=== PATIENT | male | born 1965 | race Hispanic/Latino ===

== ENCOUNTER 2016-06-20 02:04 | Emergency (ER) | payer MEDICAID ==
[2016-06-20 02:04] VITALS: BMI 31.7
[2016-06-20 02:18] VITALS: BP 116/71; PULSE 87; TEMP 98; O2SAT 98
[2016-06-20 03:22] VITALS: RESP 20
--- NOTE | 2016-06-20 04:14 | ED PDOC ---
HPI: SOB/CHF/COPD Time Seen by Provider: 06/20/16 02:22 Chief Complaint (Nursing): Shortness Of Breath Chief Complaint (Provider): wheezing History Per: Patient History/Exam Limitations: no limitations Onset/Duration Of Symptoms: Mins Current Symptoms Are (Timing): Better Additional Complaint(s): 51yo homeless male with PMHx including chronic emphysema presents to the ED with c/o wheezing. On arrival to ED, patient states he is feeling better. Of note, patient states he cannot get inhaler because insurance does not kick in for another week. Past Medical History Reviewed: Historical Data, Nursing Documentation, Vital Signs Vital Signs: Last Vital Signs Temp 98.0 F 06/20/16 02:14 Pulse 87 06/20/16 02:14 Resp 20 06/20/16 03:19 BP 116/71 06/20/16 02:14 Pulse Ox 98 06/20/16 04:19 - Medical History PMH: Anxiety, Arthritis, Back Problems (chronic back pain ), Bipolar Disorder, COPD, Depression, Emphysema, Fractures (skull, right arm, right pinky), HTN, Pneumonia, Sleep Apnea Denies: Chronic Kidney Disease - Surgical History Surgical History: Appendectomy, Hernia Repair (ventral), Tonsillectomy - Family History Family History: States: No Known Family Hx - Immunization History Hx Tetanus Toxoid Vaccination: Yes (UTD) Hx Influenza Vaccination: Yes Hx Pneumococcal Vaccination: No - Home Medications Home Medications: Ambulatory Orders Medication Instructions Recorded No Known Home Med 06/20/16 - Allergies Allergies/Adverse Reactions: Allergies Allergy/AdvReac Type Severity Reaction Status Date / Time No Known Allergies Allergy Verified 06/06/16 00:43 Review of Systems ROS Statement: Except As Marked, All Systems Reviewed And Found Negative Respiratory: Positive for: Wheezing Physical Exam - Reviewed Nursing Documentation Reviewed: Yes Vital Signs Reviewed: Yes - Physical Exam Appears: Positive for: Well, No Acute Distress Head Exam: Positive for: ATRAUMATIC, NORMAL INSPECTION, NORMOCEPHALIC Skin: Positive for: Normal Color, Warm, Dry Eye Exam: Positive for: Normal appearance, EOMI, PERRL ENT: Positive for: Normal ENT Inspection Neck: Positive for: Normal, Painless ROM, Supple Cardiovascular/Chest: Positive for: Regular Rate, Rhythm. Negative for: Tachycardia Respiratory: Positive for: Normal Breath Sounds. Negative for: Wheezing, Respiratory Distress Gastrointestinal/Abdominal: Positive for: Normal Exam, Bowel Sounds, Soft. Negative for: Tenderness Back: Positive for: Normal Inspection Extremity: Positive for: Normal ROM. Negative for: Deformity, Swelling Neurologic/Psych: Positive for: Alert, Oriented - ECG O2 Sat by Pulse Oximetry: 98 Pulse Ox Interpretation: Normal (RA) Medical Decision Making Medical Decision Makin: Impression: chronic emphysema Patient stable for d/c. Scribe Attestation: Documented by Kelly Franklin acting as a scribe for Pedro Pablo Lentz MD. Provider Scribe Attestation: All medical record entries made by the Scribe were at my direction and personally dictated by me. I have reviewed the chart and agree that the record accurately reflects my personal performance of the history, physical exam, medical decision making, and the department course for this patient. I have also personally directed, reviewed, and agree with the discharge instructions and disposition. Disposition - Clinical Impression Clinical Impression: COPD (chronic obstructive pulmonary disease) - Patient ED Disposition Is Patient to be Admitted: No - Disposition Referrals: [facility] [Outside] Disposition: Routine/Home Disposition Time: 04:00 Condition: STABLE Instructions: Emphysema (ED)
== END 2016-06-20 05:52 | disposition home or self-care (01) ==
LOC: H.ER 02:04
DX: J44.9 Chronic obstructive pulmonary disease, unspecified (principal); I10 Essential (primary) hypertension; F31.9 Bipolar disorder, unspecified; Z59.0 Homelessness

== ENCOUNTER 2016-06-23 03:53 | Emergency (ER) | payer MEDICAID ==
[2016-06-23 03:53] VITALS: BMI 31.7
[2016-06-23 04:17] VITALS: BP 118/80; PULSE 92; TEMP 98.6; O2SAT 98
[2016-06-23] MEDS ORDERED: Albuterol-Ipratrop 3 mg / 0.5 (3 ml) UD INH STA (04:19)
[2016-06-23] MEDS ORDERED: Albuterol-Ipratrop 3 mg / 0.5 (3 ml) UD ONE (04:37)
--- NOTE | 2016-06-23 05:41 | ED PDOC ---
HPI: SOB/CHF/COPD Time Seen by Provider: 06/23/16 03:54 Chief Complaint (Nursing): Respiratory Distress Chief Complaint (Provider): SOB History Per: Patient History/Exam Limitations: no limitations Onset/Duration Of Symptoms: Persistent Current Symptoms Are (Timing): Still Present Additional Complaint(s): Colby Vasquez is a 51 y/o male, with a past medical history of COPD, presenting to the ER with shortness of breath. Patient is well-known to the ED and the provider as being undomiciled and exhibiting bed-seeking behavior. Patient is non-compliant and smokes daily despite history of COPD. Offers no other medical complaints. Past Medical History Reviewed: Historical Data, Nursing Documentation, Vital Signs Vital Signs: Last Vital Signs Temp 98.6 F 06/23/16 04:15 Pulse 92 H 06/23/16 04:15 Resp 22 06/23/16 06:09 BP 118/80 06/23/16 04:15 Pulse Ox 98 06/23/16 05:43 - Medical History PMH: Anxiety, Arthritis, Back Problems (chronic back pain ), Bipolar Disorder, COPD, Depression, Emphysema, Fractures (skull, right arm, right pinky), HTN, Pneumonia, Sleep Apnea Denies: Chronic Kidney Disease - Surgical History Surgical History: Appendectomy, Hernia Repair (ventral), Tonsillectomy - Family History Family History: States: Unknown Family Hx - Social History Current smoker - smoking cessation education provided: Yes - Immunization History Hx Tetanus Toxoid Vaccination: Yes (UTD) Hx Influenza Vaccination: Yes Hx Pneumococcal Vaccination: No - Home Medications Home Medications: Ambulatory Orders Medication Instructions Recorded No Known Home Med 06/20/16 - Allergies Allergies/Adverse Reactions: Allergies Allergy/AdvReac Type Severity Reaction Status Date / Time No Known Allergies Allergy Verified 06/06/16 00:43 Review of Systems ROS Statement: Except As Marked, All Systems Reviewed And Found Negative Constitutional: Negative for: Fever Respiratory: Positive for: Shortness of Breath Physical Exam - Reviewed Nursing Documentation Reviewed: Yes Vital Signs Reviewed: Yes - Physical Exam Appears: Positive for: Non-toxic, No Acute Distress Head Exam: Positive for: ATRAUMATIC, NORMOCEPHALIC Skin: Positive for: Normal Color Eye Exam: Positive for: Normal appearance, EOMI, PERRL ENT: Positive for: Normal ENT Inspection. Negative for: Pharyngeal Erythema, Tonsillar Exudate, Tonsillar Swelling Neck: Positive for: Normal, Painless ROM, Supple Cardiovascular/Chest: Positive for: Regular Rate, Rhythm. Negative for: Murmur Respiratory: Positive for: Wheezing (bilat ) Gastrointestinal/Abdominal: Positive for: Normal Exam, Soft. Negative for: Tenderness Extremity: Positive for: Normal ROM. Negative for: Deformity Neurologic/Psych: Positive for: Alert, Oriented, Gait (steady). Negative for: Motor/Sensory Deficits - ECG O2 Sat by Pulse Oximetry: 98 Medical Decision Making Medical Decision Makin:54 Initial Impression- 51 y/o male with wheezing and SOB in setting of known COPD Initial Plan- * EKG * Duoneb 3 ml INH * Peak Flow * Re-eval 05:30 Pt was re-evaluated. Pt remained asymptomatic at present. Pt will be discharged routinely. Clinical dx- bed-seeking behavior. Documented by Eve Fountain, acting as a scribe for Lazaro Worrell MD. All medical record entries made by the Scribe were at my direction and personally dictated by me. I have reviewed the chart and agree that the record accurately reflects my personal performance of the history, physical exam, medical decision making, and the department course for this patient. I have also personally directed, reviewed, and agree with the discharge instructions and disposition. Disposition - Clinical Impression Clinical Impression: COPD (chronic obstructive pulmonary disease) - Disposition Referrals: FAMILY PROVIDER,NO [Primary Care Provider] - Disposition: Routine/Home Disposition Time: 05:30 Condition: STABLE Instructions: COPD (Chronic Obstructive Pulmonary Disease) (ED)
[2016-06-23 06:11] VITALS: RESP 22
--- NOTE | 2016-06-23 08:15 | CARD ---
APPROVED REPORT EKG Measurement Heart [id number] <Conclusion> Normal sinus rhythm Normal ECG
== END 2016-06-23 05:58 | disposition home or self-care (01) ==
LOC: H.ER 03:53
DX: J44.9 Chronic obstructive pulmonary disease, unspecified (principal); F31.9 Bipolar disorder, unspecified

== ENCOUNTER 2016-06-26 01:44 | Emergency (ER) | payer MEDICAID ==
[2016-06-23 23:57] VITALS: BMI 31.7
[2016-06-26 02:32] VITALS: BP 147/88; PULSE 84; RESP 17; TEMP 98.7; O2SAT 98
--- NOTE | 2016-06-26 03:36 | ED PDOC ---
HPI: SOB/CHF/COPD Time Seen by Provider: 06/26/16 03:00 Chief Complaint (Nursing): Chest Pain Chief Complaint (Provider): SOB History Per: Patient History/Exam Limitations: no limitations Onset/Duration Of Symptoms: Days (3) Current Symptoms Are (Timing): Still Present Additional Complaint(s): 51yo male with PMHx including COPD (active smoker) presents to the ED with c/o SOB x 3 days. Patient is well known to ED and this provider for exhibiting drug- seeking behavior and has had multiple visits in the past week. No other medical complaints. Past Medical History Reviewed: Historical Data, Nursing Documentation, Vital Signs Vital Signs: Last Vital Signs Temp 98.7 F 06/26/16 02:29 Pulse 84 06/26/16 03:28 Resp 17 06/26/16 02:29 BP 147/88 06/26/16 02:29 Pulse Ox 98 06/26/16 03:41 - Medical History PMH: Anxiety, Arthritis, Back Problems (chronic back pain ), Bipolar Disorder, COPD, Depression, Emphysema, Fractures (skull, right arm, right pinky), HTN, Pneumonia, Sleep Apnea Denies: Chronic Kidney Disease - Surgical History Surgical History: Appendectomy, Hernia Repair (ventral), Tonsillectomy - Family History Family History: States: No Known Family Hx - Social History Current smoker - smoking cessation education provided: Yes Alcohol: None Drugs: Denies - Immunization History Hx Tetanus Toxoid Vaccination: Yes (UTD) Hx Influenza Vaccination: Yes Hx Pneumococcal Vaccination: No - Home Medications Home Medications: Ambulatory Orders Medication Instructions Recorded Advair Diskus 100/50 06/24/16 Albuterol Sulfate [Proventil Hfa] 6.7 gm IH Q6 #1 hfa.aer.ad 06/24/16 Amoxicillin 06/24/16 Ibuprofen 06/24/16 Lexapro 06/24/16 Methylprednisolone [Medrol Dose 4 mg PO DAILY #21 mg 06/24/16 Pack (21 tabs)] traZODone 06/24/16 - Allergies Allergies/Adverse Reactions: Allergies Allergy/AdvReac Type Severity Reaction Status Date / Time No Known Allergies Allergy Verified 06/24/16 00:15 Review of Systems ROS Statement: Except As Marked, All Systems Reviewed And Found Negative Respiratory: Positive for: Shortness of Breath Physical Exam - Reviewed Nursing Documentation Reviewed: Yes Vital Signs Reviewed: Yes - Physical Exam Appears: Positive for: Well, No Acute Distress Head Exam: Positive for: ATRAUMATIC, NORMAL INSPECTION, NORMOCEPHALIC Skin: Positive for: Normal Color, Warm, Dry Cardiovascular/Chest: Positive for: Regular Rate, Rhythm. Negative for: Murmur , Tachycardia Respiratory: Positive for: Normal Breath Sounds. Negative for: Wheezing, Respiratory Distress Gastrointestinal/Abdominal: Positive for: Normal Exam. Negative for: Tenderness Extremity: Positive for: Normal ROM. Negative for: Deformity, Swelling Neurologic/Psych: Negative for: Alert (somnolent, but easily arousable. sitting in chair with all belongings.) - ECG ECG: Positive for: Interpreted By Me, Viewed By Me ECG Rhythm: Positive for: Sinus Rhythm (NSR at 70 bpm, no ST elevation ) O2 Sat by Pulse Oximetry: 98 Pulse Ox Interpretation: Normal (RA) Medical Decision Making Medical Decision Makin: Impression: shortness of breath eKG no acute ST elevations pt sleeping without complaints Plan: Patient is sleeping comfortably and is stable for d/c. Instructed to f/u w/ his PCP in 1-2 days and return to ED with any worsening or concerning symptoms. Scribe Attestation: Documented by Kelly Franklin acting as a scribe for Ladonna Carter MD. Provider Scribe Attestation: All medical record entries made by the Scribe were at my direction and personally dictated by me. I have reviewed the chart and agree that the record accurately reflects my personal performance of the history, physical exam, medical decision making, and the department course for this patient. I have also personally directed, reviewed, and agree with the discharge instructions and disposition. Disposition - Clinical Impression Clinical Impression: Shortness of breath - Patient ED Disposition Is Patient to be Admitted: No Counseled Patient/Family Regarding: Studies Performed, Diagnosis, Need For Followup - Disposition Referrals: [facility] [Outside] [facility] [Outside] Disposition: Routine/Home Disposition Time: 03:00 Condition: GOOD Additional Instructions: follow up with your primary doctor in 1-2 days. return to the ED with any worsening or concerning symptoms. Instructions: Chest Pain (ED)
--- NOTE | 2016-06-26 11:52 | CARD ---
APPROVED REPORT EKG Measurement Heart [id number] <Conclusion> Normal sinus rhythm Incomplete right bundle branch block Borderline ECG
== END 2016-06-26 03:39 | disposition home or self-care (01) ==
LOC: H.ER 01:44
DX: R07.9 Chest pain, unspecified (principal); R06.02 Shortness of breath; F31.9 Bipolar disorder, unspecified; I10 Essential (primary) hypertension

== ENCOUNTER 2016-06-29 04:40 | Emergency (ER) | payer MEDICAID ==
[2016-06-29 04:40] VITALS: BMI 31.7
[2016-06-29 04:51] VITALS: BP 138/87; PULSE 85; RESP 16; TEMP 97.1; O2SAT 96
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
== END 2016-06-29 06:05 | disposition home or self-care (01) ==
LOC: H.ER 04:40
DX: M54.9 Dorsalgia, unspecified (principal); I10 Essential (primary) hypertension; F31.9 Bipolar disorder, unspecified

== ENCOUNTER 2016-07-03 02:35 | Emergency (ER) | payer MEDICAID ==
[2016-07-03 02:35] VITALS: BMI 31.7
[2016-07-03 03:01] VITALS: BP 140/88; PULSE 89; TEMP 98.7
[2016-07-03] MEDS ORDERED: Albuterol-Ipratrop 3 mg / 0.5 (3 ml) UD INH STA (03:07)
--- NOTE | 2016-07-03 03:14 | ED PDOC ---
HPI: SOB/CHF/COPD Time Seen by Provider: 07/03/16 02:40 Chief Complaint (Nursing): Shortness Of Breath Chief Complaint (Provider): SOB History Per: Patient History/Exam Limitations: no limitations Onset/Duration Of Symptoms: Days Current Symptoms Are (Timing): Still Present Additional Complaint(s): 51yo male with PMHx including COPD presents to the ED with c/o SOB. Patient is well known to the ED and this provider as being undomiciled and exhibiting bed- seeking behavior. Patient is non-compliant and smokes daily despite hx of COPD. Offers no other medical complaints. Past Medical History Reviewed: Historical Data, Nursing Documentation, Vital Signs Vital Signs: Last Vital Signs Temp 98.7 F 07/03/16 02:56 Pulse 89 07/03/16 02:56 Resp 19 07/03/16 04:19 BP 140/88 07/03/16 02:56 Pulse Ox 96 07/03/16 04:19 - Medical History PMH: Anxiety, Arthritis, Back Problems (chronic back pain ), Bipolar Disorder, COPD, Depression, Emphysema, Fractures (skull, right arm, right pinky), HTN, Pneumonia, Sleep Apnea Denies: Chronic Kidney Disease - Surgical History Surgical History: Appendectomy, Hernia Repair (ventral), Tonsillectomy - Family History Family History: States: No Known Family Hx - Social History Current smoker - smoking cessation education provided: Yes - Immunization History Hx Tetanus Toxoid Vaccination: Yes (UTD) Hx Influenza Vaccination: Yes Hx Pneumococcal Vaccination: No - Home Medications Home Medications: Ambulatory Orders Medication Instructions Recorded Advair Diskus 100/50 06/24/16 Albuterol Sulfate [Proventil Hfa] 6.7 gm IH Q6 #1 hfa.aer.ad 06/24/16 Amoxicillin 06/24/16 Ibuprofen 06/24/16 Lexapro 06/24/16 Methylprednisolone [Medrol Dose 4 mg PO DAILY #21 mg 06/24/16 Pack (21 tabs)] traZODone 06/24/16 Butenafine HCl [Lotrimin Ultra] 0.5 gm TP BID #12 gm 06/29/16 - Allergies Allergies/Adverse Reactions: Allergies Allergy/AdvReac Type Severity Reaction Status Date / Time No Known Allergies Allergy Verified 06/24/16 00:15 Review of Systems ROS Statement: Except As Marked, All Systems Reviewed And Found Negative Respiratory: Positive for: Shortness of Breath Physical Exam - Reviewed Nursing Documentation Reviewed: Yes Vital Signs Reviewed: Yes - Physical Exam Appears: Positive for: Well, No Acute Distress Head Exam: Positive for: ATRAUMATIC, NORMAL INSPECTION, NORMOCEPHALIC Skin: Positive for: Normal Color, Warm, Dry Eye Exam: Positive for: Normal appearance ENT: Positive for: Normal ENT Inspection Neck: Positive for: Normal, Painless ROM, Supple Cardiovascular/Chest: Positive for: Regular Rate, Rhythm. Negative for: Murmur , Tachycardia Respiratory: Positive for: Wheezing (b/l ). Negative for: Respiratory Distress Gastrointestinal/Abdominal: Positive for: Normal Exam, Bowel Sounds, Soft. Negative for: Tenderness Back: Positive for: Normal Inspection Extremity: Positive for: Normal ROM. Negative for: Deformity, Swelling Neurologic/Psych: Positive for: Alert, Oriented - ECG O2 Sat by Pulse Oximetry: 98 Pulse Ox Interpretation: Normal (RA) Medical Decision Making Medical Decision Makin: Impression: 51yo male w/ wheezing and SOB in setting of known COPD Plan: EKG duoneb 3ml INH reassess 0538: Patient feels improved and is stable for d/c. Dx: COPD stable Scribe Attestation: Documented by Kelly Franklin acting as a scribe for Lazaro Worrell MD. Provider Scribe Attestation: All medical record entries made by the Scribe were at my direction and personally dictated by me. I have reviewed the chart and agree that the record accurately reflects my personal performance of the history, physical exam, medical decision making, and the department course for this patient. I have also personally directed, reviewed, and agree with the discharge instructions and disposition. Disposition - Clinical Impression Clinical Impression: COPD (chronic obstructive pulmonary disease) - Patient ED Disposition Is Patient to be Admitted: No - Disposition Disposition: Routine/Home Disposition Time: 05:39 Condition: STABLE Instructions: COPD (Chronic Obstructive Pulmonary Disease) (ED)
[2016-07-03] MEDS ORDERED: Albuterol-Ipratrop 3 mg / 0.5 (3 ml) UD ONE (04:04)
[2016-07-03 04:21] VITALS: RESP 19
[2016-07-03 05:39] VITALS: O2SAT 98
--- NOTE | 2016-07-03 18:24 | CARD ---
APPROVED REPORT EKG Measurement Heart [id number] <Conclusion> Normal sinus rhythm Normal ECG
== END 2016-07-03 06:37 | disposition home or self-care (01) ==
LOC: H.ER 02:35
DX: J44.9 Chronic obstructive pulmonary disease, unspecified (principal); F31.9 Bipolar disorder, unspecified; F41.9 Anxiety disorder, unspecified; I10 Essential (primary) hypertension; F17.200 Nicotine dependence, unspecified, uncomplicated

== ENCOUNTER 2016-07-05 01:40 | Emergency (ER) | payer MEDICAID ==
[2016-07-05 01:40] VITALS: BMI 31.7
[2016-07-05 02:04] VITALS: RESP 16; TEMP 98.8; O2SAT 95
[2016-07-05 02:25] VITALS: BP 139/76; PULSE 80
--- NOTE | 2016-07-05 03:26 | ED PDOC ---
HPI: SOB/CHF/COPD Time Seen by Provider: 07/05/16 02:00 Chief Complaint (Nursing): Chest Pain Chief Complaint (Provider): chest pain History Per: Patient History/Exam Limitations: no limitations Onset/Duration Of Symptoms: Days (1 ) Current Symptoms Are (Timing): Intermittent Episodes Recently: Seen In ED Additional Complaint(s): 51yo male with PMHx including COPD (active smoker) presents to the ED with c/o chest pain on and off for 1 day. Patient is well known to ED and this provider for exhibiting drug-seeking behavior and has had multiple visits in the past week. No other medical complaints. Past Medical History Reviewed: Historical Data, Nursing Documentation, Vital Signs Vital Signs: Last Vital Signs Temp 98.8 F 07/05/16 02:02 Pulse 80 07/05/16 02:23 Resp 16 07/05/16 02:02 BP 139/76 07/05/16 02:23 Pulse Ox 95 07/05/16 04:15 - Medical History PMH: Anxiety, Arthritis, Back Problems (chronic back pain ), Bipolar Disorder, COPD, Depression, Emphysema, Fractures (skull, right arm, right pinky), HTN, Pneumonia, Sleep Apnea Denies: Chronic Kidney Disease - Surgical History Surgical History: Appendectomy, Hernia Repair (ventral), Tonsillectomy - Family History Family History: States: Unknown Family Hx - Social History Current smoker - smoking cessation education provided: Yes Alcohol: None Drugs: Denies - Immunization History Hx Tetanus Toxoid Vaccination: Yes (UTD) Hx Influenza Vaccination: Yes Hx Pneumococcal Vaccination: No - Home Medications Home Medications: Ambulatory Orders Medication Instructions Recorded Advair Diskus 100/50 2 puff INH BID 06/24/16 Albuterol Sulfate [Proventil Hfa] 6.7 gm IH Q6 #1 hfa.aer.ad 06/24/16 Lexapro 10 mg PO DAILY 06/24/16 - Allergies Allergies/Adverse Reactions: Allergies Allergy/AdvReac Type Severity Reaction Status Date / Time No Known Allergies Allergy Verified 07/05/16 02:02 Review of Systems ROS Statement: Except As Marked, All Systems Reviewed And Found Negative Cardiovascular: Positive for: Chest Pain Physical Exam - Reviewed Nursing Documentation Reviewed: Yes Vital Signs Reviewed: Yes - Physical Exam Appears: Positive for: No Acute Distress (disheveled ) Head Exam: Positive for: ATRAUMATIC, NORMAL INSPECTION, NORMOCEPHALIC Neck: Positive for: Normal, Painless ROM, Supple Cardiovascular/Chest: Positive for: Regular Rate, Rhythm. Negative for: Murmur , Tachycardia Respiratory: Positive for: Normal Breath Sounds. Negative for: Wheezing, Respiratory Distress Gastrointestinal/Abdominal: Positive for: Normal Exam, Bowel Sounds, Soft. Negative for: Tenderness Extremity: Positive for: Normal ROM. Negative for: Deformity, Swelling Neurologic/Psych: Positive for: Alert, Oriented - ECG ECG: Positive for: Interpreted By Me, Viewed By Me ECG Rhythm: Positive for: Sinus Rhythm (NSR at 83 ) O2 Sat by Pulse Oximetry: 95 Pulse Ox Interpretation: Normal (RA) Medical Decision Making Medical Decision Makin: Impression: chest pain Plan: EKG reassess 5: Patient stable for d/c. Scribe Attestation: Documented by Kelly Franklin acting as a scribe for Ladonna Carter MD. Provider Scribe Attestation: All medical record entries made by the Scribe were at my direction and personally dictated by me. I have reviewed the chart and agree that the record accurately reflects my personal performance of the history, physical exam, medical decision making, and the department course for this patient. I have also personally directed, reviewed, and agree with the discharge instructions and disposition. Disposition - Clinical Impression Clinical Impression: Acute chest pain - Patient ED Disposition Is Patient to be Admitted: No - Disposition Referrals: Yennifer Hurley MD [Primary Care Provider] - Disposition: Routine/Home Disposition Time: 04:00 Condition: FAIR Additional Instructions: follow up with your doctor in 2 days. return to the ED with any worsening or concerning symptoms Instructions: Chest Pain (ED)
== END 2016-07-05 05:30 | disposition home or self-care (01) ==
LOC: H.ER 01:40
DX: R07.9 Chest pain, unspecified (principal); F31.9 Bipolar disorder, unspecified; F41.9 Anxiety disorder, unspecified; I10 Essential (primary) hypertension

== ENCOUNTER 2016-07-13 01:32 | Emergency (ER) | payer MEDICAID ==
[2016-07-13 01:33] VITALS: BMI 31.7
[2016-07-13] MEDS ORDERED: Albuterol-Ipratrop 3 mg / 0.5 (3 ml) UD INH STA ×2 (01:48→01:49)
[2016-07-13 01:49] VITALS: RESP 23; TEMP 99.2; O2SAT 92
[2016-07-13] MEDS ORDERED: Albuterol-Ipratrop 3 mg / 0.5 (3 ml) UD ONE (01:51)
--- NOTE | 2016-07-13 02:04 | ED PDOC ---
HPI: SOB/CHF/COPD Time Seen by Provider: 07/13/16 01:41 Chief Complaint (Nursing): Chest Pain Chief Complaint (Provider): SOB History Per: Patient History/Exam Limitations: no limitations Onset/Duration Of Symptoms: Hrs Current Symptoms Are (Timing): Still Present Additional Complaint(s): 51yo male with PMHx including COPD presents to the ED with c/o SOB. Patient is well known to the ED and this provider as being undomiciled and exhibiting bed- seeking behavior. Patient is non-compliant and smokes daily despite hx of COPD. Offers no other medical complaints. Past Medical History Reviewed: Historical Data, Nursing Documentation, Vital Signs Vital Signs: Last Vital Signs Temp 99.2 F 07/13/16 01:46 Pulse 83 07/13/16 02:16 Resp 23 07/13/16 01:46 BP 157/89 H 07/13/16 02:16 Pulse Ox 92 L 07/13/16 02:05 - Medical History PMH: Anxiety, Arthritis, Back Problems (chronic back pain ), Bipolar Disorder, COPD, Depression, Emphysema, Fractures (skull, right arm, right pinky), HTN, Pneumonia, Sleep Apnea Denies: Chronic Kidney Disease - Surgical History Surgical History: Appendectomy, Hernia Repair (ventral), Tonsillectomy - Family History Family History: States: No Known Family Hx - Social History Current smoker - smoking cessation education provided: Yes Alcohol: None Drugs: Denies - Immunization History Hx Tetanus Toxoid Vaccination: Yes (UTD) Hx Influenza Vaccination: Yes Hx Pneumococcal Vaccination: No - Home Medications Home Medications: Ambulatory Orders Medication Instructions Recorded Advair Diskus 100/50 2 puff INH BID 06/24/16 Albuterol Sulfate [Proventil Hfa] 6.7 gm IH Q6 #1 hfa.aer.ad 06/24/16 Lexapro 10 mg PO DAILY 06/24/16 - Allergies Allergies/Adverse Reactions: Allergies Allergy/AdvReac Type Severity Reaction Status Date / Time No Known Allergies Allergy Verified 07/05/16 02:02 Review of Systems ROS Statement: Except As Marked, All Systems Reviewed And Found Negative Respiratory: Positive for: Shortness of Breath Physical Exam - Reviewed Nursing Documentation Reviewed: Yes Vital Signs Reviewed: Yes - Physical Exam Appears: Positive for: Well, No Acute Distress Head Exam: Positive for: ATRAUMATIC, NORMAL INSPECTION, NORMOCEPHALIC Skin: Positive for: Normal Color, Warm, Dry Eye Exam: Positive for: Normal appearance, EOMI, PERRL ENT: Positive for: Normal ENT Inspection Neck: Positive for: Normal, Painless ROM, Supple Cardiovascular/Chest: Positive for: Regular Rate, Rhythm. Negative for: Murmur , Tachycardia Respiratory: Positive for: Wheezing (b/l ). Negative for: Respiratory Distress Gastrointestinal/Abdominal: Positive for: Normal Exam, Bowel Sounds, Soft. Negative for: Tenderness Back: Positive for: Normal Inspection Extremity: Positive for: Normal ROM. Negative for: Deformity, Swelling Neurologic/Psych: Positive for: Alert, Oriented - ECG O2 Sat by Pulse Oximetry: 92 Medical Decision Making Medical Decision Makin: Impression: 51yo male w/ wheezing and SOB in setting of known COPD Plan: EKG duoneb 3ml x2 INH reassess 0400: Patient feels improved after duoneb treatments and is stable for d/c. Dx: COPD stable Scribe Attestation: Documented by Kelly Franklin acting as a scribe for Lazaro Worrell MD. Provider Scribe Attestation: All medical record entries made by the Scribe were at my direction and personally dictated by me. I have reviewed the chart and agree that the record accurately reflects my personal performance of the history, physical exam, medical decision making, and the department course for this patient. I have also personally directed, reviewed, and agree with the discharge instructions and disposition. Disposition - Clinical Impression Clinical Impression: COPD (chronic obstructive pulmonary disease) - Patient ED Disposition Is Patient to be Admitted: No - Disposition Disposition: Routine/Home Disposition Time: 04:00 Condition: STABLE Instructions: COPD (Chronic Obstructive Pulmonary Disease) (ED)
[2016-07-13 02:26] VITALS: BP 157/89; PULSE 83
--- NOTE | 2016-07-15 05:49 | CARD ---
APPROVED REPORT EKG Measurement Heart [id number] <Conclusion> Normal sinus rhythm Normal ECG
== END 2016-07-13 06:00 | disposition home or self-care (01) ==
LOC: H.ER 01:32
DX: J44.9 Chronic obstructive pulmonary disease, unspecified (principal); R07.89 Other chest pain

== ENCOUNTER 2016-07-16 23:25 | Emergency (ER) | payer MEDICAID ==
[2016-07-16 23:25] VITALS: BMI 31.7
[2016-07-16 23:42] VITALS: TEMP 98
[2016-07-17] MEDS ORDERED: Albuterol-Ipratrop 3 mg / 0.5 (3 ml) UD INH STA (00:08)
[2016-07-17] MEDS: Albuterol-Ipratrop 3 mg / 0.5 (3 ml) UD INH STA ×2 (00:13→00:14)
--- NOTE | 2016-07-17 02:13 | ED PDOC ---
HPI: CCC, URI, Sore Throat Time Seen by Provider: 07/17/16 00:02 Chief Complaint (Nursing): Shortness Of Breath Chief Complaint (Provider): cough History Per: Patient History/Exam Limitations: no limitations Have you had recent travel within the past 21 days to any of the following countries: [place], [place], [place] or [place]?: No Onset/Duration Of Symptoms: Days Current Symptoms Are (Timing): Still Present Additional Complaint(s): 51yo male well known to ED and provider for homelessness, COPD (active smoker) presents to the ED with c/o cough productive of green phlegm. No fevers. Patient reports associated wheezing. Of note, patient is hypoxic at 92-93% but upon chart review patient has O2 sats in that range likely secondary to COPD. Past Medical History Reviewed: Historical Data, Nursing Documentation, Vital Signs Vital Signs: Last Vital Signs Temp 98.0 F 07/16/16 23:34 Pulse 76 07/17/16 04:45 Resp 20 07/17/16 04:45 BP 126/67 07/17/16 04:45 Pulse Ox 94 L 07/17/16 04:45 - Medical History PMH: Anxiety, Arthritis, Back Problems (chronic back pain ), Bipolar Disorder, COPD, Depression, Emphysema, Fractures (skull, right arm, right pinky), HTN, Pneumonia, Sleep Apnea Denies: Chronic Kidney Disease - Surgical History Surgical History: Appendectomy, Hernia Repair (ventral), Tonsillectomy - Family History Family History: States: Unknown Family Hx - Social History Current smoker - smoking cessation education provided: Yes - Immunization History Hx Tetanus Toxoid Vaccination: Yes (UTD) Hx Influenza Vaccination: Yes Hx Pneumococcal Vaccination: No - Home Medications Home Medications: Ambulatory Orders Medication Instructions Recorded Advair Diskus 100/50 2 puff INH BID 06/24/16 Albuterol Sulfate [Proventil Hfa] 6.7 gm IH Q6 #1 hfa.aer.ad 06/24/16 Lexapro 10 mg PO DAILY 06/24/16 Albuterol HFA [Ventolin HFA 90 2 puff IH [id number] #1 puff 07/15/16 mcg/actuation (8 g)] predniSONE [predniSONE Tab] 60 mg PO DAILY #9 tab 07/17/16 - Allergies Allergies/Adverse Reactions: Allergies Allergy/AdvReac Type Severity Reaction Status Date / Time No Known Allergies Allergy Verified 07/16/16 23:34 Review of Systems ROS Statement: Except As Marked, All Systems Reviewed And Found Negative Constitutional: Negative for: Fever Respiratory: Positive for: Cough, Wheezing Physical Exam - Reviewed Nursing Documentation Reviewed: Yes Vital Signs Reviewed: Yes - Physical Exam Appears: Positive for: No Acute Distress (disheveled ) Head Exam: Positive for: ATRAUMATIC, NORMAL INSPECTION, NORMOCEPHALIC Skin: Positive for: Normal Color, Warm, Dry Eye Exam: Positive for: Normal appearance, EOMI, PERRL ENT: Positive for: Normal ENT Inspection Neck: Positive for: Normal, Painless ROM, Supple Cardiovascular/Chest: Positive for: Regular Rate, Rhythm. Negative for: Murmur , Tachycardia Respiratory: Positive for: Wheezing (b/l ). Negative for: Respiratory Distress Gastrointestinal/Abdominal: Positive for: Normal Exam, Bowel Sounds, Soft. Negative for: Tenderness Back: Positive for: Normal Inspection Extremity: Positive for: Normal ROM. Negative for: Deformity, Swelling Neurologic/Psych: Positive for: Alert, Oriented - ECG O2 Sat by Pulse Oximetry: 99 Pulse Ox Interpretation: Normal Medical Decision Making Medical Decision Makin: Impression: COPD Plan: CXR duoneb 3ml INH x2, prednisone 60mg PO reassess 630aM: Pt. breathing better, will d/c home w/ prednisone. REturn precautions given. Scribe Attestation: Documented by Kelly Franklin acting as a scribe for Pedro Pablo Lentz MD. Provider Scribe Attestation: All medical record entries made by the Scribe were at my direction and personally dictated by me. I have reviewed the chart and agree that the record accurately reflects my personal performance of the history, physical exam, medical decision making, and the department course for this patient. I have also personally directed, reviewed, and agree with the discharge instructions and disposition. Disposition - Clinical Impression Clinical Impression: COPD (chronic obstructive pulmonary disease) - Patient ED Disposition Is Patient to be Admitted: No - Disposition Disposition: Routine/Home Disposition Time: 06:29 Condition: STABLE Prescriptions: predniSONE [predniSONE Tab] 60 mg PO DAILY #9 tab Instructions: COPD (Chronic Obstructive Pulmonary Disease) (DC)
[2016-07-17 04:46] VITALS: BP 126/67; PULSE 76; RESP 20
[2016-07-17 06:30] VITALS: O2SAT 99
--- NOTE | 2016-07-17 08:44 | RAD ---
HISTORY: cough, green phlegm, r/o PNA COMPARISON: 06/15/2016. TECHNIQUE: Chest PA and lateral FINDINGS: LUNGS: Hyperinflation, manifestations of COPD. No active pulmonary disease. Stable interstitial lung disease. PLEURA: No significant pleural effusion identified. No pneumothorax apparent. CARDIOVASCULAR: Normal. OSSEOUS STRUCTURES: No significant abnormalities. VISUALIZED UPPER ABDOMEN: Normal. OTHER FINDINGS: None. IMPRESSION: No active disease. No significant interval change compared to the prior examination(s).
== END 2016-07-17 06:44 | disposition home or self-care (01) ==
LOC: H.ER 23:25
DX: J44.9 Chronic obstructive pulmonary disease, unspecified (principal); R05 Cough; Z59.0 Homelessness; G89.29 Other chronic pain; F31.9 Bipolar disorder, unspecified; F41.9 Anxiety disorder, unspecified; I10 Essential (primary) hypertension; G47.30 Sleep apnea, unspecified

== ENCOUNTER 2016-07-24 01:57 | Observation (INO) | payer MEDICAID ==
[2016-07-24 01:57] VITALS: BMI 31.7
[2016-07-24 02:12] VITALS: BP 145/92; PULSE 92; RESP 16; TEMP 98.3; O2SAT 95
[2016-07-24] MEDS ORDERED: Albuterol-Ipratrop 3 mg / 0.5 (3 ml) UD INH STA ×2 (02:19)
[2016-07-24] MEDS ORDERED: Albuterol-Ipratrop 3 mg / 0.5 (3 ml) UD ONE (02:29)
--- NOTE | 2016-07-24 02:46 | ED PDOC ---
HPI: SOB/CHF/COPD Time Seen by Provider: 07/24/16 02:00 Chief Complaint (Nursing): Respiratory Distress Chief Complaint (Provider): SOB History Per: Patient History/Exam Limitations: no limitations Onset/Duration Of Symptoms: Hrs Current Symptoms Are (Timing): Still Present Additional Complaint(s): 51yo male well known to ED for homelessness and COPD presents to the ED for evaluation of chronic SOB. Admits to drinking alcohol today. Denies any other medical complaints. Past Medical History Reviewed: Historical Data, Nursing Documentation, Vital Signs Vital Signs: Last Vital Signs Temp 98.3 F 07/24/16 02:07 Pulse 92 H 07/24/16 02:07 Resp 16 07/24/16 02:07 BP 145/92 H 07/24/16 02:07 Pulse Ox 95 07/24/16 06:19 - Medical History PMH: Anxiety, Arthritis, Back Problems (chronic back pain ), Bipolar Disorder, COPD, Depression, Emphysema, Fractures (skull, right arm, right pinky), HTN, Pneumonia, Sleep Apnea Denies: Chronic Kidney Disease - Surgical History Surgical History: Appendectomy, Hernia Repair (ventral), Tonsillectomy - Family History Family History: States: No Known Family Hx - Social History Current smoker - smoking cessation education provided: Yes - Immunization History Hx Tetanus Toxoid Vaccination: Yes (UTD) Hx Influenza Vaccination: Yes Hx Pneumococcal Vaccination: No - Home Medications Home Medications: Ambulatory Orders Medication Instructions Recorded Advair Diskus 100/50 2 puff INH BID 06/24/16 Albuterol HFA [Ventolin HFA 90 2 puff IH [id number] #1 puff 07/15/16 mcg/actuation (8 g)] - Allergies Allergies/Adverse Reactions: Allergies Allergy/AdvReac Type Severity Reaction Status Date / Time No Known Allergies Allergy Verified 07/23/16 02:36 Review of Systems ROS Statement: Except As Marked, All Systems Reviewed And Found Negative Respiratory: Positive for: Shortness of Breath Physical Exam - Reviewed Nursing Documentation Reviewed: Yes Vital Signs Reviewed: Yes - Physical Exam Appears: Positive for: No Acute Distress (disheveled, unkempt, obese ) Head Exam: Positive for: ATRAUMATIC, NORMAL INSPECTION, NORMOCEPHALIC Skin: Positive for: Normal Color, Warm, Dry Eye Exam: Positive for: Normal appearance ENT: Positive for: Normal ENT Inspection Neck: Positive for: Normal, Painless ROM, Supple Cardiovascular/Chest: Positive for: Regular Rate, Rhythm. Negative for: Murmur , Tachycardia Respiratory: Positive for: Wheezing (b/l ). Negative for: Respiratory Distress Gastrointestinal/Abdominal: Positive for: Normal Exam, Bowel Sounds, Soft. Negative for: Tenderness Back: Positive for: Normal Inspection. Negative for: L CVA Tenderness, R CVA Tenderness Extremity: Positive for: Normal ROM. Negative for: Deformity, Swelling Neurologic/Psych: Positive for: Alert, Oriented - ECG O2 Sat by Pulse Oximetry: 95 Pulse Ox Interpretation: Normal Medical Decision Making Medical Decision Makin: Impression: homelessness and COPD Plan: alc serum duoneb 3ml INH x 2 ED obs reassess 0618: Patient feels better and stable for d/c. Return precautions given. Scribe Attestation: Documented by Kelly Franklin acting as a scribe for Pedro Pablo Lentz MD. Provider Scribe Attestation: All medical record entries made by the Scribe were at my direction and personally dictated by me. I have reviewed the chart and agree that the record accurately reflects my personal performance of the history, physical exam, medical decision making, and the department course for this patient. I have also personally directed, reviewed, and agree with the discharge instructions and disposition. ED OBSERVATION Date of observation admission: 07/24/16 Time of observation admission: 02:20 - Observation admission statement Patient is being placed in observation because:: ETOH - Goals of Observation Goals of observation are:: pending sobriety Disposition - Clinical Impression Clinical Impression: COPD exacerbation - Patient ED Disposition Is Patient to be Admitted: No - Disposition Disposition: Routine/Home Disposition Time: 06:18 Condition: STABLE
== END 2016-07-24 06:18 | disposition home or self-care (01) ==
LOC: H.ER 01:57 → H.EROBSV 02:20
PROVIDERS: ADMIT Emergency Medicine; ATTEND Emergency Medicine
DX: J44.1 Chronic obstructive pulmonary disease with (acute) exacerbation (principal); Z59.0 Homelessness; I10 Essential (primary) hypertension; G47.30 Sleep apnea, unspecified; F31.9 Bipolar disorder, unspecified; F17.200 Nicotine dependence, unspecified, uncomplicated; Z79.51 Long term (current) use of inhaled steroids; G89.29 Other chronic pain; M54.9 Dorsalgia, unspecified

== ENCOUNTER 2016-07-31 23:48 | Observation (INO) | payer MEDICAID ==
[2016-07-31 23:48] VITALS: BMI 31.7
[2016-08-01] MEDS ORDERED: Albuterol-Ipratrop 3 mg / 0.5 (3 ml) UD INH STA ×3 (00:01→00:17)
[2016-08-01] MEDS ORDERED: Magnesium Sulfate 2 gm/50 ml 2 GM/50 ML BAG IV STA (00:18)
[2016-08-01] MEDS ORDERED: Magnesium Sulfate 2 gm/50 ml 2 GM/50 ML BAG ONE (00:24)
[2016-08-01] MEDS ORDERED: Albuterol-Ipratrop 3 mg / 0.5 (3 ml) UD ONE (00:24)
--- NOTE | 2016-08-01 00:36 | ED PDOC ---
HPI: SOB/CHF/COPD Time Seen by Provider: 07/31/16 23:52 Chief Complaint (Nursing): Shortness Of Breath Chief Complaint (Provider): Wheezing History Per: Patient History/Exam Limitations: no limitations Onset/Duration Of Symptoms: Hrs Current Symptoms Are (Timing): Still Present Additional Complaint(s): 51yo male with PMHx including COPD presents to the ED with c/o SOB. Patient is well known to the ED and this provider as being undomiciled and exhibiting bed- seeking behavior. Patient is non-compliant and smokes daily despite hx of COPD. Offers no other medical complaints. The patient reports that he has not used his pump. He was given albuterol by the EMS. Past Medical History Reviewed: Historical Data, Nursing Documentation, Vital Signs Vital Signs: Last Vital Signs Temp 96.7 F L 07/31/16 23:52 Pulse 76 07/31/16 23:52 Resp 19 07/31/16 23:52 BP 113/63 07/31/16 23:52 Pulse Ox 98 08/01/16 03:00 - Medical History PMH: Anxiety, Arthritis, Back Problems (chronic back pain ), Bipolar Disorder, COPD, Depression, Emphysema, Fractures (skull, right arm, right pinky), HTN, Pneumonia, Sleep Apnea Denies: Chronic Kidney Disease - Surgical History Surgical History: Appendectomy, Hernia Repair (ventral), Tonsillectomy - Family History Family History: States: No Known Family Hx - Social History Current smoker - smoking cessation education provided: Yes Alcohol: Occasional - Immunization History Hx Tetanus Toxoid Vaccination: Yes (UTD) Hx Influenza Vaccination: Yes Hx Pneumococcal Vaccination: No - Home Medications Home Medications: Ambulatory Orders Medication Instructions Recorded Advair Diskus 100/50 2 puff INH BID 06/24/16 Albuterol HFA [Ventolin HFA 90 2 puff IH [id number] #1 puff 07/15/16 mcg/actuation (8 g)] - Allergies Allergies/Adverse Reactions: Allergies Allergy/AdvReac Type Severity Reaction Status Date / Time No Known Allergies Allergy Verified 07/31/16 23:55 Review of Systems ROS Statement: Except As Marked, All Systems Reviewed And Found Negative Respiratory: Positive for: Shortness of Breath, Wheezing Physical Exam - Reviewed Nursing Documentation Reviewed: Yes Vital Signs Reviewed: Yes - Physical Exam Appears: Positive for: Well, In Acute Distress (mild respiratory ) Head Exam: Positive for: ATRAUMATIC, NORMAL INSPECTION, NORMOCEPHALIC Skin: Positive for: Normal Color, Warm, Dry Eye Exam: Positive for: Normal appearance, EOMI, PERRL ENT: Positive for: Normal ENT Inspection Neck: Positive for: Normal, Painless ROM, Supple Cardiovascular/Chest: Positive for: Regular Rate, Rhythm. Negative for: Murmur , Tachycardia Respiratory: Positive for: Wheezing (full field wheezing), Respiratory Distress (mild respiratory distress) Gastrointestinal/Abdominal: Positive for: Normal Exam, Soft. Negative for: Tenderness Back: Positive for: Normal Inspection Extremity: Positive for: Normal ROM. Negative for: Tenderness, Deformity, Swelling Neurologic/Psych: Positive for: Alert, Oriented - Laboratory Results Result Diagrams: 08/01/16 00:45 08/01/16 00:45 - ECG O2 Sat by Pulse Oximetry: 98 (RA) Pulse Ox Interpretation: Normal - Critical Care Total Time (In Min): 30 Medical Decision Making Medical Decision Makin:52 Initial impression: 51 year old male w/ wheezing and SOB in setting of known COPD. Initial plan: * EKG * Alcohol serum * CMP * Drug screen * CBC * Duoneb 3ml INH x3 * Magnesium sulfate 2gm/50mL water IV * CXR 0145: Labs reviewed, show no clinically significant abnormalities with exception of mild elevation of blood alcohol level. The patient shows mild improvement but has persistent wheezing. Chest X-ray shows no acute disease. Patient will be placed on observation status. Dx: asthma/COPD exacerbation Condition: fair Case referred to Dr. Mulligan(Medical service) Scribe Attestation Documented by Quynh Hayward training under Bear Franklin acting as a scribe for Anaid Sy MD. Provider Attestation: All medical record entries made by the Scribe were at my direction and personally dictated by me. I have reviewed the chart and agree that the record accurately reflects my personal performance of the history, physical exam, medical decision making, and the department course for this patient. I have also personally directed, reviewed, and agree with the discharge instructions and disposition. Disposition - Clinical Impression Clinical Impression: COPD exacerbation - Disposition Disposition Time: 01:45 Condition: FAIR - Pt Status Changed To: Hospital Disposition Of: Observation
[2016-08-01 00:48] LABS: BASO # 0.1 K/uL (0.0-0.2); BASO % 1.1 % (0.0-2.0); EOS # 0.3 K/uL (0.0-0.7); EOS % 3.8 % (0.0-4.0); HEMATOCRIT 50.2 % (35.0-51.0); LYMPH # 2.4 K/uL (1.0-4.3); LYMPH % 31.2 % (20.0-40.0); MEAN CELL VOLUME 97.1 fl (80.0-94.0); MEAN CORPUSCULAR HEMOGLOBIN 32.6 pg (27.0-31.0); MEAN CORPUSCULAR HGB CONC 33.6 g/dL (33.0-37.0); MEAN PLATELET VOLUME 8.2 fl (7.2-11.7); MONO # 0.9 K/uL (0.0-0.8); MONO % 11.4 % (0.0-10.0); NEUT % 52.5 % (50.0-75.0); NRBC % 0.1 % (0.0-0.0); RED CELL DISTRIBUTION WIDTH 14.1 % (11.5-14.5); WHITE BLOOD COUNT 7.7 K/uL (4.8-10.8)
[2016-08-01 01:03] LABS: ALB/GLOB RATIO 1.2 (1.0-2.1); ALCOHOL SERUM 134 mg/dl (0-10); ALKALINE PHOSPHATASE 94 U/L (38-126); ALT/SGPT 68 U/L (21-72); AST/SGOT 47 U/L (17-59); BILIRUBIN,TOTAL 0.5 mg/dl (0.2-1.3); BLOOD UREA NITROGEN 16 mg/dl (9-20); CALCIUM 9.1 mg/dL (8.4-10.2); CARBON DIOXIDE 28 mmol/L (22-30); CHLORIDE 102 mmol/L (98-107); GFR AFRICAN-AMERICAN > 60; GLUCOSE,RANDOM 138 mg/dL (75-110); SODIUM 140 mmol/l (132-148); TOTAL PROTEIN 6.6 G/DL (6.3-8.2)
[2016-08-01] MEDS: methylPREDNISolone 40 MG in Sodium Chloride 0.9% 50 ML IVPB SCH ×2 (04:45→09:32)
[2016-08-01 05:22] VITALS: RESP 20
[2016-08-01] MEDS: Ipratropium 0.02% Inhal Soln (0.5 mg/2.5 ml) UD IH SCH ×4 (05:49→15:50)
[2016-08-01] MEDS: Albuterol 0.083% Inhal Sol (2.5 mg/3 mL) UD INH SCH ×4 (05:49→15:45)
[2016-08-01] MEDS ORDERED: Multivitamin (MVI) 10 ML, Folic Acid 1 MG, Thiamine 100 MG in Dextrose 5%/0.45% NS 1,00... IV ONE (08:08)
--- NOTE | 2016-08-01 08:43 | RAD ---
HISTORY: SOB COMPARISON: Comparison is made to the previous study dated 07/17/2016 FINDINGS: LUNGS: Interval mild worsening of reticular opacities at the mid and lower lungs may represent worsening pulmonary vascular congestion. PLEURA: No significant pleural effusion identified, no pneumothorax apparent. CARDIOVASCULAR: Normal. OSSEOUS STRUCTURES: No significant abnormalities. VISUALIZED UPPER ABDOMEN: Normal. OTHER FINDINGS: None. IMPRESSION: Possible mild interval worsening of pulmonary vascular congestion.
[2016-08-01] MEDS ORDERED: Enoxaparin 40 mg Syringe SC SCH (09:00)
[2016-08-01] MEDS ORDERED: Fluticasone-Salmeterol 250-50mcg Diskus IH SCH (09:00)
[2016-08-01] MEDS ORDERED: ADVAIR INH SCH (09:00)
[2016-08-01] MEDS ORDERED: ACLIDINIUM BROMIDE INH SCH (09:00)
--- NOTE | 2016-08-01 10:08 | CARD ---
APPROVED REPORT EKG Measurement Heart [id number] <Conclusion> Normal sinus rhythm Normal ECG
--- NOTE | 2016-08-01 12:14 | CP.PCM.HP ---
History of Present Illness - History of Present Illness History of Present Illness: 49yo M with PMHx sleep apnea, emphysema, asthma, COPD, and depression admitted for asthma/COPD exacerbation. SOB x4 days while at rest. Current smoker 1.5-2 ppd x30 years. Chronic productive cough, clear sputum. Denies fever, chills, H/A , n/v, chest pain, wheezing. Denies using home oxygen. Denies h/o intubation. Not compliant with medications PMHx; Emphysema, Sleep Apnea, Depression, Arthritis (Back and Neck problems) Surgrical Hx: appendectomy, skull fracture surgery Allergies: NKDA Medications: Advar 250/50, Albuterol, Wellbutrin, and Lexapro Social Hx: 1.5-2 ppd x30 years, denies EtOH, denies illict drugs Family Hx; DM- Dad PMD: Dr. Finney Present on Admission - Present on Admission Any Indicators Present on Admission: No Review of Systems - Constitutional Constitutional: absent: Chills, Fever - EENT Nose/Mouth/Throat: absent: Nasal Congestion - Cardiovascular Cardiovascular: absent: Chest Pain - Respiratory Respiratory: Dyspnea. absent: Hemoptysis, Excessive Mucous Production, Change in Mucous Color - Gastrointestinal Gastrointestinal: absent: Abdominal Pain, Diarrhea, Nausea, Vomiting - Genitourinary Genitourinary: absent: Dysuria, Hematuria - Musculoskeletal Musculoskeletal: absent: Back Pain - Neurological Neurological: absent: Headaches Past Patient History - Infectious Disease Hx of Infectious Diseases: None - Tetanus Immunizations Tetanus Immunization: Unknown - Past Medical History & Family History Past Medical History?: Yes - Past Social History Smoking Status: Heavy Smoker > 10 Cigarettes Daily - CARDIAC Hx Cardiac Disorders: Yes Hx Hypertension: Yes - PULMONARY Hx Respiratory Disorders: Yes Hx Chronic Obstructive Pulmonary Disease (COPD): Yes Hx Emphysema: Yes Hx Sleep Apnea: Yes - NEUROLOGICAL Hx Neurological Disorder: No - HEENT Hx HEENT Problems: No - RENAL Hx Chronic Kidney Disease: No - ENDOCRINE/METABOLIC Hx Endocrine Disorders: No - HEMATOLOGICAL/ONCOLOGICAL Hx Blood Disorders: No - INTEGUMENTARY Hx Dermatological Problems: No - MUSCULOSKELETAL/RHEUMATOLOGICAL Hx Falls: Yes - GASTROINTESTINAL Hx Gastrointestinal Disorders: No - GENITOURINARY/GYNECOLOGICAL Hx Genitourinary Disorders: No - PSYCHIATRIC Hx Anxiety: Yes Hx Bipolar Disorder: Yes Hx Depression: Yes Hx Substance Use: Yes - SURGICAL HISTORY Hx Appendectomy: Yes Hx Herniorrhaphy: Yes Hx Tonsillectomy: Yes - ANESTHESIA Hx Anesthesia: Yes Hx Anesthesia Reactions: No Meds Allergies/Adverse Reactions: Allergies Allergy/AdvReac Type Severity Reaction Status Date / Time No Known Allergies Allergy Verified 07/31/16 23:55 Physical Exam - Constitutional Appears: Non-toxic, No Acute Distress - Head Exam Head Exam: NORMAL INSPECTION - Eye Exam Eye Exam: Normal appearance - ENT Exam ENT Exam: Mucous Membranes Moist - Neck Exam Neck exam: Positive for: Normal Inspection - Respiratory Exam Respiratory Exam: Wheezes - Cardiovascular Exam Cardiovascular Exam: REGULAR RHYTHM - GI/Abdominal Exam GI & Abdominal Exam: Normal Bowel Sounds, Soft - Extremities Exam Extremities exam: Positive for: pedal edema (trace) - Neurological Exam Neurological exam: Alert, Oriented x3 - Skin Skin Exam: Dry, Warm Results - Vital Signs Recent Vital Signs: Last Vital Signs Temp 98.3 F 08/01/16 08:19 Pulse 93 H 08/01/16 08:19 Resp 20 08/01/16 08:19 BP 163/91 H 08/01/16 08:19 Pulse Ox 96 08/01/16 08:19 - Labs Result Diagrams: 08/01/16 00:45 08/01/16 00:45 Labs: Laboratory Results - last 24 hr 08/01/16 04:31 Urine Opiates Screen Negative Urine Methadone Screen Negative Ur Barbiturates Screen Negative Ur Phencyclidine Scrn Negative Ur Amphetamines Screen Negative U Benzodiazepines Scrn Negative U Oth Cocaine Metabols Negative U Cannabinoids Screen Positive H Assessment & Plan - Assessment and Plan (Free Text) Assessment: 49yo M with PMHx sleep apnea, emphysema, asthma, COPD, and depression admitted for asthma/COPD exacerbation. asthma exacerbation -albuterol -IV steroids -depo medrol 80mg IM x1 prior to d/c -c/w advair, atrovent EtOH withdrawal -elevated alcohol quant -banana bag x1 -librium, ativan prn -CIWA protocol DVT ppx -lovenox Decision To Admit - Pt Status Changed To: Hospital Disposition Of: Observation - . Bed Request Type: Telemetry Admitting Physician: Donovan Mulligan
--- NOTE | 2016-08-01 12:29 | CP.PCM.DIS ---
Provider - Provider Date of Admission: 08/01/16 02:07 Attending physician: Donovan Mulligan MD Time Spent in preparation of Discharge (in minutes): 20 Diagnosis - Discharge Diagnosis (1) Asthma exacerbation in COPD Status: Acute Hospital Course - Lab Results Lab Results: Most Recent Lab Values WBC 7.7 K/uL (4.8-10.8) 08/01/16 00:45 RBC 5.17 Mil/uL (4.40-5.90) 08/01/16 00:45 Hgb 16.9 g/dL (12.0-18.0) 08/01/16 00:45 Hct 50.2 % (35.0-51.0) 08/01/16 00:45 MCV 97.1 fl (80.0-94.0) H 08/01/16 00:45 MCH 32.6 pg (27.0-31.0) H 08/01/16 00:45 MCHC 33.6 g/dL (33.0-37.0) 08/01/16 00:45 RDW 14.1 % (11.5-14.5) 08/01/16 00:45 Plt Count 196 K/uL (130-400) 08/01/16 00:45 MPV 8.2 fl (7.2-11.7) 08/01/16 00:45 Neut % (Auto) 52.5 % (50.0-75.0) 08/01/16 00:45 Lymph % (Auto) 31.2 % (20.0-40.0) 08/01/16 00:45 Hayes % (Auto) 11.4 % (0.0-10.0) H 08/01/16 00:45 Eos % (Auto) 3.8 % (0.0-4.0) 08/01/16 00:45 Baso % (Auto) 1.1 % (0.0-2.0) 08/01/16 00:45 Neut # 4.0 K/uL (1.8-7.0) 08/01/16 00:45 Lymph # 2.4 K/uL (1.0-4.3) 08/01/16 00:45 Hayes # 0.9 K/uL (0.0-0.8) H 08/01/16 00:45 Eos # 0.3 K/uL (0.0-0.7) 08/01/16 00:45 Baso # 0.1 K/uL (0.0-0.2) 08/01/16 00:45 Sodium 140 mmol/l (132-148) 08/01/16 00:45 Potassium 4.0 MMOL/L (3.6-5.0) 08/01/16 00:45 Chloride 102 mmol/L (98-107) 08/01/16 00:45 Carbon Dioxide 28 mmol/L (22-30) 08/01/16 00:45 Anion Gap 14 (10-20) 08/01/16 00:45 BUN 16 mg/dl (9-20) 08/01/16 00:45 Creatinine 0.7 mg/dL (0.8-1.5) L 08/01/16 00:45 Est GFR ( Amer) > 60 05 00:45 Est GFR (Non-Af Amer) > 60 08/01/16 00:45 Random Glucose 138 mg/dL (75-110) H 08/01/16 00:45 Calcium 9.1 mg/dL (8.4-10.2) 08/01/16 00:45 Total Bilirubin 0.5 mg/dl (0.2-1.3) 08/01/16 00:45 AST 47 U/L (17-59) 08/01/16 00:45 ALT 68 U/L (21-72) 08/01/16 00:45 Alkaline Phosphatase 94 U/L (38-126) 08/01/16 00:45 Total Protein 6.6 G/DL (6.3-8.2) 08/01/16 00:45 Albumin 3.6 g/dL (3.5-5.0) 08/01/16 00:45 Globulin 3.0 gm/dL (2.2-3.9) 08/01/16 00:45 Albumin/Globulin Ratio 1.2 (1.0-2.1) 08/01/16 00:45 Urine Opiates Screen Negative (NEGATIVE) 08/01/16 04:31 Urine Methadone Screen Negative (NEGATIVE) 08/01/16 04:31 Ur Barbiturates Screen Negative (NEGATIVE) 08/01/16 04:31 Ur Phencyclidine Scrn Negative (NEGATIVE) 08/01/16 04:31 Ur Amphetamines Screen Negative (NEGATIVE) 08/01/16 04:31 U Benzodiazepines Scrn Negative (NEGATIVE) 08/01/16 04:31 U Oth Cocaine Metabols Negative (NEGATIVE) 08/01/16 04:31 U Cannabinoids Screen Positive (NEGATIVE) H 08/01/16 04:31 Alcohol, Quantitative 134 mg/dl (0-10) H 08/01/16 00:45 - Hospital Course Hospital Course: 49yo M with PMHx sleep apnea, emphysema, asthma, COPD, and depression admitted for asthma/COPD exacerbation. Pt tolerated IV steroids and administered IM steroid prior to d/c. Breathing treaments included albuterol on the RMF and duonebs x3 in the ED. Mg 2gm IV x1 in the ED as well. Pt continued to have wheezing with increased movement of air in the lung lion at time of d/c but feeling ready for d/c. EtOH withdrawal protocol was in place given elevated alcohol level.Pt stable at time of d/c. Discharge Exam - Head Exam Head Exam: NORMAL INSPECTION Discharge Plan - Follow Up Plan Condition: FAIR Disposition: HOME/ ROUTINE Instructions: COPD (Chronic Obstructive Pulmonary Disease) (DC) Additional Instructions: Follow up with PCP within 1 week
[2016-08-01] MEDS ORDERED: methylPREDNISolone Depo 80 mg/ml Inj IM ONE (14:00)
[2016-08-01 15:51] VITALS: BP 162/82; PULSE 89; TEMP 98.5; O2SAT 96
== END 2016-08-01 16:00 | disposition home or self-care (01) ==
LOC: H.ER 23:48 → H.ERHOLD 08-01 02:07 → H.TEL 08-01 04:46
PROVIDERS: ADMIT Internal Medicine; ATTEND Internal Medicine
DX: J45.901 Unspecified asthma with (acute) exacerbation (principal); J44.9 Chronic obstructive pulmonary disease, unspecified; Z91.14 Patient's other noncompliance with medication regimen; F17.200 Nicotine dependence, unspecified, uncomplicated; F41.9 Anxiety disorder, unspecified; G89.29 Other chronic pain; F31.9 Bipolar disorder, unspecified; I10 Essential (primary) hypertension; G47.30 Sleep apnea, unspecified; F10.239 Alcohol dependence with withdrawal, unspecified; Y90.6 Blood alcohol level of 120-199 mg/100 ml

== ENCOUNTER 2016-08-10 23:05 | Observation (INO) | payer MEDICAID ==
[2016-08-10 23:06] VITALS: BMI 31.7
[2016-08-10 23:20] VITALS: BP 130/86; RESP 22; TEMP 98.2
[2016-08-10] MEDS ORDERED: Albuterol-Ipratrop 3 mg / 0.5 (3 ml) UD INH STA (23:36)
--- NOTE | 2016-08-10 23:43 | ED PDOC ---
HPI: General Adult Time Seen by Provider: 08/10/16 23:18 Chief Complaint (Nursing): Shortness Of Breath History Per: Patient Additional Complaint(s): Pt. states today he developed wheezing and was unable to relieve it with his albuterol inhaler without relief. Further states that yesterday he was sleeping on a bench sitting up then he accidentally fell forward hitting his head onto the ground but did not lose consciousness. Denies LOC, chest pain, fever, cough , leg swelling. Past Medical History Reviewed: Historical Data, Nursing Documentation, Vital Signs Vital Signs: Last Vital Signs Temp 98.2 F 08/10/16 23:15 Pulse 84 08/10/16 23:15 Resp 22 08/10/16 23:15 BP 130/86 08/10/16 23:15 Pulse Ox 94 L 08/11/16 00:06 - Medical History PMH: Anxiety, Arthritis, Back Problems (chronic back pain ), Bipolar Disorder, COPD, Depression, Emphysema, Fractures (skull, right arm, right pinky), HTN, Pneumonia, Sleep Apnea Denies: Chronic Kidney Disease - Surgical History Surgical History: Appendectomy, Hernia Repair (ventral), Tonsillectomy - Family History Family History: States: No Known Family Hx - Immunization History Hx Tetanus Toxoid Vaccination: Yes (UTD) Hx Influenza Vaccination: Yes Hx Pneumococcal Vaccination: No - Home Medications Home Medications: Ambulatory Orders Medication Instructions Recorded Fluticasone/Salmeterol [Advair 2 puff INH BID 06/24/16 250-50 Diskus] Albuterol HFA [Ventolin HFA 90 2 puff IH [id number] #1 puff 07/15/16 mcg/actuation (8 g)] Aclidinium [place] [Tudorza 1 puff INH BID 08/01/16 Pressair] Trazodone HCl 150 mg PO HS 08/01/16 Albuterol 0.083% [Albuterol 0.083% 2.5 mg IH Q4 PRN #20 neb 08/07/16 Inhal Glenny (2.5 mg/3 ml) UD] Albuterol HFA [Ventolin HFA 90 1 - 2 puff IH Q4 PRN #1 inhaler 08/07/16 mcg/actuation (8 g)] Prednisone 50 mg PO DAILY #4 tab 08/07/16 Methylprednisolone [Medrol Dose 4 mg PO DAILY #21 mg 08/11/16 Pack (21 tabs)] - Allergies Allergies/Adverse Reactions: Allergies Allergy/AdvReac Type Severity Reaction Status Date / Time No Known Allergies Allergy Verified 08/07/16 09:12 Review of Systems ROS Statement: Except As Marked, All Systems Reviewed And Found Negative Respiratory: Positive for: Wheezing Physical Exam - Reviewed Nursing Documentation Reviewed: Yes Vital Signs Reviewed: Yes - Physical Exam Appears: Positive for: Well, Non-toxic, No Acute Distress Head Exam: Positive for: NORMOCEPHALIC. Negative for: ATRAUMATIC (superficial abrasion on top of scalp; R sided zygomatic abrasion without tenderness or swelling), NORMAL INSPECTION Skin: Positive for: Normal Color, Warm. Negative for: Rash Eye Exam: Positive for: EOMI, Normal appearance, PERRL ENT: Positive for: Normal ENT Inspection Neck: Positive for: Normal, Painless ROM Cardiovascular/Chest: Positive for: Regular Rate, Rhythm Respiratory: Positive for: Wheezing (b/l). Negative for: Accessory Muscle Use, Crackles, Rales, Rhonchi, Respiratory Distress Gastrointestinal/Abdominal: Positive for: Normal Exam, Soft. Negative for: Tenderness Back: Positive for: Normal Inspection Extremity: Positive for: Normal ROM Neurologic/Psych: Positive for: Alert, Oriented - Laboratory Results Result Diagrams: 08/10/16 00:08 08/10/16 00:08 - ECG O2 Sat by Pulse Oximetry: 94 - Progress ED Course And Treament: Labs ordered. Duoneb x 3, solu-medrol 60mg IV, CXR ordered. CT head, cervical, maxillofacial w/o contrast ordered. Tetanus prophylaxis administered. ED OBSERVATION Discharge: Yes Date of observation admission: 08/10/16 Time of observation admission: 23:36 - Observation admission statement Patient is being placed in observation because:: ETOH, COPD, head injury - Progress Note Progress Note: 08/11/16 01:19 Reports wheezing has resolved. Lungs clear b/l. Repeat POX: 93-95% on RA. 08/11/16 03:09 Pt. still sleeping comfortably. Lungs clear b/l. Repeat POX: 96% on RA. CXR: NAD. CT head w/o contrast: negative CT maxillofacial w/o contrast: negative CT cervical spine w/o contrast: negative Disposition - Clinical Impression Clinical Impression: COPD exacerbation, Head injury - Patient ED Disposition Is Patient to be Admitted: No - Disposition Disposition: Routine/Home Disposition Time: 03:32 Condition: IMPROVED Prescriptions: Methylprednisolone [Medrol Dose Pack (21 tabs)] 4 mg PO DAILY #21 mg Instructions: COPD (Chronic Obstructive Pulmonary Disease) (ED), Head Injury ( ED)
[2016-08-10] MEDS ORDERED: MethylPREDNISolone 40 mg Vial ONE (23:47)
[2016-08-10] MEDS ORDERED: Albuterol-Ipratrop 3 mg / 0.5 (3 ml) UD ONE (23:47)
[2016-08-11 00:12] LABS: BASO # 0.2 K/uL (0.0-0.2); BASO % 1.3 % (0.0-2.0); EOS % 0.3 % (0.0-4.0); HEMATOCRIT 52.4 % (35.0-51.0); LYMPH # 2.9 K/uL (1.0-4.3); LYMPH % 22.8 % (20.0-40.0); MEAN CELL VOLUME 96.9 fl (80.0-94.0); MEAN CORPUSCULAR HEMOGLOBIN 32.7 pg (27.0-31.0); MEAN CORPUSCULAR HGB CONC 33.7 g/dL (33.0-37.0); MEAN PLATELET VOLUME 8.3 fl (7.2-11.7); MONO # 1.1 K/uL (0.0-0.8); MONO % 8.3 % (0.0-10.0); NEUT # 8.6 K/uL (1.8-7.0); NEUT % 67.3 % (50.0-75.0); NRBC % 0.1 % (0.0-0.0); RED CELL DISTRIBUTION WIDTH 14.2 % (11.5-14.5); WHITE BLOOD COUNT 12.9 K/uL (4.8-10.8)
[2016-08-11 00:20] LABS: ALB/GLOB RATIO 1.3 (1.0-2.1); ALCOHOL SERUM 182 mg/dl (0-10); ALKALINE PHOSPHATASE 110 U/L (38-126); ALT/SGPT 135 U/L (21-72); AST/SGOT 62 U/L (17-59); BILIRUBIN,TOTAL 0.4 mg/dl (0.2-1.3); BLOOD UREA NITROGEN 11 mg/dl (9-20); CALCIUM 8.9 mg/dL (8.4-10.2); CARBON DIOXIDE 27 mmol/L (22-30); CHLORIDE 102 mmol/L (98-107); GFR AFRICAN-AMERICAN > 60; GLUCOSE,RANDOM 128 mg/dL (75-110); POTASSIUM 3.8 MMOL/L (3.6-5.0); SODIUM 141 mmol/l (132-148)
--- NOTE | 2016-08-11 01:34 | CT ---
EXAM: CT Head Without Intravenous Contrast CLINICAL HISTORY: 51 years old, male; Injury or trauma; Fall; Initial encounter; Blunt trauma (contusions or hematomas) TECHNIQUE: Axial computed tomography images of the head/brain without intravenous contrast. This CT exam was performed using one or more of the following dose reduction techniques: automated exposure control, adjustment of the mA and/or kV according to patient size, and/or use of iterative reconstruction technique. Coronal and sagittal reformatted images were created and reviewed. COMPARISON: CT - HEAD W/O CONTRAST 08/07/2015 1:47:09 AM FINDINGS: Limitations: No senior brand manager view. Motion artifact - mild. Brain: No definite intracranial hemorrhage. No mass. No definite edema. Ventricles: No hydrocephalus. Bones/joints: No calvarial fracture. Mastoid air cells: No mastoid effusion. IMPRESSION: 1. No definite intracranial hemorrhage. 2. See facial bone CT report for additional details. 3. Incidental/non-acute findings are described above.
--- NOTE | 2016-08-11 01:40 | CT ---
EXAM: CT Maxillofacial Without Intravenous Contrast CLINICAL HISTORY: 51 years old, male; Injury or trauma; Fall; Initial encounter; Blunt trauma (contusions or hematomas); Forehead and maxilla TECHNIQUE: Axial computed tomography images of the face without intravenous contrast. This CT exam was performed using one or more of the following dose reduction techniques: automated exposure control, adjustment of the mA and/or kV according to patient size, and/or use of iterative reconstruction technique. Coronal and sagittal reformatted images were created and reviewed. COMPARISON: Head CT, 08/07/2015 FINDINGS: Bones/joints: No acute fracture. Chronic deformity floor of RIGHT orbit. Soft tissues: Unremarkable. Orbits: Unremarkable as visualized. Sinuses: [id number] mucosal thickening/minimal fluid of RIGHT maxillary sinus. Mild mucosal thickening of LEFT maxillary sinus. Scattered mild mucosal thickening of ethmoid sinuses. Minimal mucosal thickening of frontal sinuses. Mild mucosal thickening of sphenoid sinuses. Dental: Dental caries. IMPRESSION: 1. No fracture. 2. Sinus disease. 3. Incidental/non-acute findings are described above.
--- NOTE | 2016-08-11 01:45 | CT ---
EXAM: CT Cervical Spine Without Intravenous Contrast CLINICAL HISTORY: 51 years old, male; Injury or trauma; Fall; Initial encounter; Blunt trauma TECHNIQUE: Axial computed tomography images of the cervical spine without intravenous contrast. This CT exam was performed using one or more of the following dose reduction techniques: automated exposure control, adjustment of the mA and/or kV according to patient size, and/or use of iterative reconstruction technique. Coronal and sagittal reformatted images were created and reviewed. COMPARISON: No relevant prior studies available. FINDINGS: Limitations: Motion artifact - mild. Vertebrae: No acute fracture. Degenerative retrolithesis of mid cervical spine. Degenerative retrolithesis of lower cervical spine. Facet osteoarthrosis within mid cervical spine. Discs/spinal canal/neural foramina: Moderate to severe degenerative disc disease within mid to lower cervical spine. Disc herniations within mid to lower cervical spine, suboptimally evaluated. Mild indentation thecal sac/cord mid cervical spine. Moderate indentation thecal sac/cord lower cervical spine. Neuroforaminal narrowing with mid and lower cervical spine. Soft tissues: Unremarkable. Vasculature: Mild atherosclerotic disease. Lung apices: Minimal apical scarring. 0.3 cm nodule vs focal scarring RIGHT lung apex. IMPRESSION: 1. No fracture. 2. Incidental/non-acute findings are described above.
[2016-08-11 03:09] VITALS: PULSE 76
[2016-08-11 03:17] VITALS: O2SAT 94
--- NOTE | 2016-08-11 08:01 | RAD ---
HISTORY: wheezing COMPARISON: No prior. FINDINGS: LUNGS: No active pulmonary disease. PLEURA: No significant pleural effusion identified, no pneumothorax apparent. CARDIOVASCULAR: Normal. OSSEOUS STRUCTURES: No significant abnormalities. VISUALIZED UPPER ABDOMEN: Normal. OTHER FINDINGS: None. IMPRESSION: No active disease.
== END 2016-08-11 06:04 | disposition home or self-care (01) ==
LOC: H.ER 23:05 → H.EROBSV 23:36
PROVIDERS: ADMIT Emergency Medicine; ATTEND Emergency Medicine
DX: J44.1 Chronic obstructive pulmonary disease with (acute) exacerbation (principal); F10.10 Alcohol abuse, uncomplicated; F31.9 Bipolar disorder, unspecified; I10 Essential (primary) hypertension; G47.30 Sleep apnea, unspecified; S09.90XA Unspecified injury of head, initial encounter; W19.XXXA Unspecified fall, initial encounter; R06.02 Shortness of breath

== ENCOUNTER 2016-08-20 02:40 | Emergency (ER) | payer MEDICAID ==
[2016-08-20 02:40] VITALS: BMI 31.7
[2016-08-20 02:52] VITALS: TEMP 98.2; O2SAT 94
--- NOTE | 2016-08-20 03:10 | ED PDOC ---
HPI: SOB/CHF/COPD Time Seen by Provider: 08/20/16 02:52 Chief Complaint (Nursing): Shortness Of Breath Chief Complaint (Provider): sob History Per: Patient History/Exam Limitations: no limitations Onset/Duration Of Symptoms: Hrs Current Symptoms Are (Timing): Still Present Initiating Event: Out Of Medications Additional History Per: Patient Additional Complaint(s): 51 y/o male history of COPD/emphysema ambulates to ED for eval of shortness of breath x 3 hours. Denies fever, cough, chest pain, palpitations, recent travel , leg pain/swelling. Admits to drinking tonight. Past Medical History Reviewed: Historical Data, Nursing Documentation, Vital Signs Vital Signs: Last Vital Signs Temp 98.2 F 08/20/16 02:48 Pulse 86 08/20/16 02:48 Resp 18 08/20/16 02:48 BP 160/94 H 08/20/16 02:48 Pulse Ox 94 L 08/20/16 03:11 - Medical History PMH: Anxiety, Arthritis, Back Problems (chronic back pain ), Bipolar Disorder, COPD, Depression, Emphysema, Fractures (skull, right arm, right pinky), HTN, Pneumonia, Sleep Apnea Denies: Chronic Kidney Disease - Surgical History Surgical History: Appendectomy, Hernia Repair (ventral), Tonsillectomy - Family History Family History: States: Unknown Family Hx - Immunization History Hx Tetanus Toxoid Vaccination: Yes (UTD) Hx Influenza Vaccination: Yes Hx Pneumococcal Vaccination: No - Home Medications Home Medications: Ambulatory Orders Medication Instructions Recorded Fluticasone/Salmeterol [Advair 2 puff INH BID 06/24/16 250-50 Diskus] Albuterol HFA [Ventolin HFA 90 2 puff IH [id number] #1 puff 07/15/16 mcg/actuation (8 g)] Aclidinium [place] [Tudorza 1 puff INH BID 08/01/16 Pressair] Trazodone HCl 150 mg PO HS 08/01/16 Albuterol 0.083% [Albuterol 0.083% 2.5 mg IH Q4 PRN #20 neb 08/07/16 Inhal [place]enny (2.5 mg/3 ml) UD] Albuterol HFA [Ventolin HFA 90 1 - 2 puff IH Q4 PRN #1 inhaler 08/07/16 mcg/actuation (8 g)] Prednisone 50 mg PO DAILY #4 tab 08/07/16 Methylprednisolone [Medrol Dose 4 mg PO DAILY #21 mg 08/11/16 Pack (21 tabs)] Albuterol HFA [Ventolin HFA 90 1 puff IH Q4 PRN #1 inh 08/20/16 mcg/actuation (8 g)] - Allergies Allergies/Adverse Reactions: Allergies Allergy/AdvReac Type Severity Reaction Status Date / Time No Known Allergies Allergy Verified 08/07/16 09:12 Review of Systems ROS Statement: Except As Marked, All Systems Reviewed And Found Negative Respiratory: Positive for: Cough, Shortness of Breath Physical Exam - Reviewed Nursing Documentation Reviewed: Yes Vital Signs Reviewed: Yes - Physical Exam Appears: Positive for: Well, Non-toxic, No Acute Distress Head Exam: Positive for: ATRAUMATIC, NORMAL INSPECTION, NORMOCEPHALIC Skin: Positive for: Normal Color Eye Exam: Positive for: Normal appearance ENT: Positive for: Normal ENT Inspection Cardiovascular/Chest: Positive for: Regular Rate, Rhythm Respiratory: Positive for: Wheezing (mild diffuse expiratory). Negative for: Accessory Muscle Use, Respiratory Distress Gastrointestinal/Abdominal: Positive for: Normal Exam Extremity: Positive for: Normal ROM Neurologic/Psych: Positive for: Alert, Oriented - ECG ECG: Positive for: Viewed By Me (reviewed by ED attending) ECG Rhythm: Positive for: Sinus Rhythm O2 Sat by Pulse Oximetry: 94 - Progress ED Course And Treament: lorenzo clemente On re-eval, wheezing resolved. Patient states he is feeling better. Tolerated PO. Stable for discharge. Continue current meds Disposition - Clinical Impression Clinical Impression: COPD (chronic obstructive pulmonary disease) - Patient ED Disposition Is Patient to be Admitted: No Counseled Patient/Family Regarding: Studies Performed, Diagnosis, Need For Followup - Disposition Referrals: Yennifer Hurley MD [Primary Care Provider] - Disposition: Routine/Home Disposition Time: 05:00 Condition: IMPROVED Prescriptions: Albuterol HFA [Ventolin HFA 90 mcg/actuation (8 g)] 1 puff IH Q4 PRN #1 inh PRN Reason: Wheezing Instructions: COPD (Chronic Obstructive Pulmonary Disease) (ED)
[2016-08-20] MEDS ORDERED: Albuterol-Ipratrop 3 mg / 0.5 (3 ml) UD ONE (03:40)
[2016-08-20] MEDS: Albuterol-Ipratrop 3 mg / 0.5 (3 ml) UD IH STA ×3 (03:50→04:58)
[2016-08-20 05:06] VITALS: BP 154/88; PULSE 82; RESP 17
== END 2016-08-20 05:20 | disposition home or self-care (01) ==
LOC: H.ER 02:40
DX: J44.9 Chronic obstructive pulmonary disease, unspecified (principal); F31.9 Bipolar disorder, unspecified; F41.9 Anxiety disorder, unspecified; I10 Essential (primary) hypertension

== ENCOUNTER 2016-08-22 01:21 | Emergency (ER) | payer MEDICAID ==
[2016-08-22 01:21] VITALS: BMI 31.7
[2016-08-22 01:36] VITALS: BP 121/68; TEMP 97.7
[2016-08-22] MEDS ORDERED: Albuterol-Ipratrop 3 mg / 0.5 (3 ml) UD INH STA ×3 (02:04→02:05)
--- NOTE | 2016-08-22 03:12 | ED PDOC ---
HPI: SOB/CHF/COPD Time Seen by Provider: 08/22/16 01:42 Chief Complaint (Nursing): Shortness Of Breath Chief Complaint (Provider): SOB, wheezing History Per: Patient History/Exam Limitations: no limitations Onset/Duration Of Symptoms: Mins Current Symptoms Are (Timing): Still Present Recently: Seen In ED Additional Complaint(s): 51yo male who is an active smoker and has a PMHx including COPD, seen in ED multiple times for similar, presents to the ED with c/o wheezing and SOB. Patient states he has no access to medications. Denies any other medical complaints. Past Medical History Reviewed: Historical Data, Nursing Documentation, Vital Signs Vital Signs: Last Vital Signs Temp 97.7 F 08/22/16 01:23 Pulse 81 08/22/16 01:23 Resp 16 08/22/16 01:23 BP 121/68 08/22/16 01:23 Pulse Ox 94 L 08/22/16 05:41 - Medical History PMH: Anxiety, Arthritis, Back Problems (chronic back pain ), Bipolar Disorder, COPD, Depression, Emphysema, Fractures (skull, right arm, right pinky), HTN, Pneumonia, Sleep Apnea Denies: Chronic Kidney Disease - Surgical History Surgical History: Appendectomy, Hernia Repair (ventral), Tonsillectomy - Family History Family History: States: Unknown Family Hx - Social History Current smoker - smoking cessation education provided: Yes - Immunization History Hx Tetanus Toxoid Vaccination: Yes (UTD) Hx Influenza Vaccination: Yes Hx Pneumococcal Vaccination: No - Home Medications Home Medications: Ambulatory Orders Medication Instructions Recorded Fluticasone/Salmeterol [Advair 2 puff INH BID 06/24/16 250-50 Diskus] Albuterol HFA [Ventolin HFA 90 2 puff IH [id number] #1 puff 07/15/16 mcg/actuation (8 g)] Aclidinium [place] [Tudorza 1 puff INH BID 08/01/16 Pressair] Trazodone HCl 150 mg PO HS 08/01/16 Albuterol 0.083% [Albuterol 0.083% 2.5 mg IH Q4 PRN #20 neb 08/07/16 Inhal [place] (2.5 mg/3 ml) UD] Albuterol HFA [Ventolin HFA 90 1 - 2 puff IH Q4 PRN #1 inhaler 08/07/16 mcg/actuation (8 g)] Prednisone 50 mg PO DAILY #4 tab 08/07/16 Methylprednisolone [Medrol Dose 4 mg PO DAILY #21 mg 08/11/16 Pack (21 tabs)] Albuterol HFA [Ventolin HFA 90 1 puff IH Q4 PRN #1 inh 08/20/16 mcg/actuation (8 g)] predniSONE [predniSONE Tab] 60 mg PO DAILY #9 tab 08/22/16 - Allergies Allergies/Adverse Reactions: Allergies Allergy/AdvReac Type Severity Reaction Status Date / Time No Known Allergies Allergy Verified 08/07/16 09:12 Review of Systems ROS Statement: Except As Marked, All Systems Reviewed And Found Negative Respiratory: Positive for: Shortness of Breath, Wheezing Physical Exam - Reviewed Nursing Documentation Reviewed: Yes Vital Signs Reviewed: Yes - Physical Exam Appears: Positive for: Well, No Acute Distress Head Exam: Positive for: ATRAUMATIC, NORMAL INSPECTION, NORMOCEPHALIC Skin: Positive for: Normal Color, Warm, Dry Eye Exam: Positive for: Normal appearance, EOMI, PERRL ENT: Positive for: Normal ENT Inspection Neck: Positive for: Normal, Painless ROM, Supple Cardiovascular/Chest: Positive for: Regular Rate, Rhythm. Negative for: Murmur , Tachycardia Respiratory: Positive for: Wheezing (b/l ). Negative for: Respiratory Distress Gastrointestinal/Abdominal: Positive for: Normal Exam, Soft. Negative for: Tenderness Back: Positive for: Normal Inspection Extremity: Positive for: Normal ROM. Negative for: Deformity, Swelling Neurologic/Psych: Positive for: Alert, Oriented - ECG O2 Sat by Pulse Oximetry: 94 Medical Decision Making Medical Decision Makin: Impression: COPD exacerbation Plan: EKG duoneb 3ml INH x3, prednisone 60mg PO reassess 0540: Patient no longer wheezing and feels much better. Will d/c home. Advised to return to the ED with any worsening or concerning symptoms. Scribe Attestation: Documented by Kelly Franklin acting as a scribe for Pedro Pablo Lentz MD. Provider Scribe Attestation: All medical record entries made by the Scribe were at my direction and personally dictated by me. I have reviewed the chart and agree that the record accurately reflects my personal performance of the history, physical exam, medical decision making, and the department course for this patient. I have also personally directed, reviewed, and agree with the discharge instructions and disposition. Disposition - Clinical Impression Clinical Impression: COPD exacerbation - Patient ED Disposition Is Patient to be Admitted: No - Disposition Referrals: Yennifer Hurley MD [Primary Care Provider] - Disposition: Routine/Home Disposition Time: 05:40 Condition: STABLE Prescriptions: predniSONE [predniSONE Tab] 60 mg PO DAILY #9 tab Instructions: COPD (Chronic Obstructive Pulmonary Disease) (ED)
[2016-08-22 06:46] VITALS: PULSE 66; RESP 18; O2SAT 93
--- NOTE | 2016-08-23 18:54 | CARD ---
APPROVED REPORT EKG Measurement Heart [id number] <Conclusion> Normal sinus rhythm Incomplete right bundle branch block Borderline ECG
== END 2016-08-22 06:47 | disposition home or self-care (01) ==
LOC: H.ER 01:21
DX: J44.1 Chronic obstructive pulmonary disease with (acute) exacerbation (principal); F31.9 Bipolar disorder, unspecified; F41.9 Anxiety disorder, unspecified; I10 Essential (primary) hypertension; I45.10 Unspecified right bundle-branch block; F17.200 Nicotine dependence, unspecified, uncomplicated

== ENCOUNTER 2016-08-25 04:57 | Emergency (ER) | payer MEDICAID ==
[2016-08-25 04:57] VITALS: BMI 31.7
[2016-08-25 05:14] VITALS: BP 128/63; PULSE 72; RESP 15; TEMP 97.7; O2SAT 97
== END 2016-08-25 05:35 | disposition left against medical advice (07) ==
LOC: H.ER 04:57
DX: Z02.89 Encounter for other administrative examinations (principal)

== ENCOUNTER 2016-08-28 00:47 | Emergency (ER) | payer MEDICAID ==
[2016-08-28 00:48] VITALS: BMI 31.7
[2016-08-28] MEDS ORDERED: Albuterol-Ipratrop 3 mg / 0.5 (3 ml) UD ONE (00:56)
[2016-08-28 00:58] VITALS: BP 120/71; PULSE 79; RESP 16; TEMP 99; O2SAT 97
[2016-08-28] MEDS ORDERED: Albuterol-Ipratrop 3 mg / 0.5 (3 ml) UD INH STA (01:16)
--- NOTE | 2016-08-28 01:25 | ED PDOC ---
HPI: SOB/CHF/COPD Time Seen by Provider: 08/28/16 00:55 Chief Complaint (Nursing): Med Refill History Per: Patient History/Exam Limitations: no limitations Onset/Duration Of Symptoms: Hrs Current Symptoms Are (Timing): Still Present Initiating Event: Out Of Medications Additional Complaint(s): Pt. arrives to ED asking for refill of ventolin, states he "ran out". States he is wheezing with mild SOB. No CP. No fevers/chills/cough. Past Medical History Vital Signs: Last Vital Signs Temp 99 F 08/28/16 00:55 Pulse 79 08/28/16 00:55 Resp 16 08/28/16 00:55 BP 120/71 08/28/16 00:55 Pulse Ox 97 08/28/16 00:55 - Medical History PMH: Anxiety, Arthritis, Back Problems (chronic back pain ), Bipolar Disorder, COPD, Depression, Emphysema, Fractures (skull, right arm, right pinky), HTN, Pneumonia, Sleep Apnea Denies: Chronic Kidney Disease - Surgical History Surgical History: Appendectomy, Hernia Repair (ventral), Tonsillectomy - Family History Family History: States: Unknown Family Hx - Immunization History Hx Tetanus Toxoid Vaccination: Yes (UTD) Hx Influenza Vaccination: Yes Hx Pneumococcal Vaccination: No - Home Medications Home Medications: Ambulatory Orders Medication Instructions Recorded Fluticasone/Salmeterol [Advair 2 puff INH BID 06/24/16 250-50 Diskus] Albuterol HFA [Ventolin HFA 90 2 puff IH [id number] #1 puff 07/15/16 mcg/actuation (8 g)] Aclidinium [place] [Tudorza 1 puff INH BID 08/01/16 Pressair] Trazodone HCl 150 mg PO HS 08/01/16 Albuterol 0.083% [Albuterol 0.083% 2.5 mg IH Q4 PRN #20 neb 08/07/16 Inhal [place] (2.5 mg/3 ml) UD] Albuterol HFA [Ventolin HFA 90 1 - 2 puff IH Q4 PRN #1 inhaler 08/07/16 mcg/actuation (8 g)] Prednisone 50 mg PO DAILY #4 tab 08/07/16 Methylprednisolone [Medrol Dose 4 mg PO DAILY #21 mg 08/11/16 Pack (21 tabs)] Albuterol HFA [Ventolin HFA 90 1 puff IH Q4 PRN #1 inh 08/20/16 mcg/actuation (8 g)] predniSONE [predniSONE Tab] 60 mg PO DAILY #9 tab 08/22/16 Albuterol HFA [Ventolin HFA 90 2 puff IH [id number] #1 puff 08/28/16 mcg/actuation (8 g)] - Allergies Allergies/Adverse Reactions: Allergies Allergy/AdvReac Type Severity Reaction Status Date / Time No Known Allergies Allergy Verified 08/28/16 00:55 Review of Systems ROS Statement: Except As Marked, All Systems Reviewed And Found Negative Respiratory: Positive for: Cough, Shortness of Breath, Wheezing Physical Exam - Reviewed Nursing Documentation Reviewed: Yes Vital Signs Reviewed: Yes - Physical Exam Appears: Positive for: Well, Non-toxic, No Acute Distress Head Exam: Positive for: ATRAUMATIC, NORMAL INSPECTION, NORMOCEPHALIC Skin: Positive for: Normal Color, Warm, DRY Eye Exam: Positive for: EOMI, Normal appearance, PERRL ENT: Positive for: Normal ENT Inspection Neck: Positive for: Normal, Painless ROM Cardiovascular/Chest: Positive for: Regular Rate, Rhythm Respiratory: Positive for: Wheezing (mild) Gastrointestinal/Abdominal: Positive for: Normal Exam, Bowel Sounds, Soft Back: Positive for: Normal Inspection Extremity: Positive for: Normal ROM Neurologic/Psych: Positive for: Alert, Oriented - ECG O2 Sat by Pulse Oximetry: 97 Pulse Ox Interpretation: Normal Medical Decision Making Medical Decision Making: Pt w/ multiple similar visits, malingering behavior, will give one nebulizer treatment and d/c. Disposition - Clinical Impression Clinical Impression: COPD (chronic obstructive pulmonary disease) - Disposition Referrals: [facility] [Outside] Disposition Time: 01:25 Condition: STABLE Prescriptions: Albuterol HFA [Ventolin HFA 90 mcg/actuation (8 g)] 2 puff IH [id number] #1 puff Instructions: COPD (Chronic Obstructive Pulmonary Disease) (ED)
== END 2016-08-28 01:26 | disposition home or self-care (01) ==
LOC: H.ER 00:47
DX: J44.9 Chronic obstructive pulmonary disease, unspecified (principal)

== ENCOUNTER 2016-09-20 02:20 | Emergency (ER) | payer MEDICAID ==
[2016-09-20 02:21] VITALS: BMI 31.7
[2016-09-20 02:37] VITALS: BP 134/78; PULSE 87; TEMP 98; O2SAT 98
[2016-09-20] MEDS ORDERED: Albuterol-Ipratrop 3 mg / 0.5 (3 ml) UD INH STA (03:15)
--- NOTE | 2016-09-20 04:22 | ED PDOC ---
HPI: General Adult Time Seen by Provider: 09/20/16 02:53 Chief Complaint (Nursing): Shortness Of Breath Chief Complaint (Provider): SOB, B/L leg pain History Per: Patient History/Exam Limitations: no limitations Onset/Duration Of Symptoms: Persistent Have you had recent travel within the past 21 days to any of the following countries: [place], [place], [place] or [place]?: No Current Symptoms Are (Timing): Still Present Severity: Moderate Additional History Per: Patient Additional Complaint(s): The pt is a 51yo male, PMHx of COPD, HTN, chronic foot pain, presents to the ED for evaluation of shortness of breath and b/l leg pain. Pt reports he was wheezing earlier today with associated shortness of breath, prompting his visit to the ED. 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 He offers no additional medical complaints. Past Medical History Reviewed: Historical Data, Nursing Documentation, Vital Signs Vital Signs: Last Vital Signs Temp 98 F 09/20/16 02:35 Pulse 87 09/20/16 02:35 Resp 16 09/20/16 02:35 BP 134/78 09/20/16 02:35 Pulse Ox 98 09/20/16 04:24 - Medical History PMH: Anxiety, Arthritis, Back Problems (chronic back pain ), Bipolar Disorder, COPD, Depression, Emphysema, Fractures (skull, right arm, right pinky), HTN, Pneumonia, Sleep Apnea Denies: Chronic Kidney Disease - Surgical History Surgical History: Appendectomy, Hernia Repair (ventral), Tonsillectomy - Family History Family History: States: Unknown Family Hx - Social History Current smoker - smoking cessation education provided: Yes - Immunization History Hx Tetanus Toxoid Vaccination: Yes (UTD) Hx Influenza Vaccination: Yes Hx Pneumococcal Vaccination: Yes - Home Medications Home Medications: Ambulatory Orders Medication Instructions Recorded Aclidinium [place] [Tudorza 1 puff INH BID 08/01/16 Pressair] Escitalopram [Lexapro] 20 mg PO DAILY 09/04/16 Folic Acid 1 mg PO DAILY 09/04/16 Promethazine DM [Phenergan DM 5 ml PO Q8 PRN #3 oz 09/04/16 Syrup] Albuterol HFA [Ventolin HFA 90 2 puff IH [id number] #1 puff 09/20/16 mcg/actuation (8 g)] Fluticasone/Salmeterol [Advair 2 puff INH BID #1 inh 09/20/16 250-50 Diskus] - Allergies Allergies/Adverse Reactions: Allergies Allergy/AdvReac Type Severity Reaction Status Date / Time No Known Allergies Allergy Verified 09/04/16 00:14 Review of Systems ROS Statement: Except As Marked, All Systems Reviewed And Found Negative Respiratory: Positive for: Shortness of Breath, Wheezing Musculoskeletal: Positive for: Foot Pain (b/l) Physical Exam - Reviewed Nursing Documentation Reviewed: Yes Vital Signs Reviewed: Yes - Physical Exam Appears: Positive for: Well, Non-toxic, No Acute Distress Head Exam: Positive for: ATRAUMATIC, NORMAL INSPECTION, NORMOCEPHALIC Skin: Positive for: Normal Color Eye Exam: Positive for: Normal appearance Neck: Positive for: Normal, Supple Cardiovascular/Chest: Positive for: Regular Rate, Rhythm Respiratory: Positive for: Wheezing (occaisonal wheeze b/l). Negative for: Respiratory Distress Gastrointestinal/Abdominal: Positive for: Normal Exam, Soft. Negative for: Tenderness Extremity: Positive for: Normal ROM. Negative for: Tenderness, Deformity, Swelling Neurologic/Psych: Positive for: Alert, Oriented - ECG O2 Sat by Pulse Oximetry: 98 (RA) Pulse Ox Interpretation: Normal Medical Decision Making Medical Decision Making: Time: 0300 Impression: COPD chronic with out exacerbation; chronic foot pain Plan: -- Duoneb -- Motrin -- reassess Scribe Attestation: Documented by Mar Ayala acting as a scribe for Estrellita Bolton MD. Provider Attestation: All medical record entries made by the Scribe were at my direction and personally dictated by me. I have reviewed the chart and agree that the record accurately reflects my personal performance of the history, physical exam, medical decision making, and the department course for this patient. I have also personally directed, reviewed, and agree with the discharge instructions and disposition. Disposition - Clinical Impression Clinical Impression: COPD (chronic obstructive pulmonary disease), Foot pain, bilateral - Patient ED Disposition Is Patient to be Admitted: No Doctor Will See Patient In The: Office Counseled Patient/Family Regarding: Studies Performed, Diagnosis, Need For Followup - Disposition Referrals: Yennifer Hurley MD [Primary Care Provider] - [facility] [Outside] Disposition: Routine/Home Disposition Time: 04:41 Condition: GOOD Additional Instructions: Follow up with your PCP in 2-3 days. Prescriptions: Albuterol HFA [Ventolin HFA 90 mcg/actuation (8 g)] 2 puff IH [id number] #1 puff Fluticasone/Salmeterol [Advair 250-50 Diskus] 2 puff INH BID #1 inh Instructions: COPD (Chronic Obstructive Pulmonary Disease) (ED)
[2016-09-20 06:09] VITALS: RESP 20
== END 2016-09-20 06:09 | disposition home or self-care (01) ==
LOC: H.ER 02:20
DX: J44.9 Chronic obstructive pulmonary disease, unspecified (principal); M79.672 Pain in left foot; M79.671 Pain in right foot

== ENCOUNTER 2016-09-28 01:23 | Emergency (ER) | payer MEDICAID ==
[2016-09-28 01:23] VITALS: BMI 31.7
[2016-09-28 01:41] VITALS: PULSE 82; O2SAT 96
[2016-09-28 02:49] LABS: BARBITURATES, UR NEGATIVE (NEGATIVE); BENZODIAZEPINES, UR NEGATIVE (NEGATIVE); OPIATES, UR NEGATIVE (NEGATIVE); PHENCYCLIDINE, UR NEGATIVE (NEGATIVE)
--- NOTE | 2016-09-28 03:14 | ED PDOC ---
- ECG O2 Sat by Pulse Oximetry: 96 (RA) Pulse Ox Interpretation: Normal Medical Decision Making Medical Decision Making: Initial Impression: Anxiety Initial Plan: * Crisis evaluation Scribe Attestation: Documented by Alyson Mena, acting as a scribe for Pedro Pablo Lentz MD. Provider Scribe Attestation: All medical record entries made by the Scribe were at my direction and personally dictated by me. I have reviewed the chart and agree that the record accurately reflects my personal performance of the history, physical exam, medical decision making, and the department course for this patient. I have also personally directed, reviewed, and agree with the discharge instructions and disposition.
--- NOTE | 2016-09-28 03:23 | ED PDOC ---
HPI: Psych/Substance Abuse Time Seen by Provider: 09/28/16 01:32 Chief Complaint (Nursing): Anxiety Chief Complaint (Provider): Anxiety History Per: Patient History/Exam Limitations: no limitations Onset/Duration Of Symptoms: Mins (prior to arrival) Additional Complaint(s): Colby Christianson is a 51 year old male with previous medical history of COPD and depression, who presents to the emergency department for an psychiatric evaluation after experiencing anxiety associated with depression about living on the streets prior to arrival. Admits to alcohol abuse and smoking marijuana occasionally but denies any suicidal ideation, homicidal ideation, or further medical complaints. PMD: none provided Past Medical History Reviewed: Historical Data, Nursing Documentation, Vital Signs Vital Signs: Last Vital Signs Temp 98.9 F 09/28/16 01:39 Pulse 82 09/28/16 01:39 Resp 18 09/28/16 01:39 BP 115/72 09/28/16 01:39 Pulse Ox 96 09/28/16 01:39 - Medical History PMH: Anxiety, Arthritis, Back Problems (chronic back pain ), Bipolar Disorder, COPD, Depression, Emphysema, Fractures (skull, right arm, right pinky), HTN, Pneumonia, Sleep Apnea Denies: Chronic Kidney Disease - Surgical History Surgical History: Appendectomy, Hernia Repair (ventral), Tonsillectomy - Family History Family History: States: Unknown Family Hx - Social History Current smoker - smoking cessation education provided: Yes (>10 cigarettes/daily ) Alcohol: > 2 Drinks/Day Drugs: Cannabis - Immunization History Hx Tetanus Toxoid Vaccination: Yes (UTD) Hx Influenza Vaccination: Yes Hx Pneumococcal Vaccination: Yes - Home Medications Home Medications: Ambulatory Orders Medication Instructions Recorded Aclidinium [place] [Tudorza 1 puff INH BID 08/01/16 Pressair] Escitalopram [Lexapro] 20 mg PO DAILY 09/04/16 Folic Acid 1 mg PO DAILY 09/04/16 Promethazine DM [Phenergan DM 5 ml PO Q8 PRN #3 oz 09/04/16 Syrup] Albuterol HFA [Ventolin HFA 90 2 puff IH [id number] #1 puff 09/20/16 mcg/actuation (8 g)] Fluticasone/Salmeterol [Advair 2 puff INH BID #1 inh 09/20/16 250-50 Diskus] - Allergies Allergies/Adverse Reactions: Allergies Allergy/AdvReac Type Severity Reaction Status Date / Time No Known Allergies Allergy Verified 09/04/16 00:14 Review of Systems ROS Statement: Except As Marked, All Systems Reviewed And Found Negative Psych: Positive for: Anxiety, Depression. Negative for: Suicidal ideation (or homicidal ideation) Physical Exam - Reviewed Nursing Documentation Reviewed: Yes Vital Signs Reviewed: Yes - Physical Exam Appears: Positive for: Well, Non-toxic, No Acute Distress Head Exam: Positive for: ATRAUMATIC, NORMAL INSPECTION, NORMOCEPHALIC Skin: Positive for: Normal Color, Warm, Dry Eye Exam: Positive for: EOMI, Normal appearance, PERRL ENT: Positive for: Normal ENT Inspection Neck: Positive for: Normal, Painless ROM, Supple Cardiovascular/Chest: Positive for: Regular Rate, Rhythm Respiratory: Positive for: Normal Breath Sounds. Negative for: Respiratory Distress Gastrointestinal/Abdominal: Positive for: Normal Exam, Bowel Sounds, Soft. Negative for: Tenderness Back: Positive for: Normal Inspection. Negative for: L CVA Tenderness, R CVA Tenderness Extremity: Positive for: Normal ROM. Negative for: Pedal Edema Neurologic/Psych: Positive for: Alert, Oriented, Other (appears unkempt and disheveled) - ECG O2 Sat by Pulse Oximetry: 96 (RA) Pulse Ox Interpretation: Normal Medical Decision Making Medical Decision Making: Initial Impression: Anxiety Initial Plan: * Crisis evaluation Patient cleared by psych, dx: anxiety. Patient seems to be bed seeking and has no acute medical or psychiatric condition. Scribe Attestation: Documented by Alyson Mena, acting as a scribe for Pedro Pablo Lentz MD. Provider Scribe Attestation: All medical record entries made by the Scribe were at my direction and personally dictated by me. I have reviewed the chart and agree that the record accurately reflects my personal performance of the history, physical exam, medical decision making, and the department course for this patient. I have also personally directed, reviewed, and agree with the discharge instructions and disposition. Disposition - Clinical Impression Clinical Impression: Anxiety - Patient ED Disposition Is Patient to be Admitted: No - [facility]position [facility] Disposition: Routine/Home Disposition Time: 05:40 Condition: STABLE Instructions: Anxiety (ED)
[2016-09-28 05:56] VITALS: BP 118/76; RESP 16; TEMP 97.8
== END 2016-09-28 05:55 | disposition home or self-care (01) ==
LOC: H.ER 01:23
DX: F41.9 Anxiety disorder, unspecified (principal)

== ENCOUNTER 2016-10-10 01:37 | Emergency (ER) | payer SELFPAY ==
[2016-10-10 01:37] VITALS: BMI 31.7
[2016-10-10 01:42] VITALS: BP 139/80; PULSE 90; RESP 18; TEMP 98; O2SAT 99
--- NOTE | 2016-10-10 02:59 | ED PDOC ---
Lower Extremity Pain/Injury Time Seen by Provider: 10/10/16 01:39 Chief Complaint (Nursing): Lower Extremity Problem/Injury Chief Complaint (Provider): Bilateral Foot Pain History Per: Patient History/Exam Limitations: no limitations Current Symptoms Are (Timing): Still Present Additional Complaint(s): 51 year old male presents to ED with complaints of bilateral foot pain and a past medical history of COPD and is homeless. Patient provides no other medical complaints. PCP: None Past Medical History Reviewed: Historical Data, Nursing Documentation, Vital Signs Vital Signs: Last Vital Signs Temp 98 F 10/10/16 01:40 Pulse 90 10/10/16 01:40 Resp 18 10/10/16 01:40 BP 139/80 10/10/16 01:40 Pulse Ox 99 10/10/16 01:40 - Medical History PMH: Anxiety, Arthritis, Back Problems (chronic back pain ), Bipolar Disorder, COPD, Depression, Emphysema, Fractures (skull, right arm, right pinky), HTN, Pneumonia, Sleep Apnea Denies: No Chronic Diseases, Diabetes, Hepatitis, HIV, Chronic Kidney Disease , Seizures, Sexually Transmitted Disease - Surgical History Surgical History: Appendectomy, Hernia Repair (ventral), Tonsillectomy - Family History Family History: States: Unknown Family Hx - Living Arrangements Living Arrangements: Other (Homeless) - Social History Current smoker - smoking cessation education provided: Yes Ex-Smoker (has not smoked in the last 12 months): No Alcohol: Other (Admits to drinking alcohol, unknown amount) Drugs: Cannabis - Immunization History Hx Tetanus Toxoid Vaccination: Yes (UTD) Hx Influenza Vaccination: Yes Hx Pneumococcal Vaccination: Yes - Home Medications Home Medications: Ambulatory Orders Medication Instructions Recorded Aclidinium [place] [Tudorza 1 puff INH BID 08/01/16 Pressair] Escitalopram [Lexapro] 20 mg PO DAILY 09/04/16 Folic Acid 1 mg PO DAILY 09/04/16 Promethazine DM [Phenergan DM 5 ml PO Q8 PRN #3 oz 09/04/16 Syrup] Albuterol HFA [Ventolin HFA 90 2 puff IH [id number] #1 puff 09/20/16 mcg/actuation (8 g)] Fluticasone/Salmeterol [Advair 2 puff INH BID #1 inh 09/20/16 250-50 Diskus] - Allergies Allergies/Adverse Reactions: Allergies Allergy/AdvReac Type Severity Reaction Status Date / Time No Known Allergies Allergy Verified 09/04/16 00:14 Wells Criteria for PE - Wells Criteria for Pulmonary Embolism Heart Rate >100: No Hemoptysis: No Total Score: 0 Review of Systems ROS Statement: Except As Marked, All Systems Reviewed And Found Negative Constitutional: Negative for: Fever Musculoskeletal: Positive for: Foot Pain (bilateral) Physical Exam - Reviewed Nursing Documentation Reviewed: Yes Vital Signs Reviewed: Yes - Physical Exam Appears: Positive for: Non-toxic, No Acute Distress Head Exam: Positive for: ATRAUMATIC Skin: Positive for: Normal Color, Warm, Dry Respiratory: Positive for: Normal Breath Sounds. Negative for: Wheezing, Respiratory Distress Extremity: Positive for: Normal ROM (Feet have full ROM bilaterally), Other (No acute pathology) Neurologic/Psych: Positive for: Alert, Oriented. Negative for: Motor/Sensory Deficits - ECG O2 Sat by Pulse Oximetry: 99 (RA) Pulse Ox Interpretation: Normal Medical Decision Making Medical Decision Makin Initial impression: homelessness, malingering, bed seeking behavior Patient is medically stable and ready for discharge. Counseling has been provided and patient is in agreement. Return if symptoms persist or acutely worsen. Scribe Attestation: Documented by Tami Morrison acting as a scribe for Pedro Pablo Lentz MD. Scribe Attestation: All medical record entries made by the Scribe were at my direction and personally dictated by me. I have reviewed the chart and agree that the record accurately reflects my personal performance of the history, physical exam, medical decision making, and the department course for this patient. I have also personally directed, reviewed, and agree with the discharge instructions and disposition. Disposition - Clinical Impression Clinical Impression: Pain in both feet - Patient ED Disposition Is Patient to be Admitted: No - Disposition Referrals: [facility] [Outside] Disposition: Routine/Home Disposition Time: 02:53 Condition: STABLE Instructions: Arthralgia (ED)
== END 2016-10-10 03:00 | disposition home or self-care (01) ==
LOC: H.ER 01:37
DX: M79.673 Pain in unspecified foot (principal)

== ENCOUNTER 2016-10-22 02:11 | Emergency (ER) | payer MEDICAID ==
[2016-10-22 02:27] VITALS: BMI 32.3
[2016-10-22] MEDS ORDERED: Naproxen 500 MG TAB PO STA (02:27)
[2016-10-22 02:32] VITALS: BP 108/64; PULSE 75; RESP 16; TEMP 97.4; O2SAT 98
[2016-10-22] MEDS ORDERED: Naproxen 500 MG TAB PO ONE (02:34)
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
== END 2016-10-22 03:00 | disposition home or self-care (01) ==
LOC: H.ER 02:11
DX: G89.29 Other chronic pain (principal); F31.9 Bipolar disorder, unspecified; F41.9 Anxiety disorder, unspecified; I10 Essential (primary) hypertension

== ENCOUNTER 2016-11-01 02:30 | Emergency (ER) | payer MEDICAID ==
[2016-11-01 02:30] VITALS: BMI 32.3
[2016-11-01] MEDS ORDERED: Albuterol-Ipratrop 3 mg / 0.5 (3 ml) UD ONE (02:37)
[2016-11-01 02:40] VITALS: BP 153/80; RESP 20; TEMP 98.4; O2SAT 95
[2016-11-01] MEDS ORDERED: Albuterol-Ipratrop 3 mg / 0.5 (3 ml) UD INH STA (03:00)
[2016-11-01 03:38] LABS: BASO # 0.1 K/uL (0.0-0.2); BASO % 1.1 % (0.0-2.0); EOS # 0.3 K/uL (0.0-0.7); EOS % 3.6 % (0.0-4.0); HEMOGLOBIN 17.5 g/dL (12.0-18.0); LYMPH # 1.6 K/uL (1.0-4.3); LYMPH % 20.6 % (20.0-40.0); MEAN CELL VOLUME 99.2 fl (80.0-94.0); MEAN CORPUSCULAR HEMOGLOBIN 34.1 pg (27.0-31.0); MEAN CORPUSCULAR HGB CONC 34.4 g/dL (33.0-37.0); MEAN PLATELET VOLUME 8.4 fl (7.2-11.7); MONO # 0.9 K/uL (0.0-0.8); MONO % 12.3 % (0.0-10.0); NEUT # 4.8 K/uL (1.8-7.0); NEUT % 62.4 % (50.0-75.0); NRBC % 0.2 % (0.0-0.0); RBC 5.13 Mil/uL (4.40-5.90); RED CELL DISTRIBUTION WIDTH 14.3 % (11.5-14.5); WHITE BLOOD COUNT 7.7 K/uL (4.8-10.8)
[2016-11-01 03:46] LABS: BLOOD UREA NITROGEN 9 mg/dl (9-20); CALCIUM 9.4 mg/dL (8.4-10.2); GFR AFRICAN-AMERICAN > 60; GFR NON-AFRICAN AMERICAN > 60
[2016-11-01 03:56] VITALS: PULSE 85
--- NOTE | 2016-11-01 04:23 | ED PDOC ---
HPI: SOB/CHF/COPD Time Seen by Provider: 11/01/16 02:39 Chief Complaint (Nursing): Shortness Of Breath Chief Complaint (Provider): Difficulty Breathing and Wheezing History Per: Patient History/Exam Limitations: no limitations Onset/Duration Of Symptoms: Hrs Current Symptoms Are (Timing): Still Present Additional Complaint(s): Colby Vasquez, a 51 year old male, who has a past medical history of chronic obstructive pulmonary disease presents to the ED complaining of difficulty breathing and wheezing. The patient reports that his symptoms started today and he tried to use his pump but it did not offer much relief. Patient also notes some chest tightness and dry cough. Denies fever, leg swelling and chest pain. Past Medical History Reviewed: Historical Data, Nursing Documentation, Vital Signs Vital Signs: Last Vital Signs Temp 98.4 F 11/01/16 02:34 Pulse 85 11/01/16 05:15 Resp 20 11/01/16 03:36 BP 153/80 H 11/01/16 02:34 Pulse Ox 95 11/01/16 05:15 - Medical History PMH: Anxiety, Arthritis (arthritis of neck and back), Back Problems (chronic back pain ), Bipolar Disorder, COPD, Depression, Emphysema, Fractures (skull, right pinky), HTN, Pneumonia, Sleep Apnea Denies: Diabetes, Hepatitis, HIV, Chronic Kidney Disease, Seizures, Sexually Transmitted Disease - Surgical History Surgical History: Appendectomy, Hernia Repair (ventral), Tonsillectomy - Family History Family History: States: Unknown Family Hx - Social History Current smoker - smoking cessation education provided: Yes - Immunization History Hx Tetanus Toxoid Vaccination: Yes (UTD) Hx Influenza Vaccination: Yes Hx Pneumococcal Vaccination: Yes - Home Medications Home Medications: Ambulatory Orders Medication Instructions Recorded Aclidinium [place] [Tudorza 1 puff INH BID 08/01/16 Pressair] Escitalopram [Lexapro] 20 mg PO DAILY 09/04/16 Folic Acid 1 mg PO DAILY 09/04/16 Promethazine DM [Phenergan DM 5 ml PO Q8 PRN #3 oz 09/04/16 Syrup] Naproxen [Naprosyn] 500 mg PO BID #30 tablet 10/22/16 Escitalopram [Lexapro] 10 mg PO DAILY #15 tab 10/27/16 Folic Acid 1 mg PO DAILY #30 tab 07/30/17 Gabapentin [Neurontin] 300 mg PO BID #60 cap 10/27/16 Multivitamins [Hexavitamin] 1 tab PO DAILY tab 10/27/16 Thiamine [Vitamin B1 Tab] 100 mg PO DAILY #20 tab 10/27/16 Albuterol HFA [Ventolin HFA 90 2 puff IH [id number] #1 puff 11/01/16 mcg/actuation (8 g)] Fluticasone/Salmeterol [Advair 2 puff INH BID #1 inh 11/01/16 250-50 Diskus] Prednisone 50 mg PO DAILY #5 tablet 11/01/16 - Allergies Allergies/Adverse Reactions: Allergies Allergy/AdvReac Type Severity Reaction Status Date / Time No Known Allergies Allergy Verified 10/22/16 02:28 Wells Criteria for PE - Wells Criteria for Pulmonary Embolism Clinical Signs and Symptoms of DVT: No P.E is #1 Diagnosis, or Equally Likely: No Heart Rate >100: No Immobilization at least 3 days;Surgery previous 4 weeks: No Previous, objectively diagnosed PE or DVT: No Hemoptysis: No Malignancy w/treatment within 6 months, or palliative: No Total Score: 0 Review of Systems ROS Statement: Except As Marked, All Systems Reviewed And Found Negative Constitutional: Negative for: Fever Cardiovascular: Negative for: Chest Pain Respiratory: Positive for: Wheezing, Other (Difficulty Breathing) Musculoskeletal: Positive for: Other (Denies leg swelling) Physical Exam - Reviewed Nursing Documentation Reviewed: Yes Vital Signs Reviewed: Yes - Physical Exam Appears: Positive for: Non-toxic, No Acute Distress Head Exam: Positive for: ATRAUMATIC, NORMAL INSPECTION, NORMOCEPHALIC Skin: Positive for: Normal Color, Warm, Dry Eye Exam: Positive for: Normal appearance, EOMI, PERRL ENT: Positive for: Normal ENT Inspection Neck: Positive for: Normal, Painless ROM, Supple Cardiovascular/Chest: Positive for: Regular Rate, Rhythm, Chest Non Tender. Negative for: Tachycardia Respiratory: Positive for: Wheezing (Bilateral wheezing). Negative for: Respiratory Distress Gastrointestinal/Abdominal: Positive for: Normal Exam, Bowel Sounds, Soft. Negative for: Tenderness, Guarding, Rebound Back: Positive for: Normal Inspection Neurologic/Psych: Positive for: Alert, Oriented, Gait - Laboratory Results Result Diagrams: 11/01/16 03:31 11/01/16 03:31 - ECG ECG: Positive for: Interpreted By Me, Viewed By Me ECG Rhythm: Positive for: Normal QRS, Normal ST Segment, Sinus Rhythm. Negative for: ST/T Changes Rate: 85 O2 Sat by Pulse Oximetry: 95 (RA) Pulse Ox Interpretation: Normal - Progress Re-evaluation Time: 05:12 Condition: Re-examined, Improved Nebulizer Treatments/Peak Flow - Duonebs Number of Bronchodilator Doses given?: 1 - Steroid Treatment Steroid: Oral - Clinical Response Clinical Response: Improved Medical Decision Making Medical Decision Makin Initial Impression: 51 year old male presenting with COPD exacerbation Differential: ACS Initial Plan: * Basic Metabolic Panel * Troponin * CBC * Duoneb 3ml INH * Prednisone TAB 60mg PO * Peak flow pre/post * Reevaluation Scribe Attestation Documented by Quynh Hayward acting as a scribe for Estrellita Bolton MD. Provider Attestation: All medical record entries made by the Scribe were at my direction and personally dictated by me. I have reviewed the chart and agree that the record accurately reflects my personal performance of the history, physical exam, medical decision making, and the department course for this patient. I have also personally directed, reviewed, and agree with the discharge instructions and disposition. Disposition - Clinical Impression Clinical Impression: COPD exacerbation - Patient ED Disposition Is Patient to be Admitted: No Doctor Will See Patient In The: Office Counseled Patient/Family Regarding: Studies Performed, Diagnosis, Need For Followup - Disposition Referrals: [facility] [Outside] Disposition: Routine/Home Disposition Time: 05:13 Condition: GOOD Additional Instructions: Take your medications as instructed. Follow up with your PCP in 2-3 days. Prescriptions: Albuterol HFA [Ventolin HFA 90 mcg/actuation (8 g)] 2 puff IH [id number] #1 puff Fluticasone/Salmeterol [Advair 250-50 Diskus] 2 puff INH BID #1 inh Prednisone 50 mg PO DAILY #5 tablet Instructions: COPD (Chronic Obstructive Pulmonary Disease) (ED)
== END 2016-11-01 05:15 | disposition home or self-care (01) ==
LOC: H.ER 02:30
DX: J44.1 Chronic obstructive pulmonary disease with (acute) exacerbation (principal); F31.9 Bipolar disorder, unspecified; I10 Essential (primary) hypertension; F41.9 Anxiety disorder, unspecified

== ENCOUNTER 2016-11-15 01:43 | Emergency (ER) | payer MEDICAID ==
[2016-11-15 01:43] VITALS: BMI 32.3
[2016-11-15 01:52] VITALS: BP 158/99; PULSE 83; RESP 16; TEMP 97.8; O2SAT 94
[2016-11-15] MEDS ORDERED: Magnesium Sulfate 2 GM in Sodium Chloride 0.9% 100 ML IV STA (02:01)
[2016-11-15] MEDS ORDERED: Albuterol-Ipratrop 3 mg / 0.5 (3 ml) UD INH STA ×2 (02:01→02:02)
--- NOTE | 2016-11-15 02:07 | ED PDOC ---
HPI: General Adult Time Seen by Provider: 11/15/16 01:51 Chief Complaint (Nursing): Chest Pain Chief Complaint (Provider): Chest Pain Onset/Duration Of Symptoms: Unknown Recently: Seen In ED Additional Complaint(s): 50yo male well known to provider and ED for multiple visits for COPD, chronic back pain, non-compliance with meds and smoking cessation, and bed-seeking behavior presents to the ED with complaints of cough, SOB, back pain. Patient reports chest tightness and no relief with advair. Notes exacerbation of chronic back pain. Denies fever, n/v/d, urinary/stool incontinence, numbness/ tingling to extremities. Past Medical History Reviewed: Historical Data, Nursing Documentation, Vital Signs Vital Signs: Last Vital Signs Temp 97.8 F 11/15/16 01:50 Pulse 83 11/15/16 01:50 Resp 16 11/15/16 01:50 BP 158/99 H 11/15/16 01:50 Pulse Ox 94 L 11/15/16 04:39 - Medical History PMH: Anxiety, Arthritis (arthritis of neck and back), Back Problems (chronic back pain ), Bipolar Disorder, COPD, Depression, Emphysema, Fractures (skull, right pinky), HTN, Pneumonia, Sleep Apnea Denies: Diabetes, Hepatitis, HIV, Chronic Kidney Disease, Seizures, Sexually Transmitted Disease - Surgical History Surgical History: Appendectomy, Hernia Repair (ventral), Tonsillectomy - Family History Family History: States: No Known Family Hx - Social History Current smoker - smoking cessation education provided: Yes Alcohol: > 2 Drinks/Day Drugs: Cannabis - Immunization History Hx Tetanus Toxoid Vaccination: Yes (UTD) Hx Influenza Vaccination: Yes Hx Pneumococcal Vaccination: Yes - Home Medications Home Medications: Ambulatory Orders Medication Instructions Recorded Aclidinium [place] [Tudorza 1 puff INH BID 08/01/16 Pressair] Escitalopram [Lexapro] 20 mg PO DAILY 09/04/16 Multivitamins [Hexavitamin] 1 tab PO DAILY tab 10/27/16 Thiamine [Vitamin B1 Tab] 100 mg PO DAILY #20 tab 10/27/16 Albuterol HFA [Ventolin HFA 90 2 puff IH [id number] #1 puff 11/01/16 mcg/actuation (8 g)] Fluticasone/Salmeterol [Advair 2 puff INH BID #1 inh 11/01/16 250-50 Diskus] Methylprednisolone [Medrol Dosepak] 4 mg PO ASDIR #1 pkg 11/15/16 - Allergies Allergies/Adverse Reactions: Allergies Allergy/AdvReac Type Severity Reaction Status Date / Time No Known Allergies Allergy Verified 10/22/16 02:28 Review of Systems ROS Statement: Except As Marked, All Systems Reviewed And Found Negative Cardiovascular: Positive for: Chest Pain Respiratory: Positive for: Cough, Shortness of Breath Musculoskeletal: Positive for: Back Pain Physical Exam - Reviewed Nursing Documentation Reviewed: Yes Vital Signs Reviewed: Yes - Physical Exam Appears: Positive for: Non-toxic, No Acute Distress Head Exam: Positive for: ATRAUMATIC, NORMOCEPHALIC Skin: Positive for: Normal Color, Warm, Dry Eye Exam: Positive for: Normal appearance, EOMI, PERRL ENT: Positive for: Normal ENT Inspection Neck: Positive for: Normal, Painless ROM, Supple Cardiovascular/Chest: Positive for: Regular Rate, Rhythm. Negative for: Murmur Respiratory: Positive for: Wheezing. Negative for: Normal Breath Sounds, Respiratory Distress Gastrointestinal/Abdominal: Positive for: Soft. Negative for: Tenderness Back: Positive for: Normal Inspection Extremity: Positive for: Normal ROM. Negative for: Capillary Refill Neurologic/Psych: Positive for: Alert, Oriented. Negative for: Motor/Sensory Deficits - Laboratory Results Result Diagrams: 11/15/16 03:32 11/15/16 03:32 - ECG O2 Sat by Pulse Oximetry: 94 (RA) Pulse Ox Interpretation: Normal Medical Decision Making Medical Decision Makin Initial impression: chest pain in setting of known asthma Initial plan: * EKG * EtOH serum * Labs * UDrug screen * Trop I * Duonebs 3mL INH x2 * Magnesium Sulfate 2gm IV * Peak flow pre/post Tx x2 0337 * EKG * Duonebs 3mL INH * Peak flow pre/post Tx 0400 Patient reports improvement in symptoms and is stable for discharge home. Dx: COPD exacerbation and atypical chest pain. Scribe Attestation: Documented by Tami Morrison acting as a scribe for Lazaro Worrell MD. Scribe Attestation: All medical record entries made by the Scribe were at my direction and personally dictated by me. I have reviewed the chart and agree that the record accurately reflects my personal performance of the history, physical exam, medical decision making, and the department course for this patient. I have also personally directed, reviewed, and agree with the discharge instructions and disposition. Disposition - Clinical Impression Clinical Impression: COPD exacerbation, Atypical chest pain - Disposition Disposition: Routine/Home Disposition Time: 04:00 Condition: STABLE Prescriptions: Methylprednisolone [Medrol Dosepak] 4 mg PO ASDIR #1 pkg Instructions: COPD (Chronic Obstructive Pulmonary Disease) (ED) Forms: [employer] (Azeri)
[2016-11-15 03:41] LABS: BASO # 0.1 K/uL (0.0-0.2); BASO % 1.2 % (0.0-2.0); EOS # 0.5 K/uL (0.0-0.7); EOS % 6.4 % (0.0-4.0); HEMATOCRIT 51.9 % (35.0-51.0); LYMPH # 1.8 K/uL (1.0-4.3); LYMPH % 23.9 % (20.0-40.0); MEAN CELL VOLUME 100.1 fl (80.0-94.0); MEAN CORPUSCULAR HEMOGLOBIN 34.1 pg (27.0-31.0); MEAN PLATELET VOLUME 8.2 fl (7.2-11.7); MONO # 0.6 K/uL (0.0-0.8); MONO % 8.6 % (0.0-10.0); NEUT # 4.4 K/uL (1.8-7.0); NEUT % 59.9 % (50.0-75.0); NRBC % 0.1 % (0.0-0.0); RED CELL DISTRIBUTION WIDTH 14.1 % (11.5-14.5); WHITE BLOOD COUNT 7.4 K/uL (4.8-10.8)
[2016-11-15] MEDS ORDERED: Albuterol-Ipratrop 3 mg / 0.5 (3 ml) UD ONE (03:46)
[2016-11-15] MEDS ORDERED: Magnesium Sulfate 2 gm/50 ml 2 GM/50 ML BAG ONE (03:46)
[2016-11-15 03:51] LABS: ALB/GLOB RATIO 1.3 (1.0-2.1); ALCOHOL SERUM 69 mg/dl (0-10); ALKALINE PHOSPHATASE 115 U/L (38-126); ALT/SGPT 173 U/L (21-72); AST/SGOT 111 U/L (17-59); BILIRUBIN,TOTAL 0.7 mg/dl (0.2-1.3); BLOOD UREA NITROGEN 5 mg/dl (9-20); CALCIUM 9.1 mg/dL (8.4-10.2); CARBON DIOXIDE 30 mmol/L (22-30); CHLORIDE 106 mmol/L (98-107); GFR AFRICAN-AMERICAN > 60; GLUCOSE,RANDOM 106 mg/dL (75-110); POTASSIUM 4.5 MMOL/L (3.6-5.0); SODIUM 143 mmol/l (132-148); TOTAL PROTEIN 7.3 G/DL (6.3-8.2)
--- NOTE | 2016-11-15 10:38 | CARD ---
APPROVED REPORT EKG Measurement Heart [id number] ID [id number] <Conclusion> Normal sinus rhythm Normal ECG
== END 2016-11-15 06:30 | disposition home or self-care (01) ==
LOC: H.ER 01:43
DX: J44.1 Chronic obstructive pulmonary disease with (acute) exacerbation (principal); F31.9 Bipolar disorder, unspecified; F41.9 Anxiety disorder, unspecified; G89.29 Other chronic pain; I10 Essential (primary) hypertension

== ENCOUNTER 2016-11-28 02:00 | Emergency (ER) | payer MEDICAID ==
[2016-11-28 02:01] VITALS: BMI 32.3
[2016-11-28 02:08] VITALS: BP 112/71; RESP 16; TEMP 97.7; O2SAT 97
[2016-11-28] MEDS ORDERED: Albuterol-Ipratrop 3 mg / 0.5 (3 ml) UD INH STA ×3 (02:16→02:17)
[2016-11-28] MEDS ORDERED: Albuterol-Ipratrop 3 mg / 0.5 (3 ml) UD ONE (02:18)
--- NOTE | 2016-11-28 02:31 | ED PDOC ---
HPI: SOB/CHF/COPD Time Seen by Provider: 11/28/16 02:03 Chief Complaint (Nursing): Chest Pain Chief Complaint (Provider): Shortness of breath History Per: Patient History/Exam Limitations: no limitations Onset/Duration Of Symptoms: Mins Current Symptoms Are (Timing): Still Present Quality: Pressure, "Pain" Additional Complaint(s): The patient is a 51yo male, presents to the ED complaining of shortness of breath after he ran out of his pump. Patient also reports mid-sternal chest pain , described as pressure like and associated dry cough. Patient denies any fever or chills and at present, offers no additional medical complaints. Past Medical History Reviewed: Historical Data, Nursing Documentation, Vital Signs Vital Signs: Last Vital Signs Temp 97.7 F 11/28/16 02:07 Pulse 76 11/28/16 06:13 Resp 16 11/28/16 02:07 BP 112/71 11/28/16 02:07 Pulse Ox 97 11/28/16 06:13 - Medical History PMH: Anxiety, Arthritis (arthritis of neck and back), Back Problems (chronic back pain ), Bipolar Disorder, COPD, Depression, Emphysema, Fractures (skull, right pinky), HTN, Pneumonia, Sleep Apnea Denies: Diabetes, Hepatitis, HIV, Chronic Kidney Disease, Seizures, Sexually Transmitted Disease - Surgical History Surgical History: Appendectomy, Hernia Repair (ventral), Tonsillectomy - Family History Family History: States: Unknown Family Hx - Social History Current smoker - smoking cessation education provided: Yes - Immunization History Hx Tetanus Toxoid Vaccination: Yes (UTD) Hx Influenza Vaccination: Yes Hx Pneumococcal Vaccination: Yes - Home Medications Home Medications: Ambulatory Orders Medication Instructions Recorded Aclidinium [place] [Tudorza 1 puff INH BID 08/01/16 Pressair] Escitalopram [Lexapro] 20 mg PO DAILY 09/04/16 Multivitamins [Hexavitamin] 1 tab PO DAILY tab 10/27/16 Thiamine [Vitamin B1 Tab] 100 mg PO DAILY #20 tab 10/27/16 Albuterol HFA [Ventolin HFA 90 2 puff IH [id number] #1 puff 11/01/16 mcg/actuation (8 g)] Fluticasone/Salmeterol [Advair 2 puff INH BID #1 inh 11/01/16 250-50 Diskus] Methylprednisolone [Medrol Dosepak] 4 mg PO ASDIR #1 pkg 11/15/16 Albuterol HFA [Ventolin HFA 90 2 puff IH [id number] #1 puff 11/28/16 mcg/actuation (8 g)] predniSONE [predniSONE Tab] 60 mg PO DAILY #9 tab 11/28/16 - Allergies Allergies/Adverse Reactions: Allergies Allergy/AdvReac Type Severity Reaction Status Date / Time No Known Allergies Allergy Verified 10/22/16 02:28 Review of Systems ROS Statement: Except As Marked, All Systems Reviewed And Found Negative Constitutional: Negative for: Fever, Chills Cardiovascular: Positive for: Chest Pain Respiratory: Positive for: Shortness of Breath Physical Exam - Reviewed Nursing Documentation Reviewed: Yes Vital Signs Reviewed: Yes - Physical Exam Appears: Positive for: Well, Non-toxic, No Acute Distress Head Exam: Positive for: ATRAUMATIC, NORMAL INSPECTION, NORMOCEPHALIC Skin: Positive for: Normal Color Eye Exam: Positive for: Normal appearance Neck: Positive for: Normal Cardiovascular/Chest: Positive for: Regular Rate, Rhythm. Negative for: Murmur Respiratory: Positive for: Wheezing (b/l). Negative for: Respiratory Distress Neurologic/Psych: Positive for: Alert, Oriented. Negative for: Motor/Sensory Deficits - ECG ECG: Positive for: Interpreted By Me, Viewed By Me ECG Rhythm: Positive for: Normal QRS, Normal ST Segment, Sinus Rhythm. Negative for: ST/T Changes Rate: 76 O2 Sat by Pulse Oximetry: 97 (RA) Pulse Ox Interpretation: Normal Medical Decision Making Medical Decision Making: Time: 209 Impression: COPD Plan: -- Prednisone 60 mg PO -- Albuterol 3ml INH x 3 Reassess Time: 034 Patient resting in room, no acute distress. Time: 0510 Patient resting in room, vitals stable. Time: 0610 Patient awake, alert and oriented. Patient reports feeling much better; patient with no chest pain and has no complaints of shortness of breath. Patient is stable for discharge home. Scribe Attestation: Documented by Mar Ayala acting as a scribe for Pedro Pablo Lentz MD. Provider Attestation: All medical record entries made by the Scribe were at my direction and personally dictated by me. I have reviewed the chart and agree that the record accurately reflects my personal performance of the history, physical exam, medical decision making, and the department course for this patient. I have also personally directed, reviewed, and agree with the discharge instructions and disposition. Disposition - Clinical Impression Clinical Impression: COPD exacerbation - Patient ED Disposition Is Patient to be Admitted: No - Disposition Referrals: [facility] [Outside] Disposition: Routine/Home Disposition Time: 06:10 Condition: STABLE Prescriptions: Albuterol HFA [Ventolin HFA 90 mcg/actuation (8 g)] 2 puff IH [id number] #1 puff predniSONE [predniSONE Tab] 60 mg PO DAILY #9 tab Instructions: COPD (Chronic Obstructive Pulmonary Disease) (ED) Forms: [employer] (German)
[2016-11-28 06:13] VITALS: PULSE 76
== END 2016-11-28 06:59 | disposition home or self-care (01) ==
LOC: H.ER 02:00
DX: J44.1 Chronic obstructive pulmonary disease with (acute) exacerbation (principal); F31.9 Bipolar disorder, unspecified; F41.9 Anxiety disorder, unspecified; G89.29 Other chronic pain; I10 Essential (primary) hypertension

== ENCOUNTER 2016-11-29 00:56 | Observation (INO) | payer MEDICAID ==
[2016-11-29 00:56] VITALS: BMI 32.3
[2016-11-29 01:10] VITALS: O2SAT 97
--- NOTE | 2016-11-29 01:17 | ED PDOC ---
HPI: Psych/Substance Abuse Time Seen by Provider: 11/29/16 01:02 Chief Complaint (Nursing): Anxiety Chief Complaint (Provider): Anxiety History Per: Patient History/Exam Limitations: no limitations Onset/Duration Of Symptoms: Hrs Additional Complaint(s): Colby Vasquez is a 51 year old male, with a past medical history of COPD and chronic alcoholism, who presents to the emergency room complaining of anxiety onset prior to arrival. Patient is known to be homeless, and denies any homicidal or suicidal ideation, visual and auditory hallucinations. PMD: None provided Past Medical History Reviewed: Historical Data, Nursing Documentation, Vital Signs Vital Signs: Last Vital Signs Temp 98.1 F 11/29/16 01:06 Pulse 88 11/29/16 01:06 Resp 20 11/29/16 01:06 BP 134/86 11/29/16 01:06 Pulse Ox 97 11/29/16 01:06 - Medical History PMH: Anxiety, Arthritis (arthritis of neck and back), Back Problems (chronic back pain ), Bipolar Disorder, COPD, Depression, Emphysema, Fractures (skull, right pinky), HTN, Pneumonia, Sleep Apnea Denies: Diabetes, Hepatitis, HIV, Chronic Kidney Disease, Seizures, Sexually Transmitted Disease - Surgical History Surgical History: Appendectomy, Hernia Repair (ventral), Tonsillectomy - Family History Family History: States: Unknown Family Hx - Social History Current smoker - smoking cessation education provided: Yes Alcohol: > 2 Drinks/Day Drugs: Denies - Immunization History Hx Tetanus Toxoid Vaccination: Yes (UTD) Hx Influenza Vaccination: Yes Hx Pneumococcal Vaccination: Yes - Home Medications Home Medications: Ambulatory Orders Medication Instructions Recorded Aclidinium [place] [Tudorza 1 puff INH BID 08/01/16 Pressair] Escitalopram [Lexapro] 20 mg PO DAILY 09/04/16 Multivitamins [Hexavitamin] 1 tab PO DAILY tab 10/27/16 Thiamine [Vitamin B1 Tab] 100 mg PO DAILY #20 tab 10/27/16 Albuterol HFA [Ventolin HFA 90 2 puff IH [id number] #1 puff 11/01/16 mcg/actuation (8 g)] Fluticasone/Salmeterol [Advair 2 puff INH BID #1 inh 11/01/16 250-50 Diskus] Methylprednisolone [Medrol Dosepak] 4 mg PO ASDIR #1 pkg 11/15/16 Albuterol HFA [Ventolin HFA 90 2 puff IH [id number] #1 puff 11/28/16 mcg/actuation (8 g)] predniSONE [predniSONE Tab] 60 mg PO DAILY #9 tab 11/28/16 - Allergies Allergies/Adverse Reactions: Allergies Allergy/AdvReac Type Severity Reaction Status Date / Time No Known Allergies Allergy Verified 10/22/16 02:28 Review of Systems ROS Statement: Except As Marked, All Systems Reviewed And Found Negative Psych: Positive for: Anxiety. Negative for: Suicidal ideation (& homicidal ideation), Other (auditory or visual hallucinations) Physical Exam - Reviewed Nursing Documentation Reviewed: Yes Vital Signs Reviewed: Yes - Physical Exam Appears: Positive for: Well (poor state of hygiene ), No Acute Distress Head Exam: Positive for: ATRAUMATIC, NORMAL INSPECTION, NORMOCEPHALIC Skin: Positive for: Normal Color, Warm, Dry Eye Exam: Positive for: EOMI, Normal appearance, PERRL Neck: Positive for: Normal, Painless ROM, Supple Cardiovascular/Chest: Positive for: Regular Rate, Rhythm. Negative for: Murmur Respiratory: Positive for: Normal Breath Sounds. Negative for: Respiratory Distress Gastrointestinal/Abdominal: Positive for: Normal Exam, Bowel Sounds, Soft. Negative for: Tenderness Back: Positive for: Normal Inspection Extremity: Positive for: Normal ROM Neurologic/Psych: Positive for: Alert, Oriented. Negative for: Motor/Sensory Deficits - Laboratory Results Result Diagrams: 11/29/16 01:36 11/29/16 01:36 - ECG O2 Sat by Pulse Oximetry: 97 (RA) Pulse Ox Interpretation: Normal Medical Decision Making Medical Decision Making: Initial Impression: 51 y/o male complaining of anxiety, known alcoholism and Hx of bed seeking behavior Initial Plan: --Alcohol serum --Comp metabolic panel --Drug screen, urine --Crisis Evaluation --CBC w. differential --Accucheck --reevaluation 0445 -Labs reviews, no significant abnormality with exception of blood alcohol level. Patient admitted from Crisis at 4:45 and ready to discharge home. -Diagnosis: alcoholism and anxiety Scribe Attestation: Documented by Serjio Brooks, acting as a scribe for Lazaro Worrell MD Provider Scribe Attestation: All medical record entries made by the Scribe were at my direction and personally dictated by me. I have reviewed the chart and agree that the record accurately reflects my personal performance of the history, physical exam, medical decision making, and the department course for this patient. I have also personally directed, reviewed, and agree with the discharge instructions and disposition. ED OBSERVATION Date of observation admission: 11/29/16 Time of observation admission: :20 - Observation admission statement Patient is being placed in observation because:: Need for resolution of symptoms - Goals of Observation Goals of observation are:: Clinical sobriety - Progress Note Progress Note: 11/29/16 01:26 Patient is resting, vitals are stable. 11/29/16 02:44 Patient is resting, vitals are stable. 11/29/16 04:15 Patient is resting comfortably. Vitals sign are stable. 11/29/16 06:25 Patient is resting comfortably. Vitals sign are stable. Disposition - Clinical Impression Clinical Impression: Anxiety disorder, Alcohol abuse - Disposition Disposition: Routine/Home Disposition Time: 01:20 Condition: STABLE
[2016-11-29 01:45] LABS: BASO # 0.1 K/uL (0.0-0.2); EOS # 0.2 K/uL (0.0-0.7); EOS % 2.4 % (0.0-4.0); HEMATOCRIT 51.3 % (35.0-51.0); LYMPH # 2.9 K/uL (1.0-4.3); LYMPH % 27.9 % (20.0-40.0); MEAN CELL VOLUME 100.4 fl (80.0-94.0); MEAN CORPUSCULAR HEMOGLOBIN 33.6 pg (27.0-31.0); MEAN CORPUSCULAR HGB CONC 33.5 g/dL (33.0-37.0); MONO # 1.1 K/uL (0.0-0.8); MONO % 10.1 % (0.0-10.0); NEUT # 6.2 K/uL (1.8-7.0); NEUT % 58.6 % (50.0-75.0); RED CELL DISTRIBUTION WIDTH 14.2 % (11.5-14.5); WHITE BLOOD COUNT 10.6 K/uL (4.8-10.8)
[2016-11-29 02:00] LABS: ALB/GLOB RATIO 1.2 (1.0-2.1); BLOOD UREA NITROGEN 6 mg/dl (9-20); CALCIUM 9.1 mg/dL (8.4-10.2); CARBON DIOXIDE 24 mmol/L (22-30); CHLORIDE 106 mmol/L (98-107); GFR AFRICAN-AMERICAN > 60; GLUCOSE,RANDOM 98 mg/dL (75-110); POTASSIUM 3.9 MMOL/L (3.6-5.0); SODIUM 143 mmol/l (132-148); TOTAL PROTEIN 7.4 G/DL (6.3-8.2)
[2016-11-29 02:01] LABS: ALCOHOL SERUM 240 mg/dl (0-10); ALKALINE PHOSPHATASE 240 U/L (38-126); ALT/SGPT 107 U/L (21-72); AST/SGOT 90 U/L (17-59); BILIRUBIN,TOTAL 0.6 mg/dl (0.2-1.3)
[2016-11-29 06:40] VITALS: BP 128/84; PULSE 92; RESP 18; TEMP 98.2
== END 2016-11-29 06:05 | disposition home or self-care (01) ==
LOC: H.ER 00:56 → H.EROBSV 01:15
PROVIDERS: ADMIT Emergency Medicine; ATTEND Emergency Medicine
DX: F41.9 Anxiety disorder, unspecified (principal); F10.20 Alcohol dependence, uncomplicated; Z59.0 Homelessness; F17.200 Nicotine dependence, unspecified, uncomplicated; J44.9 Chronic obstructive pulmonary disease, unspecified
CPT/HCPCS: 80053; 80320; 80324; 80345; 80346; 80349; 80353; 80358; 80361; 82948; 83992; 85025; 99282; G0378

== ENCOUNTER 2016-12-21 02:43 | Emergency (ER) | payer MEDICAID ==
[2016-12-21 02:43] VITALS: BMI 32.3
[2016-12-21 03:10] VITALS: PULSE 76; RESP 16; TEMP 97.9; O2SAT 96
--- NOTE | 2016-12-21 03:19 | ED PDOC ---
Upper Extremity Pain/Injury Time Seen by Provider: 12/21/16 03:17 Chief Complaint (Nursing): Upper Extremity Problem/Injury Chief Complaint (Provider): elbow injury History Per: Patient (51 y/o male here with left elbow injury that occurred after striking elbow against table twice. Denies any fevers/chills. Admits h/ o etoh abuse.) Past Medical History Reviewed: Historical Data, Nursing Documentation, Vital Signs Vital Signs: Last Vital Signs Temp 97.9 F 12/21/16 03:06 Pulse 76 12/21/16 03:06 Resp 16 12/21/16 03:06 BP 120/74 12/21/16 03:06 Pulse Ox 96 12/21/16 03:06 - Medical History PMH: Anxiety, Arthritis (arthritis of neck and back), Back Problems (chronic back pain ), Bipolar Disorder, COPD, Depression, Emphysema, Fractures (skull, right pinky), HTN, Pneumonia, Sleep Apnea Denies: Diabetes, Hepatitis, HIV, Chronic Kidney Disease, Seizures, Sexually Transmitted Disease - Surgical History Surgical History: Appendectomy, Hernia Repair (ventral), Tonsillectomy - Family History Family History: States: Unknown Family Hx - Immunization History Hx Tetanus Toxoid Vaccination: Yes (UTD) Hx Influenza Vaccination: Yes Hx Pneumococcal Vaccination: Yes - Home Medications Home Medications: Ambulatory Orders Medication Instructions Recorded Aclidinium [place] [Tudorza 1 puff INH BID 08/01/16 Pressair] Escitalopram [Lexapro] 20 mg PO DAILY 09/04/16 Multivitamins [Hexavitamin] 1 tab PO DAILY tab 10/27/16 Thiamine [Vitamin B1 Tab] 100 mg PO DAILY #20 tab 10/27/16 Albuterol HFA [Ventolin HFA 90 2 puff IH [id number] #1 puff 11/01/16 mcg/actuation (8 g)] Fluticasone/Salmeterol [Advair 2 puff INH BID #1 inh 11/01/16 250-50 Diskus] Methylprednisolone [Medrol Dosepak] 4 mg PO ASDIR #1 pkg 11/15/16 Albuterol HFA [Ventolin HFA 90 2 puff IH [id number] #1 puff 11/28/16 mcg/actuation (8 g)] predniSONE [predniSONE Tab] 60 mg PO DAILY #9 tab 11/28/16 - Allergies Allergies/Adverse Reactions: Allergies Allergy/AdvReac Type Severity Reaction Status Date / Time No Known Allergies Allergy Verified 10/22/16 02:28 Review of Systems ROS Statement: Except As Marked, All Systems Reviewed And Found Negative Musculoskeletal: Positive for: Other (elbow injury) Physical Exam - Reviewed Nursing Documentation Reviewed: Yes Vital Signs Reviewed: Yes - Physical Exam Appears: Positive for: Well, Non-toxic, No Acute Distress Head Exam: Positive for: ATRAUMATIC, NORMAL INSPECTION, NORMOCEPHALIC Skin: Positive for: Normal Color, Warm, DRY Eye Exam: Positive for: EOMI, Normal appearance, PERRL ENT: Positive for: Normal ENT Inspection Neck: Positive for: Normal, Painless ROM Cardiovascular/Chest: Positive for: Regular Rate, Rhythm Respiratory: Positive for: CNT, Normal Breath Sounds Gastrointestinal/Abdominal: Positive for: Normal Exam, Bowel Sounds, Soft Back: Positive for: Normal Inspection Extremity: Positive for: Normal ROM, Swelling (left elbow) Neurologic/Psych: Positive for: Alert, Oriented - ECG O2 Sat by Pulse Oximetry: 96 - Progress ED Course And Treament: elbow xry: no acute fx motrin 600mg x 1dose Disposition - Clinical Impression Clinical Impression: Elbow contusion, Hematoma - Patient ED Disposition Is Patient to be Admitted: No - Disposition Referrals: [facility] [Outside] Disposition: Routine/Home Disposition Time: 03:39 Condition: FAIR Instructions: Hematoma (ED), Contusion in Adults (ED) Forms: [employer] (Citizen Of [place])
[2016-12-21 03:57] VITALS: BP 118/74
--- NOTE | 2016-12-21 10:44 | RAD ---
PROCEDURE: Radiographs of the left elbow. HISTORY: ELBOW CONTUSION COMPARISON: No prior. FINDINGS: BONES: No evidence of acute fracture or dislocation. JOINTS: Mild osteoarthritic changes are noted. SOFT TISSUES: Mild soft tissue swelling. JOINT EFFUSION: No radiographic evidence of significant joint effusion. OTHER FINDINGS: None IMPRESSION: No evidence of acute fracture or dislocation.
== END 2016-12-21 04:01 | disposition home or self-care (01) ==
LOC: H.ER 02:43
DX: S50.02XA Contusion of left elbow, initial encounter (principal); W22.03XA Walked into furniture, initial encounter; J44.9 Chronic obstructive pulmonary disease, unspecified; I10 Essential (primary) hypertension

== ENCOUNTER 2017-01-08 01:07 | Emergency (ER) | payer MEDICAID ==
[2017-01-08 01:07] VITALS: BMI 32.3
[2017-01-08 01:13] VITALS: O2SAT 96
[2017-01-08] MEDS ORDERED: Albuterol-Ipratrop 3 mg / 0.5 (3 ml) UD IH STA ×3 (01:20)
--- NOTE | 2017-01-08 01:22 | ED PDOC ---
HPI: SOB/CHF/COPD Time Seen by Provider: 01/08/17 01:14 Chief Complaint (Nursing): Shortness Of Breath Chief Complaint (Provider): shortness of breath History Per: Patient History/Exam Limitations: no limitations Onset/Duration Of Symptoms: Hrs Current Symptoms Are (Timing): Still Present Initiating Event: Out Of Medications Additional History Per: Patient Additional Complaint(s): 51 y/o male history of copd, alcoholism brought in by EMS for eval of shortness of breath x 5 hours. Patient states he ran out of his Albuterol today. Patient notes symptoms similar to previous visits due to his COPD. Denies fever , congestion, cough, chest pain, palpitations, leg pain/swelling. Past Medical History Reviewed: Historical Data, Nursing Documentation, Vital Signs Vital Signs: Last Vital Signs Temp 97.8 F 01/08/17 03:59 Pulse 94 H 01/08/17 03:59 Resp 18 01/08/17 03:59 BP 114/69 01/08/17 03:59 Pulse Ox 96 01/08/17 03:59 - Medical History PMH: Anxiety, Arthritis (arthritis of neck and back), Back Problems (chronic back pain ), Bipolar Disorder, COPD, Depression, Emphysema, Fractures (skull, right pinky), HTN, Pneumonia, Sleep Apnea Denies: Diabetes, Hepatitis, HIV, Chronic Kidney Disease, Seizures, Sexually Transmitted Disease - Surgical History Surgical History: Appendectomy, Hernia Repair (ventral), Tonsillectomy - Family History Family History: States: Unknown Family Hx - Immunization History Hx Tetanus Toxoid Vaccination: Yes (UTD) Hx Influenza Vaccination: Yes Hx Pneumococcal Vaccination: Yes - Home Medications Home Medications: Ambulatory Orders Medication Instructions Recorded Aclidinium [place] [Tudorza 1 puff INH BID 08/01/16 Pressair] Escitalopram [Lexapro] 20 mg PO DAILY 09/04/16 Multivitamins [Hexavitamin] 1 tab PO DAILY tab 10/27/16 Thiamine [Vitamin B1 Tab] 100 mg PO DAILY #20 tab 10/27/16 Albuterol HFA [Ventolin HFA 90 2 puff IH [id number] #1 puff 11/01/16 mcg/actuation (8 g)] Fluticasone/Salmeterol [Advair 2 puff INH BID #1 inh 11/01/16 250-50 Diskus] Methylprednisolone [Medrol Dosepak] 4 mg PO ASDIR #1 pkg 11/15/16 Albuterol HFA [Ventolin HFA 90 2 puff IH [id number] #1 puff 11/28/16 mcg/actuation (8 g)] predniSONE [predniSONE Tab] 60 mg PO DAILY #9 tab 11/28/16 Naproxen [Naprosyn Tab] 375 mg PO Q8 PRN #15 tab 12/21/16 Albuterol HFA [Ventolin HFA 90 1 puff IH Q4 PRN #1 inh 01/08/17 mcg/actuation (8 g)] predniSONE [Prednisone] 60 mg PO DAILY #12 tab 01/08/17 - Allergies Allergies/Adverse Reactions: Allergies Allergy/AdvReac Type Severity Reaction Status Date / Time No Known Allergies Allergy Verified 10/22/16 02:28 Review of Systems ROS Statement: Except As Marked, All Systems Reviewed And Found Negative Respiratory: Positive for: Shortness of Breath Physical Exam - Reviewed Nursing Documentation Reviewed: Yes Vital Signs Reviewed: Yes - Physical Exam Appears: Positive for: Well, Non-toxic, No Acute Distress Head Exam: Positive for: ATRAUMATIC, NORMAL INSPECTION, NORMOCEPHALIC Skin: Positive for: Normal Color Eye Exam: Positive for: Normal appearance ENT: Positive for: Normal ENT Inspection Cardiovascular/Chest: Positive for: Regular Rate, Rhythm Respiratory: Positive for: Wheezing (diffuse expiratory) Gastrointestinal/Abdominal: Positive for: Normal Exam Back: Positive for: Normal Inspection Extremity: Positive for: Normal ROM Neurologic/Psych: Positive for: Alert, Oriented - ECG ECG: Positive for: Viewed By Me (reviewed by ED attending) ECG Rhythm: Positive for: Sinus Rhythm O2 Sat by Pulse Oximetry: 96 - Progress ED Course And Treament: ekg, duonebs, prednisone PO On re-eval, patient states he is feeling better. Patient discharged with rx albuterol HFA, prednisone. Advised follow up PMD 2-3 days. Return to ED for worsening/concerning symptoms. Disposition - Clinical Impression Clinical Impression: COPD exacerbation - Patient ED Disposition Is Patient to be Admitted: No Counseled Patient/Family Regarding: Studies Performed, Diagnosis, Need For Followup, Rx Given - Disposition Disposition: Routine/Home Disposition Time: 04:28 Condition: IMPROVED Prescriptions: Albuterol HFA [Ventolin HFA 90 mcg/actuation (8 g)] 1 puff IH Q4 PRN #1 inh PRN Reason: Wheezing predniSONE [Prednisone] 60 mg PO DAILY #12 tab Instructions: COPD (Chronic Obstructive Pulmonary Disease) (ED)
[2017-01-08 04:02] VITALS: BP 114/69; PULSE 94; RESP 18; TEMP 97.8
== END 2017-01-08 04:50 | disposition home or self-care (01) ==
LOC: H.ER 01:07
DX: J44.9 Chronic obstructive pulmonary disease, unspecified (principal); F10.10 Alcohol abuse, uncomplicated

== ENCOUNTER 2017-03-18 00:25 | Emergency (ER) | payer MEDICAID ==
[2017-03-18 00:26] VITALS: BMI 32.3
[2017-03-18] MEDS ORDERED: Albuterol-Ipratrop 3 mg / 0.5 (3 ml) UD INH STA ×2 (00:48→00:55)
[2017-03-18] MEDS ORDERED: Albuterol-Ipratrop 3 mg / 0.5 (3 ml) UD ONE (01:01)
[2017-03-18 01:11] VITALS: RESP 18
--- NOTE | 2017-03-18 01:42 | ED PDOC ---
HPI: SOB/CHF/COPD Time Seen by Provider: 03/18/17 00:46 Chief Complaint (Nursing): Shortness Of Breath Chief Complaint (Provider): Shortness of Breath History Per: Patient History/Exam Limitations: no limitations Onset/Duration Of Symptoms: Hrs (2 hours ago) Current Symptoms Are (Timing): Still Present Additional Complaint(s): 51 y/o male with a past medical history of COPD and asthma, presents to the ED complaining of shortness of breath, onset of 2 hours ago. Patient is well known to the provider and the ED, being that he is homeless and has exhibited bed-seeking behavior. Of note, patient has been recently hospitalized at [facility]. He reports of coughing and chest tightness with mild wheezing. Patient is also known for being a smoker and his alcohol abuse in the past. Past Medical History Reviewed: Historical Data, Nursing Documentation, Vital Signs Vital Signs: Last Vital Signs Temp 98.7 F 03/18/17 00:39 Pulse 97 H 03/18/17 00:39 Resp 18 03/18/17 00:59 BP 131/61 03/18/17 00:39 Pulse Ox 98 03/18/17 04:48 - Medical History PMH: Anxiety, Arthritis (arthritis of neck and back), Back Problems (chronic back pain ), Bipolar Disorder, COPD, Depression, Emphysema, Fractures (skull, right pinky), HTN, Pneumonia, Sleep Apnea Denies: Diabetes, Hepatitis, HIV, Chronic Kidney Disease, Seizures, Sexually Transmitted Disease - Surgical History Surgical History: Appendectomy, Hernia Repair (ventral), Tonsillectomy - Family History Family History: States: Unknown Family Hx - Living Arrangements Living Arrangements: Alone - Social History Current smoker - smoking cessation education provided: Yes Alcohol: > 2 Drinks/Day Drugs: Denies - Immunization History Hx Tetanus Toxoid Vaccination: Yes (UTD) Hx Influenza Vaccination: No Hx Pneumococcal Vaccination: Yes - Home Medications Home Medications: Ambulatory Orders Medication Instructions Recorded Multivitamins [Hexavitamin] 1 tab PO DAILY tab 10/27/16 Thiamine [Vitamin B1 Tab] 100 mg PO DAILY #20 tab 10/27/16 Fluticasone/Salmeterol [Advair 2 puff INH BID #1 inh 11/01/16 250-50 Diskus] Albuterol HFA [Ventolin HFA 90 2 puff IH Q4H #1 puff 01/31/17 mcg/actuation (8 g)] Azithromycin [Zithromax] 500 mg PO DAILY #5 tab 02/26/17 Albuterol HFA [Ventolin HFA 90 1 - 2 puff IH Q6 PRN #1 inhaler 03/18/17 mcg/actuation (8 g)] predniSONE [predniSONE Tab] 60 mg PO QAM #12 tab 03/18/17 - Allergies Allergies/Adverse Reactions: Allergies Allergy/AdvReac Type Severity Reaction Status Date / Time No Known Allergies Allergy Verified 02/23/17 20:57 Review of Systems ROS Statement: Except As Marked, All Systems Reviewed And Found Negative Cardiovascular: Positive for: Other (chest tightness) Respiratory: Positive for: Cough, Wheezing Physical Exam - Reviewed Nursing Documentation Reviewed: Yes Vital Signs Reviewed: Yes - Physical Exam Appears: Positive for: Non-toxic, No Acute Distress. Negative for: Well (poor hygiene because homeless) Head Exam: Positive for: ATRAUMATIC Skin: Positive for: Normal Color, Warm Eye Exam: Positive for: Normal appearance ENT: Positive for: Normal ENT Inspection Neck: Positive for: Normal, Painless ROM, Supple Cardiovascular/Chest: Positive for: Regular Rate, Rhythm. Negative for: Murmur Respiratory: Positive for: Wheezing (mild bilateral expiratory wheezing) Gastrointestinal/Abdominal: Positive for: Normal Exam, Soft. Negative for: Tenderness Back: Positive for: Normal Inspection Extremity: Positive for: Normal ROM. Negative for: Pedal Edema, Deformity Neurologic/Psych: Positive for: Alert, Oriented. Negative for: Motor/Sensory Deficits - ECG O2 Sat by Pulse Oximetry: 98 (RA) Pulse Ox Interpretation: Normal Medical Decision Making Medical Decision Making: Time: --00:48 Impression: --51 y/o male with shortness of breath and wheezing in setting of COPD Plan: --ECG --Albuterol 3ml INH --Prednisone 60 mg PO --Peak Flow Pre/Pos Tx Reassess --03:45 Patient shows improvement of symptoms and is stable for discharge. Diagnosis: COPD Scribe Attestation: Documented by Jp Rowan acting as a scribe for Lazaro Worrell MD. Disposition - Clinical Impression Clinical Impression: COPD (chronic obstructive pulmonary disease) - Patient ED Disposition Is Patient to be Admitted: No - Disposition Referrals: Yennifer Hurley MD [Primary Care Provider] - Disposition: Routine/Home Disposition Time: 03:45 Condition: IMPROVED Prescriptions: Albuterol HFA [Ventolin HFA 90 mcg/actuation (8 g)] 1 - 2 puff IH Q6 PRN #1 inhaler PRN Reason: Shortness Of Breath predniSONE [predniSONE Tab] 60 mg PO QAM #12 tab Instructions: COPD (Chronic Obstructive Pulmonary Disease) (ED) Forms: [employer] (Al[place]ian)
[2017-03-18 05:54] VITALS: BP 136/84; PULSE 85; TEMP 98.3; O2SAT 96
--- NOTE | 2017-03-19 11:27 | CARD ---
APPROVED REPORT EKG Measurement Heart [id number] SD [id number] <Conclusion> Sinus rhythm with short SD Otherwise normal ECG
== END 2017-03-18 05:45 | disposition home or self-care (01) ==
LOC: H.ER 00:25
DX: J44.9 Chronic obstructive pulmonary disease, unspecified (principal); F31.9 Bipolar disorder, unspecified; F41.9 Anxiety disorder, unspecified; G89.29 Other chronic pain; I10 Essential (primary) hypertension; Z59.0 Homelessness; F17.200 Nicotine dependence, unspecified, uncomplicated

== ENCOUNTER 2017-04-01 12:31 | Emergency (ER) | payer MEDICAID ==
[2017-04-01 12:32] VITALS: BMI 32.3
[2017-04-01 12:39] VITALS: BP 116/81; PULSE 87; RESP 18; TEMP 97.6; O2SAT 95
[2017-04-01] MEDS ORDERED: Lidocaine 1% Inj (20ml) IJ STA (12:43)
--- NOTE | 2017-04-01 13:16 | RAD ---
PROCEDURE: Right Hand Radiographs. HISTORY: trauma attn fith digit COMPARISON: None. FINDINGS: BONES: Normal. No fracture. JOINTS: Normal. No osteoarthritic changes. SOFT TISSUES: Normal. OTHER FINDINGS: None. IMPRESSION: Normal right hand radiographs.
--- NOTE | 2017-04-01 13:21 | ED PDOC ---
HPI: Wound Care - HPI Time Seen by Provider: 04/01/17 12:42 Chief Complaint (Nursing): Abnormal Skin Integrity Chief Complaint (Provider): Laceration to Right Hand History Per: Patient History Of Present Illness: 51 year old intoxicated male with stable gait and normal speech is brought into the ED by EMS for a laceration to the dorsum of his right hand. The patient states that he punched a glass window injuring his hand and only reports pain at the affected area. Denies swelling, numbness. Tetanus not up to date. PMD: [facility]. Bowen [facility] Provider, Exam Limitations: no limitations Onset/Duration Of Symptoms: Mins Current Symptoms Are (Timing): Still Present Location Of Injury: Right: Hand Past Medical History Reviewed: Historical Data, Nursing Documentation, Vital Signs Vital Signs: Last Vital Signs Temp 97.6 F 04/01/17 12:34 Pulse 87 04/01/17 12:34 Resp 18 04/01/17 12:34 BP 116/81 04/01/17 12:34 Pulse Ox 95 04/01/17 12:34 - Medical History PMH: Anxiety, Arthritis (arthritis of neck and back), Back Problems (chronic back pain ), Bipolar Disorder, COPD, Depression, Emphysema, Fractures (skull, right pinky), HTN, Pneumonia, Sleep Apnea Denies: Diabetes, Hepatitis, HIV, Chronic Kidney Disease, Seizures, Sexually Transmitted Disease - Surgical History Surgical History: Appendectomy, Hernia Repair (ventral), Tonsillectomy - Family History Family History: States: Unknown Family Hx - Social History Alcohol: > 2 Drinks/Day - Immunization History Hx Tetanus Toxoid Vaccination: Yes (UTD) Hx Influenza Vaccination: No Hx Pneumococcal Vaccination: Yes - Home Medications Home Medications: Ambulatory Orders Medication Instructions Recorded Fluticasone/Salmeterol [Advair 2 puff INH BID #1 inh 11/01/16 250-50 Diskus] Albuterol HFA [Ventolin HFA 90 1 - 2 puff IH Q6 PRN #1 inhaler 03/18/17 mcg/actuation (8 g)] - Allergies Allergies/Adverse Reactions: Allergies Allergy/AdvReac Type Severity Reaction Status Date / Time No Known Allergies Allergy Verified 03/20/17 23:39 Review of Systems Musculoskeletal: Positive for: Other (laceration to dorsum od right hand; no numbness; no tingling.) Physical Exam - Reviewed Nursing Documentation Reviewed: Yes Vital Signs Reviewed: Yes - Physical Exam Appears: Positive for: Non-toxic, No Acute Distress Head Exam: Positive for: NORMAL INSPECTION Skin: Positive for: Normal Color, Warm, Dry. Negative for: Rash Eye Exam: Positive for: Normal appearance, EOMI, PERRL Extremity: Positive for: Normal ROM (normal ROM to right hand; 2 abrasion over 4th and 5th MCP; Flap like laceration; active bleeding; able to make fist; good pulses.). Negative for: Deformity, Swelling Neurologic/Psych: Positive for: Alert, Oriented - ECG O2 Sat by Pulse Oximetry: 95 (RA) Pulse Ox Interpretation: Normal Medical Decision Making Medical Decision Makin Initial Impression 51 y/o male presenting with laceration to right hand Initial Plan: * Motrin Tab 600mg PO * Lidocaine 1% (20ml) 10ml IJ * Tet 0.5mL * Rad Rt hand * Reevaluation Documented by Quynh Hayward acting as a scribe for Bee Allen PA-C. All medical record entries made by the Scribe were at my direction and personally dictated by me. I have reviewed the chart and agree that the record accurately reflects my personal performance of the history, physical exam, medical decision making, and the department course for this patient. I have also personally directed, reviewed, and agree with the discharge instructions and disposition. Disposition - Clinical Impression Clinical Impression: Hand injury, Laceration - Patient ED Disposition Is Patient to be Admitted: No - Disposition Disposition: Routine/Home Disposition Time: 17:19 Condition: STABLE Instructions: Laceration (ED) Forms: [employer] (Arabic)
== END 2017-04-01 13:40 | disposition home or self-care (01) ==
LOC: H.ER 12:31
DX: S61.411A Laceration without foreign body of right hand, initial encounter (principal); I10 Essential (primary) hypertension; G89.29 Other chronic pain; J44.9 Chronic obstructive pulmonary disease, unspecified; Z86.59 Personal history of other mental and behavioral disorders; W22.8XXA Striking against or struck by other objects, initial encounter

== ENCOUNTER 2017-04-02 00:41 | Emergency (ER) | payer MEDICAID ==
[2017-04-02 00:41] VITALS: BMI 32.3
[2017-04-02 00:59] VITALS: BP 112/72; PULSE 93; RESP 18; TEMP 98; O2SAT 95
--- NOTE | 2017-04-02 01:14 | ED PDOC ---
HPI: Psych/Substance Abuse Time Seen by Provider: 04/02/17 00:52 Chief Complaint (Nursing): Psychiatric Evaluation Chief Complaint (Provider): depression History Per: Patient History/Exam Limitations: no limitations Onset/Duration Of Symptoms: Days Current Symptoms Are (Timing): Still Present Additional Complaint(s): Pt reports anxiety and depression for awhile. Pt sates that he needs to stay in the hospital to get his life together. Past Medical History Reviewed: Historical Data, Nursing Documentation, Vital Signs Vital Signs: Last Vital Signs Temp 98.0 F 04/02/17 00:51 Pulse 93 H 04/02/17 00:51 Resp 18 04/02/17 00:51 BP 112/72 04/02/17 00:51 Pulse Ox 95 04/02/17 00:51 - Medical History PMH: Anxiety, Arthritis (arthritis of neck and back), Back Problems (chronic back pain ), Bipolar Disorder, COPD, Depression, Emphysema, Fractures (skull, right pinky), HTN, Pneumonia, Sleep Apnea Denies: Diabetes, Hepatitis, HIV, Chronic Kidney Disease, Seizures, Sexually Transmitted Disease - Surgical History Surgical History: Appendectomy, Hernia Repair (ventral), Tonsillectomy - Family History Family History: States: Unknown Family Hx - Living Arrangements Living Arrangements: With Family - Social History Current smoker - smoking cessation education provided: Yes Alcohol: Occasional Drugs: Denies - Immunization History Hx Tetanus Toxoid Vaccination: Yes (UTD) Hx Influenza Vaccination: No Hx Pneumococcal Vaccination: Yes - Home Medications Home Medications: Ambulatory Orders Medication Instructions Recorded Fluticasone/Salmeterol [Advair 2 puff INH BID #1 inh 11/01/16 250-50 Diskus] Albuterol HFA [Ventolin HFA 90 1 - 2 puff IH Q6 PRN #1 inhaler 03/18/17 mcg/actuation (8 g)] - Allergies Allergies/Adverse Reactions: Allergies Allergy/AdvReac Type Severity Reaction Status Date / Time No Known Allergies Allergy Verified 04/02/17 00:51 Review of Systems ROS Statement: Except As Marked, All Systems Reviewed And Found Negative Constitutional: Negative for: Fever, Chills Cardiovascular: Negative for: Chest Pain Respiratory: Negative for: Cough, Shortness of Breath Gastrointestinal: Negative for: Nausea, Vomiting Psych: Positive for: Anxiety, Depression Physical Exam - Reviewed Nursing Documentation Reviewed: Yes Vital Signs Reviewed: Yes - Physical Exam Appears: Positive for: Well, Non-toxic, No Acute Distress Head Exam: Positive for: ATRAUMATIC, NORMAL INSPECTION, NORMOCEPHALIC Skin: Positive for: Normal Color, Warm, DRY Eye Exam: Positive for: Normal appearance ENT: Positive for: Normal ENT Inspection Neck: Positive for: Normal, Painless ROM Cardiovascular/Chest: Positive for: Regular Rate, Rhythm Respiratory: Positive for: Normal Breath Sounds. Negative for: Accessory Muscle Use, Respiratory Distress Back: Positive for: Normal Inspection Extremity: Positive for: Normal ROM Neurologic/Psych: Positive for: Alert, Oriented - ECG O2 Sat by Pulse Oximetry: 95 Medical Decision Making Medical Decision Making: Crisis evaluation completed. Disposition - Clinical Impression Clinical Impression: Depression - Patient ED Disposition Is Patient to be Admitted: No - Disposition Disposition: Routine/Home Disposition Time: 01:53 Condition: GOOD Instructions: Depression (ED) Forms: [email or web address] ([place])
== END 2017-04-02 03:37 | disposition home or self-care (01) ==
LOC: H.ER 00:41
DX: F32.9 Major depressive disorder, single episode, unspecified (principal); F31.9 Bipolar disorder, unspecified; F41.9 Anxiety disorder, unspecified; G89.29 Other chronic pain; I10 Essential (primary) hypertension; J44.9 Chronic obstructive pulmonary disease, unspecified

== ENCOUNTER 2017-04-03 23:12 | Emergency (ER) | payer MEDICAID ==
[2017-04-03 23:12] VITALS: BMI 32.3
[2017-04-03 23:20] VITALS: RESP 20; TEMP 97.7; O2SAT 95
[2017-04-03] MEDS ORDERED: Albuterol-Ipratrop 3 mg / 0.5 (3 ml) UD INH STA ×2 (23:25→23:42)
[2017-04-04] MEDS ORDERED: Albuterol-Ipratrop 3 mg / 0.5 (3 ml) UD ONE (00:16)
--- NOTE | 2017-04-04 00:26 | ED PDOC ---
HPI: SOB/CHF/COPD Time Seen by Provider: 04/03/17 23:21 Chief Complaint (Nursing): Shortness Of Breath Chief Complaint (Provider): Shortness of Breath History Per: Patient History/Exam Limitations: no limitations Onset/Duration Of Symptoms: Hrs (2 hrs ago) Current Symptoms Are (Timing): Still Present Additional Complaint(s): 51 y/o male with a past medical history of COPD and asthma, presents to the ED complaining of shortness of breath, onset of 2 hours ago. Patient is well known to the provider and the ED, being that he is homeless and has exhibited bed-seeking behavior. He reports of coughing and chest tightness with mild wheezing. Patient is also known for being a smoker and his alcohol abuse in the past. Past Medical History Reviewed: Historical Data, Nursing Documentation, Vital Signs Vital Signs: Last Vital Signs Temp 97.7 F 04/03/17 23:14 Pulse 110 H 04/03/17 23:14 Resp 20 04/03/17 23:14 BP 175/88 H 04/03/17 23:14 Pulse Ox 95 04/04/17 00:37 - Medical History PMH: Anxiety, Arthritis (arthritis of neck and back), Back Problems (chronic back pain ), Bipolar Disorder, COPD, Depression, Diabetes, Emphysema, Fractures (skull, right pinky), Pneumonia, Sleep Apnea Denies: Hepatitis, HIV, HTN, Chronic Kidney Disease, Seizures, Sexually Transmitted Disease - Surgical History Surgical History: Appendectomy, Hernia Repair (ventral), Tonsillectomy - Family History Family History: States: Unknown Family Hx - Living Arrangements Living Arrangements: Alone - Social History Current smoker - smoking cessation education provided: Yes Alcohol: > 2 Drinks/Day Drugs: Denies - Immunization History Hx Tetanus Toxoid Vaccination: Yes (UTD) Hx Influenza Vaccination: No Hx Pneumococcal Vaccination: Yes - Home Medications Home Medications: Ambulatory Orders Medication Instructions Recorded Fluticasone/Salmeterol [Advair 2 puff INH BID #1 inh 11/01/16 250-50 Diskus] Albuterol HFA [Ventolin HFA 90 1 - 2 puff IH Q6 PRN #1 inhaler 03/18/17 mcg/actuation (8 g)] - Allergies Allergies/Adverse Reactions: Allergies Allergy/AdvReac Type Severity Reaction Status Date / Time No Known Allergies Allergy Verified 04/02/17 00:51 Review of Systems ROS Statement: Except As Marked, All Systems Reviewed And Found Negative Cardiovascular: Positive for: Other (chest tightness) Respiratory: Positive for: Cough, Wheezing Physical Exam - Reviewed Nursing Documentation Reviewed: Yes Vital Signs Reviewed: Yes - Physical Exam Appears: Positive for: Non-toxic, No Acute Distress. Negative for: Well (poor hygiene because homeless) Head Exam: Positive for: ATRAUMATIC Skin: Positive for: Normal Color, Warm Eye Exam: Positive for: Normal appearance ENT: Positive for: Normal ENT Inspection Neck: Positive for: Normal Cardiovascular/Chest: Positive for: Regular Rate, Rhythm. Negative for: Murmur Respiratory: Positive for: Wheezing (mild bilateral expiratory wheezing) Gastrointestinal/Abdominal: Positive for: Normal Exam, Soft. Negative for: Tenderness Back: Positive for: Normal Inspection Extremity: Positive for: Normal ROM. Negative for: Pedal Edema, Deformity Neurologic/Psych: Positive for: Alert, Oriented. Negative for: Motor/Sensory Deficits - ECG O2 Sat by Pulse Oximetry: 95 (RA) Pulse Ox Interpretation: Normal Medical Decision Making Medical Decision Making: Time: --23:25 Impression: --51 y/o male with shortness of breath and wheezing in setting of COPD Plan: --ECG --Albuterol 3ml INH --Peak Flow Pre/Post Tx Reassess --04:12 Patient reports of improvement of symptoms. Patient is stable for discharge. Diagnosis: COPD Scribe Attestation: Documented by Jp Rowan acting as a scribe for Lazaro Worrell MD. Disposition - Clinical Impression Clinical Impression: COPD (chronic obstructive pulmonary disease) - Patient ED Disposition Is Patient to be Admitted: No - Disposition Referrals: Yennifer Hurley MD [Primary Care Provider] - Disposition: Routine/Home Disposition Time: 04:12 Condition: STABLE Instructions: COPD (Chronic Obstructive Pulmonary Disease) (ED) Forms: [employer] (Slovak)
[2017-04-04 06:13] VITALS: BP 159/88; PULSE 93
--- NOTE | 2017-04-04 11:04 | CARD ---
APPROVED REPORT EKG Measurement Heart [id number] <Conclusion> Normal sinus rhythm Normal ECG
== END 2017-04-04 06:14 | disposition home or self-care (01) ==
LOC: H.ER 23:12
DX: J44.9 Chronic obstructive pulmonary disease, unspecified (principal); E11.9 Type 2 diabetes mellitus without complications; F17.200 Nicotine dependence, unspecified, uncomplicated; F31.9 Bipolar disorder, unspecified; F41.9 Anxiety disorder, unspecified; G89.29 Other chronic pain; Z59.0 Homelessness

== ENCOUNTER 2017-04-05 01:41 | Emergency (ER) | payer MEDICAID ==
[2017-04-05 01:41] VITALS: BMI 32.3
[2017-04-05 01:51] VITALS: BP 114/75; PULSE 90; RESP 18; TEMP 97.3; O2SAT 97
--- NOTE | 2017-04-05 02:51 | ED PDOC ---
HPI: General Adult Time Seen by Provider: 04/05/17 01:54 Chief Complaint (Nursing): Lower Extremity Problem/Injury Chief Complaint (Provider): homeless Additional Complaint(s): 51yo M in ED-homeless admits to seeking nursing home in [place] form cold. no pain to feet /hands. Past Medical History Reviewed: Historical Data, Nursing Documentation, Vital Signs Vital Signs: Last Vital Signs Temp 97.3 F L 04/05/17 01:48 Pulse 90 04/05/17 01:48 Resp 18 04/05/17 01:48 BP 114/75 04/05/17 01:48 Pulse Ox 97 04/05/17 02:51 - Medical History PMH: Anxiety, Arthritis (arthritis of neck and back), Back Problems (chronic back pain ), Bipolar Disorder, COPD, Depression, Diabetes, Emphysema, Fractures (skull, right pinky), Pneumonia, Sleep Apnea Denies: Hepatitis, HIV, HTN, Chronic Kidney Disease, Seizures, Sexually Transmitted Disease - Surgical History Surgical History: Appendectomy, Hernia Repair (ventral), Tonsillectomy - Family History Family History: States: Unknown Family Hx - Immunization History Hx Tetanus Toxoid Vaccination: Yes (UTD) Hx Influenza Vaccination: No Hx Pneumococcal Vaccination: Yes - Home Medications Home Medications: Ambulatory Orders Medication Instructions Recorded Fluticasone/Salmeterol [Advair 2 puff INH BID #1 inh 11/01/16 250-50 Diskus] Albuterol HFA [Ventolin HFA 90 1 - 2 puff IH Q6 PRN #1 inhaler 03/18/17 mcg/actuation (8 g)] - Allergies Allergies/Adverse Reactions: Allergies Allergy/AdvReac Type Severity Reaction Status Date / Time No Known Allergies Allergy Verified 04/02/17 00:51 Review of Systems ROS Statement: Except As Marked, All Systems Reviewed And Found Negative Neurological: Negative for: Weakness Physical Exam - Reviewed Nursing Documentation Reviewed: Yes Vital Signs Reviewed: Yes - Physical Exam Appears: Positive for: Well, Non-toxic, No Acute Distress Head Exam: Positive for: ATRAUMATIC, NORMAL INSPECTION, NORMOCEPHALIC Skin: Positive for: Normal Color, Warm, DRY Cardiovascular/Chest: Positive for: Regular Rate, Rhythm Respiratory: Positive for: CNT, Normal Breath Sounds Neurologic/Psych: Positive for: Alert, Oriented - ECG O2 Sat by Pulse Oximetry: 97 - Progress ED Course And Treament: pt allowed to rest in ED Medical Decision Making Medical Decision Making: stable for d.c Disposition - Clinical Impression Clinical Impression: Homeless, General medical exam - Patient ED Disposition Is Patient to be Admitted: No Counseled Patient/Family Regarding: Need For Followup - Disposition Disposition: Routine/Home Disposition Time: 05:58 Condition: STABLE Instructions: Normal Exam (ED) Forms: [employer] (Romanian)
== END 2017-04-05 06:08 | disposition home or self-care (01) ==
LOC: H.ER 01:41
DX: Z59.0 Homelessness (principal); G89.29 Other chronic pain; E11.9 Type 2 diabetes mellitus without complications; F31.9 Bipolar disorder, unspecified; F41.9 Anxiety disorder, unspecified

== ENCOUNTER 2017-04-14 01:30 | Emergency (ER) | payer MEDICAID ==
[2017-04-14 01:48] VITALS: BMI 31.0
[2017-04-14 01:52] VITALS: TEMP 98.4
[2017-04-14] MEDS ORDERED: Albuterol-Ipratrop 3 mg / 0.5 (3 ml) UD INH STA ×2 (02:05→02:08)
--- NOTE | 2017-04-14 02:35 | ED PDOC ---
HPI: SOB/CHF/COPD Time Seen by Provider: 04/14/17 01:35 Chief Complaint (Nursing): Shortness Of Breath Chief Complaint (Provider): Shortness Of Breath History Per: Patient History/Exam Limitations: no limitations Onset/Duration Of Symptoms: Hrs (x1) Current Symptoms Are (Timing): Still Present Additional Complaint(s): 51 year old male with previous medical history of COPD and asthma, who presents to the ED with a complaint of shortness of breath, ongoing for 1 hour prior to arrival. Patient is well-known to ED and exhibiting bed-seeking behavior. He reported coughing and chest tightness with mild wheezing. Denied any further medical complaints. PMD: Yennifer Hurley MD Past Medical History Reviewed: Historical Data, Nursing Documentation, Vital Signs Vital Signs: Last Vital Signs Temp 98.4 F 04/14/17 01:47 Pulse 102 H 04/14/17 01:47 Resp 23 04/14/17 01:52 BP 138/85 04/14/17 01:47 Pulse Ox 99 04/14/17 02:40 - Medical History PMH: Anxiety, Arthritis (arthritis of neck and back), Back Problems (chronic back pain ), Bipolar Disorder, COPD, Depression, Diabetes, Emphysema, Fractures (skull, right pinky), Pneumonia, Sleep Apnea Denies: Hepatitis, HIV, HTN, Chronic Kidney Disease, Seizures, Sexually Transmitted Disease - Surgical History Surgical History: Appendectomy, Hernia Repair (ventral), Tonsillectomy - Family History Family History: States: Unknown Family Hx - Social History Current smoker - smoking cessation education provided: Yes Alcohol: > 2 Drinks/Day Drugs: Other - Immunization History Hx Tetanus Toxoid Vaccination: Yes (UTD) Hx Influenza Vaccination: No Hx Pneumococcal Vaccination: Yes - Home Medications Home Medications: Ambulatory Orders Medication Instructions Recorded Fluticasone/Salmeterol [Advair 2 puff INH BID #1 inh 11/01/16 250-50 Diskus] Albuterol HFA [Ventolin HFA 90 1 - 2 puff IH Q6 PRN #1 inhaler 03/18/17 mcg/actuation (8 g)] - Allergies Allergies/Adverse Reactions: Allergies Allergy/AdvReac Type Severity Reaction Status Date / Time No Known Allergies Allergy Verified 04/14/17 01:47 Review of Systems ROS Statement: Except As Marked, All Systems Reviewed And Found Negative Cardiovascular: Positive for: Chest Pain (tightness) Respiratory: Positive for: Cough, Wheezing (mild) Physical Exam - Reviewed Nursing Documentation Reviewed: Yes Vital Signs Reviewed: Yes - Physical Exam Appears: Positive for: Well, Non-toxic, No Acute Distress Head Exam: Positive for: ATRAUMATIC, NORMAL INSPECTION, NORMOCEPHALIC Skin: Positive for: Normal Color Eye Exam: Positive for: Normal appearance ENT: Positive for: Normal ENT Inspection Neck: Positive for: Normal, Painless ROM Cardiovascular/Chest: Positive for: Regular Rate, Rhythm, Chest Non Tender Respiratory: Positive for: Normal Breath Sounds. Negative for: Decreased Breath Sounds, Wheezing, Respiratory Distress Gastrointestinal/Abdominal: Positive for: Normal Exam, Soft. Negative for: Tenderness Neurologic/Psych: Positive for: Alert (x3), Oriented - ECG O2 Sat by Pulse Oximetry: 99 (RA) Pulse Ox Interpretation: Normal Medical Decision Making Medical Decision Making: Initial Impression: Bed-seeking behavior Initial Plan: * Duoneb 3ml INH Time: 0520 --Upon provider reevaluation, patient is feeling better, medically stable and requires no further treatment in the ED at this time. Patient will be discharged home. Counseling was provided and all questions were answered regarding diagnosis. There is agreement to discharge plan. Return if symptoms persist or worsen. Clinical Impression: Malingerer; COPD Scribe Attestation: Documented by Alyson Mena, acting as a scribe for Lazaro Worrell MD. Provider Scribe Attestation: All medical record entries made by the Scribe were at my direction and personally dictated by me. I have reviewed the chart and agree that the record accurately reflects my personal performance of the history, physical exam, medical decision making, and the department course for this patient. I have also personally directed, reviewed, and agree with the discharge instructions and disposition. Disposition - Clinical Impression Clinical Impression: Malingerer, COPD (chronic obstructive pulmonary disease) with emphysema - Patient ED Disposition Is Patient to be Admitted: No Counseled Patient/Family Regarding: Diagnosis - Disposition Disposition: Routine/Home Disposition Time: 05:20 Condition: IMPROVED Instructions: COPD (Chronic Obstructive Pulmonary Disease) (ED) Forms: [employer] (Greenlandic)
[2017-04-14 06:48] VITALS: BP 158/86; PULSE 87; RESP 18; O2SAT 96
== END 2017-04-14 06:57 | disposition home or self-care (01) ==
LOC: H.ER 01:30
DX: J44.9 Chronic obstructive pulmonary disease, unspecified (principal); E11.9 Type 2 diabetes mellitus without complications; F31.9 Bipolar disorder, unspecified; F41.9 Anxiety disorder, unspecified; G89.29 Other chronic pain; Z76.5 Malingerer [conscious simulation]

== ENCOUNTER 2017-04-16 01:14 | Emergency (ER) | payer MEDICAID ==
[2017-04-16 01:16] VITALS: BMI 31.7
[2017-04-16 01:17] VITALS: BP 132/13; PULSE 93; RESP 20; TEMP 98
--- NOTE | 2017-04-16 02:42 | CT ---
EXAM: CT Head Without Intravenous Contrast CLINICAL HISTORY: 51 years old, male; Injury or trauma; Fall; Additional info: Headache TECHNIQUE: Axial computed tomography images of the head/brain without intravenous contrast. All CT scans at this facility use one or more dose reduction techniques, viz.: automated exposure control; ma/kV adjustment per patient size (including targeted exams where dose is matched to indication; i.e. head); or iterative reconstruction technique. 343 images are submitted. Coronal and sagittal reformatted images were created and reviewed. COMPARISON: CT - HEAD W/O CONTRAST 2017-01-31 06:43 FINDINGS: Brain: Unremarkable. No hemorrhage. No significant white matter disease. No edema. Ventricles: Unremarkable. No ventriculomegaly. Bones/joints: Unremarkable. No acute fracture. Soft tissues: Unremarkable. Sinuses: Mild to moderate patchy sinus disease. Mastoid air cells: Unremarkable. No mastoid effusion. Orbits: Bilateral proptosis. This was seen on prior examination. IMPRESSION: No evidence of an acute intracranial hemorrhage, midline shift or mass effect is identified.
--- NOTE | 2017-04-16 03:09 | ED PDOC ---
HPI: General Adult Time Seen by Provider: 04/16/17 01:20 Chief Complaint (Nursing): Trauma Chief Complaint (Provider): Trauma History Per: Patient, EMS History/Exam Limitations: no limitations Onset/Duration Of Symptoms: Days (x today) Current Symptoms Are (Timing): Still Present Additional Complaint(s): Colby is a 51 year old, male with past medical history of COPD, malingering disorder and is currently homeless, who presents to the emergency department via EMS with head injury s/p fall. Patient reports he fell earlier. Denies loss of consciousness, nausea, vomiting, chest pain or shortness of breath. PMD: Mei Past Medical History Reviewed: Historical Data, Nursing Documentation, Vital Signs Vital Signs: Last Vital Signs Temp 98.0 F 04/16/17 01:16 Pulse 93 H 04/16/17 01:16 Resp 20 04/16/17 01:16 BP 132/13 L 04/16/17 01:16 Pulse Ox - Medical History PMH: Anxiety, Arthritis (arthritis of neck and back), Back Problems (chronic back pain ), Bipolar Disorder, COPD, Depression, Diabetes, Emphysema, Fractures (skull, right pinky), Pneumonia, Sleep Apnea Denies: Hepatitis, HIV, HTN, Chronic Kidney Disease, Seizures, Sexually Transmitted Disease - Surgical History Surgical History: Appendectomy, Hernia Repair (ventral), Tonsillectomy - Family History Family History: States: Unknown Family Hx - Immunization History Hx Tetanus Toxoid Vaccination: Yes (UTD) Hx Influenza Vaccination: No Hx Pneumococcal Vaccination: Yes - Home Medications Home Medications: Ambulatory Orders Medication Instructions Recorded Fluticasone/Salmeterol [Advair 2 puff INH BID #1 inh 11/01/16 250-50 Diskus] Albuterol HFA [Ventolin HFA 90 1 - 2 puff IH Q6 PRN #1 inhaler 03/18/17 mcg/actuation (8 g)] - Allergies Allergies/Adverse Reactions: Allergies Allergy/AdvReac Type Severity Reaction Status Date / Time No Known Allergies Allergy Verified 04/16/17 03:44 Review of Systems ROS Statement: Except As Marked, All Systems Reviewed And Found Negative Cardiovascular: Negative for: Chest Pain Respiratory: Negative for: Shortness of Breath Gastrointestinal: Negative for: Nausea, Vomiting Neurological: Negative for: Other (loss of consciousness) Physical Exam - Reviewed Nursing Documentation Reviewed: Yes Vital Signs Reviewed: Yes - Physical Exam Appears: Positive for: Well, Non-toxic, No Acute Distress Head Exam: Negative for: ATRAUMATIC ((+): Abrasions in right forehead) Skin: Positive for: Normal Color, Warm, DRY Eye Exam: Positive for: Normal appearance ENT: Positive for: Normal ENT Inspection Neck: Positive for: Normal Cardiovascular/Chest: Positive for: Regular Rate, Rhythm Respiratory: Positive for: Normal Breath Sounds. Negative for: Respiratory Distress Gastrointestinal/Abdominal: Positive for: Normal Exam Extremity: Positive for: Normal ROM. Negative for: Deformity Neurologic/Psych: Positive for: Alert, Oriented Medical Decision Making Medical Decision Making: Time: :38 Impression: 51 year old male with head injury s/p fall Plan: - CT Head without Contrast Time: : CT Head without Contrast FINDINGS: Brain: Unremarkable. No hemorrhage. No significant white matter disease. No edema. Ventricles: Unremarkable. No ventriculomegaly. Bones/joints: Unremarkable. No acute fracture. Soft tissues: Unremarkable. Sinuses: Mild to moderate patchy sinus disease. Mastoid air cells: Unremarkable. No mastoid effusion. Orbits: Bilateral proptosis. This was seen on prior examination. IMPRESSION: No evidence of an acute intracranial hemorrhage, midline shift or mass effect is identified. Patient is stable for discharge. Scribe Attestation: Documented by Yoni Cisneros, acting as a scribe for Lazaro Worrell MD Provider Scribe Attestation: All medical record entries made by the Scribe were at my direction and personally dictated by me. I have reviewed the chart and agree that the record accurately reflects my personal performance of the history, physical exam, medical decision making, and the department course for this patient. I have also personally directed, reviewed, and agree with the discharge instructions and disposition. Disposition - Clinical Impression Clinical Impression: Head injury - Patient ED Disposition Is Patient to be Admitted: No - Disposition Disposition: Routine/Home Disposition Time: 02:50 Condition: GOOD Instructions: Head Injury (ED) Forms: [employer] (British)
== END 2017-04-16 03:30 | disposition home or self-care (01) ==
LOC: H.ER 01:14
DX: S09.90XA Unspecified injury of head, initial encounter (principal); W19.XXXA Unspecified fall, initial encounter; Y92.89 Other specified places as the place of occurrence of the external cause; E11.9 Type 2 diabetes mellitus without complications; F31.9 Bipolar disorder, unspecified; F41.9 Anxiety disorder, unspecified; G89.29 Other chronic pain; J44.9 Chronic obstructive pulmonary disease, unspecified; Z59.0 Homelessness

== ENCOUNTER 2017-04-16 03:35 | Emergency (ER) | payer MEDICAID ==
[2017-04-16 03:36] VITALS: BMI 31.7
[2017-04-16] MEDS ORDERED: Albuterol-Ipratrop 3 mg / 0.5 (3 ml) UD ONE (03:44)
[2017-04-16 03:46] VITALS: BP 143/93; PULSE 101; TEMP 98.2; O2SAT 95
[2017-04-16] MEDS ORDERED: Albuterol-Ipratrop 3 mg / 0.5 (3 ml) UD INH STA (03:55)
[2017-04-16 03:58] VITALS: RESP 18
--- NOTE | 2017-04-16 03:59 | ED PDOC ---
HPI: General Adult Time Seen by Provider: 04/16/17 03:40 Chief Complaint (Nursing): Shortness Of Breath Chief Complaint (Provider): Shortness Of Breath History Per: Patient History/Exam Limitations: no limitations Onset/Duration Of Symptoms: Days (x 1) Current Symptoms Are (Timing): Still Present Additional Complaint(s): Colby is a 51 year old male who presents to the emergency department requesting albuterol treatment. Patient was recently discharged for head injury s/p fall. Patient re-registered for shortness of breath. PMD: Provider TBD Past Medical History Reviewed: Historical Data, Nursing Documentation, Vital Signs Vital Signs: Last Vital Signs Temp 98.2 F 04/16/17 03:45 Pulse 101 H 04/16/17 03:45 Resp 18 04/16/17 03:53 BP 143/93 H 04/16/17 03:45 Pulse Ox 95 04/16/17 04:03 - Medical History PMH: Anxiety, Arthritis (arthritis of neck and back), Back Problems (chronic back pain ), Bipolar Disorder, COPD, Depression, Diabetes, Emphysema, Fractures (skull, right pinky), Pneumonia, Sleep Apnea Denies: Hepatitis, HIV, HTN, Chronic Kidney Disease, Seizures, Sexually Transmitted Disease - Surgical History Surgical History: Appendectomy, Hernia Repair (ventral), Tonsillectomy - Family History Family History: States: Unknown Family Hx - Immunization History Hx Tetanus Toxoid Vaccination: Yes (UTD) Hx Influenza Vaccination: No Hx Pneumococcal Vaccination: Yes - Home Medications Home Medications: Ambulatory Orders Medication Instructions Recorded Fluticasone/Salmeterol [Advair 2 puff INH BID #1 inh 11/01/16 250-50 Diskus] Albuterol HFA [Ventolin HFA 90 1 - 2 puff IH Q6 PRN #1 inhaler 03/18/17 mcg/actuation (8 g)] - Allergies Allergies/Adverse Reactions: Allergies Allergy/AdvReac Type Severity Reaction Status Date / Time No Known Allergies Allergy Verified 04/16/17 03:44 Review of Systems ROS Statement: Except As Marked, All Systems Reviewed And Found Negative Respiratory: Positive for: Shortness of Breath Physical Exam - Reviewed Nursing Documentation Reviewed: Yes Vital Signs Reviewed: Yes - Physical Exam Appears: Positive for: Well Head Exam: Negative for: ATRAUMATIC Skin: Positive for: Normal Color Eye Exam: Positive for: Normal appearance ENT: Positive for: Normal ENT Inspection Neck: Positive for: Normal Cardiovascular/Chest: Positive for: Regular Rate, Rhythm Respiratory: Positive for: Normal Breath Sounds. Negative for: Respiratory Distress Gastrointestinal/Abdominal: Positive for: Normal Exam Extremity: Positive for: Normal ROM. Negative for: Deformity Neurologic/Psych: Positive for: Alert, Oriented - ECG O2 Sat by Pulse Oximetry: 95 (RA) Medical Decision Making Medical Decision Making: Time: 03:55 Impression: 51 year old male requesting for albuterol treatment Plan: - Duoneb 3 mg/05 mg (3 ml) UD - Peak Flow Pre/Post Treatment Upon provider evaluation patient is medically stable, and requires no further treatment in the ED at this time. Scribe Attestation: Documented by Yoni Cisneros, acting as a scribe for Lazaro Worrell MD Provider Scribe Attestation: All medical record entries made by the Scribe were at my direction and personally dictated by me. I have reviewed the chart and agree that the record accurately reflects my personal performance of the history, physical exam, medical decision making, and the department course for this patient. I have also personally directed, reviewed, and agree with the discharge instructions and disposition. Disposition - Clinical Impression Clinical Impression: COPD (chronic obstructive pulmonary disease), Malingering - Patient ED Disposition Is Patient to be Admitted: No - Disposition Referrals: Yennifer Hurley MD [Primary Care Provider] - Disposition: Routine/Home Disposition Time: 04:00 Condition: STABLE Instructions: COPD (Chronic Obstructive Pulmonary Disease) (ED) Forms: [employer] (Greek)
== END 2017-04-16 04:05 | disposition home or self-care (01) ==
LOC: H.ER 03:35
DX: J44.9 Chronic obstructive pulmonary disease, unspecified (principal); E11.9 Type 2 diabetes mellitus without complications; F31.9 Bipolar disorder, unspecified; F41.9 Anxiety disorder, unspecified; G89.29 Other chronic pain

== ENCOUNTER 2017-04-18 02:11 | Emergency (ER) | payer MEDICAID ==
[2017-04-18 02:12] VITALS: BMI 31.7
[2017-04-18 02:27] VITALS: BP 113/80; TEMP 97.9
[2017-04-18] MEDS ORDERED: Albuterol-Ipratrop 3 mg / 0.5 (3 ml) UD INH STA ×3 (02:50→02:53)
[2017-04-18] MEDS ORDERED: Albuterol-Ipratrop 3 mg / 0.5 (3 ml) UD ONE (02:55)
[2017-04-18 03:04] VITALS: PULSE 85; RESP 22; O2SAT 96
--- NOTE | 2017-04-18 03:15 | ED PDOC ---
HPI: SOB/CHF/COPD Time Seen by Provider: 04/18/17 02:29 Chief Complaint (Nursing): Respiratory Distress Chief Complaint (Provider): Cough, Shortness of Breath History Per: Patient History/Exam Limitations: no limitations Onset/Duration Of Symptoms: Days (x1) Current Symptoms Are (Timing): Still Present Additional Complaint(s): 51 year old male with a history of COPD, presents to the emergency department complaining of a cough associated with chest congestion, wheezing, and difficulty breathing since this afternoon. Has had multiple visits for the same. Patient is well known to this ER due to his multiple visits for COPD. Currently he denies any chest pain or fever. Used inhaler at home without improvement. PMD: Dr. Yennifer Hurley Past Medical History Reviewed: Historical Data, Nursing Documentation, Vital Signs Vital Signs: Last Vital Signs Temp 97.9 F 04/18/17 02:20 Pulse 85 04/18/17 03:01 Resp 22 04/18/17 03:01 BP 113/80 04/18/17 03:01 Pulse Ox 96 04/18/17 03:17 - Medical History PMH: Anxiety, Arthritis (arthritis of neck and back), Back Problems (chronic back pain ), Bipolar Disorder, COPD, Depression, Diabetes, Emphysema, Fractures (skull, right pinky), Pneumonia, Sleep Apnea Denies: Hepatitis, HIV, HTN, Chronic Kidney Disease, Seizures, Sexually Transmitted Disease - Surgical History Surgical History: Appendectomy, Hernia Repair (ventral), Tonsillectomy - Family History Family History: States: Unknown Family Hx - Social History Current smoker - smoking cessation education provided: Yes Alcohol: < 2 Drinks/Day - Immunization History Hx Tetanus Toxoid Vaccination: Yes (UTD) Hx Influenza Vaccination: No Hx Pneumococcal Vaccination: Yes - Home Medications Home Medications: Ambulatory Orders Medication Instructions Recorded Albuterol HFA [Ventolin HFA 90 1 - 2 puff IH Q6 PRN #1 inhaler 04/18/17 mcg/actuation (8 g)] Fluticasone/Salmeterol [Advair 2 puff INH BID #1 inh 04/18/17 250-50 Diskus] Prednisone 50 mg PO DAILY #5 tablet 04/18/17 - Allergies Allergies/Adverse Reactions: Allergies Allergy/AdvReac Type Severity Reaction Status Date / Time No Known Allergies Allergy Verified 04/18/17 02:20 Review of Systems ROS Statement: Except As Marked, All Systems Reviewed And Found Negative Constitutional: Negative for: Fever ENT: Positive for: Nose Congestion Cardiovascular: Negative for: Chest Pain Respiratory: Positive for: Cough, Shortness of Breath, Wheezing Physical Exam - Reviewed Nursing Documentation Reviewed: Yes Vital Signs Reviewed: Yes - Physical Exam Appears: Positive for: Non-toxic, No Acute Distress Head Exam: Positive for: ATRAUMATIC, NORMOCEPHALIC Skin: Positive for: Normal Color, Warm, Dry Eye Exam: Positive for: EOMI, Normal appearance, PERRL Neck: Positive for: Normal, Painless ROM Cardiovascular/Chest: Positive for: Regular Rate, Rhythm. Negative for: Edema, Murmur, Tachycardia Respiratory: Positive for: Wheezing (diffuse wheezing bilaterally). Negative for: Respiratory Distress Gastrointestinal/Abdominal: Positive for: Normal Exam, Soft. Negative for: Tenderness Extremity: Positive for: Normal ROM. Negative for: Deformity Neurologic/Psych: Positive for: Alert, Oriented - ECG O2 Sat by Pulse Oximetry: 96 (RA) Pulse Ox Interpretation: Normal Nebulizer Treatments/Peak Flow - Duonebs Number of Bronchodilator Doses given?: 3 - Steroid Treatment Steroid: IV - Clinical Response Clinical Response: Improved Medical Decision Making Medical Decision Making: Initial Impression: Dyspnea with wheezing Differential includes COPD exacerbation, rule out pneumonia Time: 02:50 Initial Plan: --BMP --CBC w/ differential --Chest x-ray --Duoneb 3ml INH x3 --Peak Flow pre/post treatment --Solu Medrol 125 mg IVP --Reevaluation Scribe Attestation: Documented by Miriam Sage, acting as a scribe for Estrellita Bolton MD Provider Scribe Attestation: All medical record entries made by the Scribe were at my direction and personally dictated by me. I have reviewed the chart and agree that the record accurately reflects my personal performance of the history, physical exam, medical decision making, and the department course for this patient. I have also personally directed, reviewed, and agree with the discharge instructions and disposition. Disposition - Clinical Impression Clinical Impression: COPD (chronic obstructive pulmonary disease) with acute bronchitis - Patient ED Disposition Is Patient to be Admitted: No Doctor Will See Patient In The: Office Counseled Patient/Family Regarding: Studies Performed, Diagnosis, Need For Followup - Disposition Referrals: Yennifer Hurley MD [Primary Care Provider] - Disposition: Routine/Home Disposition Time: 05:54 Condition: GOOD Additional Instructions: Follow up with your PCP in 2-3 days. Prescriptions: Albuterol HFA [Ventolin HFA 90 mcg/actuation (8 g)] 1 - 2 puff IH Q6 PRN #1 inhaler PRN Reason: Shortness Of Breath Fluticasone/Salmeterol [Advair 250-50 Diskus] 2 puff INH BID #1 inh Prednisone 50 mg PO DAILY #5 tablet Instructions: COPD (Chronic Obstructive Pulmonary Disease) (ED)
--- NOTE | 2017-04-18 11:49 | RAD ---
PROCEDURE: CHEST RADIOGRAPH, 1 VIEW HISTORY: wheezing COMPARISON: Chest radiograph dated 08/11/2016. FINDINGS: LUNGS: Prominence of the pulmonary vasculature may be secondary to AP technique and/or pulmonary vascular congestion. PLEURA: No pneumothorax or pleural fluid seen. CARDIOVASCULAR: Normal. OSSEOUS STRUCTURES: No significant abnormalities. VISUALIZED UPPER ABDOMEN: Normal. OTHER FINDINGS: None. IMPRESSION: Prominence of the pulmonary vasculature may be secondary to AP technique and/or pulmonary vascular congestion. No focal consolidation or pleural effusion
== END 2017-04-18 06:06 | disposition home or self-care (01) ==
LOC: H.ER 02:11
DX: J44.0 Chronic obstructive pulmonary disease with (acute) lower respiratory infection (principal); E11.9 Type 2 diabetes mellitus without complications; F31.9 Bipolar disorder, unspecified
CPT/HCPCS: 71045; 94640; 96374; 99284; J2930

== ENCOUNTER 2017-04-23 23:29 | Inpatient (IN) | payer MEDICAID ==
[2017-04-23 23:30] VITALS: BMI 31.7
[2017-04-24] MEDS ORDERED: Albuterol-Ipratrop 3 mg / 0.5 (3 ml) UD INH STA (00:56)
[2017-04-24] MEDS ORDERED: Albuterol-Ipratrop 3 mg / 0.5 (3 ml) UD ONE (00:59)
--- NOTE | 2017-04-24 02:15 | ED PDOC ---
HPI: SOB/CHF/COPD Time Seen by Provider: 04/24/17 00:08 Chief Complaint (Nursing): Shortness Of Breath Chief Complaint (Provider): Chest pain and cough History Per: Patient History/Exam Limitations: no limitations Onset/Duration Of Symptoms: Days (2 days dago) Current Symptoms Are (Timing): Still Present Current Respiratory Medications: Albuterol Additional Complaint(s): 51 y/o homeless male with a history of COPD, presents to the ED complaining of left-sided chest pain associated with chronic, intermittent coughing, onset of 2 days ago. Patient has visited the ED several times in the past and is known to the provider, and last week was present in the ED for shortness of breath. Patient reports of worsen chest pain with breathing, along the left side and left rib, but denies any fever. Of note, patient has an Albuterol pump that he uses frequently. Past Medical History Reviewed: Historical Data, Nursing Documentation, Vital Signs Vital Signs: Last Vital Signs Temp 98.9 F 04/23/17 23:36 Pulse 88 04/24/17 02:34 Resp 16 04/24/17 00:20 BP 151/84 H 04/23/17 23:36 Pulse Ox 98 04/24/17 02:34 - Medical History PMH: Anxiety, Arthritis (arthritis of neck and back), Back Problems (chronic back pain ), Bipolar Disorder, COPD, Depression, Diabetes, Emphysema, Fractures (skull, right pinky), Pneumonia, Sleep Apnea Denies: Hepatitis, HIV, HTN, Chronic Kidney Disease, Seizures, Sexually Transmitted Disease - Surgical History Surgical History: Appendectomy, Hernia Repair (ventral), Tonsillectomy - Family History Family History: States: Unknown Family Hx - Living Arrangements Living Arrangements: Alone - Social History Current smoker - smoking cessation education provided: Yes Alcohol: > 2 Drinks/Day - Immunization History Hx Tetanus Toxoid Vaccination: Yes (UTD) Hx Influenza Vaccination: No Hx Pneumococcal Vaccination: Yes - Home Medications Home Medications: Ambulatory Orders Medication Instructions Recorded Albuterol HFA [Ventolin HFA 90 1 - 2 puff IH Q6 PRN #1 inhaler 04/18/17 mcg/actuation (8 g)] Fluticasone/Salmeterol [Advair 2 puff INH BID #1 inh 04/18/17 250-50 Diskus] Prednisone 50 mg PO DAILY #5 tablet 04/18/17 - Allergies Allergies/Adverse Reactions: Allergies Allergy/AdvReac Type Severity Reaction Status Date / Time No Known Allergies Allergy Verified 04/18/17 02:20 Review of Systems ROS Statement: Except As Marked, All Systems Reviewed And Found Negative Constitutional: Negative for: Fever Cardiovascular: Positive for: Chest Pain Respiratory: Positive for: Cough Physical Exam - Reviewed Nursing Documentation Reviewed: Yes Vital Signs Reviewed: Yes - Physical Exam Appears: Positive for: Non-toxic, No Acute Distress. Negative for: Well ( disheveled) Head Exam: Positive for: ATRAUMATIC, NORMAL INSPECTION Skin: Positive for: Normal Color, Warm Eye Exam: Positive for: Normal appearance, EOMI, PERRL ENT: Positive for: Normal ENT Inspection Neck: Positive for: Normal, Painless ROM, Supple Cardiovascular/Chest: Positive for: Regular Rate, Rhythm. Negative for: Murmur Respiratory: Positive for: Wheezing (occasion bilateral wheeing). Negative for : Respiratory Distress Gastrointestinal/Abdominal: Positive for: Normal Exam, Soft. Negative for: Tenderness Back: Positive for: Normal Inspection Extremity: Positive for: Normal ROM. Negative for: Pedal Edema, Deformity Neurologic/Psych: Positive for: Alert, Oriented. Negative for: Motor/Sensory Deficits - ECG ECG: Positive for: Interpreted By Me, Viewed By Me ECG Rhythm: Positive for: Sinus Rhythm (normal). Negative for: ST/T Changes Rate: 88 O2 Sat by Pulse Oximetry: 98 (RA) Pulse Ox Interpretation: Normal - Radiology X-Ray: Interpreted by Me, Viewed By Me X-Ray Interpretation: Infiltrates (right medial lobe) Medical Decision Making Medical Decision Making: Time: --00:56 Impression: --Chest pain and cough Differential: --Pneumonia Plan: --EKG --Labs --Chest X-ray --Albuterol 3ml INH --Blood culture --Peak flow pre/post tx --influenza A B --azithromycin 500mg --rocephin 1gm IV Reassess --02:12 X-ray viewed and interpreted by me and reveal right medial lobe infiltrate Impression: Pneumonia --discussed with dr. Quesada case and findings for the patient and will admit the patient under his service. Scribe Attestation: Documented by Jp Rowan acting as a scribe for Estrellita Bolton MD. Disposition - Clinical Impression Clinical Impression: COPD exacerbation, Pneumonia Discussed With : Jeferson Quesada Doctor Will See Patient In The: Hospital - Disposition Disposition Time: 02:12 Condition: FAIR
[2017-04-24] MEDS ORDERED: Azithromycin 500 MG in Sodium Chloride 0.9% 250 ML IVPB STA (02:26)
[2017-04-24] MEDS ORDERED: Azithromycin 500 MG IV IVPB ONE (02:46)
[2017-04-24 03:12] LABS: BASO # 0.1 K/uL (0.0-0.2); BASO % 0.4 % (0.0-2.0); EOS # 0.1 K/uL (0.0-0.7); EOS % 0.7 % (0.0-4.0); HEMOGLOBIN 15.9 g/dL (12.0-18.0); LYMPH # 2.6 K/uL (1.0-4.3); LYMPH % 22.9 % (20.0-40.0); MEAN CELL VOLUME 96.1 fl (80.0-94.0); MEAN CORPUSCULAR HEMOGLOBIN 32.8 pg (27.0-31.0); MEAN CORPUSCULAR HGB CONC 34.2 g/dL (33.0-37.0); MONO % 8.7 % (0.0-10.0); NEUT # 7.8 K/uL (1.8-7.0); NEUT % 67.3 % (50.0-75.0); NRBC % 0.1 % (0.0-0.0); RBC 4.84 Mil/uL (4.40-5.90); RED CELL DISTRIBUTION WIDTH 15.2 % (11.5-14.5); WHITE BLOOD COUNT 11.6 K/uL (4.8-10.8)
[2017-04-24 03:22] LABS: BLOOD UREA NITROGEN 13 mg/dl (9-20); CALCIUM 9.4 mg/dL (8.4-10.2); GFR AFRICAN-AMERICAN > 60; GFR NON-AFRICAN AMERICAN > 60
[2017-04-24] MEDS ORDERED: Sodium Chloride 3% for Inhalation 4 ML VIAL.NEB IH PRN (11:01)
--- NOTE | 2017-04-24 11:48 | RAD ---
HISTORY: chest pain cough COMPARISON: 04/18/2017. TECHNIQUE: Chest PA and lateral FINDINGS: LUNGS: Hyperinflation, manifestations of COPD. No active pulmonary disease. PLEURA: No significant pleural effusion identified. No pneumothorax apparent. CARDIOVASCULAR: Normal. OSSEOUS STRUCTURES: No significant abnormalities. VISUALIZED UPPER ABDOMEN: Normal. OTHER FINDINGS: None. IMPRESSION: No active disease. No significant interval change compared to the prior examination(s).
--- NOTE | 2017-04-24 13:24 | CP.PCM.HP ---
History of Present Illness - History of Present Illness History of Present Illness: CC: SOB 51 y/o M, Hx of COPD, Emphysema, Sleep Apnea, PNA, came to [facility] [place] to be evaluated for increased SOB, onset 2 days [employer], Pt using Albuterol pump with no relief. As per Pt, SOB gradually increased, worsening on DOA, associated to non productive intermittent cough and wheezing. Worsening symptom: GIFF[place], L chest wall pain ( L ribs pain) Aggravated factor: Increased chest wall pain when coughing. Pt denied: Fever, chills, hemoptysis, legs swellings, dizziness, syncope, abdominal pain, n/v/d, urinary symptoms, sick contact, recent travel out of [facility]. CXR shows: No active disease Present on Admission - Present on Admission Any Indicators Present on Admission: No Review of Systems - Constitutional Constitutional: Sleep Apnea - EENT Eyes: Other (negative) Ears: Other (negative) Nose/Mouth/Throat: Other (negative) - Cardiovascular Cardiovascular: Other (negative) - Respiratory Respiratory: Cough, Dyspnea, Dyspnea on Exertion, Wheezing, Pain with Coughing - Gastrointestinal Gastrointestinal: Other (negative) - Genitourinary Genitourinary: Other (negative) - Musculoskeletal Musculoskeletal: Back Pain (chronic), Other (chest wall pain with coughing) - Integumentary Integumentary: Other (negative) - Neurological Neurological: Other (negative) - Psychiatric Psychiatric: Anxiety - Endocrine Endocrine: Other (negative) - Hematologic/Lymphatic Hematologic: Other (negative) Past Patient History - Infectious Disease Hx of Infectious Diseases: None - Tetanus Immunizations Tetanus Immunization: Unknown - Past Medical History & Family History Past Medical History?: Yes Pertinent Family History: Unknown - Past Social History Smoking Status: Heavy Smoker > 10 Cigarettes Daily Alcohol: > 2 Drinks/Day Drugs: Cannabis Home Situation {Lives}: Homeless - CARDIAC Hx Cardiac Disorders: No Hx Hypertension: No - PULMONARY Hx Respiratory Disorders: Yes Hx Chronic Obstructive Pulmonary Disease (COPD): Yes Hx Emphysema: Yes Hx Pneumonia: Yes Hx Sleep Apnea: Yes - NEUROLOGICAL Hx Neurological Disorder: No Hx Seizures: No - HEENT Hx HEENT Problems: No - RENAL Hx Chronic Kidney Disease: No - ENDOCRINE/METABOLIC Hx Endocrine Disorders: No - HEMATOLOGICAL/ONCOLOGICAL Hx Blood Disorders: No Hx Human Immunodeficiency Virus (HIV): No - INTEGUMENTARY Hx Dermatological Problems: No - MUSCULOSKELETAL/RHEUMATOLOGICAL Hx Musculoskeletal Disorders: Yes Hx Arthritis: Yes (arthritis of neck and back) Hx Back Pain: Yes Hx Falls: Yes Hx Fractures: Yes (skull, right pinky) - GASTROINTESTINAL Hx Gastrointestinal Disorders: No - GENITOURINARY/GYNECOLOGICAL Hx Sexually Transmitted Disorders: No - PSYCHIATRIC Hx Psychophysiologic Disorder: Yes Hx Anxiety: Yes Hx Bipolar Disorder: Yes Hx Depression: Yes Hx Substance Use: Yes (marijuana) - SURGICAL HISTORY Hx Surgeries: Yes Hx Appendectomy: Yes Hx Tonsillectomy: Yes Other/Comment: ventral hernia repair, "lazy eye surgery" - ANESTHESIA Hx Anesthesia: Yes Hx Anesthesia Reactions: No Hx Malignant Hyperthermia: No Has any member of the family had a problem w/ anesthesia?: No Meds Allergies/Adverse Reactions: Allergies Allergy/AdvReac Type Severity Reaction Status Date / Time No Known Allergies Allergy Verified 04/18/17 02:20 Physical Exam - Constitutional Appears: No Acute Distress - Head Exam Head Exam: NORMAL INSPECTION - Eye Exam Eye Exam: PERRL - ENT Exam ENT Exam: Normal Oropharynx - Neck Exam Neck exam: Positive for: Normal Inspection - Respiratory Exam Respiratory Exam: Wheezes (b/l) - Cardiovascular Exam Cardiovascular Exam: REGULAR RHYTHM - GI/Abdominal Exam GI & Abdominal Exam: Normal Bowel Sounds, Soft - Extremities Exam Extremities exam: Positive for: normal inspection - Back Exam Back exam: NORMAL INSPECTION - Neurological Exam Neurological exam: Alert, Oriented x3 Additional comments: No motor sensory deficit - Psychiatric Exam Psychiatric exam: Anxious - Skin Skin Exam: Warm Results - Vital Signs Recent Vital Signs: Last Vital Signs Temp 97.9 F 04/24/17 10:31 Pulse 80 04/24/17 10:31 Resp 17 04/24/17 11:03 BP 152/90 H 04/24/17 10:33 Pulse Ox 95 04/24/17 11:03 reviewed Angela - Labs Result Diagrams: 04/26/17 05:25 04/26/17 05:25 Labs: Laboratory Results - last 24 hr 04/24/17 04/24/17 04/24/17 03:00 03:00 03:00 WBC 11.6 H RBC 4.84 Hgb 15.9 Hct 46.5 MCV 96.1 H D MCH 32.8 H MCHC 34.2 RDW 15.2 H Plt Count 207 MPV 8.0 Neut % (Auto) 67.3 Lymph % (Auto) 22.9 [place] % (Auto) 8.7 Eos % (Auto) 0.7 Baso % (Auto) 0.4 Neut # 7.8 H Lymph # 2.6 [place] # 1.0 H Eos # 0.1 Baso # 0.1 Sodium 143 Potassium 4.0 Chloride 106 Carbon Dioxide 29 Anion Gap 12 BUN 13 Creatinine 0.7 L Est GFR ( Amer) > 60 Est GFR (Non-Af Amer) > 60 Random Glucose 106 Calcium 9.4 Influenza Typ A,B (EIA) Negative for flu a/b reviewed J.P. - Imaging and Cardiology Chest x-ray Status: Report reviewed by me (J.P.) Assessment & Plan (1) COPD exacerbation Status: Acute Priority: High (2) Anxiety Status: Chronic Priority: Medium - Assessment and Plan (Free Text) Plan: Continue NC 2 L/M, Rocephin,Zithromax, Duoneb and rest of Tx. - Date & Time Date: 04/24/17 Time: 14:00
[2017-04-25] MEDS: Enoxaparin 40 mg Syringe SC SCH (09:02)
[2017-04-25] MEDS: Azithromycin 500 MG in Sodium Chloride 0.9% 250 ML IVPB SCH (12:05)
--- NOTE | 2017-04-25 17:21 | CP.PCM.PN ---
Subjective - Date & Time of Evaluation Date of Evaluation: 04/25/17 - Subjective Subjective: F/U COPD Exacerbation. Objective - Vital Signs/Intake and Output Vital Signs (last 24 hours): Temp Pulse Resp BP Pulse Ox 97.7 F 90 20 146/86 95 04/25/17 16:02 04/25/17 16:02 04/25/17 16:02 04/25/17 16:02 04/25/17 16:02 - Medications Medications: Current Medications Enoxaparin Sodium (Lovenox) 40 mg SC DAILY ALEJANDRO PRN Reason: Protocol Last Admin: 04/25/17 09:02 Dose: 40 mg Ceftriaxone Sodium 1 gm/ (Sodium Chloride) 100 mls @ 100 mls/hr IVPB DAILY ALEJANDRO PRN Reason: Protocol Last Admin: 04/25/17 09:03 Dose: 100 mls/hr Azithromycin 500 mg/ Sodium (Chloride) 250 mls @ 250 mls/hr IVPB DAILY ALEJANDRO PRN Reason: Protocol Last Admin: 04/25/17 12:05 Dose: 250 mls/hr Lorazepam (Ativan) 0.5 mg PO BID PRN PRN Reason: Anxiety Last Admin: 04/25/17 13:13 Dose: 0.5 mg Nicotine (Nicoderm Cq) 1 patch TD DAILY ALEJANDRO Last Admin: 04/25/17 09:02 Dose: 1 patch - Labs Labs: 04/24/17 03:00 04/24/17 03:00 - Constitutional Appears: No Acute Distress - Head Exam Head Exam: NORMAL INSPECTION - Eye Exam Eye Exam: PERRL - ENT Exam ENT Exam: Normal Exam - Neck Exam Neck Exam: Normal Inspection - Respiratory Exam Respiratory Exam: Wheezes (b/l) - Cardiovascular Exam Cardiovascular Exam: REGULAR RHYTHM - GI/Abdominal Exam GI & Abdominal Exam: Soft, Normal Bowel Sounds - Extremities Exam Extremities Exam: Normal Inspection - Back Exam Back Exam: NORMAL INSPECTION - Neurological Exam Neurological Exam: Alert, Oriented x3. absent: Motor Sensory Deficit - Psychiatric Exam Psychiatric exam: Anxious - Skin Skin Exam: Warm
--- NOTE | 2017-04-25 18:31 | CARD ---
APPROVED REPORT EKG Measurement Heart [id number] <Conclusion> Normal sinus rhythm Normal ECG
[2017-04-26 07:45] LABS: HEMOGLOBIN 17.4 g/dL (12.0-18.0); MEAN CELL VOLUME 97.8 fl (80.0-94.0); MEAN CORPUSCULAR HEMOGLOBIN 32.8 pg (27.0-31.0); MEAN CORPUSCULAR HGB CONC 33.6 g/dL (33.0-37.0); RBC 5.32 Mil/uL (4.40-5.90); RED CELL DISTRIBUTION WIDTH 15.2 % (11.5-14.5)
[2017-04-26 08:12] LABS: BLOOD UREA NITROGEN 19 mg/dl (9-20); CALCIUM 9.3 mg/dL (8.4-10.2); GFR AFRICAN-AMERICAN > 60; GFR NON-AFRICAN AMERICAN > 60
[2017-04-26] MEDS: Enoxaparin 40 mg Syringe SC SCH (09:12)
[2017-04-26] MEDS: Azithromycin 500 MG in Sodium Chloride 0.9% 250 ML IVPB SCH (10:09)
[2017-04-26] MEDS: Albuterol-Ipratrop 3 mg / 0.5 (3 ml) UD INH SCH ×2 (13:23→19:20)
--- NOTE | 2017-04-26 14:11 | CP.PCM.PN ---
Subjective - Date & Time of Evaluation Date of Evaluation: 04/26/17 - Subjective Subjective: F/U COPD Exacerbation. no Ad cough improved Objective - Vital Signs/Intake and Output Vital Signs (last 24 hours): Temp Pulse Resp BP Pulse Ox 97.9 F 65 22 123/86 95 04/26/17 08:28 04/26/17 08:28 04/26/17 08:28 04/26/17 08:30 04/26/17 08:28 - Medications Medications: Current Medications Albuterol/Ipratropium (Duoneb 3 Mg/0.5 Mg (3 Ml) Ud) 3 ml INH RQ6 [facility] Last Admin: 04/26/17 13:23 Dose: 3 ml Enoxaparin Sodium (Lovenox) 40 mg SC DAILY ALEJANDRO PRN Reason: Protocol Last Admin: 04/26/17 09:12 Dose: 40 mg Ceftriaxone Sodium 1 gm/ (Sodium Chloride) 100 mls @ 100 mls/hr IVPB DAILY [facility] PRN Reason: Protocol Last Admin: 04/26/17 09:11 Dose: 100 mls/hr Azithromycin 500 mg/ Sodium (Chloride) 250 mls @ 250 mls/hr IVPB DAILY ALEJANDRO PRN Reason: Protocol Last Admin: 04/26/17 10:09 Dose: 250 mls/hr Lorazepam (Ativan) 0.5 mg PO BID PRN PRN Reason: Anxiety Last Admin: 04/25/17 23:36 Dose: 0.5 mg Nicotine (Nicoderm Cq) 1 patch TD DAILY [facility] Last Admin: 04/26/17 09:12 Dose: 1 patch - Labs Labs: 04/26/17 05:25 04/26/17 05:25 - Constitutional Appears: No Acute Distress - Head Exam Head Exam: NORMAL INSPECTION - Eye Exam Eye Exam: PERRL - ENT Exam ENT Exam: Normal Exam - Neck Exam Neck Exam: Normal Inspection - Respiratory Exam Respiratory Exam: Decreased Breath Sounds (b/l) Additional comments: no chest wall tenderness - Cardiovascular Exam Cardiovascular Exam: REGULAR RHYTHM - GI/Abdominal Exam GI & Abdominal Exam: Soft, Normal Bowel Sounds - Extremities Exam Extremities Exam: Normal Inspection - Back Exam Back Exam: NORMAL INSPECTION - Neurological Exam Neurological Exam: Alert, Oriented x3. absent: Motor Sensory Deficit - Psychiatric Exam Psychiatric exam: Anxious - Skin Skin Exam: Warm Assessment and Plan (1) COPD exacerbation Status: Acute (2) Anxiety Status: Chronic (3) Rib fracture Assessment & Plan: CT Scan Chest L 8th rib Fx ocurrence undetermined , Patient with no chest wall pain or tenderness to palpation no Hx ot trauma ,not on pain medication Status: Acute - Assessment and Plan (Free Text) Plan: continue , Rocephin , Zithromax , Nicotine Patch , Lorazepam
[2017-04-26 15:59] VITALS: RESP 20
--- NOTE | 2017-04-26 19:30 | CT ---
EXAM: CT Chest Without Intravenous Contrast EXAM DATE/TIME: 04/26/2017 11:59 AM CLINICAL HISTORY: 51 years old, male; Signs and symptoms; Other: Pneumonia TECHNIQUE: Axial computed tomography images of the chest without intravenous contrast. All CT scans at this facility use one or more dose reduction techniques, viz.: automated exposure control; ma/kV adjustment per patient size (including targeted exams where dose is matched to indication; i.e. head); or iterative reconstruction technique. Coronal and sagittal reformatted images were created and reviewed. COMPARISON: Prior chest radiographs of 2017-04-24 FINDINGS: LUNGS: Small amount of consolidation in the left lung base posteriorly, most compatible with dependent atelectasis. Scattered areas of linear atelectasis or scarring in the lungs bilaterally. At the caval No evidence of significant focal consolidation/infiltrate in the lungs. No evidence of diffuse pulmonary vascular congestion. No evidence of suspicious, spiculated lung masses. Patent large airways. PLEURAL SPACE: No pneumothorax or significant pleural effusions seen. HEART: Coronary artery calcification. No evidence of significant pericardial effusion. BONES/JOINTS: Fracture of the left eighth rib laterally, image 72 of series 3, which appears acute. Recommend clinical correlation. Mild sclerosis involving the left sixth rib anterolaterally, which may be related to an old fracture. No evidence of diffuse sclerotic bone lesions. SOFT TISSUES: No evidence of soft tissue hematoma. VASCULATURE: Exam is nondiagnostic for aortic dissection, secondary to unenhanced technique. No evidence of thoracic aortic aneurysm. LYMPH NODES: No evidence of diffuse lymphadenopathy. IMPRESSION: - Fracture of the left eighth rib laterally, which appears acute. Recommend clinical correlation. - Otherwise, no evidence of significant acute process on this unenhanced exam. - See above for remaining findings.
[2017-04-27] MEDS: Albuterol-Ipratrop 3 mg / 0.5 (3 ml) UD INH SCH ×3 (01:20→13:25)
[2017-04-27] MEDS: Enoxaparin 40 mg Syringe SC SCH (08:04)
[2017-04-27 08:05] VITALS: BP 122/81; PULSE 84; TEMP 97.5; O2SAT 98
[2017-04-27] MEDS: Azithromycin 500 MG in Sodium Chloride 0.9% 250 ML IVPB SCH (08:06)
--- NOTE | 2017-04-27 21:30 | CP.PCM.DIS ---
Provider - Provider Date of Admission: 04/24/17 02:23 Attending physician: Jeferson Quesada MD Primary care physician: Yennifer Hurley MD Time Spent in preparation of Discharge (in minutes): 35 Diagnosis - Discharge Diagnosis (1) COPD exacerbation Status: Acute Priority: High (2) Anxiety Status: Chronic Priority: Medium (3) Rib fracture Status: Acute Hospital Course - Lab Results Lab Results: Micro Results 04/24/17 03:20 Blood Blood Culture - Preliminary NO GROWTH AFTER 3 DAYS 04/24/17 02:50 Blood Blood Culture - Preliminary NO GROWTH AFTER 3 DAYS 04/24/17 16:45 Sputum Gram Stain - Final 04/24/17 16:45 Sputum Sputum Culture - Final Yeast Species Most Recent Lab Values WBC 9.0 K/uL (4.8-10.8) 04/26/17 05:25 RBC 5.32 Mil/uL (4.40-5.90) 04/26/17 05:25 Hgb 17.4 g/dL (12.0-18.0) 04/26/17 05:25 Hct 52.0 % (35.0-51.0) H 04/26/17 05:25 MCV 97.8 fl (80.0-94.0) H 04/26/17 05:25 MCH 32.8 pg (27.0-31.0) H 04/26/17 05:25 MCHC 33.6 g/dL (33.0-37.0) 04/26/17 05:25 RDW 15.2 % (11.5-14.5) H 04/26/17 05:25 Plt Count 190 K/uL (130-400) 04/26/17 05:25 MPV 8.0 fl (7.2-11.7) 04/24/17 03:00 Neut % (Auto) 67.3 % (50.0-75.0) 04/24/17 03:00 Lymph % (Auto) 22.9 % (20.0-40.0) 04/24/17 03:00 Davison % (Auto) 8.7 % (0.0-10.0) 04/24/17 03:00 Eos % (Auto) 0.7 % (0.0-4.0) 04/24/17 03:00 Baso % (Auto) 0.4 % (0.0-2.0) 04/24/17 03:00 Neut # 7.8 K/uL (1.8-7.0) H 04/24/17 03:00 Lymph # 2.6 K/uL (1.0-4.3) 04/24/17 03:00 Davison # 1.0 K/uL (0.0-0.8) H 04/24/17 03:00 Eos # 0.1 K/uL (0.0-0.7) 04/24/17 03:00 Baso # 0.1 K/uL (0.0-0.2) 04/24/17 03:00 Sodium 140 mmol/l (132-148) 04/26/17 05:25 Potassium 4.0 MMOL/L (3.6-5.0) 04/26/17 05:25 Chloride 98 mmol/L (98-107) 04/26/17 05:25 Carbon Dioxide 32 mmol/L (22-30) H 04/26/17 05:25 Anion Gap 14 (10-20) 04/26/17 05:25 BUN 19 mg/dl (9-20) 04/26/17 05:25 Creatinine 0.7 mg/dl (0.8-1.5) L 04/26/17 05:25 Est GFR ( Amer) > 60 04/26/17 05:25 Est GFR (Non-Af Amer) > 60 04/26/17 05:25 Random Glucose 120 mg/dL (75-110) H 04/26/17 05:25 Calcium 9.3 mg/dL (8.4-10.2) 04/26/17 05:25 Influenza Typ A,B (EIA) Negative for flu a/b (NEGATIVE) 04/24/17 03:00 Ur L.pneumophila Ag Negative (NEGATIVE) 04/24/17 16:45 Mycoplasma pneumon IgG >5.00 (<=0.90) H 04/24/17 12:45 Mycoplasma pneumon IgM 22 U/mL (<770) 04/24/17 12:45 Ur Strep pneumoniae Ag Not detected 04/24/17 16:45 - Hospital Course Hospital Course: 51 yrs old male with SOB ,non productive cough , wheezing , SOB , GIFFORD , chest wall pain with cough, Patient was seen ER [facility] and AD Hx COPD,Sleep Apnea, PNA , O/A Neck , Back , Anxiety , Bipolar , Depression , Heavy smoker , ETOH and Cannabis use, homless SHx AP , tonsillectomy , Ventral Hernia repair CT Chest Atelectasis , scarring B/L , no consolidation , Fx Left 8th rib Patient treated with Zithromax , Rocephin, Nicotine patch , Lorazepam, upon discharge Patient with no AD , no SOB , no GIFFORD , no Chest wall pain, see MAR inst/med sheet, f/u PMD one week - Date & Time of H&P Date of H&P: 04/24/17 Time of H&P: 14:00 Discharge Exam - Head Exam Head Exam: NORMAL INSPECTION - Eye Exam Eye Exam: PERRL - ENT Exam ENT Exam: Normal Exam - Neck Exam Neck exam: Normal Inspection - Respiratory Exam Respiratory Exam: Decreased Breath Sounds (at bases) Additional comments: no chest wall tenderness - Cardiovascular Exam Cardiovascular Exam: REGULAR RHYTHM - GI/Abdominal Exam GI & Abdominal Exam: Normal Bowel Sounds, Soft - Extremities Exam Extremities exam: normal inspection - Back Exam Back exam: NORMAL INSPECTION - Neurological Exam Neurological exam: Alert, CN II-XII Intact, Oriented x3 Additional comments: no motor/sensory deficit - Psychiatric Exam Psychiatric exam: Anxious - Skin Skin Exam: Warm Discharge Plan - Follow Up Plan Condition: FAIR Disposition: HOME/ ROUTINE Patient education suggested?: Yes Instructions: Pneumonia (DC), Pneumonia (GEN) Additional Instructions: Follow up with PMD in one week. Referrals: Yennifer Hurley MD [Primary Care Provider] -
--- NOTE | 2017-04-28 13:27 | PQF PNEUMO ---
This form is a permanent part of the medical record DR.JOSE QUEEN: ADDENDUM TO EMERGENCY ROOM RECORD STATES COPD EXACERBATION,PNEUMONIA. COULD YOU PLEASE CONFIRM IF PNEUMONIA WAS RULED IN OR OUT ON ADMISSION. Clarification of your documentation is requested to better reflect the severity of illness and intensity of treatment of your patient. Indicators present [X] Documented diagnosis of pneumonia [] X-ray findings: [] Positive Sputum cultures [] Cough w/ fever [] Abnormal lungs sounds [] Poor gag reflex [] Speech consults/swallow evaluation [] Vent dependence [] Other: [] Location in the medical record that reflects the above clinical findings: [] Treatment Provided: [] PHYSICIAN'S RESPONSE Based on your medical judgment of the clinical indicators outlined above, are you treating this patient for a known or suspected: [] Aspiration pneumonia [] Community acquired pneumonia [] Ventilator associated pneumonia [] Viral pneumonia [] Bacterial pneumonia Please specify organism: [] [] Other, please indicate [] If Unable to Determine, please check the box, sign and date. Present On Admission (POA) Indicator: [] Present at the time of admission [] Not present at the time of admission [] Clinically Undetermined In responding to this query, please exercise your independent professional judgment. The fact that a question is asked does not imply that any particular answer is desired or expected. Thank you for your clarification on this documentation. If you have any questions please call:[ ] * Thank you, * LIBBY ORTEZ [ [phone] business development coordinator SONJA
== END 2017-04-27 16:05 | disposition home or self-care (01) | DRG 88 ==
LOC: H.ER 23:29 → H.ERHOLD 04-24 02:23 → H.MEDSURG1 04-24 10:50
PROVIDERS: ADMIT Internal Medicine Pulmonary Disease; ATTEND Internal Medicine Pulmonary Disease
PROC: 3E0F7GC Introduction of Other Therapeutic Substance into Respiratory Tract, Via Natural or Artificial Opening (ICD-10-PCS; principal; 2017-04-26)
DX: J44.1 Chronic obstructive pulmonary disease with (acute) exacerbation (principal); E11.9 Type 2 diabetes mellitus without complications; F32.9 Major depressive disorder, single episode, unspecified; Z59.0 Homelessness; Z87.01 Personal history of pneumonia (recurrent); Z90.49 Acquired absence of other specified parts of digestive tract; F45.9 Somatoform disorder, unspecified; G89.29 Other chronic pain; M19.90 Unspecified osteoarthritis, unspecified site; M54.9 Dorsalgia, unspecified; F17.200 Nicotine dependence, unspecified, uncomplicated; F31.9 Bipolar disorder, unspecified; F41.9 Anxiety disorder, unspecified; G47.30 Sleep apnea, unspecified; S22.32XA Fracture of one rib, left side, initial encounter for closed fracture; X58.XXXA Exposure to other specified factors, initial encounter; Y93.9 Activity, unspecified; Y92.9 Unspecified place or not applicable

== ENCOUNTER 2017-05-03 00:22 | Emergency (ER) | payer MEDICAID ==
[2017-05-03 00:22] VITALS: BMI 31.7
[2017-05-03 00:35] VITALS: BP 143/76; PULSE 92; RESP 16; TEMP 97.7; O2SAT 97
--- NOTE | 2017-05-03 00:47 | ED PDOC ---
HPI: SOB/CHF/COPD Time Seen by Provider: 05/03/17 00:44 Chief Complaint (Nursing): Shortness Of Breath Chief Complaint (Provider): back pain History Per: Patient (52 y/o male recent discharge from hospital for treatment of pneumonia here for increased back pain. Patient states he finished antiobiotics but is concerned for persistent pneumonia. No fevers/chills.) Past Medical History Reviewed: Historical Data, Nursing Documentation, Vital Signs Vital Signs: Last Vital Signs Temp 97.7 F 05/03/17 00:33 Pulse 92 H 05/03/17 00:33 Resp 16 05/03/17 00:33 BP 143/76 05/03/17 00:33 Pulse Ox 97 05/03/17 00:47 - Medical History PMH: Anxiety, Arthritis (arthritis of neck and back), Back Problems (chronic back pain ), Bipolar Disorder, COPD, Depression, Diabetes, Emphysema, Fractures (skull, right pinky), Pneumonia, Sleep Apnea Denies: Hepatitis, HIV, HTN, Chronic Kidney Disease, Seizures, Sexually Transmitted Disease - Surgical History Surgical History: Appendectomy, Hernia Repair (ventral), Tonsillectomy - Family History Family History: States: Unknown Family Hx - Immunization History Hx Tetanus Toxoid Vaccination: Yes (UTD) Hx Influenza Vaccination: No Hx Pneumococcal Vaccination: Yes - Home Medications Home Medications: Ambulatory Orders Medication Instructions Recorded Albuterol HFA [Ventolin HFA 90 1 - 2 puff IH Q6 PRN #1 inhaler 04/18/17 mcg/actuation (8 g)] Naproxen [Anaprox DS] 500 mg PO BID PRN 04/24/17 Prednisone [Prednisone] 50 mg PO DAILY 04/24/17 Albuterol HFA [Ventolin HFA 90 2 puff IH [id number] PRN #1 inhaler 05/03/17 mcg/actuation (8 g)] Levofloxacin [Levaquin] 500 mg PO DAILY #7 tablet 05/03/17 - Allergies Allergies/Adverse Reactions: Allergies Allergy/AdvReac Type Severity Reaction Status Date / Time No Known Allergies Allergy Verified 04/18/17 02:20 Review of Systems ROS Statement: Except As Marked, All Systems Reviewed And Found Negative Physical Exam - Reviewed Nursing Documentation Reviewed: Yes Vital Signs Reviewed: Yes - Physical Exam Appears: Positive for: Well, Non-toxic, No Acute Distress Head Exam: Positive for: ATRAUMATIC, NORMAL INSPECTION, NORMOCEPHALIC Skin: Positive for: Normal Color, Warm, DRY Eye Exam: Positive for: EOMI, Normal appearance, PERRL ENT: Positive for: Normal ENT Inspection Neck: Positive for: Normal, Painless ROM Cardiovascular/Chest: Positive for: Regular Rate, Rhythm Respiratory: Positive for: CNT, Normal Breath Sounds Gastrointestinal/Abdominal: Positive for: Normal Exam, Bowel Sounds, Soft Back: Positive for: Normal Inspection Extremity: Positive for: Normal ROM Neurologic/Psych: Positive for: Alert, Oriented - ECG O2 Sat by Pulse Oximetry: 97 - Progress ED Course And Treament: CXR: RESOLVING RLL PNEUMOINIA PATIENT WAS TREATED WITH ZITHROMAX AND ROCEPHIN INPATIENT. WILL START LEVAQUIN TO ASSIST WITH RESOLUTION. ADVISE F/U WITH PMD IN 2 DAYS Disposition - Clinical Impression Clinical Impression: Pneumonia - Patient ED Disposition Is Patient to be Admitted: No - Disposition Referrals: [facility] [Outside] Disposition: Routine/Home Disposition Time: 02:09 Condition: FAIR Prescriptions: Albuterol HFA [Ventolin HFA 90 mcg/actuation (8 g)] 2 puff IH [id number] PRN #1 inhaler PRN Reason: Cough Levofloxacin [Levaquin] 500 mg PO DAILY #7 tablet Instructions: Bacterial Pneumonia (ED) Forms: [employer] (Yi)
--- NOTE | 2017-05-03 10:41 | RAD ---
HISTORY: r/o pneumonia COMPARISON: Chest radiograph dated 04/24/2017. TECHNIQUE: Chest PA and lateral FINDINGS: LUNGS: No active pulmonary disease. PLEURA: No significant pleural effusion identified. No pneumothorax apparent. CARDIOVASCULAR: Normal. OSSEOUS STRUCTURES: No significant abnormalities. VISUALIZED UPPER ABDOMEN: Normal. OTHER FINDINGS: None. IMPRESSION: No active disease.
== END 2017-05-03 02:37 | disposition home or self-care (01) ==
LOC: H.ER 00:22
DX: J15.9 Unspecified bacterial pneumonia (principal)

== ENCOUNTER 2017-05-08 23:44 | Emergency (ER) | payer MEDICAID ==
[2017-05-08 23:45] VITALS: BMI 31.7
[2017-05-08 23:51] VITALS: BP 112/72; PULSE 80; RESP 17; TEMP 98; O2SAT 91
--- NOTE | 2017-05-09 05:03 | ED PDOC ---
HPI: Back Time Seen by Provider: 05/09/17 03:00 Chief Complaint (Nursing): Back Pain Chief Complaint (Provider): Back Pain History Per: Patient History/Exam Limitations: no limitations Onset/Duration Of Symptoms: Other (x2 weeks) Current Symptoms Are (Timing): Still Present Previous Symptoms: Prior Injury (Rib fracture diagnosed x2 weeks ago) Additional Complaint(s): 52 year old male presents to ED with complaints of pain to left flank and upper back x2 weeks and has a past medical history of COPD and alcohol abuse. Patient is well known to ED and provider. Patient attributes pain to pneumonia x2 weeks ago. (-) fever, chills, or cough. Of note, patient was seen in ED x2 weeks ago for a fractures left 8th rib. PCP: None - Risk Factors AAA Risk Factors: Pos: Older Than 49 Years Of Age Past Medical History Reviewed: Historical Data, Nursing Documentation, Vital Signs Vital Signs: Last Vital Signs Temp 98.0 F 05/08/17 23:48 Pulse 80 05/08/17 23:48 Resp 17 05/08/17 23:48 BP 112/72 05/08/17 23:48 Pulse Ox 91 L 05/08/17 23:48 - Medical History PMH: Anxiety, Arthritis (arthritis of neck and back), Back Problems (chronic back pain ), Bipolar Disorder, COPD, Depression, Diabetes, Emphysema, Fractures (skull, right pinky), Pneumonia, Sleep Apnea Denies: Hepatitis, HIV, HTN, Chronic Kidney Disease, Seizures, Sexually Transmitted Disease - Surgical History Surgical History: Appendectomy, Hernia Repair (ventral), Tonsillectomy - Family History Family History: States: Unknown Family Hx - Living Arrangements Living Arrangements: With Family - Social History Alcohol: > 2 Drinks/Day - Immunization History Hx Tetanus Toxoid Vaccination: Yes (UTD) Hx Influenza Vaccination: No Hx Pneumococcal Vaccination: Yes - Home Medications Home Medications: Ambulatory Orders Medication Instructions Recorded Albuterol HFA [Ventolin HFA 90 1 - 2 puff IH Q6 PRN #1 inhaler 04/18/17 mcg/actuation (8 g)] Naproxen [Anaprox DS] 500 mg PO BID PRN 04/24/17 Prednisone [Prednisone] 50 mg PO DAILY 04/24/17 Albuterol HFA [Ventolin HFA 90 2 puff IH [id number] PRN #1 inhaler 05/03/17 mcg/actuation (8 g)] Levofloxacin [Levaquin] 500 mg PO DAILY #7 tablet 05/03/17 Naproxen [Naprosyn] 500 mg PO BID #30 tablet 05/09/17 - Allergies Allergies/Adverse Reactions: Allergies Allergy/AdvReac Type Severity Reaction Status Date / Time No Known Allergies Allergy Verified 05/08/17 23:51 Review of Systems ROS Statement: Except As Marked, All Systems Reviewed And Found Negative Constitutional: Negative for: Fever, Chills Respiratory: Negative for: Cough Musculoskeletal: Positive for: Back Pain (upper back and left flank pain) Physical Exam - Reviewed Nursing Documentation Reviewed: Yes Vital Signs Reviewed: Yes - Physical Exam Appears: Positive for: Non-toxic, No Acute Distress Skin: Positive for: Normal Color, Warm, Dry Neck: Positive for: Normal, Painless ROM, Supple Cardiovascular/Chest: Positive for: Regular Rate, Rhythm. Negative for: Chest Non Tender (tenderness to left 8th rib), Murmur, Other ((-) crepitus or step off ) Respiratory: Positive for: Normal Breath Sounds. Negative for: Respiratory Distress - ECG O2 Sat by Pulse Oximetry: 91 (RA) Pulse Ox Interpretation: Abnormal (Chronic for patient) Medical Decision Making Medical Decision Makin Initial impression: healing rib fracture Initial plan: * Flexeril 10mg PO * Toradol 60mg IM * Re-eval 0600 Upon re-evaluation, patient is feeling better. Patient is stable for discharge home. Dx: rib pain Scribe Attestation: Documented by Tami Morrison acting as a scribe for Pedro Pablo Lentz MD. Scribe Attestation: All medical record entries made by the Scribe were at my direction and personally dictated by me. I have reviewed the chart and agree that the record accurately reflects my personal performance of the history, physical exam, medical decision making, and the department course for this patient. I have also personally directed, reviewed, and agree with the discharge instructions and disposition. Disposition - Clinical Impression Clinical Impression: Rib pain - Patient ED Disposition Is Patient to be Admitted: No - Disposition Referrals: Yennifer Hurley MD [Primary Care Provider] - Disposition: Routine/Home Disposition Time: 06:00 Condition: STABLE Prescriptions: Naproxen [Naprosyn] 500 mg PO BID #30 tablet Instructions: Rib Fracture (ED) Forms: [facility] (Iranian) - POA Present On Arrival: None
== END 2017-05-09 06:30 | disposition home or self-care (01) ==
LOC: H.ER 23:44
DX: S22.39XD Fracture of one rib, unspecified side, subsequent encounter for fracture with routine healing (principal); E11.9 Type 2 diabetes mellitus without complications; F31.9 Bipolar disorder, unspecified; F41.9 Anxiety disorder, unspecified; G89.29 Other chronic pain; J44.9 Chronic obstructive pulmonary disease, unspecified; F10.129 Alcohol abuse with intoxication, unspecified
CPT/HCPCS: 96372; 99281; J1885

== ENCOUNTER 2017-05-13 23:00 | Emergency (ER) | payer MEDICAID ==
[2017-05-13 23:01] VITALS: BMI 31.7
[2017-05-14] MEDS ORDERED: Albuterol-Ipratrop 3 mg / 0.5 (3 ml) UD IH STA ×2 (00:24→00:25)
--- NOTE | 2017-05-14 00:27 | ED PDOC ---
HPI: SOB/CHF/COPD Time Seen by Provider: 05/13/17 23:29 Chief Complaint (Nursing): Shortness Of Breath Chief Complaint (Provider): sob History Per: Patient History/Exam Limitations: no limitations Onset/Duration Of Symptoms: Hrs Current Symptoms Are (Timing): Still Present Additional Complaint(s): 52 y/o male history of COPD, alcohol abuse presents with shortness of breath, onset 2 hours ago. Patient reports no relief with albuterol inhaler. Denies fever, nausea/vomiting, chest pain, palpitations, abdominal pain, recent travel , sick contacts. Past Medical History Reviewed: Historical Data, Nursing Documentation, Vital Signs Vital Signs: Last Vital Signs Temp 99.1 F 05/13/17 23:04 Pulse 109 H 05/13/17 23:04 Resp 17 05/14/17 04:49 BP 125/80 05/13/17 23:04 Pulse Ox 95 05/14/17 04:49 - Medical History PMH: Anxiety, Arthritis (arthritis of neck and back), Back Problems (chronic back pain ), Bipolar Disorder, COPD, Depression, Diabetes, Emphysema, Fractures (skull, right pinky), Pneumonia, Sleep Apnea Denies: Hepatitis, HIV, HTN, Chronic Kidney Disease, Seizures, Sexually Transmitted Disease - Surgical History Surgical History: Appendectomy, Hernia Repair (ventral), Tonsillectomy - Family History Family History: States: Unknown Family Hx - Immunization History Hx Tetanus Toxoid Vaccination: Yes (UTD) Hx Influenza Vaccination: No Hx Pneumococcal Vaccination: Yes - Home Medications Home Medications: Ambulatory Orders Medication Instructions Recorded Albuterol HFA [Ventolin HFA 90 1 - 2 puff IH Q6 PRN #1 inhaler 04/18/17 mcg/actuation (8 g)] Naproxen [Anaprox DS] 500 mg PO BID PRN 04/24/17 Prednisone [Prednisone] 50 mg PO DAILY 04/24/17 Albuterol HFA [Ventolin HFA 90 2 puff IH [id number] PRN #1 inhaler 05/03/17 mcg/actuation (8 g)] Levofloxacin [Levaquin] 500 mg PO DAILY #7 tablet 05/03/17 Naproxen [Naprosyn] 500 mg PO BID #30 tablet 05/09/17 - Allergies Allergies/Adverse Reactions: Allergies Allergy/AdvReac Type Severity Reaction Status Date / Time No Known Allergies Allergy Verified 05/08/17 23:51 Review of Systems ROS Statement: Except As Marked, All Systems Reviewed And Found Negative Respiratory: Positive for: Cough, Shortness of Breath Physical Exam - Reviewed Nursing Documentation Reviewed: Yes Vital Signs Reviewed: Yes - Physical Exam Appears: Positive for: Well, Non-toxic, No Acute Distress (sleeping) Head Exam: Positive for: ATRAUMATIC, NORMAL INSPECTION, NORMOCEPHALIC ENT: Positive for: Normal ENT Inspection Cardiovascular/Chest: Positive for: Regular Rate, Rhythm Respiratory: Positive for: Wheezing Gastrointestinal/Abdominal: Positive for: Normal Exam Back: Positive for: Normal Inspection Neurologic/Psych: Positive for: Alert, Oriented - ECG ECG: Positive for: Viewed By Me ECG Rhythm: Positive for: Sinus Tachycardia (101bpm) O2 Sat by Pulse Oximetry: 100 - Progress ED Course And Treament: lorenzo, ekg On re-eval, patient sleeping; no respiratory distress noted 6:00 Patient awake, states he is feeling better. STable for discharge. Return precautions given. Disposition - Clinical Impression Clinical Impression: COPD (chronic obstructive pulmonary disease) - Patient ED Disposition Is Patient to be Admitted: No Counseled Patient/Family Regarding: Diagnosis, Need For Followup - Disposition Referrals: Adam Hurley MD [Medical Doctor] - Disposition: Routine/Home Disposition Time: 06:04 Condition: IMPROVED Instructions: COPD (Chronic Obstructive Pulmonary Disease) (ED)
[2017-05-14] MEDS ORDERED: Albuterol-Ipratrop 3 mg / 0.5 (3 ml) UD ONE (01:58)
[2017-05-14 07:15] VITALS: BP 123/79; PULSE 86; RESP 16; TEMP 98.6; O2SAT 96
--- NOTE | 2017-05-14 14:09 | CARD ---
APPROVED REPORT EKG Measurement Heart [id number] <Conclusion> Sinus tachycardia Otherwise normal ECG
== END 2017-05-14 06:55 | disposition home or self-care (01) ==
LOC: H.ER 23:00
DX: J44.9 Chronic obstructive pulmonary disease, unspecified (principal); E11.9 Type 2 diabetes mellitus without complications; F31.9 Bipolar disorder, unspecified; F41.9 Anxiety disorder, unspecified; G89.29 Other chronic pain

== ENCOUNTER 2017-05-24 01:11 | Emergency (ER) | payer MEDICAID ==
[2017-05-24 01:11] VITALS: BMI 31.7
[2017-05-24] MEDS ORDERED: Albuterol-Ipratrop 3 mg / 0.5 (3 ml) UD INH STA ×2 (01:37→01:38)
--- NOTE | 2017-05-24 01:43 | ED PDOC ---
HPI: SOB/CHF/COPD Time Seen by Provider: 05/24/17 01:14 Chief Complaint (Nursing): Shortness Of Breath Chief Complaint (Provider): Shortness Of breath History Per: Patient History/Exam Limitations: no limitations Onset/Duration Of Symptoms: Mins (just prior to arrival) Current Symptoms Are (Timing): Still Present Additional Complaint(s): 52 yo homeless, male with a history of COPD, presents to the ED complaining of shortness of breath and wheezing, onset of just prior to arrival. Patient is well known to the ED and provider for multiple visits in the past, and remains non-compliant with instructions to quit smoking; he smokes roughly a pack a day. He denies fever, nausea, vomiting, diarrhea, but reports of chest tightness. Of note, patient is bed-seeking. Past Medical History Reviewed: Historical Data, Nursing Documentation, Vital Signs Vital Signs: Last Vital Signs Temp 97.1 F L 05/24/17 01:27 Pulse 95 H 05/24/17 01:27 Resp 22 05/24/17 02:35 BP 119/79 05/24/17 01:27 Pulse Ox 97 05/24/17 01:53 - Medical History PMH: Anxiety, Arthritis (arthritis of neck and back), Back Problems (chronic back pain ), Bipolar Disorder, COPD, Depression, Diabetes, Emphysema, Fractures (skull, right pinky), Pneumonia, Sleep Apnea Denies: Hepatitis, HIV, HTN, Chronic Kidney Disease, Seizures, Sexually Transmitted Disease - Surgical History Surgical History: Appendectomy, Hernia Repair (ventral), Tonsillectomy - Family History Family History: States: Unknown Family Hx - Social History Current smoker - smoking cessation education provided: Yes (heay) SMOKER/PACKS PER DAY:: 1 (pack per day) Alcohol: Social Drugs: Cannabis - Immunization History Hx Tetanus Toxoid Vaccination: Yes (UTD) Hx Influenza Vaccination: No Hx Pneumococcal Vaccination: Yes - Home Medications Home Medications: Ambulatory Orders Medication Instructions Recorded Albuterol HFA [Ventolin HFA 90 1 - 2 puff IH Q6 PRN #1 inhaler 04/18/17 mcg/actuation (8 g)] - Allergies Allergies/Adverse Reactions: Allergies Allergy/AdvReac Type Severity Reaction Status Date / Time No Known Allergies Allergy Verified 05/14/17 22:09 Review of Systems ROS Statement: Except As Marked, All Systems Reviewed And Found Negative Constitutional: Negative for: Fever Cardiovascular: Positive for: Chest Pain (tightness) Respiratory: Positive for: Shortness of Breath, Wheezing Gastrointestinal: Negative for: Nausea, Vomiting, Diarrhea Physical Exam - Reviewed Nursing Documentation Reviewed: Yes Vital Signs Reviewed: Yes - Physical Exam Appears: Positive for: Well, Non-toxic, No Acute Distress Head Exam: Positive for: ATRAUMATIC, NORMAL INSPECTION, NORMOCEPHALIC Skin: Positive for: Normal Color, Warm, DRY Eye Exam: Positive for: EOMI, Normal appearance, PERRL ENT: Positive for: Normal ENT Inspection Neck: Positive for: Normal, Painless ROM Cardiovascular/Chest: Positive for: Regular Rate, Rhythm. Negative for: Murmur Respiratory: Positive for: Wheezing (bilateral expiratory wheezing) Gastrointestinal/Abdominal: Positive for: Normal Exam, Soft. Negative for: Tenderness Back: Positive for: Normal Inspection Extremity: Positive for: Normal ROM. Negative for: Pedal Edema, Deformity Neurologic/Psych: Positive for: Alert, Oriented - ECG O2 Sat by Pulse Oximetry: 97 (RA) Medical Decision Making Medical Decision Making: Time: --1:37 Impression: --52 yo male with shortness of breath and wheezing in setting of known COPD Plan: --ECG --Albuterol 3ml INH x2 --prednisone 60mg Po --Peak Flow pre/post tx Reassess --03:12 Patient reports of improvement of symptoms and is ready for discharge home. Scribe Attestation: Documented by Jp Rowan acting as a scribe for Lazaro Worrell MD. Provider Attestation: All medical record entries made by the Scribe were at my direction and personally dictated by me. I have reviewed the chart and agree that the record accurately reflects my personal performance of the history, physical exam, medical decision making, and the department course for this patient. I have also personally directed, reviewed, and agree with the discharge instructions and disposition. Disposition - Clinical Impression Clinical Impression: COPD (chronic obstructive pulmonary disease) - Patient ED Disposition Is Patient to be Admitted: No - Disposition Disposition: Routine/Home Disposition Time: 03:12 Condition: IMPROVED Instructions: Chronic Obstructive Pulmonary Disease (COPD), Including Emphysema Forms: [employer] (Greek)
[2017-05-24] MEDS ORDERED: Albuterol-Ipratrop 3 mg / 0.5 (3 ml) UD ONE (01:50)
[2017-05-24 02:36] VITALS: RESP 22
[2017-05-24 05:41] VITALS: BP 136/62; PULSE 86; TEMP 97.7; O2SAT 94
--- NOTE | 2017-05-24 19:04 | CARD ---
APPROVED REPORT EKG Measurement Heart [id number] <Conclusion> Normal sinus rhythm Incomplete right bundle branch block Borderline ECG
== END 2017-05-24 06:14 | disposition home or self-care (01) ==
LOC: H.ER 01:11
DX: J44.9 Chronic obstructive pulmonary disease, unspecified (principal); J43.9 Emphysema, unspecified; F17.210 Nicotine dependence, cigarettes, uncomplicated; E11.9 Type 2 diabetes mellitus without complications; F31.9 Bipolar disorder, unspecified; F41.9 Anxiety disorder, unspecified; G89.29 Other chronic pain; Z59.0 Homelessness; Z91.19 Patient's noncompliance with other medical treatment and regimen

== ENCOUNTER 2017-06-04 18:44 | Emergency (ER) | payer MEDICAID ==
[2017-06-04 18:44] VITALS: BMI 31.7
[2017-06-04 18:52] VITALS: BP 113/77; RESP 18; TEMP 98.5; O2SAT 94
[2017-06-04] MEDS ORDERED: Albuterol-Ipratrop 3 mg / 0.5 (3 ml) UD INH STA (19:46)
--- NOTE | 2017-06-04 19:55 | ED PDOC ---
HPI: Chest Pain Time Seen by Provider: 06/04/17 19:39 Chief Complaint (Nursing): Chest Pain Chief Complaint (Provider): Chest pain History Per: Patient Onset/Duration Of Symptoms: Days Current Symptoms Are (Timing): Still Present Additional Complaint(s): 52yo male, with history of COPD, emphysema, presents to ED with complaints of left sided chest pain, present for the past couple days. Patient states he has had multiple such episodes of chest pain and is exacerbated when he coughs. He denies any weakness, light headedness. Of note, patient states he is a daily drinker and smoker, last drank a beer 1 hour prior to arrival. No other complaints. Past Medical History Reviewed: Historical Data, Nursing Documentation, Vital Signs Vital Signs: Last Vital Signs Temp 98.5 F 06/04/17 18:50 Pulse 99 H 06/05/17 06:00 Resp 18 06/04/17 18:50 BP 113/77 06/04/17 18:50 Pulse Ox 94 L 06/05/17 06:00 - Medical History PMH: Anxiety, Arthritis (arthritis of neck and back), Back Problems (chronic back pain ), Bipolar Disorder, COPD, Depression, Diabetes, Emphysema, Fractures (skull, right pinky), Pneumonia, Sleep Apnea Denies: Hepatitis, HIV, HTN, Chronic Kidney Disease, Seizures, Sexually Transmitted Disease - Surgical History Surgical History: Appendectomy, Hernia Repair (ventral), Tonsillectomy - Family History Family History: States: Unknown Family Hx - Immunization History Hx Tetanus Toxoid Vaccination: Yes (UTD) Hx Influenza Vaccination: No Hx Pneumococcal Vaccination: Yes - Home Medications Home Medications: Ambulatory Orders Medication Instructions Recorded Albuterol HFA [Ventolin HFA 90 1 - 2 puff IH Q6 PRN #1 inhaler 04/18/17 mcg/actuation (8 g)] - Allergies Allergies/Adverse Reactions: Allergies Allergy/AdvReac Type Severity Reaction Status Date / Time No Known Allergies Allergy Verified 06/04/17 18:50 MANSOOR Risk Score for UA/NSTEMI - MANSOOR Risk Score Age > 64: NO MANSOOR Score: 0 Risk %: 5% Curb-65 Severity Score - CURB-65 Severity Score Confusion: No Respiratory Rate greater than/equal to 30: No Systolic BP <90 or Diastolic BP less than/equal 60mmHg: No Age >64: No Curb-65 Score: 0 Percentage 30-day mortality: 0.6% Wells Criteria for PE - Wells Criteria for Pulmonary Embolism Heart Rate >100: Yes Immobilization at least 3 days;Surgery previous 4 weeks: No Hemoptysis: No Total Score: 1.5 Review of Systems ROS Statement: Except As Marked, All Systems Reviewed And Found Negative Constitutional: Negative for: Fever, Chills Cardiovascular: Positive for: Chest Pain Respiratory: Positive for: Cough. Negative for: Shortness of Breath Physical Exam - Reviewed Nursing Documentation Reviewed: Yes Vital Signs Reviewed: Yes - Physical Exam Appears: Positive for: Non-toxic Head Exam: Positive for: ATRAUMATIC, NORMAL INSPECTION, NORMOCEPHALIC Skin: Positive for: Normal Color Eye Exam: Positive for: Normal appearance Neck: Positive for: Supple Cardiovascular/Chest: Positive for: Regular Rate, Rhythm Respiratory: Positive for: Wheezing (bilateral wheezing) Neurologic/Psych: Positive for: Alert, Oriented. 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 Carter pending ER workup. Scribe Attestation: Documented by Mar Ayala acting as a scribe for Lori Knox MD Provider Scribe Attestation: All medical record entries made by the Scribe were at my direction and personally dictated by me. I have reviewed the chart and agree that the record accurately reflects my personal performance of the history, physical exam, medical decision making, and the department course for this patient. I have also personally directed, reviewed, and agree with the discharge instructions and disposition. Disposition - Clinical Impression Clinical Impression: Polysubstance abuse - Patient ED Disposition Is Patient to be Admitted: Transfer of Care - Disposition Referrals: [facility] [Outside] [facility] [Outside] Disposition: Transfer of Care Disposition Time: 19:57 Condition: IMPROVED Additional Instructions: follow up with your doctor in 2 days return to the ED wtih any worsening or concerning symptoms Instructions: Polysubstance Abuse Forms: [employer] (Lithuanian) Patient Signed Over To: Ladonna Carter
[2017-06-04] MEDS ORDERED: Albuterol-Ipratrop 3 mg / 0.5 (3 ml) UD ONE (19:58)
--- NOTE | 2017-06-04 20:05 | ED PDOC ---
- Laboratory Results Result Diagrams: 06/04/17 19:55 06/04/17 19:55 - ECG ECG: Positive for: Interpreted By Me, Viewed By Me ECG Rhythm: Positive for: Sinus Rhythm Rate: 99 O2 Sat by Pulse Oximetry: 94 (RA) Pulse Ox Interpretation: Normal Medical Decision Making Medical Decision Making: Time: 1956 Patient signed out to me by Dr. Knox pending ER workup and re-evaluation. Time: 23:40 --Repeat Troponin levels ordered. Time: 01:10 --Repeat Troponin levels are negative. pt sober, stable vitals, ambulating w steady gait Scribe Attestation: Documented by Mar Ayala acting as a scribe for Ladonna Carter MD Provider Scribe Attestation: All medical record entries made by the Scribe were at my direction and personally dictated by me. I have reviewed the chart and agree that the record accurately reflects my personal performance of the history, physical exam, medical decision making, and the department course for this patient. I have also personally directed, reviewed, and agree with the discharge instructions and disposition. Disposition Counseled Patient/Family Regarding: Diagnosis, Need For Followup - Clinical Impression Clinical Impression: Polysubstance abuse - POA Present On Arrival: None, Object Left In During Previous Surgery Core Measure Indicators: Chest Pain, Code Stroke - Disposition Referrals: [facility] [Outside] [facility] [Outside] Disposition: Routine/Home Disposition Time: 03:00 Condition: IMPROVED Additional Instructions: follow up with your doctor in 2 days return to the ED wtih any worsening or concerning symptoms Instructions: Polysubstance Abuse Forms: [employer] (Iranian)
[2017-06-04 20:19] LABS: BASO # 0.1 K/uL (0.0-0.2); BASO % 0.9 % (0.0-2.0); EOS # 0.2 K/uL (0.0-0.7); EOS % 2.5 % (0.0-4.0); HEMOGLOBIN 17.2 g/dL (12.0-18.0); LYMPH # 1.9 K/uL (1.0-4.3); LYMPH % 27.1 % (20.0-40.0); MEAN CELL VOLUME 99.2 fl (80.0-94.0); MEAN CORPUSCULAR HGB CONC 34.2 g/dL (33.0-37.0); MONO # 0.7 K/uL (0.0-0.8); MONO % 10.6 % (0.0-10.0); NEUT # 4.1 K/uL (1.8-7.0); NEUT % 58.9 % (50.0-75.0); NRBC % 0.3 % (0.0-0.0); RBC 5.05 Mil/uL (4.40-5.90); RED CELL DISTRIBUTION WIDTH 14.5 % (11.5-14.5)
[2017-06-04 20:28] LABS: ALB/GLOB RATIO 1.3 (1.0-2.1); ALBUMIN 3.9 g/dL (3.5-5.0); ALT/SGPT 225 U/L (21-72); AST/SGOT 115 U/L (17-59); BLOOD UREA NITROGEN 15 mg/dl (9-20); CALCIUM 9.2 mg/dL (8.4-10.2); GFR AFRICAN-AMERICAN > 60; GFR NON-AFRICAN AMERICAN > 60
[2017-06-04 20:35] LABS: INR 0.9 (0.9-1.2); PARTIAL THROMBOPLASTIN TIME 30.8 Seconds (25.6-37.1)
[2017-06-04 20:45] VITALS: PULSE 99
[2017-06-04 20:57] LABS: BARBITURATES, UR NEGATIVE (NEGATIVE); BENZODIAZEPINES, UR NEGATIVE (NEGATIVE); OPIATES, UR NEGATIVE (NEGATIVE); PHENCYCLIDINE, UR NEGATIVE (NEGATIVE)
[2017-06-04 21:10] LABS: URINE BACTERIA RARE (<OCC); URINE BILIRUBIN NEGATIVE (NEGATIVE); URINE BLOOD NEGATIVE (NEGATIVE); URINE CLARITY CLEAR (Clear); URINE COLOR STRAW (YELLOW); URINE GLUCOSE (UA) NEG (Normal); URINE LEUKOCYTE ESTERASE NEG Leu/uL (Negative); URINE PROTEIN 30 mg/dL (NEGATIVE); URINE UROBILINOGEN 0.2-1.0 mg/dL (0.2-1.0)
--- NOTE | 2017-06-05 07:39 | CARD ---
APPROVED REPORT EKG Measurement Heart [id number] <Conclusion> Normal sinus rhythm Normal ECG
--- NOTE | 2017-06-05 08:48 | RAD ---
HISTORY: SOB COMPARISON: Chest radiograph dated 05/03/2017. FINDINGS: LUNGS: No active pulmonary disease. PLEURA: No significant pleural effusion identified, no pneumothorax apparent. CARDIOVASCULAR: Atherosclerotic aortic calcifications. Cardiomediastinal silhouette within normal limits. OSSEOUS STRUCTURES: Unchanged. VISUALIZED UPPER ABDOMEN: Normal. OTHER FINDINGS: None. IMPRESSION: No active disease.
== END 2017-06-05 01:47 | disposition home or self-care (01) ==
LOC: H.ER 18:44
DX: F19.10 Other psychoactive substance abuse, uncomplicated (principal); E11.9 Type 2 diabetes mellitus without complications; Z86.59 Personal history of other mental and behavioral disorders; G89.29 Other chronic pain; J44.9 Chronic obstructive pulmonary disease, unspecified
CPT/HCPCS: 71045; 80053; 80320; 80324; 80345; 80346; 80349; 80353; 80358; 80361; 81003; 83992; 84484; 85025; 85610; 85730; 87040; 93005; 94640; 96374; 99282; J2930

== ENCOUNTER 2017-06-09 01:08 | Emergency (ER) | payer MEDICAID ==
[2017-06-09 01:31] VITALS: BMI 32.5
--- NOTE | 2017-06-09 02:30 | ED PDOC ---
HPI: Psych/Substance Abuse Time Seen by Provider: 06/09/17 01:20 Chief Complaint (Nursing): Shortness Of Breath Chief Complaint (Provider): Shortness Of Breath History Per: Patient History/Exam Limitations: no limitations Onset/Duration Of Symptoms: Days (x 1) Current Symptoms Are (Timing): Still Present Additional Complaint(s): 52 year old male well known to the ED is brought in by EMS for shortness of breath. Patient is intoxicated and states he ran out of his inhaler 2 weeks ago. PMD: Dr. Yennifer Hurley Past Medical History Reviewed: Historical Data, Nursing Documentation, Vital Signs Vital Signs: Last Vital Signs Temp 97.9 F 06/09/17 01:31 Pulse 87 06/09/17 01:31 Resp 16 06/09/17 01:31 BP 122/78 06/09/17 01:31 Pulse Ox 96 06/09/17 01:31 - Medical History PMH: Anxiety, Arthritis (arthritis of neck and back), Back Problems (chronic back pain ), Bipolar Disorder, COPD, Depression, Diabetes, Emphysema, Fractures (skull, right pinky), Pneumonia, Sleep Apnea Denies: Hepatitis, HIV, HTN, Chronic Kidney Disease, Seizures, Sexually Transmitted Disease - Surgical History Surgical History: Appendectomy, Hernia Repair (ventral), Tonsillectomy - Family History Family History: States: Unknown Family Hx - Immunization History Hx Tetanus Toxoid Vaccination: Yes (UTD) Hx Influenza Vaccination: No Hx Pneumococcal Vaccination: Yes - Home Medications Home Medications: Ambulatory Orders Medication Instructions Recorded Albuterol HFA [Ventolin HFA 90 1 - 2 puff IH Q6 PRN #1 inhaler 04/18/17 mcg/actuation (8 g)] Albuterol HFA [Ventolin HFA 90 1 - 2 puff IH Q4H PRN #1 bottle 06/09/17 mcg/actuation (8 g)] - Allergies Allergies/Adverse Reactions: Allergies Allergy/AdvReac Type Severity Reaction Status Date / Time No Known Allergies Allergy Verified 06/04/17 18:50 Review of Systems ROS Statement: Except As Marked, All Systems Reviewed And Found Negative Respiratory: Positive for: Shortness of Breath Physical Exam - Reviewed Nursing Documentation Reviewed: Yes Vital Signs Reviewed: Yes - Physical Exam Appears: Positive for: Non-toxic, No Acute Distress Head Exam: Positive for: ATRAUMATIC, NORMOCEPHALIC Skin: Positive for: Normal Color, Warm, Dry Eye Exam: Positive for: EOMI, Normal appearance, PERRL Neck: Positive for: Normal, Painless ROM, Supple Cardiovascular/Chest: Positive for: Regular Rate, Rhythm Respiratory: Positive for: CNT, Normal Breath Sounds Gastrointestinal/Abdominal: Positive for: Normal Exam, Soft Back: Positive for: Normal Inspection. Negative for: L CVA Tenderness, R CVA Tenderness Extremity: Positive for: Normal ROM. Negative for: Deformity Neurologic/Psych: Positive for: Alert, Oriented. Negative for: Motor/Sensory Deficits - ECG O2 Sat by Pulse Oximetry: 96 (RA) Pulse Ox Interpretation: Normal Medical Decision Making Medical Decision Making: Time: 02:18 Initial Plan: --Alcohol serum --Troponin I EKG --normal sinus, rate is 83 Alcohol levels were at 43. Patient is stable and will be discharged home. pt clinically sober w stable gait.Return if symptoms persist or worsen. Scribe Attestation: Documented by Milly Lucas, acting as a scribe for Ladonna Carter MD. Provider Scribe Attestation: All medical record entries made by the Scribe were at my direction and personally dictated by me. I have reviewed the chart and agree that the record accurately reflects my personal performance of the history, physical exam, medical decision making, and the department course for this patient. I have also personally directed, reviewed, and agree with the discharge instructions and disposition. Disposition - Clinical Impression Clinical Impression: COPD (chronic obstructive pulmonary disease) with acute bronchitis - Patient ED Disposition Is Patient to be Admitted: No Counseled Patient/Family Regarding: Studies Performed, Diagnosis, Need For Followup - Disposition Referrals: [facility] [Outside] [facility] [Outside] Disposition: Routine/Home Disposition Time: 03:20 Condition: IMPROVED Additional Instructions: follow up with your primary doctor in 1-2 days return to the ED with any worsening or concerning symptoms Prescriptions: Albuterol HFA [Ventolin HFA 90 mcg/actuation (8 g)] 1 - 2 puff IH Q4H PRN #1 bottle PRN Reason: Wheezing Instructions: Exacerbation of COPD (DC) Forms: [employer] (Welsh)
[2017-06-09 04:21] VITALS: O2SAT 96
[2017-06-09 06:17] VITALS: BP 152/78; PULSE 98; RESP 20; TEMP 97.8
== END 2017-06-09 06:15 | disposition home or self-care (01) ==
LOC: H.ER 01:08
DX: J44.9 Chronic obstructive pulmonary disease, unspecified (principal); J20.9 Acute bronchitis, unspecified

== ENCOUNTER 2017-07-01 23:39 | Emergency (ER) | payer MEDICAID ==
[2017-07-01 23:39] VITALS: BMI 32.5
[2017-07-02 00:02] VITALS: BP 119/72; PULSE 95; RESP 16; TEMP 97.7; O2SAT 97
[2017-07-02] MEDS ORDERED: Albuterol 0.083% Inhal Sol (2.5 mg/3 mL) UD INH ONE (03:06)
--- NOTE | 2017-07-02 03:07 | ED PDOC ---
History of Present Illness History of Present Illness: Patient is well known to ED for bed seeking behavior. He complains of a productive cough. PMD: Dr. Yennifer Hurley HPI: Influenza Time Seen by Provider: 07/02/17 00:00 Chief Complaint: Cough, Cold, Congestion Chief Complaint (Provider): Cough, Cold, Congestion History Per: Patient Exam Limitations: no limitations Onset/Duration Of Symptoms: Days (x 1) Past Medical History Reviewed: Historical Data, Nursing Documentation, Vital Signs Vital Signs: Last Vital Signs Temp 97.7 F 07/01/17 23:58 Pulse 95 H 07/01/17 23:58 Resp 16 07/01/17 23:58 BP 119/72 07/01/17 23:58 Pulse Ox 97 07/01/17 23:58 - Medical History PMH: Anxiety, Arthritis (arthritis of neck and back), Back Problems (chronic back pain ), Bipolar Disorder, COPD, Depression, Diabetes, Emphysema, Fractures (skull, right pinky), Pneumonia, Sleep Apnea Denies: Hepatitis, HIV, HTN, Chronic Kidney Disease, Seizures, Sexually Transmitted Disease - Surgical History Surgical History: Appendectomy, Hernia Repair (ventral), Tonsillectomy - Family History Family History: States: Unknown Family Hx - Social History Current smoker - smoking cessation education provided: No Alcohol: None Drugs: Denies - Immunization History Hx Tetanus Toxoid Vaccination: Yes (UTD) Hx Influenza Vaccination: No Hx Pneumococcal Vaccination: Yes - Home Medications Home Medications: Ambulatory Orders Medication Instructions Recorded Albuterol HFA [Ventolin HFA 90 1 - 2 puff IH Q6 PRN #1 inhaler 04/18/17 mcg/actuation (8 g)] Albuterol HFA [Ventolin HFA 90 1 - 2 puff IH Q4H PRN #1 bottle 06/09/17 mcg/actuation (8 g)] - Allergies Allergies/Adverse Reactions: Allergies Allergy/AdvReac Type Severity Reaction Status Date / Time No Known Allergies Allergy Verified 06/04/17 18:50 Review of Systems ROS Statement: Except As Marked, All Systems Reviewed And Found Negative Respiratory: Positive for: Cough Physical Exam - Reviewed Nursing Documentation Reviewed: Yes Vital Signs Reviewed: Yes - Physical Exam Appears: Positive for: No Acute Distress Head Exam: Positive for: ATRAUMATIC, NORMOCEPHALIC Skin: Positive for: Normal Color, Warm, Dry Neck: Positive for: Normal, Painless ROM, Supple Cardiovascular/Chest: Positive for: Regular Rate, Rhythm. Negative for: Murmur Respiratory: Positive for: Normal Breath Sounds. Negative for: Respiratory Distress Gastrointestinal/Abdominal: Positive for: Normal Exam, Soft Back: Positive for: Normal Inspection Extremity: Positive for: Normal ROM. Negative for: Deformity Neurologic/Psych: Positive for: Alert, Oriented. Negative for: Motor/Sensory Deficits Medical Decision Making Medical Decision Making: Time: 23:58 Initial Plan: copd exac. --Albuterol .083% 2.5 mg INH --peak flow pre/post Time: 3:06 Patient is currently sleeping and requires no further treatment at the Ed at this time. Will be discharged home. Scribe Attestation: Documented by Milly Lucas, acting as a scribe for Ladonna Carter MD Provider Scribe Attestation: All medical record entries made by the Scribe were at my direction and personally dictated by me. I have reviewed the chart and agree that the record accurately reflects my personal performance of the history, physical exam, medical decision making, and the department course for this patient. I have also personally directed, reviewed, and agree with the discharge instructions and disposition. - ECG O2 Sat by Pulse Oximetry: 97 (RA) Pulse Ox Interpretation: Normal Disposition - Clinical Impression Clinical Impression: COPD exacerbation - Patient ED Disposition Is Patient to be Admitted: No Counseled Patient/Family Regarding: Need For Followup - Disposition Referrals: Yennifer Hurley MD [Primary Care Provider] - Disposition: Routine/Home Disposition Time: 02:35 Condition: IMPROVED Additional Instructions: follow up with your primary doctor in 1-2 days return to the ED with any worsening or concerning symptoms Instructions: Chronic Obstructive Pulmonary Disease (COPD), Including Emphysema Forms: [employer] (Thai)
[2017-07-02] MEDS ORDERED: Albuterol 0.083% Inhal Sol (2.5 mg/3 mL) UD ONE (03:12)
== END 2017-07-02 03:47 | disposition home or self-care (01) ==
LOC: H.ER 23:39
DX: J44.1 Chronic obstructive pulmonary disease with (acute) exacerbation (principal); E11.9 Type 2 diabetes mellitus without complications; F31.9 Bipolar disorder, unspecified; F41.9 Anxiety disorder, unspecified; G89.29 Other chronic pain

== ENCOUNTER 2017-09-20 01:59 | Emergency (ER) | payer MEDICAID ==
[2017-09-20 01:59] VITALS: BMI 32.5
[2017-09-20 02:30] VITALS: RESP 18
[2017-09-20] MEDS ORDERED: Albuterol-Ipratrop 3 mg / 0.5 (3 ml) UD ONE ×2 (02:42→03:43)
[2017-09-20] MEDS ORDERED: Albuterol-Ipratrop 3 mg / 0.5 (3 ml) UD INH STA ×2 (02:56)
--- NOTE | 2017-09-20 04:20 | ED PDOC ---
HPI: SOB/CHF/COPD Time Seen by Provider: 09/20/17 02:23 Chief Complaint (Nursing): Shortness Of Breath History Per: Patient Onset/Duration Of Symptoms: Hrs Current Symptoms Are (Timing): Still Present Initiating Event: Out Of Medications Additional Complaint(s): 52 y/o homeless M with COPD presenting with COPD exacerbation, states he ran out of his ventolin. Complaining of wheezing, dry cough. No fevers, chills, sweats, weight loss. Past Medical History Reviewed: Historical Data, Nursing Documentation, Vital Signs Vital Signs: Last Vital Signs Temp 98.1 F 09/20/17 02:28 Pulse 94 H 09/20/17 02:28 Resp 18 09/20/17 02:28 BP 99/61 L 09/20/17 02:28 Pulse Ox 93 L 09/20/17 04:20 - Medical History PMH: Anxiety, Arthritis (arthritis of neck and back), Back Problems (chronic back pain ), Bipolar Disorder, COPD, Depression, Diabetes, Emphysema, Fractures (skull, right pinky), Pneumonia, Sleep Apnea Denies: Hepatitis, HIV, HTN, Chronic Kidney Disease, Seizures, Sexually Transmitted Disease - Surgical History Surgical History: Appendectomy, Hernia Repair (ventral), Tonsillectomy - Family History Family History: States: Unknown Family Hx - Immunization History Hx Tetanus Toxoid Vaccination: Yes (UTD) Hx Influenza Vaccination: No Hx Pneumococcal Vaccination: Yes - Home Medications Home Medications: Ambulatory Orders Medication Instructions Recorded Albuterol HFA [Ventolin HFA 90 1 - 2 puff IH Q6 PRN #1 inhaler 04/18/17 mcg/actuation (8 g)] Albuterol HFA [Ventolin HFA 90 1 - 2 puff IH Q4H PRN #1 bottle 06/09/17 mcg/actuation (8 g)] Albuterol HFA [Ventolin HFA 90 2 puff IH [id number] #1 puff 09/20/17 mcg/actuation (8 g)] predniSONE [predniSONE Tab] 60 mg PO DAILY #9 tab 09/20/17 - Allergies Allergies/Adverse Reactions: Allergies Allergy/AdvReac Type Severity Reaction Status Date / Time No Known Allergies Allergy Verified 06/04/17 18:50 Review of Systems ROS Statement: Except As Marked, All Systems Reviewed And Found Negative Respiratory: Positive for: Cough, Wheezing Physical Exam - Reviewed Nursing Documentation Reviewed: Yes Vital Signs Reviewed: Yes - Physical Exam Appears: Positive for: Well, Non-toxic, No Acute Distress Head Exam: Positive for: ATRAUMATIC, NORMAL INSPECTION, NORMOCEPHALIC Skin: Positive for: Normal Color, Warm, DRY Eye Exam: Positive for: EOMI, Normal appearance, PERRL ENT: Positive for: Normal ENT Inspection Neck: Positive for: Normal, Painless ROM Cardiovascular/Chest: Positive for: Regular Rate, Rhythm Respiratory: Positive for: Wheezing Gastrointestinal/Abdominal: Positive for: Normal Exam, Soft Back: Positive for: Normal Inspection Extremity: Positive for: Normal ROM Neurologic/Psych: Positive for: Alert, Oriented - ECG O2 Sat by Pulse Oximetry: 93 Pulse Ox Interpretation: Abnormal Medical Decision Making Medical Decision MakinAM Hx of COPD presenting with exacerbation -ran out of meds -patient without respiratory distress -will give nebulizer treatment and re-eval Disposition - Clinical Impression Clinical Impression: COPD exacerbation - Disposition [facility]errals: [facility] [Outside] Disposition: Routine/Home Disposition Time: 06:52 Condition: STABLE Prescriptions: Albuterol HFA [Ventolin HFA 90 mcg/actuation (8 g)] 2 puff IH [id number] #1 puff predniSONE [predniSONE Tab] 60 mg PO DAILY #9 tab Forms: [employer] (Irish)
[2017-09-20 07:35] VITALS: BP 110/70; PULSE 88; TEMP 98.5; O2SAT 98
== END 2017-09-20 06:55 | disposition home or self-care (01) ==
LOC: H.ER 01:59
DX: J44.1 Chronic obstructive pulmonary disease with (acute) exacerbation (principal); E11.9 Type 2 diabetes mellitus without complications; Z86.59 Personal history of other mental and behavioral disorders; G89.29 Other chronic pain; Z59.0 Homelessness

== ENCOUNTER 2017-10-22 02:28 | Emergency (ER) | payer MEDICAID ==
[2017-10-22 02:28] VITALS: BMI 32.5
[2017-10-22] MEDS ORDERED: Albuterol-Ipratrop 3 mg / 0.5 (3 ml) UD INH STA ×3 (02:53→02:54)
--- NOTE | 2017-10-22 03:13 | ED PDOC ---
HPI: General Adult Time Seen by Provider: 10/22/17 02:29 Chief Complaint (Nursing): Respiratory Distress Chief Complaint (Provider): SOB History Per: Patient History/Exam Limitations: no limitations Onset/Duration Of Symptoms: Days Current Symptoms Are (Timing): Still Present Additional Complaint(s): Colby Vasquez is a 52 year old male, with a past medical history of COPD, who presents to the emergency department complaining of shortness of breath. Patient states he left his medications x3 days ago at a friend's house and is requesting more. He denies any fever, chills or other medical complaints. PMD: None provided. Past Medical History Reviewed: Historical Data, Nursing Documentation, Vital Signs Vital Signs: Last Vital Signs Temp 98.9 F 10/22/17 02:38 Pulse 80 10/22/17 02:38 Resp 20 10/22/17 02:38 BP 117/67 10/22/17 02:38 Pulse Ox 95 10/22/17 04:39 - Medical History PMH: Anxiety, Arthritis (arthritis of neck and back), Back Problems (chronic back pain ), Bipolar Disorder, COPD, Depression, Diabetes, Emphysema, Fractures (skull, right pinky), Pneumonia, Sleep Apnea Denies: Hepatitis, HIV, HTN, Chronic Kidney Disease, Seizures, Sexually Transmitted Disease - Surgical History Surgical History: Appendectomy, Hernia Repair (ventral), Tonsillectomy - Family History Family History: States: Unknown Family Hx - Immunization History Hx Tetanus Toxoid Vaccination: Yes (UTD) Hx Influenza Vaccination: No Hx Pneumococcal Vaccination: Yes - Home Medications Home Medications: Ambulatory Orders Medication Instructions Recorded Albuterol HFA [Ventolin HFA 90 1 - 2 puff IH Q6 PRN #1 inhaler 04/18/17 mcg/actuation (8 g)] Albuterol HFA [Ventolin HFA 90 1 - 2 puff IH Q4H PRN #1 bottle 06/09/17 mcg/actuation (8 g)] Albuterol HFA [Ventolin HFA 90 2 puff IH [id number] #1 puff 09/20/17 mcg/actuation (8 g)] predniSONE [predniSONE Tab] 60 mg PO DAILY #9 tab 09/20/17 Albuterol HFA [Ventolin HFA 90 1 - 2 puff IH Q6 PRN #1 inhaler 10/22/17 mcg/actuation (8 g)] Methylprednisolone [Medrol Dosepak] 4 mg PO ASDIR #1 pkg 10/22/17 - Allergies Allergies/Adverse Reactions: Allergies Allergy/AdvReac Type Severity Reaction Status Date / Time No Known Allergies Allergy Verified 06/04/17 18:50 Review of Systems ROS Statement: Except As Marked, All Systems Reviewed And Found Negative Constitutional: Negative for: Fever, Chills Respiratory: Negative for: Shortness of Breath Physical Exam - Reviewed Nursing Documentation Reviewed: Yes Vital Signs Reviewed: Yes - Physical Exam Appears: Positive for: No Acute Distress Head Exam: Positive for: ATRAUMATIC, NORMAL INSPECTION, NORMOCEPHALIC Skin: Positive for: Normal Color, Warm, Dry Eye Exam: Positive for: Normal appearance, EOMI, PERRL Neck: Positive for: Painless ROM Cardiovascular/Chest: Positive for: Regular Rate, Rhythm. Negative for: Murmur Respiratory: Positive for: Normal Breath Sounds. Negative for: Respiratory Distress Gastrointestinal/Abdominal: Positive for: Normal Exam, Soft. Negative for: Tenderness Back: Positive for: Normal Inspection Extremity: Positive for: Normal ROM (all extremities). Negative for: Deformity , Swelling Neurologic/Psych: Positive for: Alert, Oriented - ECG O2 Sat by Pulse Oximetry: 95 (RA) Pulse Ox Interpretation: Normal Medical Decision Making Medical Decision Making: Time: 02:29 Initial Impression: 52 y/o male requesting medications Initial Plan: --prednisone 60 mg PO --Duoneb 3ml INH --reevaluation 05:23 -Patient reports improvement of symptoms and is medically stable for discharge. Diagnosis COPD. ----- Scribe Attestation: Documented by Serjio Brooks, acting as a scribe for Lazaro Worrell MD. Provider Scribe Attestation: All medical record entries made by the Scribe were at my direction and personally dictated by me. I have reviewed the chart and agree that the record accurately reflects my personal performance of the history, physical exam, medical decision making, and the department course for this patient. I have also personally directed, reviewed, and agree with the discharge instructions and disposition. Disposition - Clinical Impression Clinical Impression: Moderate COPD (chronic obstructive pulmonary disease) - Disposition Referrals: Yennifer Hurley MD [Primary Care Provider] - Disposition: Routine/Home Disposition Time: 05:23 Condition: STABLE Prescriptions: Albuterol HFA [Ventolin HFA 90 mcg/actuation (8 g)] 1 - 2 puff IH Q6 PRN #1 inhaler PRN Reason: Shortness Of Breath Methylprednisolone [Medrol Dosepak] 4 mg PO ASDIR #1 pkg Instructions: Chronic Obstructive Pulmonary Disease (COPD), Including Emphysema Forms: [employer] (Solomon Islander)
[2017-10-22] MEDS ORDERED: Albuterol-Ipratrop 3 mg / 0.5 (3 ml) UD ONE (03:28)
[2017-10-22 06:14] VITALS: BP 122/75; PULSE 86; RESP 16; TEMP 98.4; O2SAT 96
== END 2017-10-22 06:07 | disposition home or self-care (01) ==
LOC: H.ER 02:28
DX: J44.9 Chronic obstructive pulmonary disease, unspecified (principal); E11.9 Type 2 diabetes mellitus without complications; F31.9 Bipolar disorder, unspecified; F41.9 Anxiety disorder, unspecified; G89.29 Other chronic pain

== ENCOUNTER 2017-11-27 00:53 | Emergency (ER) | payer MEDICAID ==
[2017-11-27 00:53] VITALS: BMI 32.5
[2017-11-27] MEDS ORDERED: Albuterol-Ipratrop 3 mg / 0.5 (3 ml) UD INH STA (01:27)
[2017-11-27] MEDS ORDERED: Albuterol-Ipratrop 3 mg / 0.5 (3 ml) UD ONE (01:33)
--- NOTE | 2017-11-27 01:39 | ED PDOC ---
HPI: SOB/CHF/COPD Time Seen by Provider: 11/27/17 01:04 Chief Complaint (Nursing): Chest Pain Chief Complaint (Provider): Chest Pain History Per: Patient History/Exam Limitations: no limitations Onset/Duration Of Symptoms: Days Current Symptoms Are (Timing): Still Present Additional Complaint(s): 52 y/o male with a PMHx of Asthma and COPD presents to the ED for shortness of breath. Patient is well known to this provider for multiple visits. Patient is non-complaint with medications and is an active smoker. Patient is homeless and has shown bed seeking behavior in the past. PMD: Dr. Hurley Past Medical History Reviewed: Historical Data, Nursing Documentation, Vital Signs Vital Signs: Last Vital Signs Temp 98.7 F 11/27/17 01:24 Pulse 88 11/27/17 01:24 Resp 19 11/27/17 01:40 BP 109/81 11/27/17 01:24 Pulse Ox 98 11/27/17 01:42 - Medical History PMH: Anxiety, Arthritis (arthritis of neck and back), Back Problems (chronic back pain ), Bipolar Disorder, COPD, Depression, Diabetes, Emphysema, Fractures (skull, right pinky), Pneumonia, Sleep Apnea Denies: Hepatitis, HIV, HTN, Chronic Kidney Disease, Seizures, Sexually Transmitted Disease - Surgical History Surgical History: Appendectomy, Hernia Repair (ventral), Tonsillectomy - Family History Family History: States: Unknown Family Hx - Living Arrangements Living Arrangements: Other (Homeless) - Social History Current smoker - smoking cessation education provided: Yes - Immunization History Hx Tetanus Toxoid Vaccination: Yes (UTD) Hx Influenza Vaccination: No Hx Pneumococcal Vaccination: Yes - Home Medications Home Medications: Ambulatory Orders Medication Instructions Recorded Albuterol HFA [Ventolin HFA 90 1 - 2 puff IH Q6 PRN #1 inhaler 04/18/17 mcg/actuation (8 g)] Albuterol HFA [Ventolin HFA 90 1 - 2 puff IH Q4H PRN #1 bottle 06/09/17 mcg/actuation (8 g)] Albuterol HFA [Ventolin HFA 90 2 puff IH [id number] #1 puff 09/20/17 mcg/actuation (8 g)] predniSONE [predniSONE Tab] 60 mg PO DAILY #9 tab 09/20/17 Albuterol HFA [Ventolin HFA 90 1 - 2 puff IH Q6 PRN #1 inhaler 10/22/17 mcg/actuation (8 g)] Methylprednisolone [Medrol Dosepak] 4 mg PO ASDIR #1 pkg 10/22/17 Albuterol HFA [Ventolin HFA 90 1 - 2 puff IH Q6 PRN #1 inhaler 11/27/17 mcg/actuation (8 g)] predniSONE [predniSONE Tab] 60 mg PO QAM #12 tab 11/27/17 - Allergies Allergies/Adverse Reactions: Allergies Allergy/AdvReac Type Severity Reaction Status Date / Time No Known Allergies Allergy Verified 06/04/17 18:50 Review of Systems ROS Statement: Except As Marked, All Systems Reviewed And Found Negative Respiratory: Positive for: Shortness of Breath Physical Exam - Reviewed Nursing Documentation Reviewed: Yes Vital Signs Reviewed: Yes - Physical Exam Appears: Positive for: In Acute Distress (mild respiratory distress) Head Exam: Positive for: ATRAUMATIC, NORMOCEPHALIC Skin: Positive for: Normal Color, Warm, Dry Eye Exam: Positive for: Normal appearance, EOMI, PERRL Neck: Positive for: Normal, Painless ROM Cardiovascular/Chest: Positive for: Regular Rate, Rhythm. Negative for: Murmur Respiratory: Positive for: Wheezing (blateral expiratory wheezing), Respiratory Distress (mild) Gastrointestinal/Abdominal: Positive for: Normal Exam, Soft. Negative for: Tenderness Extremity: Positive for: Normal ROM. Negative for: Deformity Neurologic/Psych: Positive for: Alert, Oriented. Negative for: Motor/Sensory Deficits - ECG O2 Sat by Pulse Oximetry: 98 (RA) Pulse Ox Interpretation: Normal Medical Decision Making Medical Decision Making: Time: 126 Impression: 52 y/o male with mild Asthma Exacerbation Plan: -- Duoneb 3 mg/5 ml (3 ml) UD 9 ml INH -- PredniSONE 60 mg PO -- Peak Flow Pre/Post Tx Time: 399 -- On re-evaluation, patient reports an improvement in symptoms. Patient is stable for discharge with a diagnosis of COPD exacerbation. Scribe Attestation: Documented by Tobin Hopkins acting as a scribe for Lazaro Worrell MD. Provider Scribe Attestation: All medical record entries made by the Scribe were at my direction and personally dictated by me. I have reviewed the chart and agree that the record accurately reflects my personal performance of the history, physical exam, medical decision making, and the department course for this patient. I have also personally directed, reviewed, and agree with the discharge instructions and disposition. Disposition - Clinical Impression Clinical Impression: COPD exacerbation - Patient ED Disposition Is Patient to be Admitted: No Counseled Patient/Family Regarding: Studies Performed, Diagnosis, Need For Followup, Rx Given - Disposition Referrals: Adam Hurley MD [Primary Care Provider] - Disposition: Routine/Home Disposition Time: 04:00 Condition: STABLE Prescriptions: Albuterol HFA [Ventolin HFA 90 mcg/actuation (8 g)] 1 - 2 puff IH Q6 PRN #1 inhaler PRN Reason: Shortness Of Breath predniSONE [predniSONE Tab] 60 mg PO QAM #12 tab Instructions: Chronic Obstructive Pulmonary Disease (COPD), Including Emphysema Forms: [facility] (Liberian)
[2017-11-27 01:42] VITALS: RESP 19
[2017-11-27 06:35] VITALS: BP 113/81; PULSE 91; TEMP 97.9; O2SAT 97
== END 2017-11-27 06:25 | disposition home or self-care (01) ==
LOC: H.ER 00:53
DX: J44.1 Chronic obstructive pulmonary disease with (acute) exacerbation (principal); E11.9 Type 2 diabetes mellitus without complications

== ENCOUNTER 2017-12-14 20:01 | Emergency (ER) | payer MEDICAID ==
[2017-12-14 20:01] VITALS: BMI 32.5
[2017-12-14 20:06] VITALS: BP 120/66; PULSE 88; RESP 18; TEMP 98.1; O2SAT 100
--- NOTE | 2017-12-14 20:09 | ED PDOC ---
HPI: Psych/Substance Abuse Time Seen by Provider: 12/14/17 20:08 Chief Complaint (Nursing): Trauma Chief Complaint (Provider): etoh, foot pain History Per: Patient, EMS Additional Complaint(s): 52 y/o non-domiciled male presents acutely intoxicated via EMS. Patient is also complaining of bilateral lower extremity pain ongoing for several months. He denies recent fall or trauma. Past Medical History Reviewed: Historical Data, Nursing Documentation, Vital Signs Vital Signs: Last Vital Signs Temp 98.1 F 12/14/17 20:04 Pulse 88 12/14/17 20:04 Resp 18 12/14/17 20:04 BP 120/66 12/14/17 20:04 Pulse Ox 100 12/14/17 20:04 - Medical History PMH: Anxiety, Arthritis (arthritis of neck and back), Back Problems (chronic back pain ), Bipolar Disorder, COPD, Depression, Diabetes, Emphysema, Fractures (skull, right pinky), Pneumonia, Sleep Apnea - Surgical History Surgical History: Appendectomy, Hernia Repair (ventral), Tonsillectomy - Family History Family History: States: No Known Family Hx - Living Arrangements Living Arrangements: With Family - Social History Current smoker - smoking cessation education provided: Yes Alcohol: > 2 Drinks/Day - Home Medications Home Medications: Ambulatory Orders Medication Instructions Recorded Albuterol HFA [Ventolin HFA 90 1 - 2 puff IH Q6 PRN #1 inhaler 04/18/17 mcg/actuation (8 g)] Albuterol HFA [Ventolin HFA 90 1 - 2 puff IH Q4H PRN #1 bottle 06/09/17 mcg/actuation (8 g)] Albuterol HFA [Ventolin HFA 90 2 puff IH [id number] #1 puff 09/20/17 mcg/actuation (8 g)] predniSONE [predniSONE Tab] 60 mg PO DAILY #9 tab 09/20/17 Albuterol HFA [Ventolin HFA 90 1 - 2 puff IH Q6 PRN #1 inhaler 10/22/17 mcg/actuation (8 g)] Methylprednisolone [Medrol Dosepak] 4 mg PO ASDIR #1 pkg 10/22/17 Albuterol HFA [Ventolin HFA 90 1 - 2 puff IH Q6 PRN #1 inhaler 11/27/17 mcg/actuation (8 g)] predniSONE [predniSONE Tab] 60 mg PO QAM #12 tab 11/27/17 Albuterol HFA [Ventolin HFA 90 1 puff IH Q6 PRN #1 inhaler 12/06/17 mcg/actuation (8 g)] Ibuprofen [Motrin] 600 mg PO Q6 PRN #15 tab 12/06/17 - Allergies Allergies/Adverse Reactions: Allergies Allergy/AdvReac Type Severity Reaction Status Date / Time No Known Allergies Allergy Verified 12/14/17 20:03 Review of Systems ROS Statement: Except As Marked, All Systems Reviewed And Found Negative Constitutional: Negative for: Fever Musculoskeletal: Positive for: Leg Pain Psych: Positive for: Other (etoh) Physical Exam - Reviewed Nursing Documentation Reviewed: Yes Vital Signs Reviewed: Yes - Physical Exam Appears: Positive for: Well, Non-toxic, No Acute Distress Skin: Positive for: Normal Color. Negative for: Rash Eye Exam: Positive for: Normal appearance Neck: Positive for: Normal Cardiovascular/Chest: Positive for: Regular Rate, Rhythm Respiratory: Positive for: Normal Breath Sounds Extremity: Positive for: Normal ROM Neurologic/Psych: Positive for: Alert, Other (intoxicated, answers some questions appropriately) - ECG O2 Sat by Pulse Oximetry: 100 Pulse Ox Interpretation: Normal Medical Decision Making Medical Decision Makin52 y/o intoxicated male Plan: BAL Fingerstick BAL is 233 10:45 pm: patient is awake, alert with steady gait, stable for discharge. Disposition - Clinical Impression Clinical Impression: Alcohol intoxication - Disposition Referrals: [facility] [place] [Outside] Disposition: Routine/Home Disposition Time: 22:50 Condition: STABLE Instructions: Alcohol Abuse and Alcoholism (DC) Forms: [employer] Connect (Frisian)
[2017-12-14] MEDS ORDERED: Naproxen 500 MG TAB PO STA (21:11)
== END 2017-12-14 22:51 | disposition home or self-care (01) ==
LOC: H.ER 20:01
DX: F10.129 Alcohol abuse with intoxication, unspecified (principal); M79.673 Pain in unspecified foot; E11.9 Type 2 diabetes mellitus without complications

== ENCOUNTER 2017-12-26 01:08 | Emergency (ER) | payer MEDICAID ==
[2017-12-26 01:09] VITALS: BMI 32.5
[2017-12-26 01:19] VITALS: BP 127/62; PULSE 80; RESP 16; TEMP 98.1; O2SAT 98
--- NOTE | 2017-12-26 02:35 | ED PDOC ---
HPI: Psych/Substance Abuse Time Seen by Provider: 12/26/17 01:23 Chief Complaint (Nursing): Alcohol Ingestion Chief Complaint (Provider): Alcohol Ingestion ED Caveat: Intoxicated History/Exam Limitations: intoxication Additional Complaint(s): 52 years old male with history of ETOH, COPD, psychiatric history and chronic foot pain brought to the ED by EMS for evaluation of intoxication. Patient is acutely intoxicated. History taken by records. Limited HPI and ROS due to patient's intoxicated state. PMD: non provided Past Medical History Reviewed: Historical Data, Nursing Documentation, Vital Signs Vital Signs: Last Vital Signs Temp 98.1 F 12/26/17 01:15 Pulse 80 12/26/17 01:15 Resp 16 12/26/17 01:15 BP 127/62 12/26/17 01:15 Pulse Ox 98 12/26/17 01:15 - Medical History PMH: Anxiety, Arthritis (arthritis of neck and back), Back Problems (chronic back pain ), Bipolar Disorder, COPD, Depression, Diabetes, Emphysema, Fractures (skull, right pinky), Pneumonia, Sleep Apnea Denies: Hepatitis, HIV, HTN, Chronic Kidney Disease, Seizures, Sexually Trans mitted Disease - Surgical History Surgical History: Appendectomy, Hernia Repair (ventral), Tonsillectomy - Family History Family History: States: Unknown Family Hx - Social History Current smoker - smoking cessation education provided: Yes Alcohol: > 2 Drinks/Day Drugs: Cannabis - Immunization History Hx Tetanus Toxoid Vaccination: Yes (UTD) Hx Influenza Vaccination: No Hx Pneumococcal Vaccination: Yes - Home Medications Home Medications: Ambulatory Orders Medication Instructions Recorded RX: Albuterol HFA [Ventolin HFA 90 1 - 2 puff IH Q6 PRN #1 inhaler 04/18/17 mcg/actuation (8 g)] RX: Albuterol HFA [Ventolin HFA 90 1 - 2 puff IH Q4H PRN #1 bottle 06/09/17 mcg/actuation (8 g)] Albuterol HFA [Ventolin HFA 90 2 puff IH [id number] #1 puff 09/20/17 mcg/actuation (8 g)] RX: predniSONE [predniSONE Tab] 60 mg PO DAILY #9 tab 09/20/17 Methylprednisolone [Medrol Dosepak] 4 mg PO ASDIR #1 pkg 10/22/17 RX: Albuterol HFA [Ventolin HFA 90 1 - 2 puff IH Q6 PRN #1 inhaler 10/22/17 mcg/actuation (8 g)] RX: Albuterol HFA [Ventolin HFA 90 1 - 2 puff IH Q6 PRN #1 inhaler 11/27/17 mcg/actuation (8 g)] RX: predniSONE [predniSONE Tab] 60 mg PO QAM #12 tab 11/27/17 Ibuprofen [Motrin] 600 mg PO Q6 PRN #15 tab 12/06/17 RX: Albuterol HFA [Ventolin HFA 90 1 puff IH Q6 PRN #1 inhaler 12/06/17 mcg/actuation (8 g)] - Allergies Allergies/Adverse Reactions: Allergies Allergy/AdvReac Type Severity Reaction Status Date / Time No Known Allergies Allergy Verified 12/26/17 01:12 Review of Systems Review Of Systems: ROS cannot be obtained secondary to pt's inabilty to answer questions. Physical Exam - Reviewed Nursing Documentation Reviewed: Yes - Physical Exam Appears: Positive for: Well (resting comfortably, alcohol on breath) Skin: Positive for: Normal Color, Warm, Dry Eye Exam: Positive for: Normal appearance ENT: Positive for: Normal ENT Inspection Neck: Positive for: Normal Cardiovascular/Chest: Positive for: Regular Rate, Rhythm Respiratory: Positive for: Normal Breath Sounds Gastrointestinal/Abdominal: Positive for: Normal Exam Extremity: Positive for: Normal ROM Neurologic/Psych: Positive for: Alert. Negative for: Oriented - ECG O2 Sat by Pulse Oximetry: 98 (RA) Pulse Ox Interpretation: Normal Medical Decision Making Medical Decision Making: alcohol intoxication pt comfortable, no signs of head trauma 0509 Patient is awake alert, coherent, ambulating with steady gait, and stable for discharge. ----- Scribe Attestation: Documented by Naila Lindsey, acting as a scribe for Ladonna Carter MD. Provider Scribe Attestation: All medical record entries made by the Scribe were at my direction and personally dictated by me. I have reviewed the chart and agree that the record accurately reflects my personal performance of the history, physical exam, medical decision making, and the department course for this patient. I have also personally directed, reviewed, and agree with the discharge instructions and disposition. Disposition - Clinical Impression Clinical Impression: Alcohol ingestion - Patient ED Disposition Is Patient to be Admitted: No Counseled Patient/Family Regarding: Studies Performed, Diagnosis, Need For Followup - Disposition Disposition: Routine/Home Disposition Time: 05:00 Condition: IMPROVED Additional Instructions: follow up with your primary doctor in 1-2 days return to the ED with any worsening or concerning symptoms Instructions: Alcohol Use - When Is Drinking a Problem?, Alcohol Abuse and Alcoholism (DC) Forms: [employer] Connect (Senegalese)
== END 2017-12-26 05:44 | disposition home or self-care (01) ==
LOC: H.ER 01:08
DX: F10.129 Alcohol abuse with intoxication, unspecified (principal); E11.9 Type 2 diabetes mellitus without complications

== ENCOUNTER 2018-01-13 01:03 | Emergency (ER) | payer MEDICAID ==
[2018-01-13 01:35] VITALS: BMI 31.0
[2018-01-13] MEDS ORDERED: Albuterol-Ipratrop 3 mg / 0.5 (3 ml) UD INH STA ×3 (01:55)
--- NOTE | 2018-01-13 02:23 | ED PDOC ---
HPI: Chest Pain Time Seen by Provider: 01/13/18 01:45 Chief Complaint (Nursing): Chest Pain Chief Complaint (Provider): Wheezing History Per: Patient History/Exam Limitations: no limitations Additional Complaint(s): Colby Vasquez, a 52 year old male with past medical history of COPD, presents to the emergency room with wheezing. Patient is homeless and states he cannot afford his medication so he came to the ED for treatment. He reports the cold weather being a trigger. No further medical complaints. Past Medical History Reviewed: Historical Data, Nursing Documentation, Vital Signs Vital Signs: Last Vital Signs Temp 98.6 F 01/13/18 01:35 Pulse 94 H 01/13/18 01:35 Resp 18 01/13/18 01:35 BP 136/82 01/13/18 01:35 Pulse Ox 95 01/13/18 01:35 - Medical History PMH: Anxiety, Arthritis (arthritis of neck and back), Back Problems (chronic back pain ), Bipolar Disorder, COPD, Depression, Diabetes, Emphysema, Fractures (skull, right pinky), Pneumonia, Sleep Apnea Denies: Hepatitis, HIV, HTN, Chronic Kidney Disease, Seizures, Sexually Transmitted Disease - Surgical History Surgical History: Appendectomy, Hernia Repair (ventral), Tonsillectomy - Family History Family History: States: Unknown Family Hx - Living Arrangements Living Arrangements: Other (homeless) - Immunization History Hx Tetanus Toxoid Vaccination: Yes (UTD) Hx Influenza Vaccination: No Hx Pneumococcal Vaccination: Yes - Home Medications Home Medications: Ambulatory Orders Medication Instructions Recorded Albuterol HFA [Ventolin HFA 90 1 - 2 puff IH Q6 PRN #1 inhaler 04/18/17 mcg/actuation (8 g)] Albuterol HFA [Ventolin HFA 90 1 - 2 puff IH Q4H PRN #1 bottle 06/09/17 mcg/actuation (8 g)] Albuterol HFA [Ventolin HFA 90 2 puff IH [id number] #1 puff 09/20/17 mcg/actuation (8 g)] predniSONE [predniSONE Tab] 60 mg PO DAILY #9 tab 09/20/17 Albuterol HFA [Ventolin HFA 90 1 - 2 puff IH Q6 PRN #1 inhaler 10/22/17 mcg/actuation (8 g)] Methylprednisolone [Medrol Dosepak] 4 mg PO ASDIR #1 pkg 10/22/17 Albuterol HFA [Ventolin HFA 90 1 - 2 puff IH Q6 PRN #1 inhaler 11/27/17 mcg/actuation (8 g)] predniSONE [predniSONE Tab] 60 mg PO QAM #12 tab 11/27/17 Albuterol HFA [Ventolin HFA 90 1 puff IH Q6 PRN #1 inhaler 12/06/17 mcg/actuation (8 g)] Ibuprofen [Motrin] 600 mg PO Q6 PRN #15 tab 12/06/17 - Allergies Allergies/Adverse Reactions: Allergies Allergy/AdvReac Type Severity Reaction Status Date / Time No Known Allergies Allergy Verified 01/13/18 01:35 Review of Systems ROS Statement: Except As Marked, All Systems Reviewed And Found Negative Respiratory: Positive for: Wheezing Physical Exam - Reviewed Nursing Documentation Reviewed: Yes Vital Signs Reviewed: Yes - Physical Exam Appears: Positive for: Well, Non-toxic, No Acute Distress Head Exam: Positive for: ATRAUMATIC, NORMAL INSPECTION, NORMOCEPHALIC Skin: Positive for: Normal Color, Warm, DRY Eye Exam: Positive for: EOMI, Normal appearance, PERRL ENT: Positive for: Normal ENT Inspection Neck: Positive for: Normal, Painless ROM Cardiovascular/Chest: Positive for: Regular Rate, Rhythm Respiratory: Positive for: Wheezing (bilateral). Negative for: Respiratory Distress Gastrointestinal/Abdominal: Positive for: Normal Exam, Soft Back: Positive for: Normal Inspection Extremity: Positive for: Normal ROM Neurologic/Psych: Positive for: Alert, Oriented - ECG O2 Sat by Pulse Oximetry: 95 (RA) Pulse Ox Interpretation: Normal Medical Decision Making Medical Decision Making: Time: 01:45 A/P: COPD --Duoneb 3 ml INH --Prednisone 60 mg PO --Peak flow pre/post tx 630AM --Patient feeling much better --Strongly advised to fill prescriptions --Will discharge home Scribe Attestation: Documented by Xochitl Chavarria, acting as a scribe for Pedro Pablo Lentz MD. Provider Scribe Attestation: All medical record entries made by the Scribe were at my direction and personally dictated by me. I have reviewed the chart and agree that the record accurately reflects my personal performance of the history, physical exam, medical decision making, and the department course for this patient. I have also personally directed, reviewed, and agree with the discharge instructions and disposition. Disposition - Clinical Impression Clinical Impression: COPD exacerbation - Patient ED Disposition Is Patient to be Admitted: No - Disposition Referrals: [facility] [Outside] Disposition: Routine/Home Disposition Time: 06:25 Condition: IMPROVED Instructions: COPD Including Emphysema (DC) Forms: [employer] [facility] (Faroese)
[2018-01-13] MEDS ORDERED: Albuterol HFA 90 mcg/actuation (8 g) INH STA (07:03)
[2018-01-13 07:40] VITALS: BP 154/60; PULSE 88; RESP 16; TEMP 98; O2SAT 98
== END 2018-01-13 07:40 | disposition home or self-care (01) ==
LOC: H.ER 01:03
DX: J44.1 Chronic obstructive pulmonary disease with (acute) exacerbation (principal); Z59.0 Homelessness

== ENCOUNTER 2018-01-23 03:01 | Emergency (ER) | payer MEDICAID ==
[2018-01-23 03:01] VITALS: BMI 31.0
[2018-01-23] MEDS ORDERED: Albuterol-Ipratrop 3 mg / 0.5 (3 ml) UD INH STA (03:39)
[2018-01-23] MEDS ORDERED: Albuterol-Ipratrop 3 mg / 0.5 (3 ml) UD ONE (04:02)
--- NOTE | 2018-01-23 04:38 | ED PDOC ---
HPI: SOB/CHF/COPD Time Seen by Provider: 01/23/18 03:22 Chief Complaint (Nursing): Shortness Of Breath Chief Complaint (Provider): Wheezing, SOB, Cough History Per: Patient History/Exam Limitations: no limitations Onset/Duration Of Symptoms: Days Current Symptoms Are (Timing): Better Additional Complaint(s): 52 year old male with PMHx of COPD presents to the ER for an evaluation of wheezing and coughing onset couple of days ago. Patient also reports of shortness of breath. He states he ran out of medications due to insurance issues but he has prescriptions for refill. Patient states he is feeling better in the ER and he is well known to the provider from the past and multiple visits to the ER. Denies chest pain or fever. PMD: No Family Provider Past Medical History Reviewed: Historical Data, Nursing Documentation, Vital Signs Vital Signs: Last Vital Signs Temp 98.6 F 01/23/18 03:09 Pulse 92 H 01/23/18 03:09 Resp 19 01/23/18 03:22 BP 134/83 01/23/18 03:09 Pulse Ox 98 01/23/18 03:09 - Medical History PMH: Anxiety, Arthritis (arthritis of neck and back), Back Problems (chronic back pain ), Bipolar Disorder, COPD, Depression, Diabetes, Emphysema, Fractures (skull, right pinky), Pneumonia, Sleep Apnea Denies: Hepatitis, HIV, HTN, Chronic Kidney Disease, Seizures, Sexually Transmitted Disease - Surgical History Surgical History: Appendectomy, Hernia Repair (ventral), Tonsillectomy - Family History Family History: States: Unknown Family Hx - Social History Current smoker - smoking cessation education provided: Yes Alcohol: Occasional Drugs: Cannabis - Immunization History Hx Tetanus Toxoid Vaccination: Yes (UTD) Hx Influenza Vaccination: No Hx Pneumococcal Vaccination: Yes - Home Medications Home Medications: Ambulatory Orders Medication Instructions Recorded Albuterol HFA [Ventolin HFA 90 1 - 2 puff IH Q6 PRN #1 inhaler 04/18/17 mcg/actuation (8 g)] Albuterol HFA [Ventolin HFA 90 1 - 2 puff IH Q4H PRN #1 bottle 06/09/17 mcg/actuation (8 g)] Albuterol HFA [Ventolin HFA 90 2 puff IH [id number] #1 puff 06/23/18 mcg/actuation (8 g)] predniSONE [predniSONE Tab] 60 mg PO DAILY #9 tab 09/20/17 Albuterol HFA [Ventolin HFA 90 1 - 2 puff IH Q6 PRN #1 inhaler 10/22/17 mcg/actuation (8 g)] Methylprednisolone [Medrol Dosepak] 4 mg PO ASDIR #1 pkg 10/22/17 Albuterol HFA [Ventolin HFA 90 1 - 2 puff IH Q6 PRN #1 inhaler 11/27/17 mcg/actuation (8 g)] predniSONE [predniSONE Tab] 60 mg PO QAM #12 tab 11/27/17 Albuterol HFA [Ventolin HFA 90 1 puff IH Q6 PRN #1 inhaler 12/06/17 mcg/actuation (8 g)] Ibuprofen [Motrin] 600 mg PO Q6 PRN #15 tab 12/06/17 - Allergies Allergies/Adverse Reactions: Allergies Allergy/AdvReac Type Severity Reaction Status Date / Time No Known Allergies Allergy Verified 01/23/18 03:11 Review of Systems ROS Statement: Except As Marked, All Systems Reviewed And Found Negative Constitutional: Negative for: Fever Cardiovascular: Negative for: Chest Pain Respiratory: Positive for: Cough, Shortness of Breath, Wheezing Psych: Negative for: Suicidal ideation (homicidal ideation) Physical Exam - Reviewed Nursing Documentation Reviewed: Yes Vital Signs Reviewed: Yes - Physical Exam Appears: Positive for: Non-toxic, No Acute Distress Head Exam: Positive for: ATRAUMATIC, NORMAL INSPECTION, NORMOCEPHALIC Skin: Positive for: Normal Color, Warm, Dry. Negative for: Rash Eye Exam: Positive for: EOMI, Normal appearance, PERRL ENT: Positive for: Normal ENT Inspection Neck: Positive for: Normal, Painless ROM, Supple. Negative for: Decreased ROM Cardiovascular/Chest: Positive for: Regular Rate, Rhythm. Negative for: Murmur Respiratory: Positive for: Wheezing (occasional wheezing bilaterally ). Negative for: Respiratory Distress Gastrointestinal/Abdominal: Positive for: Normal Exam, Soft. Negative for: Tenderness, Guarding, Rebound Back: Positive for: Normal Inspection Extremity: Positive for: Normal ROM. Negative for: Tenderness, Pedal Edema, Deformity Neurologic/Psych: Positive for: Alert, Oriented (x3). Negative for: Motor/Sensory Deficits - ECG O2 Sat by Pulse Oximetry: 98 (RA) Pulse Ox Interpretation: Normal - Progress Re-evaluation Time: 06:58 Condition: Re-examined, Improved Medical Decision Making Medical Decision Making: Time: 338 Initial Impression: COPD exacerbation Initial Plan: EKG Duoneb mg/0.5mg (3ml) Peak Flow Pre/Post TX Reevaluation ----- Scribe Attestation: Documented by Chelsea Mittal, acting as a scribe for Estrellita Bolton MD. Provider Scribe Attestation: All medical record entries made by the Scribe were at my direction and personally dictated by me. I have reviewed the chart and agree that the record accurately reflects my personal performance of the history, physical exam, medical decision making, and the department course for this patient. I have also personally directed, reviewed, and agree with the discharge instructions and disposition. Disposition - Clinical Impression Clinical Impression: COPD exacerbation - Patient ED Disposition Is Patient to be Admitted: No Doctor Will See Patient In The: Office Counseled Patient/Family Regarding: Studies Performed, Diagnosis, Need For Followup - Disposition Referrals: formerly [facility] [Outside] Disposition: Routine/Home Disposition Time: 06:58 Condition: GOOD Additional Instructions: TOBIN HOFF, thank you for letting us take care of you today. Your provider was Estrellita Bolton MD and you were treated for SHORTNESS OF BREATH. The emergency medical care you received today was directed at your acute symptoms. If you were prescribed any medication, please fill it and take as directed. It may take several days for your symptoms to resolve. Return to the Emergency Department if your symptoms worsen, do not improve, or if you have any other pro blems. Please contact your doctor or call one of the physicians/clinics you have been referred to that are listed on the Patient Visit Information form that is included in your discharge packet. Bring any paperwork you were given at discharge with you along with any medications you are taking to your follow up visit. Our treatment cannot replace ongoing medical care by a primary care provider outside of the emergency department. Thank you for allowing the [facility] team to be part of your care today. If you had an X-Ray or CT scan: A Radiologist will review the ED reading if any change in treatment is needed we will contact you. If you had a blood, urine, or wound culture: It will take several days for the results, if any change in treatment is needed we will contact you. If you had an STI test: It will take 48 hours for the results. Please call after 1 week if you have not heard back. Instructions: COPD Including Emphysema (DC)
[2018-01-23 07:14] VITALS: BP 131/82; PULSE 85; RESP 18; TEMP 98.2; O2SAT 97
--- NOTE | 2018-01-23 09:10 | CARD ---
APPROVED REPORT Date of service: 01/23/2018 EKG Measurement Heart [id number] ID [id number] <Conclusion> Normal sinus rhythm Normal ECG
== END 2018-01-23 07:08 | disposition home or self-care (01) ==
LOC: H.ER 03:01
DX: J44.1 Chronic obstructive pulmonary disease with (acute) exacerbation (principal)

== ENCOUNTER 2018-02-10 00:12 | Emergency (ER) | payer MEDICAID ==
[2018-02-10 00:12] VITALS: BMI 31.0
[2018-02-10 00:20] VITALS: BP 132/76; PULSE 94; TEMP 97.9
[2018-02-10] MEDS ORDERED: Albuterol-Ipratrop 3 mg / 0.5 (3 ml) UD INH STA (00:29)
--- NOTE | 2018-02-10 00:46 | ED PDOC ---
HPI: General Adult Time Seen by Provider: 02/10/18 00:17 Chief Complaint (Nursing): Shortness Of Breath Chief Complaint (Provider): Shortness of Breath History Per: Patient History/Exam Limitations: no limitations Current Symptoms Are (Timing): Still Present Additional Complaint(s): 52 y/o male with a PMHx of Asthma and COPD presents to the ED for shortness of breath. Patient is well known to this provider for multiple visits. He is non-compliant with medications and is an active smoker. He reports he was recently discharged from [facility] for treatment of pneumonia. Patient is homeless and has shown bed seeking behavior in the past. PMD: Dr. Hurley Past Medical History Reviewed: Historical Data, Nursing Documentation, Vital Signs Vital Signs: Last Vital Signs Temp 97.9 F 02/10/18 00:17 Pulse 94 H 02/10/18 00:17 Resp 24 02/10/18 00:17 BP 132/76 02/10/18 00:17 Pulse Ox 97 02/10/18 00:17 - Medical History PMH: Anxiety, Arthritis (arthritis of neck and back), Back Problems (chronic back pain ), Bipolar Disorder, COPD, Depression, Diabetes, Emphysema, Fractures (skull, right pinky), Pneumonia, Sleep Apnea Denies: Hepatitis, HIV, HTN, Chronic Kidney Disease, Seizures, Sexually Transmitted Disease - Surgical History Surgical History: Appendectomy, Hernia Repair (ventral), Tonsillectomy - Family History Family History: States: Unknown Family Hx - Immunization History Hx Tetanus Toxoid Vaccination: Yes (UTD) Hx Influenza Vaccination: No Hx Pneumococcal Vaccination: Yes - Home Medications Home Medications: Ambulatory Orders Medication Instructions Recorded RX: Albuterol HFA [Ventolin HFA 90 1 - 2 puff IH Q6 PRN #1 inhaler 04/18/17 mcg/actuation (8 g)] RX: Albuterol HFA [Ventolin HFA 90 1 - 2 puff IH Q4H PRN #1 bottle 06/09/17 mcg/actuation (8 g)] Albuterol HFA [Ventolin HFA 90 2 puff IH [id number] #1 puff 09/20/17 mcg/actuation (8 g)] RX: predniSONE [predniSONE Tab] 60 mg PO DAILY #9 tab 09/20/17 Methylprednisolone [Medrol Dosepak] 4 mg PO ASDIR #1 pkg 07/25/18 RX: Albuterol HFA [Ventolin HFA 90 1 - 2 puff IH Q6 PRN #1 inhaler 10/22/17 mcg/actuation (8 g)] RX: Albuterol HFA [Ventolin HFA 90 1 - 2 puff IH Q6 PRN #1 inhaler 11/27/17 mcg/actuation (8 g)] RX: predniSONE [predniSONE Tab] 60 mg PO QAM #12 tab 11/27/17 Ibuprofen [Motrin] 600 mg PO Q6 PRN #15 tab 12/06/17 RX: Albuterol HFA [Ventolin HFA 90 1 puff IH Q6 PRN #1 inhaler 12/06/17 mcg/actuation (8 g)] - Allergies Allergies/Adverse Reactions: Allergies Allergy/AdvReac Type Severity Reaction Status Date / Time No Known Allergies Allergy Verified 02/10/18 00:17 Review of Systems ROS Statement: Except As Marked, All Systems Reviewed And Found Negative Physical Exam - Reviewed Nursing Documentation Reviewed: Yes Vital Signs Reviewed: Yes - Physical Exam Appears: Positive for: Non-toxic, No Acute Distress Head Exam: Positive for: ATRAUMATIC, NORMAL INSPECTION, NORMOCEPHALIC Skin: Positive for: Normal Color, Warm, Dry Eye Exam: Positive for: EOMI, Normal appearance, PERRL Neck: Positive for: Normal, Painless ROM, Supple Cardiovascular/Chest: Positive for: Regular Rate, Rhythm Respiratory: Positive for: Normal Breath Sounds, Wheezing Gastrointestinal/Abdominal: Positive for: Normal Exam, Soft. Negative for: Tenderness Extremity: Positive for: Normal ROM. Negative for: Deformity Neurologic/Psych: Positive for: Alert, Oriented. Negative for: Motor/Sensory Deficits - ECG O2 Sat by Pulse Oximetry: 97 (RA) Pulse Ox Interpretation: Normal Medical Decision Making Medical Decision Makin:29 Impression: shortness of breath Initial Plan: --EKG --CXR --Duoneb 9 ml INH --Prednisone 60 mg PO --Peak flow pre/post 06:00 --Patient is stable for discharge and requires no further treatment in the ED. Scribe Attestation: Documented by Milly Lucas, acting as a scribe for Lazaro Worrell MD Provider Scribe Attestation: All medical record entries made by the Scribe were at my direction and personally dictated by me. I have reviewed the chart and agree that the record accurately reflects my personal performance of the history, physical exam, medical decision making, and the department course for this patient. I have also personally directed, reviewed, and agree with the discharge instructions and disposition. Disposition - Clinical Impression Clinical Impression: COPD exacerbation - Patient ED Disposition Is Patient to be Admitted: No - Disposition Disposition: Routine/Home Disposition Time: 06:00 Condition: STABLE Instructions: Chronic Obstructive Pulmonary Disease (COPD), Including Emphysema Forms: [employer] (Irish)
[2018-02-10] MEDS ORDERED: Albuterol-Ipratrop 3 mg / 0.5 (3 ml) UD ONE (02:55)
--- NOTE | 2018-02-10 06:44 | CARD ---
APPROVED REPORT Date of service: 02/10/2018 EKG Measurement Heart [id number] <Conclusion> Normal sinus rhythm Normal ECG
[2018-02-10 06:46] VITALS: RESP 16
[2018-02-10 06:47] VITALS: O2SAT 98
--- NOTE | 2018-02-10 08:49 | RAD ---
Date of service: 02/10/2018 HISTORY: SOB COMPARISON: 06/04/2017 FINDINGS: LUNGS: The lungs are hyperinflated and there is peribronchial thickening with chronic changes in both lungs. No focal consolidation. PLEURA: No pleural effusions or pneumothorax. CARDIOVASCULAR: The heart is normal in size. No aortic atherosclerotic calcification present. OSSEOUS STRUCTURES: Within normal limits for the patient's age. VISUALIZED UPPER ABDOMEN: Normal. OTHER FINDINGS: None. IMPRESSION: No active pulmonary disease. COPD.
== END 2018-02-10 06:30 | disposition home or self-care (01) ==
LOC: H.ER 00:12
DX: J44.1 Chronic obstructive pulmonary disease with (acute) exacerbation (principal); E11.9 Type 2 diabetes mellitus without complications; Z59.0 Homelessness

== ENCOUNTER 2018-02-20 01:50 | Emergency (ER) | payer MEDICAID ==
[2018-02-20 01:50] VITALS: BMI 31.0
[2018-02-20 02:07] VITALS: TEMP 97.4; O2SAT 99
[2018-02-20] MEDS ORDERED: Albuterol-Ipratrop 3 mg / 0.5 (3 ml) UD INH STA (02:44)
[2018-02-20 03:17] LABS: BASO # 0.1 K/uL (0.0-0.2); BASO % 0.8 % (0.0-2.0); EOS # 0.1 K/uL (0.0-0.7); EOS % 1.1 % (0.0-4.0); HEMOGLOBIN 14.4 g/dL (12.0-18.0); LYMPH # 2.4 K/uL (1.0-4.3); LYMPH % 32.6 % (20.0-40.0); MEAN CELL VOLUME 100.9 fl (80.0-94.0); MEAN CORPUSCULAR HEMOGLOBIN 34.3 pg (27.0-31.0); MEAN PLATELET VOLUME 7.7 fl (7.2-11.7); MONO # 0.8 K/uL (0.0-0.8); MONO % 11.5 % (0.0-10.0); NRBC % 0.1 % (0.0-0.0); RBC 4.2 Mil/uL (4.40-5.90); RED CELL DISTRIBUTION WIDTH 13.8 % (11.5-14.5); WHITE BLOOD COUNT 7.4 K/uL (4.8-10.8)
[2018-02-20 03:23] LABS: ALB/GLOB RATIO 1.5 (1.0-2.1); ALBUMIN 3.7 g/dL (3.5-5.0); ALT/SGPT 65 U/L (21-72); AST/SGOT 56 U/L (17-59); BLOOD UREA NITROGEN 13 mg/dl (9-20); GFR NON-AFRICAN AMERICAN > 60
--- NOTE | 2018-02-20 05:30 | ED PDOC ---
HPI: SOB/CHF/COPD Time Seen by Provider: 02/20/18 02:03 Chief Complaint (Nursing): Cough, Cold, Congestion Chief Complaint (Provider): SOB x 2 days History Per: Patient History/Exam Limitations: no limitations Onset/Duration Of Symptoms: Days Current Symptoms Are (Timing): Still Present Context: Denies pain. States he has COPD, continues to smoke Current Respiratory Medications: Other Past Medical History Reviewed: Historical Data, Nursing Documentation, Vital Signs Vital Signs: Last Vital Signs Temp 97.4 F L 02/20/18 02:04 Pulse 87 02/20/18 02:04 Resp 16 02/20/18 02:04 BP 163/97 H 02/20/18 02:04 Pulse Ox 99 02/20/18 02:04 - Medical History PMH: Anxiety, Arthritis (arthritis of neck and back), Back Problems (chronic back pain ), Bipolar Disorder, COPD, Depression, Diabetes, Emphysema, Fractures (skull, right pinky), Pneumonia, Sleep Apnea Denies: Hepatitis, HIV, HTN, Chronic Kidney Disease, Seizures, Sexually Transmitted Disease - Surgical History Surgical History: Appendectomy, Hernia Repair (ventral), Tonsillectomy - Family History Family History: States: Unknown Family Hx - Living Arrangements Living Arrangements: With Family - Social History Current smoker - smoking cessation education provided: Yes - Immunization History Hx Tetanus Toxoid Vaccination: Yes (UTD) Hx Influenza Vaccination: No Hx Pneumococcal Vaccination: Yes - Home Medications Home Medications: Ambulatory Orders Medication Instructions Recorded Albuterol HFA [Ventolin HFA 90 1 - 2 puff IH Q6 PRN #1 inhaler 04/18/17 mcg/actuation (8 g)] Albuterol HFA [Ventolin HFA 90 1 - 2 puff IH Q4H PRN #1 bottle 06/09/17 mcg/actuation (8 g)] Albuterol HFA [Ventolin HFA 90 2 puff IH [id number] #1 puff 09/20/17 mcg/actuation (8 g)] predniSONE [predniSONE Tab] 60 mg PO DAILY #9 tab 09/20/17 Albuterol HFA [Ventolin HFA 90 1 - 2 puff IH Q6 PRN #1 inhaler 10/22/17 mcg/actuation (8 g)] Methylprednisolone [Medrol Dosepak] 4 mg PO ASDIR #1 pkg 10/22/17 Albuterol HFA [Ventolin HFA 90 1 - 2 puff IH Q6 PRN #1 inhaler 11/27/17 mcg/actuation (8 g)] predniSONE [predniSONE Tab] 60 mg PO QAM #12 tab 11/27/17 Albuterol HFA [Ventolin HFA 90 1 puff IH Q6 PRN #1 inhaler 12/06/17 mcg/actuation (8 g)] Ibuprofen [Motrin] 600 mg PO Q6 PRN #15 tab 12/06/17 - Allergies Allergies/Adverse Reactions: Allergies Allergy/AdvReac Type Severity Reaction Status Date / Time No Known Allergies Allergy Verified 02/12/18 21:00 Review of Systems ROS Statement: Except As Marked, All Systems Reviewed And Found Negative Constitutional: Negative for: Fever, Chills Cardiovascular: Negative for: Chest Pain, Palpitations Respiratory: Positive for: Shortness of Breath. Negative for: Cough, SOB with Exertion, Pleuritic Pain Gastrointestinal: Negative for: Nausea, Vomiting, Abdominal Pain, Diarrhea Physical Exam - Reviewed Nursing Documentation Reviewed: Yes Vital Signs Reviewed: Yes - Physical Exam Appears: Positive for: Well, Non-toxic, No Acute Distress Head Exam: Positive for: ATRAUMATIC, NORMAL INSPECTION, NORMOCEPHALIC Skin: Positive for: Normal Color, Warm, DRY Eye Exam: Positive for: Normal appearance ENT: Positive for: Normal ENT Inspection Neck: Positive for: Normal, Painless ROM Cardiovascular/Chest: Positive for: Regular Rate, Rhythm Respiratory: Positive for: Wheezing. Negative for: Normal Breath Sounds, Decreased Breath Sounds, Accessory Muscle Use, Respiratory Distress Gastrointestinal/Abdominal: Positive for: Normal Exam, Soft. Negative for: Tenderness Back: Positive for: Normal Inspection Extremity: Positive for: Normal ROM Neurologic/Psych: Positive for: Alert, Oriented - Laboratory Results Result Diagrams: 02/20/18 02:55 02/20/18 02:55 - ECG O2 Sat by Pulse Oximetry: 99 Pulse Ox Interpretation: Normal Medical Decision Making Medical Decision Making: PT reports feeling better on re-evaluation. Disposition - Clinical Impression Clinical Impression: COPD (chronic obstructive pulmonary disease) - Patient ED Disposition Is Patient to be Admitted: No - Disposition Disposition: Routine/Home Disposition Time: 05:31 Condition: STABLE Instructions: Chronic Obstructive Pulmonary Disease (COPD), Including Emphysema Forms: [employer] (Scottish)
[2018-02-20 05:31] VITALS: BP 116/53; PULSE 86; RESP 18
--- NOTE | 2018-02-20 09:36 | CARD ---
APPROVED REPORT Date of service: 02/20/2018 EKG Measurement Heart [id number] <Conclusion> Normal sinus rhythm Normal Electrocardiogram
--- NOTE | 2018-02-20 09:49 | RAD ---
Date of service: 02/20/2018 HISTORY: SOB COMPARISON: 02/10/2018 FINDINGS: LUNGS: No active pulmonary disease. PLEURA: No significant pleural effusion identified, no pneumothorax apparent. CARDIOVASCULAR: No aortic atherosclerotic calcification present. Normal cardiac size. No pulmonary vascular congestion. OSSEOUS STRUCTURES: No significant abnormalities. VISUALIZED UPPER ABDOMEN: Normal. OTHER FINDINGS: None. IMPRESSION: No active disease.
== END 2018-02-20 06:23 | disposition home or self-care (01) ==
LOC: H.ER 01:50
DX: J44.9 Chronic obstructive pulmonary disease, unspecified (principal)
CPT/HCPCS: 71045; 80053; 85025; 93005; 94640; 96374; 99284; J2930

== ENCOUNTER 2018-02-24 23:16 | Emergency (ER) | payer MEDICAID ==
[2018-02-24 23:16] VITALS: BMI 31.0
[2018-02-24 23:30] VITALS: TEMP 97.9
--- NOTE | 2018-02-25 00:14 | ED PDOC ---
HPI: SOB/CHF/COPD Time Seen by Provider: 02/25/18 00:09 Chief Complaint (Nursing): Shortness Of Breath Chief Complaint (Provider): Shortness of breath History Per: Patient History/Exam Limitations: no limitations Onset/Duration Of Symptoms: Persistent Current Symptoms Are (Timing): Still Present Additional History Per: Patient Additional Complaint(s): 52 y/o male with a PMHx of Asthma and COPD presents to the ED for shortness of breath. Patient is well known to this provider for multiple visits. He is non-compliant with medications and is an active smoker. Patient denies any chest pain, vomiting, fever or chills. Patient is homeless and has shown bed seeking behavior in the past. No other medical complaints. PMD: Dr. Hurley Past Medical History Reviewed: Historical Data, Nursing Documentation, Vital Signs Vital Signs: Last Vital Signs Temp 97.9 F 02/24/18 23:28 Pulse 87 02/24/18 23:28 Resp 20 02/24/18 23:28 BP 113/68 02/24/18 23:28 Pulse Ox 98 02/24/18 23:28 - Medical History PMH: Anxiety, Arthritis (arthritis of neck and back), Back Problems (chronic back pain ), Bipolar Disorder, COPD, Depression, Diabetes, Emphysema, Fractures (skull, right pinky), Pneumonia, Sleep Apnea Denies: Hepatitis, HIV, HTN, Chronic Kidney Disease, Seizures, Sexually Transmitted Disease - Surgical History Surgical History: Appendectomy, Hernia Repair (ventral), Tonsillectomy - Family History Family History: States: Unknown Family Hx - Social History Current smoker - smoking cessation education provided: Yes - Immunization History Hx Tetanus Toxoid Vaccination: Yes (UTD) Hx Influenza Vaccination: No Hx Pneumococcal Vaccination: Yes - Home Medications Home Medications: Ambulatory Orders Medication Instructions Recorded Albuterol HFA [Ventolin HFA 90 1 - 2 puff IH Q6 PRN #1 inhaler 04/18/17 mcg/actuation (8 g)] Albuterol HFA [Ventolin HFA 90 1 - 2 puff IH Q4H PRN #1 bottle 06/09/17 mcg/actuation (8 g)] Albuterol HFA [Ventolin HFA 90 2 puff IH [id number] #1 puff 09/20/17 mcg/actuation (8 g)] predniSONE [predniSONE Tab] 60 mg PO DAILY #9 tab 09/20/17 Albuterol HFA [Ventolin HFA 90 1 - 2 puff IH Q6 PRN #1 inhaler 10/22/17 mcg/actuation (8 g)] Methylprednisolone [Medrol Dosepak] 4 mg PO ASDIR #1 pkg 10/22/17 Albuterol HFA [Ventolin HFA 90 1 - 2 puff IH Q6 PRN #1 inhaler 11/27/17 mcg/actuation (8 g)] predniSONE [predniSONE Tab] 60 mg PO QAM #12 tab 11/27/17 Albuterol HFA [Ventolin HFA 90 1 puff IH Q6 PRN #1 inhaler 12/06/17 mcg/actuation (8 g)] Ibuprofen [Motrin] 600 mg PO Q6 PRN #15 tab 12/06/17 - Allergies Allergies/Adverse Reactions: Allergies Allergy/AdvReac Type Severity Reaction Status Date / Time No Known Allergies Allergy Verified 02/24/18 23:28 Review of Systems ROS Statement: Except As Marked, All Systems Reviewed And Found Negative Constitutional: Negative for: Fever, Chills Cardiovascular: Negative for: Chest Pain Respiratory: Positive for: Shortness of Breath Gastrointestinal: Negative for: Vomiting Physical Exam - Reviewed Nursing Documentation Reviewed: Yes Vital Signs Reviewed: Yes - Physical Exam Appears: Positive for: Non-toxic (chronically ill appearing), No Acute Distress Head Exam: Positive for: ATRAUMATIC, NORMAL INSPECTION, NORMOCEPHALIC Skin: Positive for: Normal Color Eye Exam: Positive for: Normal appearance Neck: Positive for: Supple Cardiovascular/Chest: Positive for: Regular Rate, Rhythm Respiratory: Positive for: Wheezing (bilateral). Negative for: Respiratory Distress Gastrointestinal/Abdominal: Positive for: Normal Exam, Soft Back: Positive for: Normal Inspection Extremity: Positive for: Normal ROM. Negative for: Pedal Edema Neurologic/Psych: Positive for: Alert, Oriented. Negative for: Motor/Sensory Deficits - ECG O2 Sat by Pulse Oximetry: 98 (RA) Pulse Ox Interpretation: Normal Medical Decision Making Medical Decision Making: Impression: 52yo male with history of COPD, presents with shortness of breath Plan: -- Chest x-ray -- EKG -- Duoneb 9ml INH 0520 Patient awake and alert, and states he feels much better. Patient stale for discharge home. Diagnosis: COPD exacerbation Scribe Attestation: Documented by Mar Ayala, acting as a scribe for Lazaro Worrell MD. Provider Scribe Attestation: All medical record entries made by the Scribe were at my direction and personally dictated by me. I have reviewed the chart and agree that the record accurately reflects my personal performance of the history, physical exam, medical decision making, and the department course for this patient. I have also personally directed, reviewed, and agree with the discharge instructions and disposition. Disposition - Clinical Impression Clinical Impression: COPD exacerbation - Disposition Disposition: Routine/Home Disposition Time: 05:20 Condition: STABLE Instructions: COPD Including Emphysema (DC) Forms: [employer] (Colombian)
[2018-02-25] MEDS ORDERED: Albuterol-Ipratrop 3 mg / 0.5 (3 ml) UD ONE (00:36)
[2018-02-25] MEDS: Albuterol-Ipratrop 3 mg / 0.5 (3 ml) UD INH STA (00:51)
[2018-02-25 06:25] VITALS: BP 137/84; PULSE 81; RESP 18; O2SAT 97
--- NOTE | 2018-02-25 10:20 | CARD ---
APPROVED REPORT Date of service: 02/24/2018 EKG Measurement Heart [id number] <Conclusion> Normal sinus rhythm Normal ECG
== END 2018-02-25 06:24 | disposition home or self-care (01) ==
LOC: H.ER 23:16
DX: J44.1 Chronic obstructive pulmonary disease with (acute) exacerbation (principal); E11.9 Type 2 diabetes mellitus without complications; Z59.0 Homelessness; Z91.14 Patient's other noncompliance with medication regimen

== ENCOUNTER 2018-03-04 22:41 | Emergency (ER) | payer MEDICAID, OTHER ==
[2018-03-04 22:41] VITALS: BMI 29.5
[2018-03-04 22:52] VITALS: BP 149/95; PULSE 78; RESP 16; TEMP 97.6; O2SAT 97
[2018-03-05] MEDS ORDERED: Albuterol 0.083% Inhal Sol (2.5 mg/3 mL) UD INH STA (04:16)
--- NOTE | 2018-03-05 04:18 | ED PDOC ---
HPI: Influenza Time Seen by Provider: 03/05/18 00:00 Chief Complaint: Cough, Cold, Congestion History Per: Patient Exam Limitations: no limitations Have you had recent travel within the past 21 days to any of: No Onset/Duration Of Symptoms: Days (1) Sick Contacts (Context): None Past Medical History Reviewed: Historical Data, Nursing Documentation, Vital Signs Vital Signs: Last Vital Signs Temp 97.6 F 03/04/18 22:50 Pulse 78 03/04/18 22:50 Resp 16 03/04/18 22:50 BP 149/95 H 03/04/18 22:50 Pulse Ox 97 03/04/18 22:50 - Medical History PMH: Anxiety, Arthritis (arthritis of neck and back), Back Problems (chronic back pain ), Bipolar Disorder, COPD, Depression, Diabetes, Emphysema, Fractures (skull, right pinky), Pneumonia, Sleep Apnea Denies: Hepatitis, HIV, HTN, Chronic Kidney Disease, Seizures, Sexually Transmitted Disease - Surgical History Surgical History: Appendectomy, Hernia Repair (ventral), Tonsillectomy - Family History Family History: States: Unknown Family Hx - Immunization History Hx Tetanus Toxoid Vaccination: No (UTD) Hx Influenza Vaccination: Yes Hx Pneumococcal Vaccination: Yes - Home Medications Home Medications: Ambulatory Orders Medication Instructions Recorded Albuterol HFA [Ventolin HFA 90 1 - 2 puff IH Q6 PRN #1 inhaler 10/22/17 mcg/actuation (8 g)] - Allergies Allergies/Adverse Reactions: Allergies Allergy/AdvReac Type Severity Reaction Status Date / Time cats Allergy ITCHING Uncoded 03/04/18 22:49 Review of Systems ROS Statement: Except As Marked, All Systems Reviewed And Found Negative Physical Exam - Reviewed Nursing Documentation Reviewed: Yes Vital Signs Reviewed: Yes - Physical Exam Appears: Positive for: Non-toxic, No Acute Distress Head Exam: Positive for: ATRAUMATIC Skin: Positive for: Normal Color Eye Exam: Positive for: EOMI Cardiovascular/Chest: Positive for: Regular Rate, Rhythm Respiratory: Positive for: Wheezing. Negative for: Respiratory Distress Extremity: Positive for: Normal ROM Neurologic/Psych: Positive for: Alert, Oriented Medical Decision Making Medical Decision Making: Impression Palpitations wheezing Diff include asthma, COPD, cardiac arrhythmia Plan EKG albuterol reassess - ECG O2 Sat by Pulse Oximetry: 97 Disposition - Clinical Impression Clinical Impression: COPD exacerbation, Palpitations - Patient ED Disposition Is Patient to be Admitted: No Doctor Will See Patient In The: Office Counseled Patient/Family Regarding: Studies Performed, Diagnosis - Disposition Referrals: [facility] [Outside] Disposition: Routine/Home Disposition Time: 05:59 Condition: GOOD Additional Instructions: TOBIN HOFF, thank you for letting us take care of you today. Your provider was Estrellita Bolton MD and you were treated for PALPITATIONS. The emergency medical care you received today was directed at your acute symptoms. If you were prescribed any medication, please fill it and take as directed. It may take several days for your symptoms to resolve. Return to the Emergency Department if your symptoms worsen, do not improve, or if you have any other problems. Please contact your doctor or call one of the physicians/clinics you have been referred to that are listed on the Patient Visit Information form that is included in your discharge packet. Bring any paperwork you were given at discharge with you along with any medications you are taking to your follow up visit. Our treatment cannot replace ongoing medical care by a primary care provider outside of the emergency department. Thank you for allowing the [facility] team to be part of your care today. If you had an X-Ray or CT scan: A Radiologist will review the ED reading if any change in treatment is needed we will contact you. If you had a blood, urine, or wound culture: It will take several days for the results, if any change in treatment is needed we will contact you. If you had an STI test: It will take 48 hours for the results. Please call after 1 week if you have not heard back. Instructions: Chronic Obstructive Pulmonary Disease (COPD), Including Emphysema
[2018-03-05] MEDS ORDERED: Albuterol 0.083% Inhal Sol (2.5 mg/3 mL) UD ONE (06:18)
--- NOTE | 2018-03-05 07:55 | CARD ---
APPROVED REPORT Date of service: 03/04/2018 EKG Measurement Heart [id number] <Conclusion> Normal sinus rhythm Incomplete right bundle branch block Borderline ECG
== END 2018-03-05 06:41 | disposition home or self-care (01) ==
LOC: H.ER 22:41
DX: R00.2 Palpitations (principal); J44.1 Chronic obstructive pulmonary disease with (acute) exacerbation; E11.9 Type 2 diabetes mellitus without complications; F31.9 Bipolar disorder, unspecified; F41.9 Anxiety disorder, unspecified; G89.29 Other chronic pain

== ENCOUNTER 2018-03-16 02:34 | Emergency (ER) | payer OTHER ==
[2018-03-16 02:34] VITALS: BMI 29.5
[2018-03-16] MEDS ORDERED: Albuterol 0.083% Inhal Sol (2.5 mg/3 mL) UD INH STA (03:43)
--- NOTE | 2018-03-16 04:14 | ED PDOC ---
HPI: General Adult Time Seen by Provider: 03/16/18 03:33 Chief Complaint (Nursing): Anxiety Chief Complaint (Provider): Anxiety History Per: Patient History/Exam Limitations: no limitations Current Symptoms Are (Timing): Still Present Additional Complaint(s): 52 year old male presents to the ED stating he no longer has his ventolin inhaler. Patient is requesting a refill. He further states his sister on of last week and feels overwhelmed. Denies suicidal ideation, homicidal ideation, hallucinations, fever, cough, or chest pain. PMD: none Past Medical History Reviewed: Historical Data, Nursing Documentation, Vital Signs Vital Signs: Last Vital Signs Temp 97.6 F 03/16/18 02:55 Pulse 76 03/16/18 02:55 Resp 14 03/16/18 02:55 BP 129/83 03/16/18 02:55 Pulse Ox 97 03/16/18 02:55 - Medical History PMH: Anxiety, Arthritis (arthritis of neck and back), Back Problems (chronic back pain ), Bipolar Disorder, COPD, Depression, Diabetes, Emphysema, Fractures (skull, right pinky), Pneumonia, Sleep Apnea Denies: Hepatitis, HIV, HTN, Chronic Kidney Disease, Seizures, Sexually Transmitted Disease - Surgical History Surgical History: Appendectomy, Hernia Repair (ventral), Tonsillectomy - Family History Family History: States: Unknown Family Hx - Immunization History Hx Tetanus Toxoid Vaccination: No (UTD) Hx Influenza Vaccination: Yes Hx Pneumococcal Vaccination: Yes - Home Medications Home Medications: Ambulatory Orders Medication Instructions Recorded Albuterol HFA [Ventolin HFA 90 1 - 2 puff IH Q6 PRN #1 inhaler 10/22/17 mcg/actuation (8 g)] Albuterol HFA [Ventolin HFA 90 2 puff IH Q4 PRN #120 puff 03/16/18 mcg/actuation (8 g)] - Allergies Allergies/Adverse Reactions: Allergies Allergy/AdvReac Type Severity Reaction Status Date / Time cats Allergy ITCHING Uncoded 03/04/18 22:49 Review of Systems ROS Statement: Except As Marked, All Systems Reviewed And Found Negative Constitutional: Negative for: Fever Cardiovascular: Negative for: Chest Pain Respiratory: Negative for: Cough Psych: Positive for: Other (Overwhelmed from sister passing away; no hallucinations). Negative for: Suicidal ideation (or homicidal ideation) Physical Exam - Reviewed Nursing Documentation Reviewed: Yes Vital Signs Reviewed: Yes - Physical Exam Appears: Positive for: Non-toxic, No Acute Distress Head Exam: Positive for: ATRAUMATIC, NORMOCEPHALIC Skin: Positive for: Normal Color, Warm, Dry Eye Exam: Positive for: Normal appearance Neck: Positive for: Normal, Painless ROM Cardiovascular/Chest: Positive for: Regular Rate, Rhythm Respiratory: Positive for: Wheezing (minimal expiratory wheezing) Neurologic/Psych: Positive for: Alert, Oriented (x3), Other (speaking in full sentences; patient is calm and cooperative) - ECG O2 Sat by Pulse Oximetry: 97 (RA) Pulse Ox Interpretation: Normal - Progress Re-evaluation Time: 04:45 (Wheezing resolved. Pt. was evaluated by Rachel BURGESS who spoke with Dr. Mckeon and cleared pt. for discharge. ) Condition: Re-examined, Improved Medical Decision Making Medical Decision Making: Initial Plan: --Crisis evaluation --Albuterol 2.5mg INH Scribe Attestation: Documented by Lamont Hurley acting as a scribe for Timothy BREEN. Provider Scribe Attestation: All medical record entries made by the Scribe were at my direction and personally dictated by me. I have reviewed the chart and agree that the record accurately reflects my personal performance of the history, physical exam, medical decision making, and the department course for this patient. I have also personally directed, reviewed, and agree with the discharge instructions and disposition. Disposition - Clinical Impression Clinical Impression: COPD exacerbation, Anxiety - Patient ED Disposition Is Patient to be Admitted: No - Disposition Referrals: [facility] [Outside] Disposition: Routine/Home Disposition Time: 04:50 Condition: IMPROVED Additional Instructions: TOBIN HOFF, thank you for letting us take care of you today. Your provider was Pedro Pablo Lentz MD and you were treated for ANXIETY. The emergency medical care you received today was directed at your acute symptoms. If you were prescribed any medication, please fill it and take as directed. It may take several days for your symptoms to resolve. Return to the Emergency Department if your symptoms worsen, do not improve, or if you have any other problems. Please contact your doctor or call one of the physicians/clinics you have been referred to that are listed on the Patient Visit Information form that is included in your discharge packet. Bring any paperwork you were given at discharge with you along with any medications you are taking to your follow up visit. Our treatment cannot replace ongoing medical care by a primary care provider outside of the emergency department. Thank you for allowing the [facility] team to be part of your care today. If you had an X-Ray or CT scan: A Radiologist will review the ED reading if any change in treatment is needed we will contact you. If you had a blood, urine, or wound culture: It will take several days for the results, if any change in treatment is needed we will contact you. If you had an STI test: It will take 48 hours for the results. Please call after 1 week if you have not heard back. Prescriptions: Albuterol HFA [Ventolin HFA 90 mcg/actuation (8 g)] 2 puff IH Q4 PRN #120 puff PRN Reason: Wheezing Instructions: Anxiety, Adult (DC), Exacerbation of COPD (DC) Forms: [employer] (Paraguayan) Print Language: YI
[2018-03-16 04:52] VITALS: RESP 16
[2018-03-16 06:09] VITALS: BP 126/74; PULSE 90; TEMP 97.7; O2SAT 96
== END 2018-03-16 06:05 | disposition home or self-care (01) ==
LOC: H.ER 02:34
DX: J44.1 Chronic obstructive pulmonary disease with (acute) exacerbation (principal); F41.9 Anxiety disorder, unspecified; E11.9 Type 2 diabetes mellitus without complications; G89.29 Other chronic pain; Z86.59 Personal history of other mental and behavioral disorders; M19.90 Unspecified osteoarthritis, unspecified site; Z79.899 Other long term (current) drug therapy

== ENCOUNTER 2018-03-23 01:14 | Emergency (ER) | payer MEDICAID, OTHER ==
[2018-03-23 01:32] VITALS: BMI 33.2
--- NOTE | 2018-03-23 01:43 | ED PDOC ---
HPI: SOB/CHF/COPD Time Seen by Provider: 03/23/18 01:25 Chief Complaint (Nursing): Shortness Of Breath Chief Complaint (Provider): Shortness Of Breath History Per: Patient, EMS History/Exam Limitations: no limitations Additional Complaint(s): 52 y/o homeless male with history of COPD, who is well known to provider for multiple ED visits, brought to ER by EMS for evaluation of shortness of breath. Patient lives in a retirement and was given Duoneb FABRIC SOURCER. PMD: Yennifer Hurley Past Medical History Reviewed: Historical Data, Nursing Documentation, Vital Signs Vital Signs: Last Vital Signs Temp 97.9 F 03/23/18 01:32 Pulse 94 H 03/23/18 01:32 Resp 18 03/23/18 01:32 BP 124/75 03/23/18 01:32 Pulse Ox 93 L 03/23/18 01:32 - Medical History PMH: Anxiety, Arthritis (arthritis of neck and back), Back Problems (chronic back pain ), Bipolar Disorder, COPD, Depression, Diabetes, Emphysema, Fractures (skull, right pinky), Pneumonia, Sleep Apnea Denies: Hepatitis, HIV, HTN, Chronic Kidney Disease, Seizures, Sexually Transmitted Disease - Surgical History Surgical History: Appendectomy, Hernia Repair (ventral), Tonsillectomy - Family History Family History: States: Unknown Family Hx - Social History Current smoker - smoking cessation education provided: Yes Alcohol: None Drugs: Denies - Immunization History Hx Tetanus Toxoid Vaccination: No (UTD) Hx Influenza Vaccination: Yes Hx Pneumococcal Vaccination: Yes - Home Medications Home Medications: Ambulatory Orders Medication Instructions Recorded Symbicort 160-4.5 Mcg Inhaler 03/18/18 Albuterol Sulfate [Proair Hfa] 0.09 mg IH Q6 PRN #1 inh 03/23/18 predniSONE [predniSONE Tab] 60 mg PO QAM #15 tab 03/23/18 - Allergies Allergies/Adverse Reactions: Allergies Allergy/AdvReac Type Severity Reaction Status Date / Time cats Allergy ITCHING Uncoded 03/23/18 01:32 Review of Systems ROS Statement: Except As Marked, All Systems Reviewed And Found Negative Respiratory: Positive for: Shortness of Breath Physical Exam - Reviewed Nursing Documentation Reviewed: Yes Vital Signs Reviewed: Yes - Physical Exam Appears: Positive for: Non-toxic, No Acute Distress Head Exam: Positive for: ATRAUMATIC, NORMOCEPHALIC Skin: Positive for: Normal Color, Warm, Dry Eye Exam: Positive for: Normal appearance, EOMI, PERRL Neck: Positive for: Normal, Painless ROM, Supple Cardiovascular/Chest: Positive for: Regular Rate, Rhythm. Negative for: Murmur Respiratory: Positive for: Wheezing (expiratory) Back: Positive for: Normal Inspection. Negative for: L CVA Tenderness, R CVA Tenderness Extremity: Positive for: Normal ROM. Negative for: Pedal Edema, Deformity Neurologic/Psych: Positive for: Alert, Oriented (x3) - ECG O2 Sat by Pulse Oximetry: 93 Pulse Ox Interpretation: Abnormal Medical Decision Making Medical Decision Making: Time: 013 Initial impression: 52 y/o male with COPD and no apparent distress 0611 Patient reports marked improvement in symptoms and is medically stable for discharge Diagnosis is COPD exacerbation Scribe Attestation: Documented by Naila Lindsey, acting as a scribe for Lazaro Worrell MD. Provider Scribe Attestation: All medical record entries made by the Scribe were at my direction and personally dictated by me. I have reviewed the chart and agree that the record accurately reflects my personal performance of the history, physical exam, medical decision making, and the department course for this patient. I have also personally directed, reviewed, and agree with the discharge instructions and disposition. Disposition - Clinical Impression Clinical Impression: COPD exacerbation - Patient ED Disposition Is Patient to be Admitted: No - Disposition Disposition: Routine/Home Disposition Time: 06:11 Condition: STABLE Prescriptions: Albuterol Sulfate [Proair Hfa] 0.09 mg IH Q6 PRN #1 inh PRN Reason: Shortness Of Breath predniSONE [predniSONE Tab] 60 mg PO QAM #15 tab Instructions: Chronic Obstructive Pulmonary Disease (COPD), Including Emphysema Forms: [employer] (Luxembourger)
[2018-03-23] MEDS ORDERED: Albuterol-Ipratrop 3 mg / 0.5 (3 ml) UD INH STA (02:01)
[2018-03-23] MEDS ORDERED: Albuterol-Ipratrop 3 mg / 0.5 (3 ml) UD ONE (02:07)
[2018-03-23 06:12] VITALS: BP 120/70; PULSE 78; RESP 20; TEMP 98
[2018-03-23 06:13] VITALS: O2SAT 93
--- NOTE | 2018-03-26 05:35 | CARD ---
APPROVED REPORT Date of service: 03/23/2018 EKG Measurement Heart [id number] <Conclusion> Sinus rhythm with premature atrial complexes Nonspecific ST abnormality Abnormal ECG
== END 2018-03-23 05:55 | disposition home or self-care (01) ==
LOC: H.ER 01:14
DX: J44.1 Chronic obstructive pulmonary disease with (acute) exacerbation (principal); E11.9 Type 2 diabetes mellitus without complications; F17.200 Nicotine dependence, unspecified, uncomplicated; Z86.59 Personal history of other mental and behavioral disorders; G89.29 Other chronic pain; Z59.0 Homelessness; Z79.899 Other long term (current) drug therapy

== ENCOUNTER 2018-03-26 01:25 | Emergency (ER) | payer OTHER ==
[2018-03-26 01:26] VITALS: BMI 33.2
[2018-03-26 01:33] VITALS: RESP 18
[2018-03-26] MEDS ORDERED: Albuterol-Ipratrop 3 mg / 0.5 (3 ml) UD INH STA ×2 (01:46→04:55)
[2018-03-26] MEDS ORDERED: Albuterol-Ipratrop 3 mg / 0.5 (3 ml) UD ONE ×2 (01:50→06:00)
--- NOTE | 2018-03-26 02:30 | ED PDOC ---
HPI: SOB/CHF/COPD Time Seen by Provider: 03/26/18 01:45 Chief Complaint (Nursing): Respiratory Distress Chief Complaint (Provider): Respiratory Distress History Per: Patient History/Exam Limitations: no limitations Additional Complaint(s): 52 y/o male with history of COPD, well known to provider, presents to ER for evaluation of difficulty breathing. Patient is requesting breathing treatment. PMD: non provided Past Medical History Reviewed: Historical Data, Nursing Documentation, Vital Signs Vital Signs: Last Vital Signs Temp 98 F 03/26/18 01:29 Pulse 87 03/26/18 01:29 Resp 18 03/26/18 01:55 BP 130/83 03/26/18 01:29 Pulse Ox 94 L 03/26/18 01:29 - Medical History PMH: Anxiety, Arthritis (arthritis of neck and back), Back Problems (chronic back pain ), Bipolar Disorder, COPD, Depression, Diabetes, Emphysema, Fractures (skull, right pinky), Pneumonia, Sleep Apnea Denies: Hepatitis, HIV, HTN, Chronic Kidney Disease, Seizures, Sexually Transmitted Disease - Surgical History Surgical History: Appendectomy, Hernia Repair (ventral), Tonsillectomy - Family History Family History: States: Unknown Family Hx - Social History Current smoker - smoking cessation education provided: Yes (10 cigarettes/day) Alcohol: Social Drugs: Cannabis (Marijuana) - Immunization History Hx Tetanus Toxoid Vaccination: No (UTD) Hx Influenza Vaccination: Yes Hx Pneumococcal Vaccination: Yes - Home Medications Home Medications: Ambulatory Orders Medication Instructions Recorded Symbicort 160-4.5 Mcg Inhaler 03/18/18 Albuterol Sulfate [Proair Hfa] 0.09 mg IH Q6 PRN #1 inh 03/23/18 RX: predniSONE [predniSONE Tab] 60 mg PO QAM #15 tab 03/23/18 RX: Albuterol HFA [Ventolin HFA 90 1 - 2 puff IH Q4H PRN #1 bottle 03/26/18 mcg/actuation (8 g)] predniSONE [Prednisone] 40 mg PO DAILY #8 tab 03/26/18 - Allergies Allergies/Adverse Reactions: Allergies Allergy/AdvReac Type Severity Reaction Status Date / Time cats Allergy ITCHING Uncoded 03/23/18 01:32 Review of Systems ROS Statement: Except As Marked, All Systems Reviewed And Found Negative Respiratory: Positive for: Shortness of Breath Physical Exam - Reviewed Nursing Documentation Reviewed: Yes Vital Signs Reviewed: Yes - Physical Exam Appears: Positive for: Non-toxic, No Acute Distress Head Exam: Positive for: ATRAUMATIC, NORMOCEPHALIC Skin: Positive for: Normal Color, Warm, Dry Eye Exam: Positive for: Normal appearance ENT: Positive for: Normal ENT Inspection Neck: Positive for: Normal, Painless ROM, Supple Cardiovascular/Chest: Positive for: Regular Rate, Rhythm. Negative for: Murmur Respiratory: Positive for: Wheezing Gastrointestinal/Abdominal: Positive for: Normal Exam, Soft. Negative for: Tenderness Extremity: Positive for: Normal ROM. Negative for: Pedal Edema, Deformity Neurologic/Psych: Positive for: Alert, Oriented (x3) - ECG O2 Sat by Pulse Oximetry: 94 (RA) Pulse Ox Interpretation: Abnormal Medical Decision Making Medical Decision Making: Time: 135 Initial Plan: --Albuterol 3 ml INH --Peak flow pre/post treatment 0618 pt much improved w medications sleeping comfortably in no distress. o2 sat improved. Upon reevaluation, patient is sleeping comfortably and stable for discharge. Scribe Attestation: Documented by Naila Lindsey, acting as a scribe for Ladonna Carter MD. Provider Scribe Attestation: All medical record entries made by the Scribe were at my direction and personally dictated by me. I have reviewed the chart and agree that the record accurately reflects my personal performance of the history, physical exam, medical decision making, and the department course for this patient. I have also personally directed, reviewed, and agree with the discharge instructions and disposition. Disposition - Clinical Impression Clinical Impression: COPD exacerbation, COPD exacerbation - Patient ED Disposition Is Patient to be Admitted: No Counseled Patient/Family Regarding: Studies Performed, Diagnosis, Need For Followup - Disposition Disposition: Routine/Home Disposition Time: 06:18 Condition: IMPROVED Additional Instructions: follow up with your doctor in1 -2 days return to the ED with any worsening or concerning symptoms Prescriptions: RX: Albuterol HFA [Ventolin HFA 90 mcg/actuation (8 g)] 1 - 2 puff IH Q4H PRN #1 bottle PRN Reason: Wheezing predniSONE [Prednisone] 40 mg PO DAILY #8 tab Instructions: Exacerbation of COPD (DC) Forms: [employer] (East Timorese)
[2018-03-26 06:30] VITALS: BP 158/61; PULSE 93; TEMP 97.9
[2018-03-26 06:46] VITALS: O2SAT 94
== END 2018-03-26 06:35 | disposition home or self-care (01) ==
LOC: H.ER 01:25
DX: J44.1 Chronic obstructive pulmonary disease with (acute) exacerbation (principal); E11.9 Type 2 diabetes mellitus without complications; Z79.899 Other long term (current) drug therapy

== ENCOUNTER 2018-03-30 00:29 | Emergency (ER) | payer OTHER ==
[2018-03-30 00:30] VITALS: BMI 33.2
[2018-03-30] MEDS ORDERED: Albuterol-Ipratrop 3 mg / 0.5 (3 ml) UD INH STA (01:59)
[2018-03-30] MEDS ORDERED: Albuterol-Ipratrop 3 mg / 0.5 (3 ml) UD ONE (02:15)
--- NOTE | 2018-03-30 03:45 | ED PDOC ---
HPI: General Adult Time Seen by Provider: 03/30/18 01:52 Chief Complaint (Nursing): Rib Injury Chief Complaint (Provider): Back Pain History Per: Patient History/Exam Limitations: no limitations Current Symptoms Are (Timing): Still Present Additional Complaint(s): 52 year old male with a history of COPD presents to the ED with left sided back pain and cough. He is undomiciled and known to this ED for bed seeking behavior. Patient was initially seen resting comfortably and is very pleasant. He admits that he has a psychiatric history and that he is trying to quit smoking. patient regularly follows with his PMD who does not want to start him on new medications if he does not have a secure living situation. Offers no other complaints. PMD: Yennifer Hurley Past Medical History Reviewed: Historical Data, Nursing Documentation, Vital Signs Vital Signs: Last Vital Signs Temp 97.9 F 03/30/18 00:35 Pulse 83 03/30/18 00:35 Resp 16 03/30/18 00:35 BP 115/65 03/30/18 00:35 Pulse Ox 92 L 03/30/18 00:35 ESTEE Report Viewed: Yes - Medical History PMH: Anxiety, Arthritis (arthritis of neck and back), Back Problems (chronic back pain ), Bipolar Disorder, COPD, Depression, Diabetes, Emphysema, Fractures (skull, right pinky), Pneumonia, Sleep Apnea Denies: Hepatitis, HIV, HTN, Chronic Kidney Disease, Seizures, Sexually Transmitted Disease - Surgical History Surgical History: Appendectomy, Hernia Repair (ventral), Tonsillectomy - Family History Family History: States: Unknown Family Hx - Immunization History Hx Tetanus Toxoid Vaccination: No (UTD) Hx Influenza Vaccination: Yes Hx Pneumococcal Vaccination: Yes - Home Medications Home Medications: Ambulatory Orders Medication Instructions Recorded Symbicort 160-4.5 Mcg Inhaler 03/18/18 Albuterol Sulfate [Proair Hfa] 0.09 mg IH Q6 PRN #1 inh 03/23/18 predniSONE [predniSONE Tab] 60 mg PO QAM #15 tab 03/23/18 Albuterol HFA [Ventolin HFA 90 1 - 2 puff IH Q4H PRN #1 bottle 03/26/18 mcg/actuation (8 g)] predniSONE [Prednisone] 40 mg PO DAILY #8 tab 03/26/18 - Allergies Allergies/Adverse Reactions: Allergies Allergy/AdvReac Type Severity Reaction Status Date / Time cats Allergy ITCHING Uncoded 03/23/18 01:32 Review of Systems ROS Statement: Except As Marked, All Systems Reviewed And Found Negative Respiratory: Positive for: Cough (mild) Musculoskeletal: Positive for: Back Pain (left sided) Physical Exam - Reviewed Nursing Documentation Reviewed: Yes Vital Signs Reviewed: Yes - Physical Exam Appears: Positive for: Non-toxic, No Acute Distress Head Exam: Positive for: ATRAUMATIC, NORMAL INSPECTION, NORMOCEPHALIC Skin: Positive for: Normal Color, Warm, Dry Eye Exam: Positive for: EOMI, Normal appearance, PERRL Neck: Positive for: Normal, Painless ROM, Supple Cardiovascular/Chest: Positive for: Regular Rate, Rhythm. Negative for: Murmur Respiratory: Positive for: Wheezing (mild bilateral). Negative for: Respiratory Distress Gastrointestinal/Abdominal: Positive for: Normal Exam, Soft. Negative for: Tenderness Extremity: Positive for: Normal ROM (upper and lower extremities). Negative for: Deformity Neurologic/Psych: Positive for: Alert, Oriented (x 3). Negative for: Motor/Sensory Deficits - ECG O2 Sat by Pulse Oximetry: 92 (RA) Pulse Ox Interpretation: Normal Medical Decision Making Medical Decision Makin:59 MDM: COPD exacerbation vs bed seeking Tylenol and duonebs ordered Reassess 630 Pt with stable vitals. Improved SOB and back pain. Pt tolerating PO, ambulatory, and symptoms free. Pt to follow up with PMD. - Scribe Attestation: Documented by Milly Lucas acting as a scribe for Chloe Robbins MD Provider Scribe Attestation: All medical record entries made by the Scribe were at my direction and personally dictated by me. I have reviewed the chart and agree that the record accurately reflects my personal performance of the history, physical exam, medical decision making, and the department course for this patient. I have also personally directed, reviewed, and agree with the discharge instructions and disposition. Disposition - Clinical Impression Clinical Impression: COPD exacerbation - Disposition Disposition: Routine/Home Disposition Time: 06:30 Condition: IMPROVED Instructions: Chronic Obstructive Pulmonary Disease (COPD), Including Emphysema Forms: [employer] (Yakut)
[2018-03-30 07:00] VITALS: BP 132/78; PULSE 86; RESP 20; TEMP 98.9; O2SAT 95
== END 2018-03-30 06:35 | disposition home or self-care (01) ==
LOC: H.ER 00:29
DX: J44.1 Chronic obstructive pulmonary disease with (acute) exacerbation (principal); E11.9 Type 2 diabetes mellitus without complications; Z86.59 Personal history of other mental and behavioral disorders; G89.29 Other chronic pain; M19.90 Unspecified osteoarthritis, unspecified site

== ENCOUNTER 2018-03-31 03:58 | Emergency (ER) | payer OTHER ==
[2018-03-31 03:58] VITALS: BMI 33.2
[2018-03-31 04:35] VITALS: TEMP 98
[2018-03-31] MEDS ORDERED: Albuterol-Ipratrop 3 mg / 0.5 (3 ml) UD INH PRN (06:18)
--- NOTE | 2018-03-31 06:34 | ED PDOC ---
HPI: SOB/CHF/COPD Time Seen by Provider: 03/31/18 04:00 Chief Complaint (Nursing): Shortness Of Breath Additional Complaint(s): 52 y/o male with a PMHx of COPD, homeless presents to the ED for evaluation of dyspnea, onset two hours ago. Patient is well known to provider and ER staff for Dyspnea and Shortness of Breath. Patient is requesting a nebulizer treatment at this time. Otherwise, patient denies any fever and any respiratory distress. PMD: Dr. Hurley Past Medical History Reviewed: Historical Data, Nursing Documentation, Vital Signs Vital Signs: Last Vital Signs Temp 98 F 03/31/18 04:33 Pulse 92 H 03/31/18 04:33 Resp 16 03/31/18 04:33 BP 118/70 03/31/18 04:33 Pulse Ox 98 03/31/18 04:33 - Medical History PMH: Anxiety, Arthritis (arthritis of neck and back), Back Problems (chronic back pain ), Bipolar Disorder, COPD, Depression, Diabetes, Emphysema, Fractures (skull, right pinky), Pneumonia, Sleep Apnea Denies: Hepatitis, HIV, HTN, Chronic Kidney Disease, Seizures, Sexually Transmitted Disease - Surgical History Surgical History: Appendectomy, Hernia Repair (ventral), Tonsillectomy - Family History Family History: States: Unknown Family Hx - Social History Current smoker - smoking cessation education provided: Yes Alcohol: > 2 Drinks/Day Drugs: Denies - Immunization History Hx Tetanus Toxoid Vaccination: No (UTD) Hx Influenza Vaccination: Yes Hx Pneumococcal Vaccination: Yes - Home Medications Home Medications: Ambulatory Orders Medication Instructions Recorded Symbicort 160-4.5 Mcg Inhaler 03/18/18 Albuterol Sulfate [Proair Hfa] 0.09 mg IH Q6 PRN #1 inh 03/23/18 RX: predniSONE [predniSONE Tab] 60 mg PO QAM #15 tab 03/23/18 RX: Albuterol HFA [Ventolin HFA 90 1 - 2 puff IH Q4H PRN #1 bottle 03/26/18 mcg/actuation (8 g)] predniSONE [Prednisone] 40 mg PO DAILY #8 tab 03/26/18 - Allergies Allergies/Adverse Reactions: Allergies Allergy/AdvReac Type Severity Reaction Status Date / Time cats Allergy ITCHING Uncoded 03/23/18 01:32 Review of Systems ROS Statement: Except As Marked, All Systems Reviewed And Found Negative Constitutional: Negative for: Fever Respiratory: Positive for: Wheezing, Other (Dyspnea) Physical Exam - Reviewed Nursing Documentation Reviewed: Yes Vital Signs Reviewed: Yes - Physical Exam Appears: Positive for: No Acute Distress Head Exam: Positive for: ATRAUMATIC, NORMOCEPHALIC Skin: Positive for: Normal Color, Warm, Dry Eye Exam: Positive for: Normal appearance, EOMI, PERRL ENT: Positive for: Normal ENT Inspection Neck: Positive for: Normal, Painless ROM, Supple Cardiovascular/Chest: Positive for: Regular Rate, Rhythm. Negative for: Murmur Respiratory: Positive for: Normal Breath Sounds. Negative for: Accessory Muscle Use, Crackles, Rales, Rhonchi, Wheezing, Respiratory Distress Gastrointestinal/Abdominal: Positive for: Normal Exam, Soft. Negative for: Tenderness Back: Positive for: Normal Inspection. Negative for: L CVA Tenderness, R CVA Tenderness Extremity: Positive for: Normal ROM. Negative for: Deformity Neurologic/Psych: Positive for: Alert, Oriented. Negative for: Motor/Sensory Deficits - ECG O2 Sat by Pulse Oximetry: 98 (RA) Pulse Ox Interpretation: Normal Medical Decision Making Medical Decision Making: Time: 617 Plan: states his asthma/copd -- Duoneb 3 mg /0.5 mg (3 ml) UD 3 ml INH RQ6 PRN -- Peak Flow Pre/Post Tx however upon reevaluation pt sleeping comforttably in no respiratory distress. not tachypneic. comfortably resting. will dc and recommend outpt follow up . Scribe Attestation: Documented by Tobin Hopkins, acting as a scribe for Ladonna Carter MD. Provider Scribe Attestation: All medical record entries made by the Scribe were at my direction and personally dictated by me. I have reviewed the chart and agree that the record accurately reflects my personal performance of the history, physical exam, medical decision making, and the department course for this patient. I have also personally directed, reviewed, and agree with the discharge instructions and disposition. Disposition - Clinical Impression Clinical Impression: COPD (chronic obstructive pulmonary disease) - Patient ED Disposition Is Patient to be Admitted: No Counseled Patient/Family Regarding: Studies Performed, Diagnosis, Need For Followup - Disposition Disposition: Routine/Home Disposition Time: 07:00 Condition: IMPROVED Additional Instructions: follow up as outpatient in 2 days return to the ED with any worsening or concerning symptoms fill yo ur prescriptions Instructions: Chronic Obstructive Pulmonary Disease (COPD), Including Emphysema Forms: [employer] (Portuguese)
[2018-03-31] MEDS ORDERED: Albuterol-Ipratrop 3 mg / 0.5 (3 ml) UD ONE (06:37)
[2018-03-31 06:53] VITALS: RESP 18
[2018-03-31 07:07] VITALS: BP 121/70; PULSE 83
[2018-03-31 23:39] VITALS: O2SAT 98
== END 2018-03-31 07:06 | disposition home or self-care (01) ==
LOC: H.ER 03:58
DX: J44.9 Chronic obstructive pulmonary disease, unspecified (principal); E11.9 Type 2 diabetes mellitus without complications

== ENCOUNTER 2018-04-05 05:08 | Emergency (ER) | payer OTHER ==
[2018-04-05 05:09] VITALS: BMI 33.2
[2018-04-05 05:20] VITALS: TEMP 97.7
[2018-04-05] MEDS ORDERED: Albuterol-Ipratrop 3 mg / 0.5 (3 ml) UD INH STA ×2 (05:22→06:06)
--- NOTE | 2018-04-05 06:21 | ED PDOC ---
HPI: Wound Care - HPI Time Seen by Provider: 04/05/18 05:22 Chief Complaint (Nursing): Shortness Of Breath Chief Complaint (Provider): Wound Care and Shortness of Breath History Per: Family () Exam Limitations: no limitations Onset/Duration Of Symptoms: Days Current Symptoms Are (Timing): Still Present Additional Complaint(s): 52 year old male with a PMHx of COPD presents to the ED for an evaluation of wound care and shortness of breath onset for 2 days. Patient is well known to provider and ER staff and was seen at [facility] few days ago and provided prescription. Patient states someone stole the prescription. Otherwise he denies fever, vomiting, cough or chest pain. PMD: Non [facility] Provider Past Medical History Reviewed: Historical Data, Nursing Documentation, Vital Signs Vital Signs: Last Vital Signs Temp 97.7 F 04/05/18 05:14 Pulse 80 04/05/18 05:14 Resp 19 04/05/18 05:40 BP 93/51 L 04/05/18 05:24 Pulse Ox 95 04/05/18 05:40 - Medical History PMH: Anxiety, Arthritis (arthritis of neck and back), Back Problems (chronic back pain ), Bipolar Disorder, COPD, Depression, Diabetes, Emphysema, Fractures (skull, right pinky), Pneumonia, Sleep Apnea Denies: Hepatitis, HIV, HTN, Chronic Kidney Disease, Seizures, Sexually Transmitted Disease - Surgical History Surgical History: Appendectomy, Hernia Repair (ventral), Tonsillectomy - Family History Family History: States: Unknown Family Hx - Social History Current smoker - smoking cessation education provided: Yes (Heavy Smoker > 10 Cigarettes Daily) Alcohol: Social Drugs: Cannabis - Immunization History Hx Tetanus Toxoid Vaccination: No (UTD) Hx Influenza Vaccination: Yes Hx Pneumococcal Vaccination: Yes - Home Medications Home Medications: Ambulatory Orders Medication Instructions Recorded Symbicort 160-4.5 Mcg Inhaler 03/18/18 Albuterol Sulfate [Proair Hfa] 0.09 mg IH Q6 PRN #1 inh 03/23/18 predniSONE [predniSONE Tab] 60 mg PO QAM #15 tab 03/23/18 Albuterol HFA [Ventolin HFA 90 1 - 2 puff IH Q4H PRN #1 bottle 03/26/18 mcg/actuation (8 g)] predniSONE [Prednisone] 40 mg PO DAILY #8 tab 03/26/18 - Allergies Allergies/Adverse Reactions: Allergies Allergy/AdvReac Type Severity Reaction Status Date / Time cats Allergy ITCHING Uncoded 03/23/18 01:32 Review of Systems ROS Statement: Except As Marked, All Systems Reviewed And Found Negative Constitutional: Negative for: Fever, Chills Respiratory: Positive for: Shortness of Breath. Negative for: Cough Gastrointestinal: Negative for: Abdominal Pain Physical Exam - Reviewed Nursing Documentation Reviewed: Yes Vital Signs Reviewed: Yes - Physical Exam Appears: Positive for: Well, Non-toxic, No Acute Distress Head Exam: Positive for: ATRAUMATIC, NORMAL INSPECTION, NORMOCEPHALIC Skin: Positive for: Normal Color, Warm, Dry Eye Exam: Positive for: Normal appearance, EOMI, PERRL ENT: Positive for: Normal ENT Inspection Neck: Positive for: Normal, Painless ROM, Supple. Negative for: Decreased ROM Cardiovascular/Chest: Positive for: Regular Rate, Rhythm. Negative for: Murmur Respiratory: Positive for: Wheezing Gastrointestinal/Abdominal: Positive for: Normal Exam, Soft. Negative for: Tenderness Back: Positive for: Normal Inspection Extremity: Positive for: Normal ROM. Negative for: Tenderness, Pedal Edema, Deformity Neurologic/Psych: Positive for: Alert, Oriented (x3) - ECG O2 Sat by Pulse Oximetry: 95 (RA) Pulse Ox Interpretation: Normal Medical Decision Making Medical Decision Making: Time: 519 Initial Plan: EKG CMP CBC w/ Differential Chest two views [RAD] Albuterol 3ml predniSONE 50mg Nebulizer Treatment [RT] Peak Flow PRE/POST TX Influenza A B Reevaluation Discussed case with Dr. Bustamante. He states there is a small ooze which he noticed when video calling with the patient and he watched the patient's video for an half hour. He said to place a gauze and follow-up at his office. Patient's also spoke with Dr. Bustamante at [facility] ED who agreed to meet with the patient at [place]. Patient refused blood work when offered CBC w/ Differential Scribe Attestation: Documented by Chelsea Mittal, acting as a scribe for Ladonna Carter MD Provider Scribe Attestation: All medical record entries made by the Scribe were at my direction and personally dictated by me. I have reviewed the chart and agree that the record accurately reflects my personal performance of the history, physical exam, medical decision making, and the department course for this patient. I have also personally directed, reviewed, and agree with the discharge instructions and disposition. Disposition - Disposition Forms: [employer] (Botswanan)
[2018-04-05 06:38] LABS: BASO % 0.7 % (0.0-2.0); EOS # 0.4 K/uL (0.0-0.7); EOS % 6.1 % (0.0-4.0); HEMOGLOBIN 15.5 g/dL (12.0-18.0); LYMPH # 1.7 K/uL (1.0-4.3); LYMPH % 27.7 % (20.0-40.0); MEAN CELL VOLUME 99.4 fl (80.0-94.0); MEAN CORPUSCULAR HEMOGLOBIN 33.4 pg (27.0-31.0); MEAN CORPUSCULAR HGB CONC 33.5 g/dL (33.0-37.0); MONO # 0.5 K/uL (0.0-0.8); NEUT # 3.4 K/uL (1.8-7.0); NEUT % 56.5 % (50.0-75.0); NRBC % 0.1 % (0.0-0.0); RBC 4.65 Mil/uL (4.40-5.90); RED CELL DISTRIBUTION WIDTH 14.3 % (11.5-14.5)
--- NOTE | 2018-04-05 06:38 | ED PDOC ---
HPI: SOB/CHF/COPD Time Seen by Provider: 04/05/18 05:15 Chief Complaint (Nursing): Shortness Of Breath Chief Complaint (Provider): Shortness Of Breath History Per: Patient History/Exam Limitations: no limitations Onset/Duration Of Symptoms: Days Current Symptoms Are (Timing): Still Present Additional Complaint(s): 52 year old undomiciled male with a PMHx of COPD presents to the ED for an evaluation of shortness of breath onset for 2 days. Patient is well known to [facility] and ER staff and was seen at [facility] few days ago and provided prescription. Patient states someone stole the prescription. Otherwise he denies fever, vomiting, cough or chest pain. PMD: Dr. Hurley Past Medical History Reviewed: Historical Data, Nursing Documentation, Vital Signs Vital Signs: Last Vital Signs Temp 97.7 F 04/05/18 05:14 Pulse 80 04/05/18 05:14 Resp 19 04/05/18 05:40 BP 93/51 L 04/05/18 05:24 Pulse Ox 95 04/05/18 05:40 - Medical History PMH: Anxiety, Arthritis (arthritis of neck and back), Back Problems (chronic kierra k pain ), Bipolar Disorder, COPD, Depression, Diabetes, Emphysema, Fractures (skull, right pinky), Pneumonia, Sleep Apnea Denies: Hepatitis, HIV, HTN, Chronic Kidney Disease, Seizures, Sexually Fuller smitted Disease - Surgical History Surgical History: Appendectomy, Hernia Repair (ventral), Tonsillectomy - Family History Family History: States: Unknown Family Hx - Social History Current smoker - smoking cessation education provided: Yes Alcohol: Social Drugs: Cocaine - Immunization History Hx Tetanus Toxoid Vaccination: No (UTD) Hx Influenza Vaccination: Yes Hx Pneumococcal Vaccination: Yes - Home Medications Home Medications: Ambulatory Orders Medication Instructions Recorded Symbicort 160-4.5 Mcg Inhaler 03/18/18 Albuterol Sulfate [Proair Hfa] 0.09 mg IH Q6 PRN #1 inh 03/23/18 RX: predniSONE [predniSONE Tab] 60 mg PO QAM #15 tab 03/23/18 RX: Albuterol HFA [Ventolin HFA 90 1 - 2 puff IH Q4H PRN #1 bottle 03/26/18 mcg/actuation (8 g)] predniSONE [Prednisone] 40 mg PO DAILY #8 tab 03/26/18 RX: Albuterol HFA [Ventolin HFA 90 1 - 2 puff IH Q4H PRN #1 bottle 04/05/18 mcg/actuation (8 g)] predniSONE [Prednisone] 40 mg PO DAILY #8 tab 04/05/18 - Allergies Allergies/Adverse Reactions: Allergies Allergy/AdvReac Type Severity Reaction Status Date / Time cats Allergy ITCHING Uncoded 03/23/18 01:32 Wells Criteria for PE - Wells Criteria for Pulmonary Embolism Clinical Signs and Symptoms of DVT: No P.E is #1 Diagnosis, or Equally Likely: No Heart Rate >100: No Immobilization at least 3 days;Surgery previous 4 weeks: No Previous, objectively diagnosed PE or DVT: No Hemoptysis: No Malignancy w/treatment within 6 months, or palliative: No Total Score: 0 Review of Systems ROS Statement: Except As Marked, All Systems Reviewed And Found Negative Constitutional: Negative for: Fever, Chills Cardiovascular: Negative for: Chest Pain Respiratory: Positive for: Shortness of Breath Gastrointestinal: Negative for: Nausea, Vomiting, Abdominal Pain, Diarrhea Physical Exam - Reviewed Nursing Documentation Reviewed: Yes Vital Signs Reviewed: Yes - Physical Exam Appears: Positive for: Well (resting comfortable in no distress), Non-toxic, No Acute Distress Head Exam: Positive for: ATRAUMATIC, NORMAL INSPECTION, NORMOCEPHALIC Skin: Positive for: Normal Color, Warm, Dry Eye Exam: Positive for: EOMI, Normal appearance, PERRL ENT: Positive for: Normal ENT Inspection Neck: Positive for: Normal, Painless ROM, Supple. Negative for: Decreased ROM Cardiovascular/Chest: Positive for: Regular Rate, Rhythm. Negative for: Murmur Respiratory: Positive for: Wheezing (mild) Gastrointestinal/Abdominal: Positive for: Normal Exam, Soft. Negative for: Tenderness Back: Positive for: Normal Inspection Extremity: Positive for: Normal ROM. Negative for: Tenderness, Pedal Edema, Deformity Neurologic/Psych: Positive for: Alert, Oriented (x3). Negative for: Motor/Sensory Deficits - Laboratory Results Result Diagrams: 04/05/18 06:20 04/05/18 06:20 - ECG O2 Sat by Pulse Oximetry: 95 (RA) Pulse Ox Interpretation: Normal Medical Decision Making Medical Decision Making: Time: 05 Initial Plan: copd exacerbation EKG CMP CBC w/ Differential Chest two views [RAD] Albuterol 3ml predniSONE 50mg Nebulizer Treatment [RT] Peak Flow PRE/POST TX Influenza A B Reevaluation Time: 0700 -- On re-evaluation, patient reports of feeling better. Vitals have improved. Patient is stable to be discharged home with a diagnosis of COPD and new prescriptions for albuterol and prednisone. --- Scribe Attestation: Documented by Chelsea Mittal, acting as a scribe for Ladonna Carter MD Provider Scribe Attestation: All medical record entries made by the Scribe were at my direction and personally dictated by me. I have reviewed the chart and agree that the record accurately reflects my personal performance of the history, physical exam, medical decision making, and the department course for this patient. I have also personally directed, reviewed, and agree with the discharge instructions and disposition. Disposition - Clinical Impression Clinical Impression: COPD (chronic obstructive pulmonary disease) with acute bronchitis - Patient ED Disposition Is Patient to be Admitted: No Counseled Patient/Family Regarding: Studies Performed, Diagnosis, Need For Followup - Disposition Referrals: [facility] [Outside] [facility] [Outside] Disposition: Routine/Home Disposition Time: 07:00 Condition: IMPROVED Additional Instructions: follow up with the clinic in 1-2 days for reevaluation return to the ED with any worsening or concerning symptoms Prescriptions: RX: Albuterol HFA [Ventolin HFA 90 mcg/actuation (8 g)] 1 - 2 puff IH Q4H PRN #1 bottle PRN Reason: Wheezing predniSONE [Prednisone] 40 mg PO DAILY #8 tab Instructions: Chronic Obstructive Pulmonary Disease (COPD), Including Emphysema Forms: [employer] (Mozambican)
[2018-04-05 06:43] LABS: ALB/GLOB RATIO 1.4 (1.0-2.1); ALBUMIN 3.6 g/dL (3.5-5.0); ALT/SGPT 125 U/L (21-72); AST/SGOT 61 U/L (17-59); BLOOD UREA NITROGEN 16 mg/dl (9-20); CALCIUM 9.5 mg/dL (8.4-10.2); GFR NON-AFRICAN AMERICAN > 60
[2018-04-05 07:19] VITALS: BP 150/90; PULSE 91; RESP 18
--- NOTE | 2018-04-05 09:06 | RAD ---
Date of service: 04/05/2018 HISTORY: sob COMPARISON: No prior. TECHNIQUE: Chest PA and lateral FINDINGS: LUNGS: No active pulmonary disease. PLEURA: No significant pleural effusion identified. No pneumothorax apparent. CARDIOVASCULAR: No aortic atherosclerotic calcification present. Normal cardiac size. No pulmonary vascular congestion. OSSEOUS STRUCTURES: No significant abnormalities. VISUALIZED UPPER ABDOMEN: Normal. OTHER FINDINGS: None. IMPRESSION: No active disease.
[2018-04-06 01:43] VITALS: O2SAT 95
--- NOTE | 2018-04-06 13:46 | CARD ---
APPROVED REPORT Date of service: 04/05/2018 EKG Measurement Heart [id number] <Conclusion> Normal sinus rhythm Normal ECG
== END 2018-04-05 07:18 | disposition home or self-care (01) ==
LOC: H.ER 05:08
DX: J44.0 Chronic obstructive pulmonary disease with (acute) lower respiratory infection (principal); E11.9 Type 2 diabetes mellitus without complications; Z79.899 Other long term (current) drug therapy

== ENCOUNTER 2018-04-10 01:06 | Emergency (ER) | payer MEDICAID, OTHER ==
[2018-04-10 01:06] VITALS: BMI 33.2
[2018-04-10 01:28] VITALS: O2SAT 97
[2018-04-10] MEDS ORDERED: Albuterol-Ipratrop 3 mg / 0.5 (3 ml) UD INH STA (01:34)
--- NOTE | 2018-04-10 01:41 | ED PDOC ---
HPI: CCC, URI, Sore Throat Time Seen by Provider: 04/10/18 01:25 Chief Complaint (Nursing): Cough, Cold, Congestion Chief Complaint (Provider): cough, cold, congestion History Per: Patient History/Exam Limitations: no limitations Onset/Duration Of Symptoms: Days (x2) Current Symptoms Are (Timing): Still Present Additional Complaint(s): 52 year old undomiciled, male, well known to provider for multiple visits with bed-seeking behavior and pmHx of COPD, arrives to ED complaining of persistent cough, shortness of breath, and back pain that worsen in the last 2 days. Patient does not offer further medical complaints and appears in no distress. He admits to actively smoking cigarettes. PCP: Dr. Yennifer Hurley Past Medical History Reviewed: Historical Data, Nursing Documentation, Vital Signs Vital Signs: Last Vital Signs Temp 98.3 F 04/10/18 01:26 Pulse 95 H 04/10/18 01:26 Resp 16 04/10/18 01:26 BP 123/83 04/10/18 01:26 Pulse Ox 97 04/10/18 01:26 - Medical History PMH: Anxiety, Arthritis (arthritis of neck and back), Back Problems (chronic back pain ), Bipolar Disorder, COPD, Depression, Diabetes, Emphysema, Fractures (skull, right pinky), Pneumonia, Sleep Apnea Denies: Hepatitis, HIV, HTN, Chronic Kidney Disease, Seizures, Sexually Transmitted Disease - Surgical History Surgical History: Appendectomy, Hernia Repair (ventral), Tonsillectomy - Family History Family History: States: Unknown Family Hx - Social History Current smoker - smoking cessation education provided: Yes - Immunization History Hx Tetanus Toxoid Vaccination: No (UTD) Hx Influenza Vaccination: Yes Hx Pneumococcal Vaccination: Yes - Home Medications Home Medications: Ambulatory Orders Medication Instructions Recorded Albuterol HFA [Ventolin HFA 90 1 - 2 puff IH Q6 PRN #1 inhaler 04/10/18 mcg/actuation (8 g)] - Allergies Allergies/Adverse Reactions: Allergies Allergy/AdvReac Type Severity Reaction Status Date / Time cats Allergy ITCHING Uncoded 04/10/18 01:28 Review of Systems ROS Statement: Except As Marked, All Systems Reviewed And Found Negative Respiratory: Positive for: Cough, Shortness of Breath Musculoskeletal: Positive for: Back Pain Physical Exam - Reviewed Nursing Documentation Reviewed: Yes Vital Signs Reviewed: Yes - Physical Exam Appears: Positive for: No Acute Distress Head Exam: Positive for: ATRAUMATIC, NORMAL INSPECTION, NORMOCEPHALIC Skin: Positive for: Normal Color Eye Exam: Positive for: Normal appearance, EOMI, PERRL ENT: Positive for: Normal ENT Inspection Neck: Positive for: Normal, Supple Cardiovascular/Chest: Positive for: Regular Rate, Rhythm, Chest Non Tender Respiratory: Positive for: Wheezing (mild bilaterally on expiration). Negative for: Respiratory Distress Gastrointestinal/Abdominal: Positive for: Normal Exam Back: Positive for: Normal Inspection Extremity: Positive for: Normal ROM (upper/lower). Negative for: Pedal Edema, Calf Tenderness Neurologic/Psych: Positive for: Alert, Oriented. Negative for: Motor/Sensory Deficits - ECG O2 Sat by Pulse Oximetry: 97 (RA) Pulse Ox Interpretation: Normal Medical Decision Making Medical Decision Making: Initial Impression: 52 year old male with bed-seeking behavior. Initial Plan: * CXR * Duoneb 9ml INH * Influenza AB Time: 0245 --CXR: no active disease noted on wet read. Time: 0410 --Upon provider reevaluation, patient is medically stable, reports marketable improvement in symptoms, and requires no further treatment in the ED at this time. Patient will be discharged home. Counseling was provided and all questions were answered regarding diagnosis. There is agreement to discharge plan. Return if symptoms persist or worsen. Clinical Impression: COPD Scribe Attestation: Documented by Alyson Mena, acting as a scribe for Lazaro Worrell MD. Provider Scribe Attestation: All medical record entries made by the Scribe were at my direction and personally dictated by me. I have reviewed the chart and agree that the record accurately reflects my personal performance of the history, physical exam, medical decision making, and the department course for this patient. I have also personally directed, reviewed, and agree with the discharge instructions and disposition. Disposition - Clinical Impression Clinical Impression: COPD (chronic obstructive pulmonary disease) - Patient ED Disposition Is Patient to be Admitted: No Counseled Patient/Family Regarding: Studies Performed, Diagnosis, Rx Given - Disposition Disposition: Routine/Home Disposition Time: 04:10 Condition: STABLE Prescriptions: Albuterol HFA [Ventolin HFA 90 mcg/actuation (8 g)] 1 - 2 puff IH Q6 PRN #1 inhaler PRN Reason: Shortness Of Breath Instructions: COPD Including Emphysema (DC) Forms: [employer] (Khmer)
[2018-04-10] MEDS ORDERED: Albuterol-Ipratrop 3 mg / 0.5 (3 ml) UD ONE (02:14)
[2018-04-10 06:23] VITALS: BP 126/77; PULSE 84; RESP 18; TEMP 97.8
--- NOTE | 2018-04-10 08:09 | RAD ---
Date of service: 04/10/2018 HISTORY: chest pain COMPARISON: No prior. FINDINGS: LUNGS: No active pulmonary disease. PLEURA: No significant pleural effusion identified, no pneumothorax apparent. CARDIOVASCULAR: No aortic atherosclerotic calcification present. Normal cardiac size. Mild pulmonary vascular congestion suspected. OSSEOUS STRUCTURES: No significant abnormalities. VISUALIZED UPPER ABDOMEN: Normal. OTHER FINDINGS: None. IMPRESSION: Mild pulmonary vascular congestion suspected. No infiltrate bilaterally, pleural effusion or pneumothorax.
== END 2018-04-10 06:22 | disposition home or self-care (01) ==
LOC: H.ER 01:06
DX: J44.9 Chronic obstructive pulmonary disease, unspecified (principal); E11.9 Type 2 diabetes mellitus without complications; F17.210 Nicotine dependence, cigarettes, uncomplicated; Z86.59 Personal history of other mental and behavioral disorders; G89.29 Other chronic pain; Z79.899 Other long term (current) drug therapy; M19.90 Unspecified osteoarthritis, unspecified site

== ENCOUNTER 2018-04-21 22:49 | Emergency (ER) | payer OTHER ==
[2018-04-21 22:49] VITALS: BMI 33.2
[2018-04-21 23:07] VITALS: TEMP 97.7
[2018-04-21] MEDS ORDERED: Albuterol-Ipratrop 3 mg / 0.5 (3 ml) UD IH STA (23:56)
[2018-04-22] MEDS ORDERED: Albuterol-Ipratrop 3 mg / 0.5 (3 ml) UD IH STA (00:08)
[2018-04-22 09:27] VITALS: BP 148/62; PULSE 98; RESP 20; O2SAT 95
--- NOTE | 2018-04-29 06:07 | CARD ---
APPROVED REPORT Date of service: 04/21/2018 EKG Measurement Heart [id number] <Conclusion> Sinus rhythm with short TX with premature atrial complexes Otherwise normal ECG
--- NOTE | 2018-05-06 03:19 | ED PDOC ---
HPI: SOB/CHF/COPD Time Seen by Provider: 04/21/18 23:34 Chief Complaint (Nursing): Shortness Of Breath Chief Complaint (Provider): shortness of breath History Per: Patient History/Exam Limitations: no limitations Onset/Duration Of Symptoms: Hrs Current Symptoms Are (Timing): Still Present Additional Complaint(s): 53 y/o male presents for evaluation of shortness of breath x a few hours. Patient states symptoms consistent with his COPD. Denies fever, congestion, chest pain, palpitations, leg pain/swelling. 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 Past Medical History Reviewed: Historical Data, Nursing Documentation, Vital Signs Vital Signs: Last Vital Signs Temp 97.7 F 04/21/18 23:04 Pulse 98 H 04/22/18 04:45 Resp 20 04/22/18 04:45 BP 148/62 04/22/18 04:45 Pulse Ox 95 04/22/18 04:45 - Medical History PMH: Anxiety, Arthritis (arthritis of neck and back), Back Problems (chronic back pain ), Bipolar Disorder, COPD, Depression, Diabetes, Emphysema, Fractures (skull, right pinky), Pneumonia, Sleep Apnea Denies: Hepatitis, HIV, HTN, Chronic Kidney Disease, Seizures, Sexually Transmitted Disease - Surgical History Surgical History: Appendectomy, Hernia Repair (ventral), Tonsillectomy - Family History Family History: States: Unknown Family Hx - Immunization History Hx Tetanus Toxoid Vaccination: No (UTD) Hx Influenza Vaccination: Yes Hx Pneumococcal Vaccination: Yes - Home Medications Home Medications: Ambulatory Orders Medication Instructions Recorded Albuterol HFA [Ventolin HFA 90 1 - 2 puff IH Q6 PRN #1 inhaler 04/10/18 mcg/actuation (8 g)] Fluticasone/Salmeterol 1 each IH DAILY 04/25/18 [Fluticasone-Salmeterol 113-14] Ibuprofen [Motrin] 600 mg PO Q6 04/25/18 levoFLOXacin [Levaquin] 750 mg PO DAILY 04/25/18 - Allergies Allergies/Adverse Reactions: Allergies Allergy/AdvReac Type Severity Reaction Status Date / Time cats Allergy ITCHING Uncoded 05/05/18 01:27 Review of Systems ROS Statement: Except As Marked, All Systems Reviewed And Found Negative Respiratory: Positive for: Shortness of Breath Physical Exam - Reviewed Nursing Documentation Reviewed: Yes Vital Signs Reviewed: Yes - Physical Exam Appears: Positive for: Well, Non-toxic, No Acute Distress Head Exam: Positive for: ATRAUMATIC, NORMAL INSPECTION, NORMOCEPHALIC Skin: Positive for: Normal Color Eye Exam: Positive for: Normal appearance ENT: Positive for: Normal ENT Inspection Cardiovascular/Chest: Positive for: Regular Rate, Rhythm Respiratory: Positive for: Wheezing (mild expiratory wheezing bilaterally). Negative for: Accessory Muscle Use, Crackles, Rales, Rhonchi, Respiratory Distress Gastrointestinal/Abdominal: Positive for: Normal Exam Back: Positive for: Normal Inspection Extremity: Positive for: Normal ROM Neurologic/Psych: Positive for: Alert, Oriented (x3) - ECG ECG: Positive for: Viewed By Me (reviewed by ED attending) ECG Rhythm: Positive for: Sinus Rhythm O2 Sat by Pulse Oximetry: 95 Disposition - Clinical Impression Clinical Impression: COPD (chronic obstructive pulmonary disease) - Patient ED Disposition Is Patient to be Admitted: No Counseled Patient/Family Regarding: Studies Performed, Diagnosis, Need For Followup - Disposition Disposition: Routine/Home Disposition Time: 02:00 Condition: IMPROVED Instructions: COPD Including Emphysema (DC) Forms: [employer] (Armenian)
== END 2018-04-22 04:45 | disposition home or self-care (01) ==
LOC: H.ER 22:49
DX: J44.9 Chronic obstructive pulmonary disease, unspecified (principal); E11.9 Type 2 diabetes mellitus without complications; Z86.59 Personal history of other mental and behavioral disorders; G89.29 Other chronic pain; M19.90 Unspecified osteoarthritis, unspecified site

== ENCOUNTER 2018-05-05 01:13 | Emergency (ER) | payer MEDICAID, OTHER ==
[2018-05-05 01:28] VITALS: BMI 32.5
[2018-05-05 01:29] VITALS: RESP 18; TEMP 98
[2018-05-05] MEDS ORDERED: Albuterol-Ipratrop 3 mg / 0.5 (3 ml) UD INH STA (02:24)
--- NOTE | 2018-05-05 02:29 | ED PDOC ---
HPI: SOB/CHF/COPD Time Seen by Provider: 05/05/18 01:32 Chief Complaint (Nursing): Shortness Of Breath Chief Complaint (Provider): Shortness Of Breath History Per: Patient History/Exam Limitations: no limitations Onset/Duration Of Symptoms: Hrs (x2) Additional Complaint(s): 53 year old undomiciled, male, well known to provider for multiple visits with bed-seeking behavior and pmHx of COPD, arrives to ED complaining of shortness of breath onset 2 hours ago. PMD: None provided Past Medical History Reviewed: Historical Data, Nursing Documentation, Vital Signs Vital Signs: Last Vital Signs Temp 98.0 F 05/05/18 01:28 Pulse 81 05/05/18 01:28 Resp 18 05/05/18 01:28 BP 157/89 H 05/05/18 01:28 Pulse Ox 94 L 05/05/18 01:28 - Medical History PMH: Anxiety, Arthritis (arthritis of neck and back), Back Problems (chronic back pain ), Bipolar Disorder, COPD, Depression, Diabetes, Emphysema, Fractures (skull, right pinky), Pneumonia, Sleep Apnea Denies: Hepatitis, HIV, HTN, Chronic Kidney Disease, Seizures, Sexually Transmitted Disease - Surgical History Surgical History: Appendectomy, Hernia Repair (ventral), Tonsillectomy - Family History Family History: States: Unknown Family Hx - Immunization History Hx Tetanus Toxoid Vaccination: No (UTD) Hx Influenza Vaccination: Yes Hx Pneumococcal Vaccination: Yes - Home Medications Home Medications: Ambulatory Orders Medication Instructions Recorded Albuterol HFA [Ventolin HFA 90 1 - 2 puff IH Q6 PRN #1 inhaler 04/10/18 mcg/actuation (8 g)] Fluticasone/Salmeterol 1 each IH DAILY 04/25/18 [Fluticasone-Salmeterol 113-14] Ibuprofen [Motrin] 600 mg PO Q6 04/25/18 levoFLOXacin [Levaquin] 750 mg PO DAILY 04/25/18 - Allergies Allergies/Adverse Reactions: Allergies Allergy/AdvReac Type Severity Reaction Status Date / Time cats Allergy ITCHING Uncoded 05/05/18 01:27 Review of Systems ROS Statement: Except As Marked, All Systems Reviewed And Found Negative Respiratory: Positive for: Shortness of Breath Physical Exam - Reviewed Nursing Documentation Reviewed: Yes Vital Signs Reviewed: Yes - Physical Exam Appears: Positive for: Well, No Acute Distress Head Exam: Positive for: ATRAUMATIC, NORMOCEPHALIC Skin: Positive for: Normal Color, Warm, Dry Eye Exam: Positive for: Normal appearance, EOMI, PERRL Cardiovascular/Chest: Positive for: Regular Rate, Rhythm. Negative for: Murmur Respiratory: Positive for: Normal Breath Sounds. Negative for: Wheezing Gastrointestinal/Abdominal: Positive for: Normal Exam, Soft. Negative for: Tenderness Back: Positive for: Normal Inspection. Negative for: L CVA Tenderness, R CVA Te nderness Extremity: Positive for: Normal ROM. Negative for: Pedal Edema, Swelling Neurologic/Psych: Positive for: Alert, Oriented (x3) - ECG O2 Sat by Pulse Oximetry: 94 (RA) Pulse Ox Interpretation: Abnormal Medical Decision Making Medical Decision Making: Time: 128 Initial Impression: 53 years old homeless male with shortness of breath Initial Plan: --EKG --Duoneb 3 ml INH --Peak flow pre/post treatment 0619 No apparent respiratory distress. Patient resting comfortably throughout the night, stable for discharge. Diagnosis COPD and malingering disorder. Scribe Attestation: Documented by Naila Lindsey, acting as a scribe for Lazaro Worrell MD. Provider Scribe Attestation: All medical record entries made by the Scribe were at my direction and personally dictated by me. I have reviewed the chart and agree that the record accurately reflects my personal performance of the history, physical exam, medical decision making, and the department course for this patient. I have also personally directed, reviewed, and agree with the discharge instructions and disposition. Disposition - Clinical Impression Clinical Impression: COPD (chronic obstructive pulmonary disease), Malingering - Patient ED Disposition Is Patient to be Admitted: No - Disposition Disposition: Routine/Home Disposition Time: 06:19 Condition: STABLE Instructions: Chronic Obstructive Pulmonary Disease (COPD), Including Emphysema Forms: [employer] (Romanian)
[2018-05-05] MEDS ORDERED: Albuterol-Ipratrop 3 mg / 0.5 (3 ml) UD ONE (03:42)
[2018-05-05 06:49] VITALS: BP 144/89; PULSE 78; O2SAT 96
--- NOTE | 2018-05-05 20:33 | CARD ---
APPROVED REPORT Date of service: 05/05/2018 EKG Measurement Heart [id number] <Conclusion> Normal sinus rhythm Normal ECG
== END 2018-05-05 06:49 | disposition home or self-care (01) ==
LOC: H.ER 01:13
DX: J44.9 Chronic obstructive pulmonary disease, unspecified (principal); Z76.5 Malingerer [conscious simulation]; Z59.0 Homelessness; G89.29 Other chronic pain; E11.9 Type 2 diabetes mellitus without complications; Z86.59 Personal history of other mental and behavioral disorders; M19.90 Unspecified osteoarthritis, unspecified site

== ENCOUNTER 2018-05-12 01:03 | Emergency (ER) | payer OTHER ==
[2018-05-12 01:03] VITALS: BMI 32.5
--- NOTE | 2018-05-12 03:01 | ED PDOC ---
HPI: SOB/CHF/COPD Time Seen by Provider: 05/12/18 01:29 Chief Complaint (Nursing): Shortness Of Breath Chief Complaint (Provider): Shortness Of Breath History Per: Patient History/Exam Limitations: no limitations Additional Complaint(s): 53 years old male with a history of COPD presents to ER for evaluation of shortness of breath. Patient is well known for multiple visits to the ED. He states his last drink was 7 days ago. PMD: None provided Past Medical History Reviewed: Historical Data, Nursing Documentation, Vital Signs Vital Signs: Last Vital Signs Temp 98.6 F 05/12/18 01:13 Pulse 89 05/12/18 01:13 Resp 19 05/12/18 01:13 BP 134/77 05/12/18 01:13 Pulse Ox 97 05/12/18 01:13 - Medical History PMH: Anxiety, Arthritis (arthritis of neck and back), Back Problems (chronic back pain ), Bipolar Disorder, COPD, Depression, Diabetes, Emphysema, Fractures (skull, right pinky), Pneumonia, Sleep Apnea Denies: Hepatitis, HIV, HTN, Chronic Kidney Disease, Seizures, Sexually Transmitted Disease - Surgical History Surgical History: Appendectomy, Hernia Repair (ventral), Tonsillectomy - Family History Family History: States: Unknown Family Hx - Immunization History Hx Tetanus Toxoid Vaccination: No (UTD) Hx Influenza Vaccination: Yes Hx Pneumococcal Vaccination: Yes - Home Medications Home Medications: Ambulatory Orders Medication Instructions Recorded RX: Albuterol HFA [Ventolin HFA 90 1 - 2 puff IH Q6 PRN #1 inhaler 04/10/18 mcg/actuation (8 g)] Fluticasone/Salmeterol 1 each IH DAILY 04/25/18 [Fluticasone-Salmeterol 113-14] Ibuprofen [Motrin] 600 mg PO Q6 04/25/18 levoFLOXacin [Levaquin] 750 mg PO DAILY 04/25/18 - Allergies Allergies/Adverse Reactions: Allergies Allergy/AdvReac Type Severity Reaction Status Date / Time cats Allergy ITCHING Uncoded 05/05/18 01:27 Review of Systems ROS Statement: Except As Marked, All Systems Reviewed And Found Negative Respiratory: Positive for: Shortness of Breath Physical Exam - Reviewed Nursing Documentation Reviewed: Yes Vital Signs Reviewed: Yes - Physical Exam Appears: Positive for: Well, No Acute Distress Head Exam: Positive for: ATRAUMATIC, NORMOCEPHALIC Skin: Positive for: Normal Color Neck: Positive for: Normal Cardiovascular/Chest: Positive for: Regular Rate, Rhythm. Negative for: Murmur Respiratory: Positive for: Rhonchi (slight) Gastrointestinal/Abdominal: Positive for: Soft Neurologic/Psych: Positive for: Alert, Oriented (x3) - ECG O2 Sat by Pulse Oximetry: 97 (RA) Pulse Ox Interpretation: Normal Medical Decision Making Medical Decision Making: Time: 121 Initial Plan: acute on chronic cough/copd --EKG --Albuterol 2.5 mg INH --Peak flow pre/post treatment 0412 Upon provider reevaluation patient is feeling better, is medically stable, and requires no further treatment in the ED at this time. Patient will be discharged home. Counseling was provided and all questions were answered regarding diagnosis. There is agreement to discharge plan. Return if symptoms persist or worsen. Scribe Attestation: Documented by Naila Lindsey, acting as a scribe for Ladonna Carter MD. Provider Scribe Attestation: All medical record entries made by the Scribe were at my direction and personally dictated by me. I have reviewed the chart and agree that the record accurately reflects my personal performance of the history, physical exam, medical decision making, and the department course for this patient. I have also personally directed, reviewed, and agree with the discharge instructions and disposition. Disposition - Clinical Impression Clinical Impression: COPD exacerbation - Patient ED Disposition Is Patient to be Admitted: No Counseled Patient/Family Regarding: Diagnosis, Need For Followup - Disposition Disposition: Routine/Home Disposition Time: 04:12 Condition: STABLE Additional Instructions: follow up with your primary doctor in 1-2 days use your albuterol at home as needed return to the ED with any worsening or concerning symptoms Instructions: Exacerbation of COPD Forms: [employer] ([place]an)
[2018-05-12] MEDS ORDERED: Albuterol 0.083% Inhal Sol (2.5 mg/3 mL) UD ONE (04:20)
[2018-05-12] MEDS: Albuterol 0.083% Inhal Sol (2.5 mg/3 mL) UD INH ONE (04:26)
[2018-05-12 06:51] VITALS: BP 130/76; PULSE 88; RESP 20; TEMP 98.2; O2SAT 99
== END 2018-05-12 06:20 | disposition home or self-care (01) ==
LOC: H.ER 01:03
DX: J44.1 Chronic obstructive pulmonary disease with (acute) exacerbation (principal); E11.9 Type 2 diabetes mellitus without complications; F31.9 Bipolar disorder, unspecified; F41.9 Anxiety disorder, unspecified; G89.29 Other chronic pain; M19.90 Unspecified osteoarthritis, unspecified site

== ENCOUNTER 2018-05-15 01:33 | Emergency (ER) | payer OTHER ==
[2018-05-15 01:34] VITALS: BMI 32.5
[2018-05-15 02:06] VITALS: BP 135/90; PULSE 82; RESP 18; TEMP 97.5; O2SAT 95
--- NOTE | 2018-05-15 02:29 | ED PDOC ---
HPI: General Adult Time Seen by Provider: 05/15/18 01:44 Chief Complaint (Nursing): Cough, Cold, Congestion Chief Complaint (Provider): Cough, Cold, Congestion History Per: Patient History/Exam Limitations: no limitations Current Symptoms Are (Timing): Still Present Additional Complaint(s): 53 year old undomiciled male with a history of COPD arrives to ED complaining of ongoing cough and shortness of breath. He is well known to provider for multiple visits with bed-seeking behavior. Offers no other complaints. PMD: None provided Past Medical History Reviewed: Historical Data, Nursing Documentation, Vital Signs Vital Signs: Last Vital Signs Temp 97.5 F L 05/15/18 02:03 Pulse 82 05/15/18 02:03 Resp 18 05/15/18 02:03 BP 135/90 05/15/18 02:03 Pulse Ox 95 05/15/18 02:03 - Medical History PMH: Anxiety, Arthritis (arthritis of neck and back), Back Problems (chronic back pain ), Bipolar Disorder, COPD, Depression, Diabetes, Emphysema, Fractures (skull, right pinky), Pneumonia, Sleep Apnea Denies: Hepatitis, HIV, HTN, Chronic Kidney Disease, Seizures, Sexually Transmitted Disease - Surgical History Surgical History: Appendectomy, Hernia Repair (ventral), Tonsillectomy - Family History Family History: States: Unknown Family Hx - Immunization History Hx Tetanus Toxoid Vaccination: No (UTD) Hx Influenza Vaccination: Yes Hx Pneumococcal Vaccination: Yes - Home Medications Home Medications: Ambulatory Orders Medication Instructions Recorded RX: Albuterol HFA [Ventolin HFA 90 1 - 2 puff IH Q6 PRN #1 inhaler 04/10/18 mcg/actuation (8 g)] Fluticasone/Salmeterol 1 each IH DAILY 04/25/18 [Fluticasone-Salmeterol 113-14] Ibuprofen [Motrin] 600 mg PO Q6 04/25/18 levoFLOXacin [Levaquin] 750 mg PO DAILY 04/25/18 - Allergies Allergies/Adverse Reactions: Allergies Allergy/AdvReac Type Severity Reaction Status Date / Time cats Allergy ITCHING Uncoded 05/15/18 02:03 Review of Systems ROS Statement: Except As Marked, All Systems Reviewed And Found Negative Constitutional: Negative for: Fever, Chills Cardiovascular: Negative for: Chest Pain Respiratory: Positive for: Cough, Shortness of Breath Gastrointestinal: Negative for: Nausea, Vomiting, Abdominal Pain Physical Exam - Reviewed Nursing Documentation Reviewed: Yes Vital Signs Reviewed: Yes - Physical Exam Appears: Positive for: Non-toxic, No Acute Distress Head Exam: Positive for: ATRAUMATIC, NORMAL INSPECTION, NORMOCEPHALIC Skin: Positive for: Normal Color, Warm, Dry Eye Exam: Positive for: EOMI, Normal appearance, PERRL Neck: Positive for: Normal, Painless ROM, Supple Cardiovascular/Chest: Positive for: Regular Rate, Rhythm Respiratory: Positive for: Normal Breath Sounds. Negative for: Wheezing, Respiratory Distress Extremity: Positive for: Normal ROM (x 4). Negative for: Deformity Neurologic/Psych: Positive for: Alert, Oriented (x 3). Negative for: Motor/Sensory Deficits - ECG O2 Sat by Pulse Oximetry: 95 (RA) Pulse Ox Interpretation: Normal Medical Decision Making Medical Decision Makin:47 Impression: 53 year old male with shortness of breath in setting of COPD Initial Plan: --Duoneb 3 ml INH --Peak flow pre/post 05:16 Patient requires no further treatment in the ED and reports improvement of symptoms. He is stable for discharge. Diagnoses are COPD and malingering. Scribe Attestation: Documented by Milly Lucas acting as a scribe for Lazaro Worrell MD Provider Scribe Attestation: All medical record entries made by the Scribe were at my direction and personally dictated by me. I have reviewed the chart and agree that the record accurately reflects my personal performance of the history, physical exam, me dical decision making, and the department course for this patient. I have also personally directed, reviewed, and agree with the discharge instructions and disposition. Disposition - Clinical Impression Clinical Impression: Malingering - Patient ED Disposition Is Patient to be Admitted: No - Disposition Disposition: Routine/Home Disposition Time: 05:16 Condition: STABLE Forms: [employer] (Malay)
[2018-05-15] MEDS ORDERED: Albuterol-Ipratrop 3 mg / 0.5 (3 ml) UD INH STA (02:47)
[2018-05-15] MEDS ORDERED: Albuterol-Ipratrop 3 mg / 0.5 (3 ml) UD ONE (03:27)
== END 2018-05-15 07:02 | disposition home or self-care (01) ==
LOC: H.ER 01:33
DX: Z76.5 Malingerer [conscious simulation] (principal)

== ENCOUNTER 2018-05-19 01:52 | Emergency (ER) | payer OTHER ==
[2018-05-19 01:52] VITALS: BMI 32.5
--- NOTE | 2018-05-19 02:31 | ED PDOC ---
HPI: SOB/CHF/COPD Time Seen by Provider: 05/19/18 02:25 Chief Complaint (Nursing): Chest Pain Chief Complaint (Provider): shortness of breath History Per: Patient History/Exam Limitations: no limitations Onset/Duration Of Symptoms: Hrs Current Symptoms Are (Timing): Still Present Additional Complaint(s): 53 y/o male brought in by EMS for evaluation of shortness of breath and chest tightness. Patient states symptoms consistent with his COPD; reports little improvement with inhaler and Prednisone. Denies fever, congestion, palpitations, leg pain/swelling, recent travel. Past Medical History Reviewed: Historical Data, Nursing Documentation, Vital Signs Vital Signs: Last Vital Signs Temp 98.9 F 05/19/18 02:20 Pulse 102 H 05/19/18 02:20 Resp 18 05/19/18 02:20 BP 145/76 05/19/18 02:20 Pulse Ox 97 05/19/18 02:20 - Medical History PMH: Anxiety, Arthritis (arthritis of neck and back), Back Problems (chronic back pain ), Bipolar Disorder, COPD, Depression, Diabetes, Emphysema, Fractures (skull, right pinky), Pneumonia, Sleep Apnea Denies: Hepatitis, HIV, HTN, Chronic Kidney Disease, Seizures, Sexually Transmitted Disease - Surgical History Surgical History: Appendectomy, Hernia Repair (ventral), Tonsillectomy - Family History Family History: States: Unknown Family Hx - Immunization History Hx Tetanus Toxoid Vaccination: No (UTD) Hx Influenza Vaccination: Yes Hx Pneumococcal Vaccination: Yes - Home Medications Home Medications: Ambulatory Orders Medication Instructions Recorded Albuterol HFA [Ventolin HFA 90 1 - 2 puff IH Q6 PRN #1 inhaler 04/10/18 mcg/actuation (8 g)] Fluticasone/Salmeterol 1 each IH DAILY 04/25/18 [Fluticasone-Salmeterol 113-14] Ibuprofen [Motrin] 600 mg PO Q6 04/25/18 levoFLOXacin [Levaquin] 750 mg PO DAILY 04/25/18 Albuterol HFA [Ventolin HFA 90 1 puff IH .Q4-6H #1 inhaler 05/17/18 mcg/actuation (8 g)] predniSONE [predniSONE Tab] 2 tab PO DAILY #8 tab 05/17/18 - Allergies Allergies/Adverse Reactions: Allergies Allergy/AdvReac Type Severity Reaction Status Date / Time cats Allergy ITCHING Uncoded 05/15/18 02:03 Review of Systems ROS Statement: Except As Marked, All Systems Reviewed And Found Negative Cardiovascular: Positive for: Chest Pain Respiratory: Positive for: Cough, Shortness of Breath Physical Exam - Reviewed Nursing Documentation Reviewed: Yes Vital Signs Reviewed: Yes - Physical Exam Appears: Positive for: Well, Non-toxic, No Acute Distress Head Exam: Positive for: ATRAUMATIC, NORMAL INSPECTION, NORMOCEPHALIC Skin: Positive for: Normal Color Eye Exam: Positive for: Normal appearance ENT: Positive for: Normal ENT Inspection Cardiovascular/Chest: Positive for: Regular Rate, Rhythm Respiratory: Positive for: Wheezing (diffuse expiratory wheezing) Gastrointestinal/Abdominal: Positive for: Normal Exam Back: Positive for: Normal Inspection Extremity: Positive for: Normal ROM Neurologic/Psych: Positive for: Alert, Oriented (x3) - ECG ECG: Positive for: Viewed By Me (reviewed by ED attending) ECG Rhythm: Positive for: Sinus Rhythm O2 Sat by Pulse Oximetry: 97 - Progress ED Course And Treament: -ekg -duoneb x3 On re-eval, patient states he is feeling better. Wheezing improved. No respiratory distress noted Patient was advised to continue current medications and follow up with PMD within 2-3 days Return precautions given Disposition - Clinical Impression Clinical Impression: COPD (chronic obstructive pulmonary disease) - Patient ED Disposition Is Patient to be Admitted: No Counseled Patient/Family Regarding: Studies Performed, Diagnosis, Need For Followup - Disposition Disposition: Routine/Home Disposition Time: 05:08 Condition: IMPROVED Instructions: Chronic Obstructive Pulmonary Disease (COPD), Including Emphysema
[2018-05-19] MEDS: Albuterol-Ipratrop 3 mg / 0.5 (3 ml) UD IH STA ×3 (02:35→02:44)
[2018-05-19] MEDS ORDERED: Albuterol-Ipratrop 3 mg / 0.5 (3 ml) UD ONE (02:35)
[2018-05-19 02:49] VITALS: PULSE 88
[2018-05-19 06:06] VITALS: BP 119/70; RESP 19; TEMP 98; O2SAT 96
--- NOTE | 2018-05-19 08:58 | CARD ---
APPROVED REPORT Date of service: 05/19/2018 EKG Measurement Heart [id number] <Conclusion> Normal sinus rhythm Normal ECG
== END 2018-05-19 06:03 | disposition home or self-care (01) ==
LOC: H.ER 01:52
DX: J44.9 Chronic obstructive pulmonary disease, unspecified (principal); E11.9 Type 2 diabetes mellitus without complications; F31.9 Bipolar disorder, unspecified; R07.89 Other chest pain

== ENCOUNTER 2018-05-22 00:22 | Emergency (ER) | payer OTHER ==
[2018-05-22 00:23] VITALS: BMI 32.5
--- NOTE | 2018-05-22 00:56 | ED PDOC ---
HPI: CCC, URI, Sore Throat Time Seen by Provider: 05/22/18 00:31 Chief Complaint (Nursing): Shortness Of Breath Chief Complaint (Provider): Shortness Of Breath History Per: Patient History/Exam Limitations: no limitations Associated Symptoms: Cough Additional Complaint(s): 53 year old undomiciled male with a history of COPD presents to ED complaining of ongoing cough. Patient is well known to provider for multiple visits with bed-seeking behavior. He offers no other complaints. PMD: Yennifer Hurley Past Medical History Reviewed: Historical Data, Nursing Documentation, Vital Signs Vital Signs: Last Vital Signs Temp 98.7 F 05/22/18 00:23 Pulse 95 H 05/22/18 00:23 Resp 22 05/22/18 00:23 BP 119/69 05/22/18 00:23 Pulse Ox 99 05/22/18 00:23 - Medical History PMH: Anxiety, Arthritis (arthritis of neck and back), Back Problems (chronic back pain ), Bipolar Disorder, COPD, Depression, Diabetes, Emphysema, Fractures (skull, right pinky), Pneumonia, Sleep Apnea Denies: Hepatitis, HIV, HTN, Chronic Kidney Disease, Seizures, Sexually Transmitted Disease - Surgical History Surgical History: Appendectomy, Hernia Repair (ventral), Tonsillectomy - Family History Family History: States: Unknown Family Hx - Immunization History Hx Tetanus Toxoid Vaccination: No (UTD) Hx Influenza Vaccination: Yes Hx Pneumococcal Vaccination: Yes - Home Medications Home Medications: Ambulatory Orders Medication Instructions Recorded Albuterol HFA [Ventolin HFA 90 1 - 2 puff IH Q6 PRN #1 inhaler 04/10/18 mcg/actuation (8 g)] Fluticasone/Salmeterol 1 each IH DAILY 04/25/18 [Fluticasone-Salmeterol 113-14] Ibuprofen [Motrin] 600 mg PO Q6 04/25/18 levoFLOXacin [Levaquin] 750 mg PO DAILY 04/25/18 Albuterol HFA [Ventolin HFA 90 1 puff IH .Q4-6H #1 inhaler 05/17/18 mcg/actuation (8 g)] predniSONE [predniSONE Tab] 2 tab PO DAILY #8 tab 05/17/18 - Allergies Allergies/Adverse Reactions: Allergies Allergy/AdvReac Type Severity Reaction Status Date / Time cats Allergy ITCHING Uncoded 05/22/18 00:24 Review of Systems ROS Statement: Except As Marked, All Systems Reviewed And Found Negative Respiratory: Positive for: Cough Physical Exam - Reviewed Nursing Documentation Reviewed: Yes Vital Signs Reviewed: Yes - Physical Exam Appears: Positive for: Well, No Acute Distress Head Exam: Positive for: ATRAUMATIC, NORMOCEPHALIC Skin: Positive for: Normal Color, Warm, Dry Eye Exam: Positive for: Normal appearance, EOMI, PERRL ENT: Positive for: Normal ENT Inspection Neck: Positive for: Normal, Painless ROM, Supple Cardiovascular/Chest: Positive for: Regular Rate, Rhythm. Negative for: Murmur Respiratory: Positive for: Normal Breath Sounds. Negative for: Respiratory Distress Gastrointestinal/Abdominal: Positive for: Normal Exam, Soft. Negative for: Tenderness Back: Positive for: Normal Inspection. Negative for: L CVA Tenderness, R CVA Tenderness Extremity: Positive for: Normal ROM. Negative for: Pedal Edema, Swelling Neurologic/Psych: Positive for: Alert, Oriented (x3) - ECG O2 Sat by Pulse Oximetry: 99 (RA) Pulse Ox Interpretation: Normal Medical Decision Making Medical Decision Making: Time: 0050 Initial Impression: 53 years old male with bed-seeking behavior. 0610 Patient has been resting comfortably throughout the night. He is medically stable for discharge. Diagnosis: COPD and malingering Scribe Attestation: Documented by Naila Lindsey, acting as a scribe for Lazaro Patterson MD. Provider Scribe Attestation: All medical record entries made by the Scribe were at my direction and perso aisha dictated by me. I have reviewed the chart and agree that the record accurately reflects my personal performance of the history, physical exam, medical decision making, and the department course for this patient. I have also personally directed, reviewed, and agree with the discharge instructions and disposition. Disposition - Clinical Impression Clinical Impression: COPD (chronic obstructive pulmonary disease), Malingering - Patient ED Disposition Is Patient to be Admitted: No - Disposition Disposition: Routine/Home Disposition Time: 06:10 Condition: STABLE Instructions: Risk Factors for COPD Forms: [employer] (Yoruba)
[2018-05-22] MEDS ORDERED: Albuterol-Ipratrop 3 mg / 0.5 (3 ml) UD INH STA (02:49)
[2018-05-22 06:50] VITALS: BP 139/93; PULSE 93; RESP 16; TEMP 98.2; O2SAT 97
== END 2018-05-22 06:15 | disposition home or self-care (01) ==
LOC: H.ER 00:22
DX: J44.9 Chronic obstructive pulmonary disease, unspecified (principal)

== ENCOUNTER 2018-08-26 13:17 | Emergency (ER) | payer OTHER ==
[2018-08-26 13:17] VITALS: BMI 32.5
[2018-08-26 13:30] VITALS: O2SAT 97
[2018-08-26] MEDS ORDERED: Tdap Vaccine 0.5 ml Vial (10-64 yrs) IM ONE ×2 (13:53→15:45)
--- NOTE | 2018-08-26 14:53 | ED PDOC ---
HPI: Psych/Substance Abuse Time Seen by Provider: 08/26/18 13:32 Chief Complaint (Nursing): Medical Clearance Chief Complaint (Provider): Medical Clearance History Per: Patient History/Exam Limitations: no limitations Onset/Duration Of Symptoms: Mins Current Symptoms Are (Timing): Still Present Additional Complaint(s): Patient is a 53 y/o male with an extensive PMHx who was brought in under custody by [place] [employer] for psychiatric and medical clearance prior to incarceration. Patient states "things are not going my way" and expresses suicidal ideation. Patient admits to hitting the back of his head against a concrete wall. In addition, patient complains of left hand pain after sustaining an injury while "wrestling". Pt states he does not want to kill himself, just frustrated that things are not going his way. Furthermore, patient indicated he has not been taking his mental health medication because they were stolen. Patient denies neck pain, LOC, nausea, vomiting. Pt denies homicidal ideations, visual or auditory hallucinations. Of note, patient claims he is 100 days sober. Patient added that his father was an alcoholic who committed suicide. Admits occasional marijuana use PCP: Dr. Hurley Past Medical History Reviewed: Historical Data, Nursing Documentation, Vital Signs Vital Signs: Last Vital Signs Temp 98.4 F 08/26/18 13:21 Pulse 96 H 08/26/18 13:21 Resp 16 08/26/18 13:21 BP 143/98 H 08/26/18 13:21 Pulse Ox 97 08/26/18 13:21 Primary Care Provider: FAMILY PROVIDER,NO - Medical History PMH: Anxiety, Arthritis (arthritis of neck and back), Back Problems (chronic back pain ), Bipolar Disorder, COPD, Depression, Diabetes, Emphysema, Fractures (skull, right pinky), Pneumonia, Sleep Apnea, Chronic Pain (neck) Denies: Hepatitis, HIV, HTN, Chronic Kidney Disease, Seizures, Sexually Transmitted Disease - Surgical History Surgical History: Appendectomy, Hernia Repair (ventral), Tonsillectomy - Family History Family History: States: Unknown Family Hx - Social History Current smoker - smoking cessation education provided: Yes Alcohol: None (100 dyas sober) Drugs: Cannabis - Immunization History Hx Tetanus Toxoid Vaccination: No (UTD) Hx Influenza Vaccination: Yes Hx Pneumococcal Vaccination: Yes - Home Medications Home Medications: Ambulatory Orders Medication Instructions Recorded Albuterol HFA [Ventolin HFA 90 1 - 2 puff IH Q6 PRN #1 inhaler 04/10/18 mcg/actuation (8 g)] Fluticasone Propion/Salmeterol 1 each IH DAILY 04/25/18 [Fluticasone-Salmeterol 113-14] Ibuprofen [Motrin] 600 mg PO Q6 04/25/18 levoFLOXacin [Levaquin] 750 mg PO DAILY 04/25/18 Albuterol HFA [Ventolin HFA 90 1 puff IH .Q4-6H #1 inhaler 05/17/18 mcg/actuation (8 g)] predniSONE [predniSONE Tab] 2 tab PO DAILY #8 tab 05/17/18 - Allergies Allergies/Adverse Reactions: Allergies Allergy/AdvReac Type Severity Reaction Status Date / Time cats Allergy ITCHING Uncoded 05/22/18 00:24 Review of Systems ROS Statement: Except As Marked, All Systems Reviewed And Found Negative Musculoskeletal: Positive for: Hand Pain (left ), Other (scalp pain). Negative for: Neck Pain Psych: Positive for: Suicidal ideation. Negative for: Other (homicidal ideation) Physical Exam - Reviewed Nursing Documentation Reviewed: Yes Vital Signs Reviewed: Yes - Physical Exam Comments: GENERAL APPEARANCE: Patient is awake, alert, oriented x 3, in no acute distress. SKIN: Warm, dry; (-) cyanosis HEAD: (+) contusion and abrasion to posetior scalp with mild swelling (-) scalp tenderness, (-) deformity. EYES: (-) conjunctival pallor, (-) scleral icterus, (-) nystagmus. EOMI. PERRL. ENMT: Mucous membranes moist. Airway patent: (-) stridor. NECK: (-) tenderness, (-) stiffness, (-) lymphadenopathy. HEART AND CARDIOVASCULAR: (-) irregularity; (-) murmur, (-) gallop. CHEST AND RESPIRATORY: (-) rales, (-) rhonchi, (-) wheezes; breath sounds equal. ABDOMEN: Soft, (-) distention, (-) tenderness, (-) guarding EXTREMITY: Full ROM. Radial pulses: 2+. (+) avulsion to left top of hand, (+) tenderness to left top of hand, (-) swelling, (-) active bleeding. NEURO AND PSYCH: Mental status as above. Affect: flat rn postpartum: Intact. Pupils equal and reactive; EOMI; (-) facial asymmetry; tongue and uvula midline. Strength and DTRs symmetric. - ECG O2 Sat by Pulse Oximetry: 97 (RA) Pulse Ox Interpretation: Normal Medical Decision Making Medical Decision Making: Time: 1353 Impression: Psychiatric Evaluation, Contusions to Scalp, and Avulsion to Left Hand Plan: Crisis Evaluation 1:[address] Head w/o Contrast Hand Left 3 Views Routine [Rad] Adacel 0.5 ml IM Time: 1440 Patient seen and cleared by crisis, Dr. Guardado, with impulse control disorder. 1:[address] and Xray. Time: 1447 Hand Xray FINDINGS: BONES: A corner osseous avulsion fracture fragment and/or chip to fracture fragment ulnar aspect 3rd distal phalanx bordering the distal interphalangeal joint and extending into it is suggested JOINTS: First carpal metacarpal osteoarthritic changes. SOFT TISSUES: No prominent soft tissue swelling at the 3rd DIP joint appreciated. Correlate clinically. OTHER FINDINGS: None. IMPRESSION: Nondisplaced corner osseous fracture 3rd distal phalanx with intra-articular extension-correlate with mechanism of injury-no prominent focal soft tissue swelling here. No dislocation. Comments: Study marked for PA review . Pt has no pain or swelling at that area on exam, informed pt of results Time: 1514 CT Head FINDINGS: HEMORRHAGE: No intracranial hemorrhage. BRAIN: No mass effect or edema. No atrophy or chronic microvascular ischemic changes. VENTRICLES: Unremarkable. No hydrocephalus. CALVARIUM: Unremarkable. PARANASAL SINUSES: Unremarkable as visualized. No significant inflammatory changes. MASTOID AIR CELLS: Unremarkable as visualized. No inflammatory changes OTHER FINDINGS: Nasal bone nondisplaced fractures noted-not appreciated on the 04/16/2017 study. Correlate clinically with current site of the trauma. IMPRESSION: No intracranial hemorrhage or mass effect. Interval (since 04/16/2017) non depressed nasal bone fractures noted wound was cleaned and bandage by power tool repair technician pt is stable for dc into police custody Discussed results, diagnosis, treatment, return precautions and f/u with pt who is understanding, in agreement and stable for dc Scribe Attestation: Documented by Nadeem Sawant, acting as a scribe Rubén Haque PA-C. Provider Scribe Attestation: All medical record entries made by the Scribe were at my direction and personally dictated by me. I have reviewed the chart and agree that the record accurately reflects my personal performance of the history, physical exam, medical decision making, and the department course for this patient. I have also personally directed, reviewed, and agree with the discharge instructions and disposition. Disposition - Clinical Impression Clinical Impression: Impulse control disorder, Abrasion head, Abrasion hand, Contusion of head - Patient ED Disposition Is Patient to be Admitted: No Counseled Patient/Family Regarding: Studies Performed, Diagnosis, Need For Followup - Disposition Referrals: [facility] [Outside] Disposition: Discharged/Transfer to Law Enforcement Disposition Time: 16:18 Condition: STABLE Additional Instructions: Thank you for letting us take care of you today. The emergency medical care you received today was directed at your acute symptoms. If you were prescribed any medication, please fill it and take as directed. It may take several days for your symptoms to resolve. Return to the Emergency Department if your symptoms worsen, do not improve, or if you have any other problems. Please contact your doctor in 2 days for re-evaluation and follow up / or call one of the physicians/clinics you have been referred to that are listed on the Patient Visit Information form that is included in your discharge packet. Bring any paperwork you were given at discharge with you along with any medications you are taking to your follow up visit. Our treatment cannot replace ongoing medical care by a primary care provider (PCP) outside of the emergency department. Instructions: Minor Head Injury (DC), Skin Abrasions (DC), General (DC) Forms: [facility] ED School/Work Excuse Print Language: BENINESE - POA Present On Arrival: None
--- NOTE | 2018-08-26 15:20 | CT ---
Date of service: 08/26/2018 PROCEDURE: CT HEAD WITHOUT CONTRAST. HISTORY: head injury COMPARISON: 04/16/2017 TECHNIQUE: Axial computed tomography images were obtained through the head/brain without intravenous contrast. Radiation dose: Total exam DLP = 946.54 mGy-cm. This CT exam was performed using one or more of the following dose reduction techniques: Automated exposure control, adjustment of the mA and/or kV according to patient size, and/or use of iterative reconstruction technique. FINDINGS: HEMORRHAGE: No intracranial hemorrhage. BRAIN: No mass effect or edema. No atrophy or chronic microvascular ischemic changes. VENTRICLES: Unremarkable. No hydrocephalus. CALVARIUM: Unremarkable. PARANASAL SINUSES: Unremarkable as visualized. No significant inflammatory changes. MASTOID AIR CELLS: Unremarkable as visualized. No inflammatory changes. OTHER FINDINGS: Nasal bone nondisplaced fractures noted-not appreciated on the 04/16/2017 study. Correlate clinically with current site of the trauma. IMPRESSION: No intracranial hemorrhage or mass effect. Interval (since 04/16/2017) non depressed nasal bone fractures noted
[2018-08-26 17:02] VITALS: BP 131/85; PULSE 64; RESP 18; TEMP 98.2
== END 2018-08-26 17:30 ==
LOC: H.ER 13:17
DX: F63.9 Impulse disorder, unspecified (principal); S00.03XA Contusion of scalp, initial encounter; S60.512A Abrasion of left hand, initial encounter; W22.8XXA Striking against or struck by other objects, initial encounter; Y92.89 Other specified places as the place of occurrence of the external cause; E11.9 Type 2 diabetes mellitus without complications; F12.90 Cannabis use, unspecified, uncomplicated; F17.200 Nicotine dependence, unspecified, uncomplicated; F31.9 Bipolar disorder, unspecified; F41.9 Anxiety disorder, unspecified; G89.29 Other chronic pain; J44.9 Chronic obstructive pulmonary disease, unspecified